=== PATIENT | female | born 1950 | race Caucasian/White ===

== ENCOUNTER → 2019-10-15 09:26 | Outpatient (CLI) | payer BC, SELFPAY | PROVIDERS: PCP Family Medicine; Visit Provider Family Medicine | DX: R07.9 Chest pain, unspecified (principal) | CPT/HCPCS: 93225; 93226 ==

== ENCOUNTER → 2019-12-13 06:53 | Outpatient (CLI) | payer BC, SELFPAY ==
[2019-11-21 10:14] VITALS: BMI 27.5
--- NOTE | 2019-12-13 06:57 | ECHOD_ITS ---
Reason For Study: CHEST PAIN Procedure This was a 2D Doppler, Color Flow transthoracic echocardiogram. Exam performed in department. Left Ventricle Normal LV size. The estimated ejection fraction is 30-35 %. Stage 1 diastolic dysfunction. There is severe global hypokinesis of the left ventricle. Right Ventricle Normal RV size. Normal systolic function. Atria Normal left atrium. Normal right atrium. No doppler evidence for ASD. Mitral Valve There is no mitral valve stenosis. Trivial mitral valve insufficiency. Tricuspid Valve There is no tricuspid stenosis. No tricuspid valve insufficiency. Unable to estimate RV systolic pressure due to insufficient tricuspid regurgitant envelope. Aortic Valve Trisinus/trileaflet aortic valve. There is no aortic stenosis. Trivial aortic valve insufficiency. Pulmonic Valve There is no pulmonic valvular stenosis. No pulmonic valve insufficiency. Great Vessels Normal aortic root. Pericardium/Pleural No pericardial effusion. MMode/2D Measurements & Calculations LVIDd: 5.6 cm IVSd: 1.0 cm Ao root diam: 2.9 cm LVIDs: 4.7 cm LVPWd: 1.0 cm RVDd: 3.8 cm FS: 16.5 % LAV(MOD-bp): 43.4 ml LA A4 area: 12.6 cm2 LA dimension(2D): 3.1 cm LAV(MOD-bp) Indexed: 24.5 ml/m2 LAV(MOD-sp2): 52.1 ml LAV(MOD-sp4): 30.3 ml RA A4 area: 11.8 cm2 Doppler Measurements & Calculations MV E max conor: 63.1 cm/sec Lat Peak E' Conor: 2.7 cm/sec Med Peak E' Conor: 2.2 cm/sec MV A max conor: 113.5 cm/sec E/E' lat: 23.3 E/E' med: 28.8 MV E/A: 0.56 Ao V2 max: 127.9 cm/sec LV V1 max: 94.8 cm/sec PA V2 max: 92.8 cm/sec Ao max P.5 mmHg LV V1 max P.6 mmHg TR max conor: 240.2 cm/sec TR max P.1 mmHg Interpretation Summary The estimated ejection fraction is 30-35 %. Stage 1 diastolic dysfunction. There is severe global hypokinesis of the left ventricle. Trivial mitral valve insufficiency. Trivial aortic valve insufficiency. Ordering Physician: Rasheeda Zabala Referring Physician: Александр Brito Performed By: Tiffanie Nicolas, RANJITH, RVT
--- NOTE | 2019-12-13 11:25 | STRESSREP_ITS ---
Stress Test Report Date: 12/13/2019 Procedure: Pharmacologic stress nuclear imaging study Indications: Chest pain Consent: Per the patient Procedure: The patient underwent pharmacologic (Regadenoson) evaluation with a peak heart rate of 98 beats per minute (65 %predicted maximal heart rate) and a peak blood pressure of 132/80 mmHg. The baseline ECG demonstrated normal sinus rhythm, left bundle branch block. EKG during lexiscan infusion revealed no significant change from baseline. EKG post infusion revealed no significant change from baseline [There were no cardiac dysrhythmias pretest, during pharmacologic infusion, or recovery]. [There was no complaint of chest discomfort during pharmacologic infusion or recovery]. The examination was discontinued secondary to completion of protocol. Impression: 1. Lexiscan stress test test is negative for Lexiscan infusion induced EKG changes of ischemia. 2. Lexiscan stress test test negative for Lexiscan infusion induced chest pain. 3. Results of the nuclear portion of the test is as below Myocardial perfusion imaging study: Technique: The patient was injected with 11.3 millicuries of technetium 99m Cardiolite and subsequently rest SPECT Cardiolite nuclear imaging was obtained in the horizontal long, vertical long, and short axis views. The patient underwent pharmacologic (Regadenoson) evaluation. Please see above for details. The patient was injected with 34.1 millicuries of technetium 99m Cardiolite and subsequently stress SPECT Cardiolite nuclear imaging was obtained in the horizontal long, vertical long, and short axis views. A gated Cardiolite study at peak stress was obtained. Interpretation: Rest and stress SPECT Cardiolite nuclear imaging status post realignment, normalization, and attenuation correction demonstrate moderately decreased radioisotope uptake in the anterior wall on the rest images that is further decreased on the stress images suggestive of prior anterior RI with moderate berhane-infarct ischemia. Gated images reveal global hypokinesis that is more severe in the anterior wall. The reported LVEF is 35 %. Impression: 1. 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 2. Estimated ejection fraction is 35%. This note was generated with [employer] software. It may contain incorrect words, spelling, and punctuation that were not noted in checking the note before signing.
== END ==
PROVIDERS: PCP Family Medicine; Referring Provider Specialist; Visit Provider Specialist
DX: R07.9 Chest pain, unspecified (principal); I49.3 Ventricular premature depolarization; I45.4 Nonspecific intraventricular block
CPT/HCPCS: 78452; 93017; 93306; A9500; A4216; J2785

== ENCOUNTER 2019-12-20 08:55 | Day surgery (SDC) | payer MEDICARE, SELFPAY ==
[2019-12-18 14:53] VITALS: BMI 27.1
--- NOTE | 2019-12-18 15:52 | RAD_ITS ---
HISTORY: Chest pain for several months. ADDITIONAL HISTORY: None provided. COMPARISON: None EXAMINATION/TECHNIQUE: XR Chest 2 Views Number of images including paperwork: 2 FINDINGS: LUNGS AND PLEURA: No consolidation, mass or pleural effusion. CARDIAC SILHOUETTE: Mildly enlarged. MEDIASTINUM AND ALEX: Aortic tortuosity. UPPER ABDOMEN: Unremarkable. SKELETON AND SOFT TISSUES: No acute findings. Degenerative changes. OTHER DEVICES AND HARDWARE: Cervical spine and lumbar hardware partially visible.. RAD/Chest PA and Lateral IMPRESSION: No acute cardiopulmonary abnormality. at 0618 Reported and signed by: Ellie Montes De Oca MD Electronically Signed: Ellie Montes De Oca MD at 6:18 EDT Tel , Service support ,
[2019-12-18 17:14] LABS: Absolute Lymphocyte Count 1.81 X10^3/uL (0.83-4.51); Absolute Neutrophil Count 3.8 X10^3/uL (2.0-7.7); Basophil# 0.04 X10^3/uL; Basophil% 0.6 % (0-1); Eosinophil# 0.16 X10^3/uL; Eosinophils% 2.5 % (0-5); Hematocrit 42.4 % (37-47); Hemoglobin 13.7 g/dL (12.0-15.0); Lymphocyte # 1.81 X10^3/ul (4.0); Lymphocyte % 28.7 % (19-41); Mean Corp Hgb Conc 32.3 g/dL (32-36); Mean Corpuscular Hgb 29.7 pg (27.0-32.0); Mean Corpuscular Volume 91.8 fL (81-99); Mean Platelet Vol. 11.9 fl (6.2-12.0); Monocyte# 0.53 X10^3/uL; Monocyte% 8.4 % (0-10); NRBC Flagged by Analyzer 0 % (0-5); Neutrophil # 3.75 X10^3/uL (2.7-7.7); Neutrophil % 59.5 % (47-70); Platelet Count 253 K/mm3 (150-450); RBC Distribution Width CV 12.6 % (11.6-14.6); RBC Distribution Width SD 42.4 fl (35.1-43.9); Red Blood Count 4.62 M/mm3 (4.2-5.4); White Blood Count 6.3 K/mm3 (4.4-11.0)
[2019-12-18 17:24] LABS: Prothrombin Time (Protime)PT. 12.2 SECONDS (11.7-14.9)
[2019-12-18 17:25] LABS: Partial Thromboplast Time 29.1 Seconds (24.1-36.2)
[2019-12-18 18:00] LABS: Anion Gap 2 (5-15); BUN 15 mg/dL (7-18); BUN/Creat Ratio 14.3 RATIO (10-20); Calcium,Total 9.1 mg/dL (8.5-10.1); Chloride 107 mmol/L (98-107); Creatinine, Serum 1.05 mg/dL (0.55-1.02); EST Glomerular Filtration Rate 55 mL/min (>60); Est Glom Filt Rate - Afr Amer 67 mL/min (>60); Glucose 91 mg/dL (74-106); Potassium 4.1 mmol/L (3.5-5.1); Sodium Level 140 mmol/L (136-145)
[2019-12-19 08:29] VITALS: BMI 27.1
[2019-12-20] VITALS (15 sets, daily range): BP systolic 114–142; BP diastolic 58–75; PULSE 52–72; RESP 12–18; TEMP 36.6–36.8; O2SAT 93–100
--- NOTE | 2019-12-20 12:00 | EKG12_ITS ---
Test Reason : DYSRHYTHMIA Blood Pressure : / mmHG Vent. Rate : 054 BPM Atrial Rate : 054 BPM P-R Int : 146 ms QRS Dur : 146 ms QT Int : 476 ms P-R-T Axes : 045 045 086 degrees QTc Int : 451 ms Sinus bradycardia Left bundle branch block Abnormal ECG Confirmed by HELENE HINES, RICHARD ([id number]), electronic news gathering editor YAQUELIN POPE ([id number]) on 01/01/2020 8:40:00 AM Referred By: Rasheeda Zabala Confirmed By:RICHARD NARAYAN MD
--- NOTE | 2019-12-20 12:46 | CL.I_ITS ---
Patient Name: EVANS BARR Study Date: 12/20/2019 Performing: Silvia Zabala MD Ht: 63 inches 161 cm : 1950 Wt: 156.7 lbs 71 kg Age: 69 Gender: female BSA: 1.75 PROCEDURE(S) PERFORMED [id number] W OR WO PTCA, SINGLE CORONARY ARTERY CLINICAL PROFILE AND CO-MORBIDITIES Indications: Worsening Angina Heart Failure: None Stress/Imaging Stress Test w/SPECT MPI: Yes Result: Positive High Risk Stress Test with SPECT MPI : Positive High Risk CAD Presentations: Unstable angina. CONCLUSIONS Single vessel CAD as described. Successful PCI of pLAD with POOL RECOMMENDATIONS DESCRIPTION OF PROCEDURE The patient arrived to the procedure lab. The risks and benefits of the procedure as well as a full d escription of our services here and lack of surgical backup were fully explained to the patient and/o r their significant other prior to the catheterization. The Timeout was completed, verifying the ovidio ect patient and procedure. The patient's procedural site was prepped and draped in the usual fashion. Local anesthetic was given subcutaneously to right radial region with Lidocaine 2%. Using a modified Seldinger technique, arterial access was obtained via the right radial artery, a 6Fr sheath was inse rted.. Left Coronary Artery selective angiography was performed in multiple views using a 5 Fr. FL3. 5 catheter. Right Coronary Artery selective angiography was then performed in multiple views using a 5 Fr. FR 4 catheterThe images were reviewed and options discussed. A decision was then made to procee d with an Intervention, IVUS or other adjunct procedure. XB 3.0 Guide catheter was inserted and engaged into the LCA. BMW Guide wire was advanced to the L AD. 3.0 x 8 Emerge Balloon catheter was advanced across lesion in the LAD, proximal. PTCA balloon inf lated at 14 atms for 25 secs. 4.0 x 16 Synergy Drug Eluting stent was advanced across the lesion in t he LAD, proximal. Angiogram performed post stent deployment. The arterial sheath was pulled and a T R Band was applied for hemostasis 12cc air inserted CORONARY ANGIOGRAPHY DOMINANCE: Right Dominant LEFT HEART ASSESSMENT Left Ventricular Ejection Fraction: by Echo 30-35 % LEFT MAIN: Mild luminal irregularities LEFT ANTERIOR DESCENDING ARTERY: PROX LAD: 95 % Stenosis MID LAD: 20 % Stenosis CIRCUMFLEX ARTERY: Mild luminal irregularities RIGHT CORONARY ARTERY: Mild luminal irregularities INTERVENTION INFORMATION LESION SITE: LAD (Proximal) Lesion Complexity: Non-High/Non-C, chronic total occlusion: No, lesion at bifurcation: No, thrombus p resent: No, lesion length: 15 mm, culprit lesion: Yes, Previously treated lesion: No Pre Stenosis: 95 % Pre intervention MARITO flow: 3 PROCEDURE: Drug Eluting Stent with pre dilatation. Post Stenosis: 0 % Post intervention MARITO flow: 3 Lesion Devices: Cardinal 6 Fr XB3.0 100cm Guide Catheter Mcmillan .014 BMW [place] Straight 190cm Dany Sci EMERGE MR 3.00x08 BALLOON Dany Sci Synergy MR POOL 4.00x16 COMPLICATIONS No Complications PROCEDURE MEDICATIONS Versed 1 mg IV Oxygen: 2 L/min via nasal cannula Brilinta 180 mg PO @ 12/20/2019 11:21:46 Heparin given IA 12/20/2019 10:58:10 Heparin 2000 unit(s) IV 12/20/2019 11:09:37 Verapamil 2.5mg, Ntg 100mcgs, 3000 units of Heparin given IA 12/20/2019 10:58:10 SUMMARY OF HEMODYNAMIC DATA Time AIR REST ECG 09:18:38 AO 110/51 (72) SA 11:00:07 AO 135/54 (81) 11:10:51 Signed By Silvia Zabala MD On 12/20/2019 12:45:23 PM Silvia Zabala MD
--- NOTE | 2019-12-20 13:52 | CRPHASE1_ITS ---
Patient Communication Former Patient:: Phase I PHII Cardiac Rehab Discussed with Patient:: Yes Guide to Cardiac Rehab Given to Patient:: Yes Cardiac Rehab Facility Choice List Given to Patient:: Yes Choice Program [facility] PHII:: Communication Given to CR Director Of Security:: Rasheeda Zabala Refer Phase II Cardiac Rehab:: Yes Risk Factors/Lifestyle Smoking Status: Never smoker Second-Hand Smoke:: No Hx Hypertension: Yes Hx Diabetes Mellitus Type 1: No Hx Diabetes Mellitus Type 2: No Hx Metabolic Disorders: No Hx Dyslipidemia: No Hx Obesity: No Post-Menopausal: Yes ETOH: No Caffeine: No Substance Abuse: No Risk Factor for Sedentary Lifestyle: Lowest Risk Family History: Family History (Last Reviewed 12/18/19 @ 15:[address] Rasheeda Zabala MD) Father Hypertension Sister Breast cancer Cancer Hypertension Brother Hypertension Phase I Education Given On:: [place], Nutrition, Antiplatelet medication Issues Affecting Care:: None Knowledge of Condition:: Yes Learning Preferences: Verbal, Written Cardiac Rehabilitation Info Cardiac Rehabilitation Program Information: Cardiac Rehabilitation is important for patients like you who are recovering from a heart problem. Cardiac rehabilitation programs are recognized as integral to the continued care of the patient with coronary heart disease. The cardiac rehabilitation program is designed to optimize a patient's physical, psychological, and social functioning. Health doggy daycare activities director work in cardiac rehabilitation programs and assist you with getting the treatments you need to get stronger and healthier - like exercise, healthy eating habits, and medications. Cardiac rehabilitation has been show to help people with heart problems live longer and have better life enjoyment than people who do not go to cardiac rehabilitation. Please contact the Cardiac Rehabilitation Program at [facility] at in two weeks if you have not heard from them.
--- NOTE | 2019-12-20 13:54 | CRPH1.INSTRU ---
General Education CAD and cardiac anatomy and function:: Patient communicates acknowledgment, Family communicates acknowledgment Explanation of diagnoses and procedures:: Patient communicates acknowledgment, Family communicates acknowledgment Sign/Symptoms of [place]:: Patient communicates acknowledgment, Family communicates acknowledgment Antiplatelet therapy: Patient communicates acknowledgment, Family communicates acknowledgment Proper use of NTG-SL: Patient communicates acknowledgment, Family communicates acknowledgment Emergency procedures and activation of EMS: Patient communicates acknowledgment, Family communicates acknowledgment Compliance of all prescribed medications: Patient communicates acknowledgment, Family communicates acknowledgment Hypertension Recommendations Include:: Maintain BP <130/85, DASH dietary guidelines, Decrease/maintain normal body weight, Moderation of ETOH Hypertension:: Patient communicates acknowledgment, Family communicates acknowledgment Heart Disease Recommendations Include:: Educated family members of their risk, Educated family members of importance of prevention of heart disease Heart Disease Response Code:: Patient communicates acknowledgment, Family communicates acknowledgment
--- NOTE | 2019-12-20 18:03 | NURSING ---
1750 This RN taking over care of pt at this time. Report received from Giancarlo ALBA.
[2019-12-20] MEDS: Famotidine 20 MG Tablet 40 MG PO (21:13)
[2019-12-20] MEDS: Atorvastatin Calcium 40 MG Tablet PO (21:14)
[2019-12-20] MEDS: TICAGRELOR 90 MG TABLET PO (21:14)
[2019-12-21] VITALS: BP 136/59; PULSE 54; RESP 16; TEMP 36.9; O2SAT 98
[2019-12-21 02:59] VITALS: PULSE 47
[2019-12-21 04:00] VITALS: BP 126/63; PULSE 54; RESP 16; TEMP 36.6; O2SAT 97
[2019-12-21 06:22] LABS: Hematocrit 40.7 % (37-47); Hemoglobin 13.2 g/dL (12.0-15.0); Mean Corp Hgb Conc 32.4 g/dL (32-36); Mean Corpuscular Hgb 29.3 pg (27.0-32.0); Mean Corpuscular Volume 90.4 fL (81-99); Mean Platelet Vol. 11.4 fl (6.2-12.0); Platelet Count 221 K/mm3 (150-450); RBC Distribution Width CV 12.6 % (11.6-14.6); RBC Distribution Width SD 41.8 fl (35.1-43.9); White Blood Count 7.4 K/mm3 (4.4-11.0)
[2019-12-21 06:41] LABS: ALB/GLOB Ratio 1.1 RATIO (0.9-2.4); AST(SGOT) 17 U/L (15-37); Alanine Aminotransfer ALT/SGPT 22 U/L (13-56); Albumin, Serum 3.4 g/dL (3.2-5.0); Alkaline Phosphatase 50 U/L (45-117); Anion Gap 4 (5-15); BUN 16 mg/dL (7-18); Calcium,Total 8.8 mg/dL (8.5-10.1); Chloride 109 mmol/L (98-107); Creatinine, Serum 0.89 mg/dL (0.55-1.02); EST Glomerular Filtration Rate 67 mL/min (>60); Est Glom Filt Rate - Afr Amer 81 mL/min (>60); Estimated Creatinine Clearance 48.65 ml/min; Globulin 3.1 g/dL (2.2-4.2); Glucose 84 mg/dL (74-106); Potassium 3.8 mmol/L (3.5-5.1); Protein, Total 6.5 g/dL (6.4-8.2); Sodium Level 142 mmol/L (136-145)
[2019-12-21 06:45] VITALS: O2SAT 97
[2019-12-21 07:28] VITALS: PULSE 62
[2019-12-21 10:00] VITALS: BP 132/51; PULSE 54; RESP 16; TEMP 36.9; O2SAT 97
[2019-12-21] MEDS: TICAGRELOR 90 MG TABLET PO (10:06)
[2019-12-21] MEDS: Lisinopril 2.5 MG Tablet PO (10:06)
[2019-12-21] MEDS: Pantoprazole Sodium 40 MG Tablet PO (10:06)
[2019-12-21] MEDS: Multivitamins,Ther W-Minerals Tablet 1 TABLET PO (10:06)
[2019-12-21] MEDS: Aspirin E.C. 81 MG Tablet PO (10:06)
--- NOTE | 2019-12-21 10:49 | PCM.DC.CCA ---
Discharge Diet: Low fat/ Low Cholesterol Discharge Activity: Return to Normal Activity May shower in (days): 1 Lifting Restrictions: 10 pounds and also avoid any pushing or pulling for 3 days after your proce Call your doctor if your incision/area has: Continuous Slow Oozing, Sudden Increased Bleeding, Increased Pain/ Swelling, Increased Redness, Swelling at the incision site Call your doctor if you observe: Fever of 101 or Higher, Shortness of breath, Chest pain Remove Dressing in (days):: 1 Additional Instructions: You are started on Brilinta, this is an Antiplatelet inhibitor. This will help keep your stents open. You need to stay on this medication for at least 1 year prior to it being interrupted. You are also started on a cholesterol-lowering medication. You should have your lipids checked after your next office visit. You were referred to cardiac rehab. We can further discuss this at your next office visit. If you have any concerns on the site that was used for your heart catheterization please give our office a call at [phone]. Allergies/Adverse Reactions: Allergies Opioids - Morphine Analogues Allergy (Intermediate, Verified 12/18/19 14:57) Unknown Medications to take at Discharge cholecalciferol (vitamin D3) 25 mcg (1,000 unit) tablet 25 mcg PO DAILY 11/06/19 wklhfuti-jmy-ouivm acid 0.4 mg-lycopene 300 mcg-lutein 250 mcg tablet 1 tab PO DAILY 11/06/19 pantoprazole 40 mg tablet,delayed release 40 mg PO DAILY 11/06/19 aspirin 81 mg tablet,delayed release 81 mg PO DAILY 12/18/19 cimetidine 800 mg tablet 800 mg PO QHS tab 12/18/19 lisinopril 2.5 mg tablet 2.5 mg PO DAILY #30 tab 12/18/19 metoprolol succinate 100 mg tablet,extended release 24 hr 100 mg PO DAILY #30 tab 12/18/19 Atorvastatin Calcium [Lipitor] 40 mg PO QHS #30 tab 12/21/19 Ticagrelor [Brilinta] 90 mg PO BID #60 tab 12/21/19 The following prescriptions were given: Ticagrelor [Brilinta] 90 mg PO BID #60 tab Transmission Status: Pending to [facility]/pharmacy #[id number] Atorvastatin Calcium [Lipitor] 40 mg PO QHS #30 tab Transmission Status: Pending to [facility]/pharmacy #[id number] Orders to be completed after discharge: Phase II, Outpatient Cardiac Rehab Location: None Selected Primary Care Physician: Александр Brito MD [Primary Care Provider] - Test Results: Test results from this visit will be discussed in further detail at your follow-up appointment, if applicable. Please Follow Up With: Rasheeda Zabala MD When: as scheduled 01/22/2020 Cardiac Rehabilitation Info Cardiac Rehabilitation Program Information: Cardiac Rehabilitation is important for patients like you who are recovering from a heart problem. Cardiac rehabilitation programs are recognized as integral to the continued care of the patient with coronary heart disease. The cardiac rehabilitation program is designed to optimize a patient's physical, psychological, and social functioning. Health laboratory animal caretaker work in cardiac rehabilitation programs and assist you with getting the treatments you need to get stronger and healthier - like exercise, healthy eating habits, and medications. Cardiac rehabilitation has been show to help people with heart problems live longer and have better life enjoyment than people who do not go to cardiac rehabilitation. Please contact the Cardiac Rehabilitation Program at [facility] at in two weeks if you have not heard from them.
--- NOTE | 2019-12-21 11:28 | CASEMGMT ---
PARTH CABA NOTE: Pt will be discharged home on Brilinta. PARTH CABA to room at this time to talk w/pt and @ bedside. Pt confirms [facility] in [place] is her preferred pharmacy. Discussed Brilinta savings card and instructions given on use. Pt/ made aware that if cost of refills is not affordable to let manager of internal audit know so other options can be discussed. They voice understanding. Pt/ made aware of importance of taking medication as prescribed. Pt's next scheduled appt @ [facility] is Jan 21. Call placed to [facility] and spoke to Sameera. She was made aware pt will need refill on Brilinta prior to appt. She states she will have script sent to [facility] for refill. Pt made aware. Pt denies having any discharge needs/concerns at this time. Informed her and to ask for PARTH CABA if anything arises. Jhoana FRIED RN, CM
--- NOTE | 2019-12-21 12:00 | EKG12_ITS ---
Test Reason : POST CATH Blood Pressure : / mmHG Vent. Rate : 050 BPM Atrial Rate : 050 BPM P-R Int : 148 ms QRS Dur : 138 ms QT Int : 438 ms P-R-T Axes : 057 074 257 degrees QTc Int : 399 ms Sinus bradycardia Left bundle branch block Abnormal ECG No previous ECGs available Confirmed by AGUSTÍN GUPTA ([id number]), television news video editor MARIE LEGGETT ([id number]) on 12/24/2019 12:47:36 PM Referred By: Rasheeda Zabala Confirmed By:AGUSTÍN GUPTA
--- NOTE | 2019-12-21 12:35 | PCM.PN.CARD ---
Subjectve: Patient is doing well. Patient is doing well. She denies any anginal symptoms. She does have some shortness of breath which could be related to Brilinta. Explained this to the patient. Explained to her that usually this gets better but if it is significantly bothersome for her then we could switch to Plavix. Objective: Vital Signs Temp Pulse Resp BP Pulse Ox 98.4 F 54 L 16 132/51 H 97 12/21/19 10:00 12/21/19 10:00 12/21/19 10:00 12/21/19 10:00 12/21/19 10:00 Oxygen Flow Rate (L/min) 2 Oxygen Delivery Method Room Air Weight: 156 lb Body Mass Index (BMI) 27.1 General: Awake, Alert, Oriented x 3 HEENT: Atraumatic Oral: Moist Mucosa Neck: Supple Cardiovascular: Regular Rhythm Skin: No Rashes Psych/Mental Status: Appropriate 12/21/19 06:03: WBC 7.4, RBC 4.50, Hgb 13.2, Hct 40.7, MCV 90.4, MCH 29.3, MCHC 32.4, Plt Count 221, MPV 11.4 12/21/19 06:03: Sodium 142, Potassium 3.8, Chloride 109 H, Carbon Dioxide 29.0, Anion Gap 4 L, BUN 16, Creatinine 0.89, Est GFR (MDRD) Af Amer 81, Est GFR (MDRD) Non-Af 67, BUN/Creatinine Ratio 18.0, Glucose 84, Calcium 8.8, Total Bilirubin 0.60 Rhythm: EKG: ECHO: Stress Test: Cardiac Cath: PCI: CT Surgery: Holter monitor: EPS: PPM: CXR: Chest CT Scan: Medical Necessity - Tobacco Use Smoking Status: Never smoker Assessment/Plan 1. Coronary artery disease: Patient was admitted yesterday (12/20/2019) after elective coronary angiography as she ended up requiring drug-eluting stent to the LAD. She is doing well at this time. She will be discharged home. She will follow-up with me as an outpatient. Date of discharge is 12/21/2019.
== END 2019-12-21 12:38 | disposition home or self-care (01) ==
LOC: CLSP 08:56 → PCU 12-21 09:35
PROVIDERS: PCP Family Medicine; Referring Provider Specialist; Visit Provider Specialist
DX: I25.110 Atherosclerotic heart disease of native coronary artery with unstable angina pectoris (principal); I49.3 Ventricular premature depolarization; I47.1 Supraventricular tachycardia; I25.2 Old myocardial infarction; R94.39 Abnormal result of other cardiovascular function study; Z95.5 Presence of coronary angioplasty implant and graft; Z79.899 Other long term (current) drug therapy
CPT/HCPCS: 36415; 71046; 80048; 80053; 85025; 85027; 85610; 85730; 92928; 93005; 93454; 99152; 99153; J7040; Q9967; C1725; C1769; C1874; C1887; C1894; C9600; J1327

== ENCOUNTER 2019-12-29 01:18 | Observation (INO) | payer MEDICARE, SELFPAY ==
[2019-12-19 08:29] VITALS: BMI 27.1
[2019-12-29] VITALS (10 sets, daily range): BP systolic 136–163; BP diastolic 58–82; PULSE 51–56; RESP 16–18; TEMP 36.5–36.7; O2SAT 98–100; BMI 28.8; BMI 26.4
--- NOTE | 2019-12-29 01:50 | ED.DCSUM_ITS ---
History of Present Illness Chief Complaint: Chest Other Narrative: Presents with pain between the shoulder blades radiating to her right shoulder. She had coronary stent placed a week ago after she had an abnormal stress echocardiogram. She is denying chest pain she has no pleuritic component she has no fever chills cough or congestion she denies any dyspnea. Past Medical History - Allergies and Home Meds Allergies/Adverse Reactions: Allergies Opioids - Morphine Analogues Allergy (Intermediate, Verified 12/29/19 01:28) Unknown Primary Care Physician: Александр Brito MD [Primary Care Provider] - Past Medical History: - - Hypertension, hypercholesterolemia, heart disease Smoking Status: Never smoker Review of Systems All systems negative except as indicated General: Denies: Fever Eyes: Denies: Visual changes - bilaterally Cardiovascular: Denies: Chest pain Respiratory: Denies: Dyspnea, Cough Gastrointestinal: Denies: Abdominal pain, Nausea, Vomiting Genitourinary: Denies: Dysuria Musculoskeletal: Reports: - - Pain between the the shoulder blades radiating to the right shoulder Skin: Denies: Rash Neurological: Denies: Headache, Weakness Endocrine: Denies: Polyuria Hematologic: Denies: Easy bruising, Easy bleeding Allergy: Denies: Uticaria Physical Exam Vital Signs/Narrative: Vital Signs Temp Pulse Resp BP Pulse Ox 12/29/19 01:21 97.9 F 53 L 16 163/82 H 99 General: Well nourished, Well developed Eyes: Negative for: Pale conjunctiva ENT: Moist mucous membranes Neck: Supple Cardiovascular: Regular rate, Regular rhythm, No murmurs Respiratory: No distress, CTA bilaterally, Chest nontender Abdomen: Soft, Nontender Back: - - I cannot reproduce the pain in the thoracic region or the shoulder region Extremities: No edema Skin: Normal color Neurological: Normal Strength, Normal Sensation Psychological: Normal affect Diagnostic/Tx/Re-eval - Rhythm Strip Rhythm Strip: Sinus Rhythm Rate: 54 Ectopy: None - EKG Initial EKG Interpretation: - - Sinus rhythm. Left bundle branch block without change from December 21, 2019. Interpreted by emergency doctor. - Medical Decision Making Patient has an unremarkable emergency department work-up however because of her high cardiac risk factors I will admit her for observation cardiology will get involved in the morning at this time she has an unchanged EKG and a negative first troponin I do not believe I need to call cardiology at 3 AM. I talked to the hospitalist who will admit. She is now asymptomatic. ED Disposition - Plan for ED Patient: Disposition: Acute Care Hospital [facility] Diagnosis: Thoracic back pain Referrals: Александр Brito MD [Primary Care Provider] -
--- NOTE | 2019-12-29 02:12 | RAD_ITS ---
STUDY: X-RAY CHEST REASON FOR EXAM: Female, 69 years old. pain in between shoulder blades and into right shoulder 12-19. has been having pain since. -- had heart stent placed on 12/19 TECHNIQUE: Single frontal view of the chest. COMPARISON: 12/18/2019. FINDINGS: No pneumothorax or pleural effusion. Basilar atelectasis. No focal consolidation. Normal size heart. Aortic calcifications. There are diffuse degenerative changes of the visualized thoracic spine. Scoliotic curvature to the spine. Visualization cervical spine hardware. EKG leads artifacts. There is no demonstrated abnormality of the visualized soft tissue structures of the upper abdomen. RAD/Chest 1 View (Portable) IMPRESSION: No focal consolidation identified. Electronically Signed: Antelmo Duran, at 2:51 EDT Tel , Service support ,
[2019-12-29 02:15] LABS: Absolute Lymphocyte Count 2.74 X10^3/uL (0.83-4.51); Absolute Neutrophil Count 3.8 X10^3/uL (2.0-7.7); Basophil# 0.07 X10^3/uL; Basophil% 0.9 % (0-1); Eosinophil# 0.25 X10^3/uL; Eosinophils% 3.4 % (0-5); Hematocrit 38.9 % (37-47); Hemoglobin 12.8 g/dL (12.0-15.0); Lymphocyte # 2.74 X10^3/ul (4.0); Lymphocyte % 36.9 % (19-41); Mean Corp Hgb Conc 32.9 g/dL (32-36); Mean Corpuscular Hgb 29.9 pg (27.0-32.0); Mean Corpuscular Volume 90.9 fL (81-99); Mean Platelet Vol. 12.4 fl (6.2-12.0); Monocyte# 0.57 X10^3/uL; Monocyte% 7.7 % (0-10); NRBC Flagged by Analyzer 0 % (0-5); Neutrophil # 3.76 X10^3/uL (2.7-7.7); Neutrophil % 50.6 % (47-70); Platelet Count 236 K/mm3 (150-450); RBC Distribution Width CV 12.6 % (11.6-14.6); RBC Distribution Width SD 41.2 fl (35.1-43.9); Red Blood Count 4.28 M/mm3 (4.2-5.4); White Blood Count 7.4 K/mm3 (4.4-11.0)
[2019-12-29] MEDS: Aspirin 81 MG TAB.CHEW 324 MG PO (02:18)
[2019-12-29 02:36] LABS: Anion Gap 2 (5-15); BUN 15 mg/dL (7-18); BUN/Creat Ratio 17.6 RATIO (10-20); Chloride 110 mmol/L (98-107); Creatinine, Serum 0.85 mg/dL (0.55-1.02); EST Glomerular Filtration Rate 70 mL/min (>60); Est Glom Filt Rate - Afr Amer 85 mL/min (>60); Estimated Creatinine Clearance 53.18 ml/min; Glucose 90 mg/dL (74-106); Potassium 4.2 mmol/L (3.5-5.1); Sodium Level 141 mmol/L (136-145)
--- NOTE | 2019-12-29 03:17 | HP.PCM_ITS ---
History of Present Illness Date of Admission: 12/29/19 Chief Complaint: chest pain The patient is a 69 year old F with a past medical history of CAD status post stents on 12/20/2019. She was admitted through the ED on 12/29/2019 with a complaint of chest pain which radiated to her back into her right shoulder. Pain was rated about 5/10, had no aggravating or relieving factors. She denied any assisted lightheadedness, dizziness, palpitations, nausea vomiting. Review of symptoms otherwise negative. She states pain has been going on since 5 days prior to admission but had gradually worsened and was persistent so she decided to come into the ED. She was seen in the hospital 1 week ago for chest pain and had an abnormal stress test and so had stents put in the LAD. She has been compliant with her aspirin and her Brilinta was switched to Plavix. The ED, vitals showed temperature of 98.1 Fahrenheit with blood pressure of 136/60, pulse rate of 56 and respiratory rate of 18. She was saturating at 98% on room air. Chemistry essentially unremarkable and CBC was also unremarkable. Initial troponin was less than 0.015. Chest x-ray showed no acute cardiopulmonary process. She has been admitted to be managed for chest pain rule out ACS. [] Past Medical History Medical History: Medical History (Last Updated 12/20/19 @ 13:06 by Michelle Cameron) Atherosclerosis of coronary artery of [place] heart without angina pectoris (Acute) I25.10 BBB (bundle branch block) (Acute) I45.4 PVC's (premature ventricular contractions) (Acute) I49.3 Chest pain (Acute) R07.9 Chronic neck pain with history of cervical spinal surgery M54.2, G89.28, Z98.890 History of chronic back pain Z87.39 Osteopenia M85.80 Allergies Opioids - Morphine Analogues Allergy (Intermediate, Verified 12/29/19 01:28) Unknown Home Medications: Ambulatory Orders Medication Instructions Recorded cholecalciferol (vitamin D3) 25 25 mcg PO DAILY 11/06/19 mcg (1,000 unit) tablet lkjlbwyj-pco-ssiqt acid 0.4 1 tab PO DAILY 11/06/19 mg-lycopene 300 mcg-lutein 250 mcg tablet pantoprazole 40 mg tablet,delayed 40 mg PO DAILY 11/06/19 release aspirin 81 mg tablet,delayed 81 mg PO DAILY 12/18/19 release lisinopril 2.5 mg tablet 2.5 mg PO DAILY #30 tab 12/18/19 metoprolol succinate 100 mg 100 mg PO DAILY #30 tab 12/18/19 tablet,extended release 24 hr Atorvastatin Calcium [Lipitor] 40 mg PO QHS #30 tab 12/21/19 clopidogrel 75 mg tablet 75 mg PO DAILY #30 tab 12/26/19 Surgical History: Surgical History (Last Updated 12/20/19 @ 13:04 by Michelle Cameron) History of coronary artery stent placement (Acute) Z95.5 4.00 x 16 mm Synergy MR POOL to pLAD 12/20/19 History of ankle surgery Z98.890 right History of fusion of cervical spine Z98.1 History of hip surgery Z98.890 Bursa removed from left hip History of lumbar fusion Z98.1 History of microdiscectomy Z98.890 L3-4 Psychiatric History: No pertinent psych hx Lives: Spouse/ Significant Other Smoking Status: Never smoker Alcohol: Occasional Drugs: None - *Family History Maternal Family History: Family History (Last Reviewed 12/18/19 @ 15:[address] Rasheeda Zabala MD) Father Hypertension Sister Breast cancer Cancer Hypertension Brother Hypertension Review of Systems Constitutional: Denies: Chills, Fever, Malaise, Weakness, Weight Change Eyes: Denies: Blurred vision HEENT: Denies: Head Aches, Sinus Congestion, Sinus Drainage Cardiovascular: Reports: Chest Pain. Denies: Chest Pressure, Chest Tightness, Edema, Heaviness, Light Headedness, Orthopnea, Palpitations, Paroxysmal Noc. Dyspnea, Syncope Respiratory: Denies: Cough, Shortness of Breath, Shortness of breath at rest, Sputum production Gastrointestinal: Denies: Abdominal Pain, Nausea, Vomiting Genitourinary: Denies: Dysuria Musculoskeletal: Reports: Back Pain - radiating to right shoulder. Denies: Joint Pain, Joint Tenderness Skin: Denies: Rash, Wounds Neurological: Denies: Numbness, Tingling, Focal weakness Psychiatric: Denies: Anxiety, Depression, Homicidal Ideations, Suicidal Ideations Hematologic/ Lymphatic: Denies: Easy Bruising, Easy Bleeding VTE Information - Inpt Only VTE Present on Admission: No VTE Pharm Prophylaxis ordered?: Yes Patient Problems: Active and Suspected Problems (Last Updated 12/20/19 @ 13:06 by Michelle Cameron) Thoracic back pain (Acute) - Physical Exam Vitals/I&O's: Vital Signs Temp Pulse Resp BP Pulse Ox 97.9 F 51 L 16 138/76 H 98 12/29/19 01:21 12/29/19 02:18 12/29/19 02:18 12/29/19 02:18 12/29/19 02:18 Oxygen Delivery Method Room Air Weight: 167 lb 8.821 oz Body Mass Index (BMI) 28.8 General: Alert, Oriented x3, Cooperative, No apparent distress HEENT: Atraumatic, PERRLA, EOMI, Normocephalic Oral: Moist Mucosa Neck: Supple, No JVD, Negative Carotid Bruits Lungs: Clear to auscultation, Normal air movement, No rhonchi, No wheeze, No rales Cardiovascular: Normal S1, Normal S2, No murmurs, Bradycardic Abdomen: Bowel Sounds Present, Soft, Non Tender, Non-Distended, No Hepato- splenomegaly Extremities: No edema, Capillary Refill Less than 3 Seconds Skin: No rashes, No breakdown Musculoskeletal: No Tenderness to Palpation of Joints or Extremities Lymphatic: No Cervical, Supraclavicular, or Inguinal Adenopathy Neurological: Cranial nerves II-XII grossly intact, Neuro grossly intact, Motor Exam 5/5 strength throughout Psych/Mental Status: Normal Affect, Appropriate, Alert and oriented to time, place, person, mood and affect Laboratory Results 12/29/19 01:30: WBC 7.4, RBC 4.28, Hgb 12.8, Hct 38.9, MCV 90.9, MCH 29.9, MCHC 32.9, RDW Std Deviation 41.2, RDW Coeff of Ten 12.6, Plt Count 236, MPV 12.4 H, Immature Gran % (Auto) 0.500, Neut % (Auto) 50.6, Lymph % (Auto) 36.9, [place] % (Auto) 7.7, Eos % (Auto) 3.4, Baso % (Auto) 0.9, Absolute Neuts (auto) 3.8, Absolute Lymphs (auto) 2.74, Nucleated RBC % 0 12/29/19 01:30: Sodium 141, Potassium 4.2, Chloride 110 H, Carbon Dioxide 29.0, Anion Gap 2 L, BUN 15, Creatinine 0.85, Estim Creat Clear Calc 53.18, Est GFR (MDRD) Af Amer 85, Est GFR (MDRD) Non-Af 70, BUN/Creatinine Ratio 17.6, Glucose 90, Calcium 9.0, Troponin I < 0.015 Diagnostic Data Chest X-Ray 12/29/19 02:12 IMPRESSION: No focal consolidation identified. Electronically Signed: Antelmo Duran, at 2:51 EDT Tel , Service support , Assessment/Plan All Active Problems (Last Updated 12/20/19 @ 13:06 by Michelle Cameron) Thoracic back pain (Acute) Atherosclerosis of coronary artery of [place] heart without angina pectoris (Acute) History of coronary artery stent placement (Acute) LV dysfunction (Acute) Abnormal stress test (Acute) Atrial tachycardia (Acute) BBB (bundle branch block) (Acute) PVC's (premature ventricular contractions) (Acute) Chest pain (Acute) 69-year-old female admitted with a complaint of chest pain. 1. Chest pain * Admit to PCU with telemetry * Initial troponin was negative. EKG showed mild sinus bradycardia. * She status post stent placement in the LAD on 12/20/2019. * Will cycle troponins. Continue p.o. aspirin and Plavix as well as statin. Hold metoprolol on account of patient having bradycardia with heart rate went down to the mid 40s during review. * Consult cardiology in light of patient having recently had stent placed about a week ago and now presenting with chest pain. * 2. Sinus bradycardia: * Heart rate went down to the mid 40s during review though EKG showed heart rate of 56. * Will hold metoprolol for now. * Check TSH. * 3. CAD status post stent * Had abnormal stress test and subsequent cath resulted in stent placement in the LAD. * On aspirin, Plavix and statin as well as low-dose lisinopril. Metoprolol held on account of bradycardia on admission. * DVT prophylaxis: Lovenox CODE STATUS: Full code * Patient counseled extensively about different types of CODE STATUS including full code, DNR CCA and DNR CCA. Patient elects to be full code. * Total swnj-id-mpoa time 16 minutes. OBSV E&M: 72875 Initial observation care L2 Procedures: 37561 Advncd Care Plan 30 Min
--- NOTE | 2019-12-29 03:51 | EKG12_ITS ---
Test Reason : NEW ADMISSION Blood Pressure : / mmHG Vent. Rate : 049 BPM Atrial Rate : 049 BPM P-R Int : 148 ms QRS Dur : 146 ms QT Int : 478 ms P-R-T Axes : 049 039 086 degrees QTc Int : 431 ms Sinus bradycardia Left bundle branch block Abnormal ECG When compared with ECG of 21-DEC-2019 06:31, T wave inversion no longer evident in Inferior leads Confirmed by HELENE HINES, RICHARD ([id number]), newspaper editor managing MARIE LEGGETT ([id number]) on 01/03/2020 4:00:13 PM Referred By: JONEL Confirmed By:RICHARD NARAYAN MD
[2019-12-29 04:18] LABS: Thyroid Stim Hormone (TSH) 3.56 uIU/mL (0.358-3.74)
[2019-12-29] MEDS: Acetaminophen 325 MG Tablet 650 MG PO (05:06)
[2019-12-29 05:26] LABS: Absolute Lymphocyte Count 1.98 X10^3/uL (0.83-4.51); Absolute Neutrophil Count 3.1 X10^3/uL (2.0-7.7); Basophil# 0.05 X10^3/uL; Basophil% 0.9 % (0-1); Eosinophil# 0.22 X10^3/uL; Eosinophils% 3.8 % (0-5); Hematocrit 39.1 % (37-47); Hemoglobin 12.7 g/dL (12.0-15.0); Lymphocyte # 1.98 X10^3/ul (4.0); Lymphocyte % 34.1 % (19-41); Mean Corp Hgb Conc 32.5 g/dL (32-36); Mean Corpuscular Hgb 29.5 pg (27.0-32.0); Mean Corpuscular Volume 90.7 fL (81-99); Mean Platelet Vol. 11.7 fl (6.2-12.0); Monocyte# 0.45 X10^3/uL; Monocyte% 7.8 % (0-10); NRBC Flagged by Analyzer 0 % (0-5); Neutrophil # 3.09 X10^3/uL (2.7-7.7); Neutrophil % 53.2 % (47-70); Platelet Count 219 K/mm3 (150-450); RBC Distribution Width CV 12.3 % (11.6-14.6); RBC Distribution Width SD 40.7 fl (35.1-43.9); Red Blood Count 4.31 M/mm3 (4.2-5.4); White Blood Count 5.8 K/mm3 (4.4-11.0)
[2019-12-29 05:42] LABS: Anion Gap 2 (5-15); BUN 15 mg/dL (7-18); BUN/Creat Ratio 19.1 RATIO (10-20); Calcium,Total 8.6 mg/dL (8.5-10.1); Chloride 111 mmol/L (98-107); Creatinine, Serum 0.79 mg/dL (0.55-1.02); EST Glomerular Filtration Rate 77 mL/min (>60); Est Glom Filt Rate - Afr Amer 93 mL/min (>60); Glucose 85 mg/dL (74-106); Sodium Level 141 mmol/L (136-145)
[2019-12-29] MEDS: Pantoprazole Sodium 40 MG Tablet PO (10:26)
[2019-12-29] MEDS: Lisinopril 2.5 MG Tablet PO (10:26)
[2019-12-29] MEDS: Clopidogrel Bisulfate 75 MG Tablet PO (10:26)
[2019-12-29] MEDS: Multivitamins,Ther W-Minerals Tablet 1 TABLET PO (10:26)
[2019-12-29] MEDS: Aspirin E.C. 81 MG Tablet PO (10:26)
[2019-12-29] MEDS: HYDROcodone Bitartrate/Apap 5/325 Tablet PO (10:29)
--- NOTE | 2019-12-29 10:42 | CT_ITS ---
STUDY: CT THORACIC SPINE WITHOUT CONTRAST REASON FOR EXAM: Female, 69 years old. MID BACK PAIN FOLLOWING CARDIAC STENT PLACEMENT 12/20/19 RADIATION DOSAGE (If Supplied By Facility): CTDIvol = ( 18.50 ) mGy, DLP = ( 648.24 ) mGycm TECHNIQUE: The patient was scanned in a multi detector CT scanner. High resolution imaging was performed. Images were obtained from C7 to L1. Sagittal and coronal images were reconstructed. Individualized dose optimization techniques were used for this CT. COMPARISON: None. FINDINGS: Postoperative changes of the cervical spine. Normal kyphosis of the thoracic spine. There is no substantial scoliosis. There is no demonstrated fracture or compression deformity of the thoracic vertebrae. There is multilevel degenerative disc disease with loss of the disc space heights. There is small hiatal hernia. There are artery stents. CT/Spine Thoracic without Contras IMPRESSION: Thoracic spondylosis. No acute fracture. Electronically Signed: Gautam Dowell MD at 14:16 EDT , Service support ,
--- NOTE | 2019-12-29 15:22 | DCINST_ITS ---
- Discharge Diagnoses Current Active Problems: Current Active and Chronic Problems (Last Updated 12/20/19 @ 13:06 by Michelle Cameron) Thoracic back pain (Acute) You will use the following diet at home:: No restrictions Your food should be the consistency of: Regular Your liquids should be the consistency of: Regular/Thin Discharge Activity: Return to Normal Activity Weight Bearing Status: Full weight bearing Additional Instructions: You may also use over the counter Lidoderm patches for pain. Don't take Ibuprofen or Alleve for pain Allergies/Adverse Reactions: Allergies fentanyl Allergy (Severe, Verified 12/29/19 09:48) heart stopped Medications to take at Discharge cholecalciferol (vitamin D3) 25 mcg (1,000 unit) tablet 25 mcg PO DAILY 11/06/19 syiuoiyn-gjp-apmuo acid 0.4 mg-lycopene 300 mcg-lutein 250 mcg tablet 1 tab PO DAILY 11/06/19 pantoprazole 40 mg tablet,delayed release 40 mg PO DAILY 11/06/19 aspirin 81 mg tablet,delayed release 81 mg PO DAILY 12/18/19 lisinopril 2.5 mg tablet 2.5 mg PO DAILY #30 tab 12/18/19 metoprolol succinate 100 mg tablet,extended release 24 hr 100 mg PO DAILY #30 tab 12/18/19 Atorvastatin Calcium [Lipitor] 40 mg PO QHS #30 tab 12/21/19 clopidogrel 75 mg tablet 75 mg PO DAILY #30 tab 12/26/19 Hydrocodone Bitart/Apap 5-325 [[place] 5/325] 1 tablet PO Q6H PRN PRN 7 Days #28 tablet 12/29/19 The following prescriptions were given: Hydrocodone Bitart/Apap 5-325 [[place] 5/325] 1 tablet PO Q6H PRN PRN 7 Days #28 tablet PRN Reason: Pain Score 1-/10 Transmission Status: Received by [facility]/pharmacy #[id number] Primary Care Physician: Александр Brito MD [Primary Care Provider] - Please follow up with your Primary Care Physician in: next week Test Results: Test results from this visit will be discussed in further detail at your follow- up appointment, if applicable.
--- NOTE | 2019-12-29 15:58 | PCM.CONS.C ---
Reason for Consult Date of Consultation: 12/29/19 History of Present Illness: The patient is a 69 year old F [with history of CAD status post PCI to the LAD last week, LV dysfunction coming to [facility] because of inter-scapular pain radiating to her right arm. She denies any chest pain similar to what she was having prior to the PCI. Patient was admitted to the PCU and MS was ruled out. Patient does not have this pain constantly. She has it more when she lies down. She had a CT of her thoracic spine which reveals degenerative disc disease in multiple levels. Review of systems: All systems reviewed. All else is negative except that in HPI Past Medical History Allergies/Adverse Reactions: Allergies fentanyl Allergy (Severe, Verified 12/29/19 09:48) heart stopped Home Medications: Ambulatory Orders Medication Instructions Recorded cholecalciferol (vitamin D3) 25 25 mcg PO DAILY 11/06/19 mcg (1,000 unit) tablet vlhvnphr-oxe-gyxbj acid 0.4 1 tab PO DAILY 11/06/19 mg-lycopene 300 mcg-lutein 250 mcg tablet pantoprazole 40 mg tablet,delayed 40 mg PO DAILY 11/06/19 release aspirin 81 mg tablet,delayed 81 mg PO DAILY 12/18/19 release lisinopril 2.5 mg tablet 2.5 mg PO DAILY #30 tab 12/18/19 metoprolol succinate 100 mg 100 mg PO DAILY #30 tab 12/18/19 tablet,extended release 24 hr Atorvastatin Calcium [Lipitor] 40 mg PO QHS #30 tab 12/21/19 clopidogrel 75 mg tablet 75 mg PO DAILY #30 tab 12/26/19 Hydrocodone Bitart/Apap 5-325 1 tab PO Q6H PRN PRN 7 Days #28 tab 12/29/19 [[place] 5/325] Psychiatric History: No pertinent psych hx - *Family History Maternal Family History: Family History (Last Reviewed 12/18/19 @ 15:[address] Rasheeda Zabala MD) Father Hypertension Sister Breast cancer Cancer Hypertension Brother Hypertension Lives: Spouse/ Significant Other Smoking Status: Never smoker Tobacco Use: Non-smoker Alcohol: Occasional Drugs: None Objective: Vital Signs Temp Pulse Resp BP Pulse Ox 97.8 F 54 L 16 144/58 H 100 12/29/19 15:42 12/29/19 15:42 12/29/19 15:42 12/29/19 15:42 12/29/19 15:42 Oxygen Delivery Method Room Air Weight: 153 lb 14.122 oz Body Mass Index (BMI) 26.4 Intake and Output for Last 24 Hours 12/27/19 12/28/19 12/29/19 23:59 23:59 23:59 Intake Total 400 / 400 Balance 400 / 400 General: Awake, Alert, Oriented x 3 HEENT: Atraumatic Oral: Moist Mucosa Neck: Supple Extremities: No edema Skin: No Rashes Psych/Mental Status: Appropriate 12/29/19 01:30: WBC 7.4, RBC 4.28, Hgb 12.8, Hct 38.9, MCV 90.9, MCH 29.9, MCHC 32.9, Plt Count 236, MPV 12.4 H, Immature Gran % (Auto) 0.500, Neut % (Auto) 50.6, Lymph % (Auto) 36.9, [place] % (Auto) 7.7, Eos % (Auto) 3.4, Baso % (Auto) 0.9, Absolute Neuts (auto) 3.8, Nucleated RBC % 0 12/29/19 01:30: Sodium 141, Potassium 4.2, Chloride 110 H, Carbon Dioxide 29.0, Anion Gap 2 L, BUN 15, Creatinine 0.85, Est GFR (MDRD) Af Amer 85, Est GFR (MDRD) Non-Af 70, BUN/Creatinine Ratio 17.6, Glucose 90, Calcium 9.0, Troponin I < 0.015 12/29/19 05:12: WBC 5.8, RBC 4.31, Hgb 12.7, Hct 39.1, MCV 90.7, MCH 29.5, MCHC 32.5, Plt Count 219, MPV 11.7, Immature Gran % (Auto) 0.200, Neut % (Auto) 53.2, Lymph % (Auto) 34.1, [place] % (Auto) 7.8, Eos % (Auto) 3.8, Baso % (Auto) 0.9, Absolute Neuts (auto) 3.1, Nucleated RBC % 0 12/29/19 05:12: Sodium 141, Potassium 4.0, Chloride 111 H, Carbon Dioxide 28.0, Anion Gap 2 L, BUN 15, Creatinine 0.79, Est GFR (MDRD) Af Amer 93, Est GFR (MDRD) Non-Af 77, BUN/Creatinine Ratio 19.1, Glucose 85, Calcium 8.6 12/29/19 05:12: Troponin I < 0.015 12/29/19 08:00: Troponin I < 0.015 Rhythm: EKG: ECHO: Stress Test: Cardiac Cath: PCI: CT Surgery: Holter monitor: EPS: PPM: CXR: Chest CT Scan: Assessment/Plan 1. Back pain: Does not appear to be cardiac at this time. 2. Coronary artery disease: Stable continue present management. 3. LV dysfunction: Patient is compensated from a cardiac standpoint. Continue current medications at this time. Okay to discharge patient home from a cardiac standpoint.
--- NOTE | 2019-12-29 16:28 | PCM.DC.SUM ---
Discharge Date and Diagnosis Date of Admission: 12/29/19 Date of Discharge: 12/29/19 - Primary Discharge Diagnosis Acute Problems: #1 acute back pain secondary to degenerative disc disease of the thoracic spine #2 coronary artery disease #3 right arm pain-etiology unknown #4 osteoarthritis Hospital Course and Treatment Imaging Results: 12/29/19 10:42 Spine Thoracic without Contras [CT] Stat Operations: None Procedures: None Summary of Care Provided: The patient is a 69 year old F seen in the emergency room at [facility] with chief complaint of upper back pain between her shoulder blades radiating into her right shoulder and arm. Patient had a coronary artery stent placed approximately week before. Patient denied any chest pain. Work-up in the emergency room included an EKG which showed a normal sinus rhythm with a left bundle branch block-no change from December 21, 2019, chest x-ray showed no focal abnormality, and labs were unremarkable. Patient's cardiac enzymes were unremarkable. Patient was placed in observation status on PCU, cardiac enzymes were cycled and these remain normal, she underwent a CT scan of her thoracic spine which showed degenerative disc disease and spondylosis. Patient was seen in consultation by cardiology who felt that her pain was not related to cardiac etiology. On 12/29/2019, patient was seen and examined: On examination she appeared in good health and spirits, she does not appear to be in any distress. Vital signs as documented. Skin warm and dry and without overt rashes. Neck without JVD, thyroid appears normal, trachea is midline, neck is supple. Lungs clear, normal air movement was noted. Heart exam notable for regular rhythm, normal sounds and absence of murmurs, rubs or gallops. Abdomen unremarkable and without evidence of organomegaly, masses, or abdominal aortic enlargement, bowel sounds are present in all 4 quadrants, no abdominal tenderness was noted. Extremities nonedematous, no cyanosis was noted, no clubbing was noted. Neuro: Cranial nerves II through XII are grossly intact, no focal motor deficits were noted, sensation to light touch and pinprick is intact, motor exam 5/5 throughout. Psych: Patient is alert and oriented x3, she does not appear anxious or depressed, she does not appear agitated. Patient appeared to be stable for discharge on 12/29/2019, I gave the patient a prescription for [place] for her back discomfort and urged her to follow-up with her PCP regarding other treatments. - Physical Exam Vitals/I&O's: Vital Signs Temp Pulse Resp BP Pulse Ox 97.8 F 54 L 16 144/58 H 100 12/29/19 15:42 12/29/19 15:42 12/29/19 15:42 12/29/19 15:42 12/29/19 15:42 Oxygen Delivery Method Room Air Weight: 69.8 kg Body Mass Index (BMI) 26.4 Intake and Output for Last 24 Hours 12/27/19 12/28/19 12/29/19 23:59 23:59 23:59 Intake Total 400 / 400 Balance 400 / 400 Laboratory Results 12/29/19 01:30: WBC 7.4, RBC 4.28, Hgb 12.8, Hct 38.9, MCV 90.9, MCH 29.9, MCHC 32.9, RDW Std Deviation 41.2, RDW Coeff of Ten 12.6, Plt Count 236, MPV 12.4 H, Immature Gran % (Auto) 0.500, Neut % (Auto) 50.6, Lymph % (Auto) 36.9, [place] % (Auto) 7.7, Eos % (Auto) 3.4, Baso % (Auto) 0.9, Absolute Neuts (auto) 3.8, Absolute Lymphs (auto) 2.74, Nucleated RBC % 0 12/29/19 01:30: Sodium 141, Potassium 4.2, Chloride 110 H, Carbon Dioxide 29.0, Anion Gap 2 L, BUN 15, Creatinine 0.85, Estim Creat Clear Calc 53.18, Est GFR (MDRD) Af Amer 85, Est GFR (MDRD) Non-Af 70, BUN/Creatinine Ratio 17.6, Glucose 90, Calcium 9.0, Troponin I < 0.015 12/29/19 01:30: TSH 3.56 12/29/19 05:12: WBC 5.8, RBC 4.31, Hgb 12.7, Hct 39.1, MCV 90.7, MCH 29.5, MCHC 32.5, RDW Std Deviation 40.7, RDW Coeff of Ten 12.3, Plt Count 219, MPV 11.7, Immature Gran % (Auto) 0.200, Neut % (Auto) 53.2, Lymph % (Auto) 34.1, [place] % (Auto) 7.8, Eos % (Auto) 3.8, Baso % (Auto) 0.9, Absolute Neuts (auto) 3.1, Absolute Lymphs (auto) 1.98, Nucleated RBC % 0 12/29/19 05:12: Sodium 141, Potassium 4.0, Chloride 111 H, Carbon Dioxide 28.0, Anion Gap 2 L, BUN 15, Creatinine 0.79, Estim Creat Clear Calc 45.20, Est GFR (MDRD) Af Amer 93, Est GFR (MDRD) Non-Af 77, BUN/Creatinine Ratio 19.1, Glucose 85, Calcium 8.6 12/29/19 05:12: Troponin I < 0.015 12/29/19 08:00: Troponin I < 0.015 Discharge Activity: Return to Normal Activity Weight Bearing Status: Full weight bearing Home Medications: Medications to take at Discharge cholecalciferol (vitamin D3) 25 mcg (1,000 unit) tablet 25 mcg PO DAILY 11/06/19 gmqwpgml-zdi-plvma acid 0.4 mg-lycopene 300 mcg-lutein 250 mcg tablet 1 tab PO DAILY 11/06/19 pantoprazole 40 mg tablet,delayed release 40 mg PO DAILY 11/06/19 aspirin 81 mg tablet,delayed release 81 mg PO DAILY 12/18/19 lisinopril 2.5 mg tablet 2.5 mg PO DAILY #30 tab 12/18/19 metoprolol succinate 100 mg tablet,extended release 24 hr 100 mg PO DAILY #30 tab 12/18/19 Atorvastatin Calcium [Lipitor] 40 mg PO QHS #30 tab 12/21/19 clopidogrel 75 mg tablet 75 mg PO DAILY #30 tab 12/26/19 Hydrocodone Bitart/Apap 5-325 [[place] 5/325] 1 tab PO Q6H PRN PRN 7 Days #28 tab 12/29/19 Following Prescriptions Were Given to Patient: Hydrocodone Bitart/Apap 5-325 [[place] 5/325] 1 tab PO Q6H PRN PRN 7 Days #28 tab PRN Reason: Pain Score 1-10/10 Transmission Status: Received by [facility]pharmacy #[id number] Primary Care Physician: Александр Brito MD [Primary Care Provider] - Please follow up with your Primary Care Physician in: next week Disposition: Home Minutes spent on discharge:: 30 Patient Condition:: Stable Medical Necessity - Tobacco Use Smoking Status: Never smoker Tobacco Use: Non-smoker Meaningful Use Info Meaningful Use Diagnoses (Choose all that apply): None applicable OBSV E&M: 37957 Observ/hosp same date L3
== END 2019-12-29 15:26 | disposition home or self-care (01) ==
LOC: ED 03:19 → PCU 03:30
PROVIDERS: Admitting Provider Student in an Organized Health Care Education/Training Program; Emergency Provider Emergency Medicine; PCP Family Medicine; Visit Provider Internal Medicine
DX: M51.34 Other intervertebral disc degeneration, thoracic region (principal); M25.511 Pain in right shoulder; I25.10 Atherosclerotic heart disease of native coronary artery without angina pectoris; M19.90 Unspecified osteoarthritis, unspecified site; R94.39 Abnormal result of other cardiovascular function study; I10 Essential (primary) hypertension; E78.00 Pure hypercholesterolemia, unspecified; I44.7 Left bundle-branch block, unspecified; R00.1 Bradycardia, unspecified; Z79.82 Long term (current) use of aspirin; Z79.02 Long term (current) use of antithrombotics/antiplatelets; Z79.899 Other long term (current) drug therapy; Z95.5 Presence of coronary angioplasty implant and graft
CPT/HCPCS: 36415; 71045; 72128; 80048; 84443; 84484; 85025; 93005; 99218; 99285; G0378

== ENCOUNTER → 2020-03-05 10:23 | Outpatient (CLI) | payer MEDICARE, SELFPAY ==
[2020-03-05 09:41] VITALS: BMI 26.4
[2020-03-05 12:27] LABS: Cholesterol 125 mg/dL (200); High Density Lipoprotein 66 mg/dL; Triglycerides 91 mg/dL; Very Low Density Lipoprotein 18 mg/dL (5-40)
== END ==
PROVIDERS: PCP Internal Medicine; Referring Provider Internal Medicine; Visit Provider Internal Medicine
DX: I25.10 Atherosclerotic heart disease of native coronary artery without angina pectoris (principal)
CPT/HCPCS: 36415; 80061

== ENCOUNTER → 2020-03-07 11:48 | Outpatient (CLI) | payer MEDICARE, SELFPAY ==
[2020-03-05 09:41] VITALS: BMI 26.4
--- NOTE | 2020-03-07 11:49 | BI_ITS ---
MAMMOGRAPHY - BILATERAL SCREENING REASON FOR EXAM: Female, 69 years old. Routine annual screening examination. PERTINENT HISTORY: FM HX SISTER 69 COMPS FROM [facility] 2019,2018 X 2 TECHNIQUE: Digital bilateral breast dereje (3D mammographic acquisition) in the CC and MLO projections. 2-D mediolateral oblique (MLO) and craniocaudad (CC) views of both breasts were obtained. CAD: Full Field Digital Mammography with Computer Added Detection was performed. COMPARISON: None. FINDINGS: Breast Composition: The breasts are heterogeneously dense, which may obscure small masses. There are no dominant masses or suspicious calcifications. No other significant abnormalities are identified. BI/SCREEN MAMM (CAD) W/DEREJE BILAT IMPRESSION: Stable bilateral screening mammogram. Yearly follow-up mammogram recommended. (A) ASSESSMENT CATEGORY: BIRADS Category 2: Benign. A letter regarding these results will be sent to the patient by the facility within 30 days. Approximately 10% of breast cancers are not detected by mammography. A normal mammogram should not delay biopsy of a clinically suspicious abnormality. [id number] Electronically Signed: Ricardo Hayes, at 13:56 EDT Tel , Service support ,
== END ==
PROVIDERS: PCP Internal Medicine; Referring Provider Internal Medicine; Visit Provider Internal Medicine
DX: Z12.31 Encounter for screening mammogram for malignant neoplasm of breast (principal)
CPT/HCPCS: 77063; 77067

== ENCOUNTER → 2020-04-03 06:43 | Outpatient (CLI) | payer MEDICARE, SELFPAY ==
[2020-03-05 09:41] VITALS: BMI 26.4
--- NOTE | 2020-04-03 15:05 | STRESSREP ---
Stress Test Report Date: 04/03/2020 Procedure: Pharmacologic stress nuclear imaging study Indications: Chest pain Consent: Per the patient Procedure: The patient underwent pharmacologic (Regadenoson) evaluation with a peak heart rate of 99 beats per minute (66%predicted maximal heart rate) and a peak blood pressure of 142/78 mmHg. The baseline ECG demonstrated normal sinus rhythm, left bundle branch block. EKG during lexiscan infusion revealed no significant ischemic changes. EKG post infusion revealed no significant ischemic changes [There were no cardiac dysrhythmias pretest, during pharmacologic infusion, or recovery]. [There was no complaint of chest discomfort during pharmacologic infusion or recovery]. The examination was discontinued secondary to completion of protocol. Impression: 1. Lexiscan stress test test is negative for Lexiscan infusion induced EKG changes of ischemia. 2. Lexiscan stress test test is negative for Lexiscan infusion induced chest pain. 3. Results of the nuclear portion of the test is as below Myocardial perfusion imaging study: Technique: The patient was injected with 11.5 millicuries of technetium 99m Cardiolite and subsequently rest SPECT Cardiolite nuclear imaging was obtained in the horizontal long, vertical long, and short axis views. The patient underwent pharmacologic (Regadenoson) evaluation. Please see above for details. The patient was injected with 32.4 millicuries of technetium 99m Cardiolite and subsequently stress SPECT Cardiolite nuclear imaging was obtained in the horizontal long, vertical long, and short axis views. A gated Cardiolite study at peak stress was obtained. Interpretation: Rest and stress SPECT Cardiolite nuclear imaging status post realignment, normalization, and attenuation correction demonstrate normal myocardial radioisotope uptake. Gated images reveal no significant regional wall motion abnormalities. The reported LVEF is 56%. Impression: 1. There is no evidence of significant ischemia or infarction. 2. Estimated ejection fraction is 56%. This note was generated with Collarityation software. It may contain incorrect words, spelling, and punctuation that were not noted in checking the note before signing.
== END ==
PROVIDERS: PCP Internal Medicine; Referring Provider Specialist; Visit Provider Specialist
DX: I25.10 Atherosclerotic heart disease of native coronary artery without angina pectoris (principal)
CPT/HCPCS: 78452; 93017; A9500; A4216; J2785

== ENCOUNTER → 2020-04-28 09:46 | Outpatient (CLI) | payer MEDICARE, SELFPAY ==
[2020-03-05 09:41] VITALS: BMI 26.4
--- NOTE | 2020-04-28 09:51 | ECHOD_ITS ---
Reason For Study: LV Dysfunction Procedure This was a 2D Doppler, Color Flow transthoracic echocardiogram. Exam performed in department. Left Ventricle Normal LV size. The estimated ejection fraction is 50-55 %. Diastolic function is indeterminate. No regional wall motion abnormalities noted. Right Ventricle Normal RV size. Normal systolic function. Atria Normal left atrium. Normal right atrium. No doppler evidence for ASD. Mitral Valve There is no mitral valve stenosis. No mitral valve insufficiency. Tricuspid Valve There is no tricuspid stenosis. Trivial tricuspid valve insufficiency. Pulmonary artery systolic pressure is 35 mmHg. Aortic Valve Trisinus/trileaflet aortic valve. There is no aortic stenosis. Trivial aortic valve insufficiency. Pulmonic Valve There is no pulmonic valvular stenosis. Trivial pulmonic valve insufficiency. Great Vessels Normal aortic root. Pericardium/Pleural No pericardial effusion. MMode/2D Measurements & Calculations LVIDd: 4.5 cm IVSd: 1.1 cm Ao root diam: 2.8 cm LVIDs: 3.1 cm LVPWd: 0.88 cm RVDd: 3.4 cm FS: 32.1 % LAV(MOD-bp): 34.4 ml LVAd ap4: 28.7 cm2 SV(MOD-sp4): 35.8 ml LAV(MOD-bp) Indexed: 20.1 ml/m2 EDV(MOD-sp4): 84.2 ml LAV(MOD-sp2): 37.1 ml EDV(sp4-el): 88.1 ml LAV(MOD-sp4): 32.1 ml LVAs ap4: 19.9 cm2 ESV(MOD-sp4): 48.4 ml ESV(sp4-el): 46.4 ml EF(MOD-sp4): 42.6 % EF(sp4-el): 47.3 % SV(sp4-el): 41.7 ml LA A4 area: 13.7 cm2 LA dimension(2D): 2.8 cm RA A4 area: 11.6 cm2 Doppler Measurements & Calculations MV E max conor: 68.0 cm/sec Lat Peak E' Conor: 4.9 cm/sec Med Peak E' Conor: 3.9 cm/sec MV A max conor: 108.5 cm/sec E/E' lat: 13.8 E/E' med: 17.3 MV E/A: 0.63 Ao V2 max: 161.4 cm/sec AI max conor: 404.8 cm/sec LV V1 max: 127.7 cm/sec Ao max P.4 mmHg AI max P.5 mmHg LV V1 max P.5 mmHg AI dec slope: 184.9 cm/sec2 AI P1/2t: 641.0 msec PA V2 max: 108.6 cm/sec TR max conor: 242.3 cm/sec TR max P.8 mmHg Interpretation Summary The estimated ejection fraction is 50-55 %. Diastolic function is indeterminate. Trivial aortic valve insufficiency. Ordering Physician: Rasheeda Zabala Referring Physician: Mando Wang Performed By: Roma Trimble RDCS
== END ==
PROVIDERS: PCP Internal Medicine; Referring Provider Specialist; Visit Provider Specialist
DX: I51.9 Heart disease, unspecified (principal); I25.10 Atherosclerotic heart disease of native coronary artery without angina pectoris; Z95.5 Presence of coronary angioplasty implant and graft; I45.4 Nonspecific intraventricular block; I47.1 Supraventricular tachycardia; I49.3 Ventricular premature depolarization
CPT/HCPCS: 93306

== ENCOUNTER → 2020-05-13 12:31 | Outpatient (CLI) | payer MEDICARE, SELFPAY ==
[2020-05-13 11:41] VITALS: BMI 25.4
[2020-05-13 13:30] LABS: Absolute Lymphocyte Count 1.86 X10^3/uL (0.83-4.51); Absolute Neutrophil Count 4.3 X10^3/uL (2.0-7.7); Basophil# 0.06 X10^3/uL; Basophil% 0.9 % (0-1); Eosinophils% 2.8 % (0-5); Hematocrit 42.4 % (37-47); Hemoglobin 13.4 g/dL (12.0-15.0); Lymphocyte # 1.86 X10^3/ul (4.0); Lymphocyte % 26.4 % (19-41); Mean Corp Hgb Conc 31.6 g/dL (32-36); Mean Corpuscular Hgb 28.9 pg (27.0-32.0); Mean Corpuscular Volume 91.6 fL (81-99); Mean Platelet Vol. 11.5 fl (6.2-12.0); Monocyte# 0.61 X10^3/uL; Monocyte% 8.7 % (0-10); NRBC Flagged by Analyzer 0 % (0-5); Neutrophil % 61.1 % (47-70); Platelet Count 230 K/mm3 (150-450); RBC Distribution Width CV 12.1 % (11.6-14.6); RBC Distribution Width SD 40.9 fl (35.1-43.9); Red Blood Count 4.63 M/mm3 (4.2-5.4)
[2020-05-13 13:43] LABS: Partial Thromboplast Time 30.5 Seconds (24.1-36.2); Prothrombin Time (Protime)PT. 12.5 SECONDS (11.7-14.9)
[2020-05-13 14:02] LABS: Anion Gap 4 (5-15); BUN 17 mg/dL (7-18); BUN/Creat Ratio 21.7 RATIO (10-20); Calcium,Total 9.3 mg/dL (8.5-10.1); Chloride 106 mmol/L (98-107); Creatinine, Serum 0.78 mg/dL (0.55-1.02); EST Glomerular Filtration Rate 77 mL/min (>60); Est Glom Filt Rate - Afr Amer 94 mL/min (>60); Glucose 83 mg/dL (74-106); Potassium 4.1 mmol/L (3.5-5.1); Sodium Level 140 mmol/L (136-145)
== END ==
PROVIDERS: PCP Internal Medicine; Referring Provider Specialist; Visit Provider Specialist
DX: R07.9 Chest pain, unspecified (principal); Z95.5 Presence of coronary angioplasty implant and graft
CPT/HCPCS: 36415; 80048; 85025; 85610; 85730

== ENCOUNTER 2020-05-16 09:56 | Day surgery (SDC) | payer MEDICARE, SELFPAY ==
[2020-05-13 11:41] VITALS: BMI 25.4
[2020-05-15 09:11] VITALS: BMI 25.4
--- NOTE | 2020-05-16 06:00 | HP_ITS ---
HPI HPI History of Present Illness Details: 11/21/2019: 69-year-old female referred to us because of chest pain. The chest pain starts in the retrosternal region sometimes in the upper part of the retrosternal area and then goes to the back and both arms. Sometimes it radiates to the neck. Most often happens at night when she is lying down. She has it with exertion also. She exercises a fair amount. She swims about a mile at a time and gets the discomfort early in her swimming and it resolves as she continues to swim. She also walks about 2-1/2 miles a day and at times she gets the discomfort early when she is walking but it resolves as she continues to walk. She denies any palpitations. She did have a Holter which revealed PACs and a 9 beat run of atrial tachycardia. 12/18/2019: Patient continues to have chest pain that is early on with exertion and resolves with further exertion. She had a stress test that was positive for moderate berhane-infarct ischemia in the anterior wall along with prior anterior myocardial infarction. Echocardiogram revealed an EF of 30 to 35%. 01/22/2020: Since last visit patient underwent coronary angiography which revealed significant stenosis in the LAD that was treated with PCI. After that she was in the hospital interscapular pain. Prior to the PCI she is to have exertional chest heaviness. She does not have that at this time. Interscapular discomfort has also improved and is continuing to improve. She has noticed fatigue after starting the beta-vipul. 05/13/2020: Patient continues to have interscapular discomfort. She gets this on exertion and sometimes at rest. She feels that this is similar to the pain she was having prior to the stent placement. She states that the discomfort went away after the stent placement and now has returned. 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 [employer] Required: No Accompanied by: None Is patient in pain?: No Allergies fentanyl Allergy (Severe, Verified 05/13/20 11:44) heart stopped Medications cholecalciferol (vitamin D3) 25 mcg (1,000 unit) tablet 25 mcg PO DAILY 11/06/19 [History Confirmed 05/13/20] aspirin 81 mg tablet,delayed release 81 mg PO DAILY 12/18/19 [History Confirmed 05/13/20] lisinopril 2.5 mg tablet 2.5 mg PO DAILY #30 tab 12/18/19 [Rx Confirmed 05/13/20] Atorvastatin Calcium [Lipitor] 40 mg PO QHS #30 tab 12/21/19 [Rx Confirmed 05/13/20] clopidogrel 75 mg tablet 75 mg PO DAILY #30 tab 12/26/19 [Rx Confirmed 05/13/20] carvedilol 6.25 mg tablet 6.25 mg PO BID #60 tab 01/22/20 [Rx Confirmed 05/13/20] acetaminophen 650 mg tablet,extended release 650 mg PO Q12H 03/05/20 [History Confirmed 05/13/20] Ejection fraction %: 50 to 54 PFSH Medical History Thoracic back pain (Chronic) Atherosclerosis of coronary artery of [place] heart without angina pectoris (Chronic) LV dysfunction (Chronic) Abnormal stress test (Chronic) Atrial tachycardia (Chronic) BBB (bundle branch block) (Chronic) PVC's (premature ventricular contractions) (Chronic) Arthritis (Chronic) Chronic neck pain with history of cervical spinal surgery (Chronic) GERD (gastroesophageal reflux disease) (Chronic) GI problem (Chronic) Hiatal hernia (Chronic) History of chronic back pain (Chronic) Osteoarthritis (Chronic) Osteopenia (Chronic) Chest pain (Resolved) History of skin cancer (Resolved) Surgical History History of coronary artery stent placement (Chronic 12/20/19) HISTORY OF MICRO DECROMPRESSION (Resolved) History of ankle surgery (Resolved) History of fusion of cervical spine (Resolved) History of hip surgery (Resolved) History of lumbar fusion (Resolved) History of microdiscectomy (Resolved) Family History Father Hypertension Sister Breast cancer Cancer skin Hypertension Brother Hypertension Social History (Updated 05/13/20 @ 15:[address] Rasheeda Zabala MD) Smoking Status: Never smoker alcohol intake: current Alcohol type: wine substance use type: does not use what type of physical activity do you participate in: walking, swimming frequency: daily ROS Const Const: Positive for fatigue; negative for weakness, headache(s), frequent falls, difficulty sleeping or excessive sweating Eyes Eyes: Negative for loss of peripheral vision, transient loss of vision, blurry vision, double vision or tunnel vision ENT ENT: Negative for headache(s), dizziness, Nosebleed/epistaxis or balance problems Cardio Chest Pain: Yes Frequency: more than once a day Character: other (burning between shoulder blades, occasionally into most often right arm) Onset: exercise Location: other (Between shoulder blades, occasionally into right arm) Duration: brief Palpitations: No Edema: None Muscle aches with walking: None Resp Respiratory: Positive for SOB with activity (Occasionally with stairs); negative for SOB at rest, SOB orthopnea\SOB lying down, Cough or paroxysmal nocturnal dyspnea GI GI: Negative nausea, vomiting, heartburn or black,tarry stools : Negative for hematuria Musc Musc: Positive for joint pain; negative for muscle aches/ myalgia, muscle weakness or balance problems Skin Skin: Negative non-healing lesions, rash or unusual bruising Neuro Neuro: Negative for dizziness, lightheadedness, near syncope, syncope, frequent falls, headache(s), weakness, blurry vision, double vision or lack of coordination Zach Hematologic/Lymphatic: Negative for easy bleeding or easy bruising Endo Endo: Positive for fatigue; negative for excessive sweating or increased thirst/drinking Psych Psych: Negative for anxiety or depression Allergy Allergy/Immunology: Negative for hives, Negative for rash Cardiology Exam Const Appearance: cooperative; negative acute distress Nutritional Appearance: well nourished Head Head: normocephalic and atraumatic Ears: hearing grossly normal bilaterally Nose: external nose normal Face and Sinus: face symmetric Mouth: moist mucous membranes Teeth and gingiva: fair dentition Eyes General: appearance normal, both eyes and all related structures Eyelids: eyelids normal Conjunctivae: conjunctivae normal Neck Neck: trachea midline and no JVD Chest Chest inspection: symmetric chest movement; negative pursed lip breathing Auscultation: Bilateral: Clear to Auscultation Cardio Rate: regular rate Rhythm: regular rhythm Heart sounds: S1 normal and S2 normal No Murmurs GI GI: normal to inspection Neuro General: alert, awake and oriented x3 Gait: Negative ataxic Skin Skin: no rashes or lesions noted; negative atrophy or jaundice Extremities Pulses: Normal: Right Posterior Tibial Pulse, Left Posterior Tibial Pulse Lower Extremity Edema: None: Bilateral Musculoskel Musculoskeletal: No joint tenderness Psych Psychological: normal affect Assessment & Plan 1. Midline thoracic back pain, unspecified chronicity M54.6 Plan Patient feels that this is similar to what she was getting prior to the stent and that it at resolved after stent placement and now has returned. Her stress test is negative for ischemia. However patient is very concerned about this discomfort and feels that it is not from her cervical spine or thoracic spine as she has had symptoms from that for 20 years and this feels different. Risks and benefits discussed with the patient in detail. We will proceed with coronary angiography. 2. History of coronary artery stent placement Z95.5 4.00 x 16 mm Synergy MR POOL to pLAD 12/20/19 Plan Continue dual antiplatelet therapy. Orders Orders: 12 Lead EKG performed by BMS Today Left Heart Cath/COR/LV Percut Today Partial Thromboplast Time Today Prothrombin Time w/INR Today CBC W/Diff, Automated Today 3. LV dysfunction I51.9 Plan Repeat echo reveals EF of 50 to 55%.EF by stress test was 56%. Plan Detail Other Orders Orders: 12 Lead EKG performed by BMS Today I25.10, R06.02, R07.9 Left Heart Cath/COR/LV Percut Today I20.0 Basic Metabolic Profile (BMP) Today R07.9 Coding Level of Care Code Off vis,est,level 4 Diagnoses Midline thoracic back pain, unspecified chronicity M54.6 ??Chronicity: unspecified ??Back pain laterality: midline History of coronary artery stent placement Z95.5 LV dysfunction I51.9 Coding Level of Care Code Off vis,est,level 4 Diagnoses Midline thoracic back pain, unspecified chronicity M54.6 ??Chronicity: unspecified ??Back pain laterality: midline History of coronary artery stent placement Z95.5 LV dysfunction I51.9 Supplemental Info Supplemental Information Labs LDL Cholesterol 41 mg/dL (0-130) 03/05/20 HDL Cholesterol 66 mg/dL (40-) 03/05/20 Triglycerides 91 mg/dL (-199) 03/05/20 VLDL Cholesterol 18 mg/dL (5-40) 03/05/20 Diagnostics Electrocardiogram 05/13/20 Echocardiogram 04/28/20 Stress Test Nuclear Medicine 04/03/20 Stress Test 04/03/20 Chest X-Ray 12/29/19
--- NOTE | 2020-05-16 16:36 | CL.D_ITS ---
Patient Name: EVANS BARR Study Date: 05/16/2020 Performing: Silvia Zabala MD Ht: 64 inches 163 cm : 1950 Wt: 147.9 lbs 67 kg Age: 69 Gender: female BSA: 1.72 PROCEDURE(S) PERFORMED ZH12-YLJ/COR/LV CLINICAL PROFILE AND INDICATIONS Indications: Worsening Angina Heart Failure: None Stress/Imaging Stress/Image Study Performed: No CAD Presentations: Unstable angina. CONCLUSIONS No significant stenoses. Patent stent in pLAD. Preserved EF. No significant or MR RECOMMENDATIONS DESCRIPTION OF PROCEDURE The patient arrived to the procedure lab. The risks and benefits of the procedure as well as a full d escription of our services here and current unavailability of surgical backup were fully explained to the patient and/or their significant other prior to the catheterization. The Timeout was completed, verifying the correct patient and procedure. The patient's procedural site was prepped and draped in the usual fashion. Local anesthetic was given subcutaneously to right radial region with Lidocaine 2% . Using a modified Seldinger technique, arterial access was obtained via the right radial artery, a 6 Fr sheath was inserted. Left Coronary Artery selective angiography was performed in multiple views u sing a 5 Fr. JL3.5 catheter. Left Ventriculography was performed in MORAN projection using a 5 Fr. JR 4 catheter. LV to AO pullback pressures were then recorded. Right Coronary Artery selective angiograph y was then performed in multiple views using a 5 Fr. JR 4 catheter.The arterial sheath was pulled and a TR Band was applied for hemostasis. 14cc of air CORONARY ANGIOGRAPHY DOMINANCE: Right Dominant LEFT HEART ASSESSMENT Left Ventricular Ejection Fraction: by LV Gram 55 % Normal LV wall motion LEFT MAIN: No significant disease noted LEFT ANTERIOR DESCENDING ARTERY: No significant disease noted, Previously placed stent is patent CIRCUMFLEX ARTERY: No significant disease noted RIGHT CORONARY ARTERY: Mild luminal irregularities VALVE FINDINGS: No Aortic Valve Stenosis No Mitral Insufficency COMPLICATIONS No Complications PROCEDURE MEDICATIONS Versed 1 mg IV Oxygen: 2 L/min via nasal cannula Heparin given IA 05/16/2020 10:49:47 Verapamil 2.5mg, Ntg 100mcgs, 3000 units of Heparin given IA 05/16/2020 10:49:47 SUMMARY OF HEMODYNAMIC DATA Time AIR REST ECG 10:14:26 AO 110/55 (77) SA 10:51:10 LV 138/0, 5 10:56:23 LV 141/-2, 7 10:56:30 LV 139/-1, 11 10:57:29 LVp 144/2, 14 10:57:45 AOp 147/66 (97) 10:57:50 Signed By Silvia Zabala MD On 05/16/2020 16:36:02 Silvia Zabala MD
== END 2020-05-16 14:05 | disposition home or self-care (01) ==
LOC: CLSP 09:56
PROVIDERS: PCP Internal Medicine; Referring Provider Specialist; Visit Provider Specialist
DX: M54.6 Pain in thoracic spine (principal); I25.10 Atherosclerotic heart disease of native coronary artery without angina pectoris; I49.3 Ventricular premature depolarization; K21.9 Gastro-esophageal reflux disease without esophagitis; M19.90 Unspecified osteoarthritis, unspecified site; M85.80 Other specified disorders of bone density and structure, unspecified site; Z85.828 Personal history of other malignant neoplasm of skin; Z95.5 Presence of coronary angioplasty implant and graft; Z79.82 Long term (current) use of aspirin; Z79.02 Long term (current) use of antithrombotics/antiplatelets; Z79.899 Other long term (current) drug therapy
CPT/HCPCS: 93458; 99152; 99153; J7040; Q9967; C1769; C1894

== ENCOUNTER → 2020-06-09 | Outpatient (CLI) | payer MEDICARE, SELFPAY ==
[2020-06-09 15:57] LABS: Bacteria 0 SEEN /hpf (None Seen); Mucous, Urine 0 SEEN /hpf (<or=2+); Squamous Epithelial Cells - UA 0 SEEN /hpf (5-10)
[2020-06-09 16:35] LABS: Color, Urine Yellow (Yellow); Glucose, Dipstick Normal (Normal); Ketone-Dipstick Negative (Negative); Leukocyte Esterase-Dipstick 500 /ul (Negative); Nitrite-Dipstick Negative (Negative); Occult Blood-Urine 250 /ul (Negative); Protein-Dipstick 30 mg/dl (Negative); Urine Bilirubin Dipstick Negative (Negative); Urine Clarity Cloudy (Clear); Urine Urobilinogen Normal (Normal)
[2020-06-09 16:41] LABS: Red Blood Cells-Urine 50-100 SEEN /hpf (0-5); White Blood Cells >100 SEEN /hpf (0-5)
== END | disposition home or self-care (01) ==
LOC: LABSPEC 15:48
PROVIDERS: PCP Internal Medicine; Referring Provider Internal Medicine; Visit Provider Internal Medicine
DX: R35.0 Frequency of micturition (principal)
CPT/HCPCS: 81001; 87086; 87088

== ENCOUNTER → 2020-06-10 13:35 | Outpatient (CLI) | payer MEDICARE, SELFPAY ==
--- NOTE | 2020-06-10 13:36 | RAD_ITS ---
STUDY: X-RAY - THORACIC SPINE REASON FOR EXAM: Female, 69 years old. pain in thoracic spine TECHNIQUE: 3 view(s) of the thoracic spine were obtained. COMPARISON: CT 12/29/2019 FINDINGS: Normal kyphosis of the thoracic spine. Mild dextroscoliosis of the mid thoracic spine. There is multilevel endplate spondylosis of the thoracic vertebrae. There is multilevel disc space narrowing of the thoracic spine. The soft tissue structures are unremarkable. RAD/Thoracic Spine 3 Views IMPRESSION: Mild dextroscoliosis with moderate degenerative disc disease. Electronically Signed: Chidi Angulo MD at 8:01 EST Tel , Service support ,
== END ==
PROVIDERS: PCP Internal Medicine; Referring Provider Internal Medicine; Visit Provider Internal Medicine
DX: M54.6 Pain in thoracic spine (principal)
CPT/HCPCS: 72072

== ENCOUNTER → 2020-06-13 07:55 | Outpatient (CLI) | payer MEDICARE, SELFPAY ==
--- NOTE | 2020-06-13 07:58 | CT_ITS ---
STUDY: CT ABDOMEN AND PELVIS WITH AND WITHOUT CONTRAST REASON FOR EXAM: Female, 69 years old. HEMATURIA, SUPRAPUBIC PAIN, BURNING AND FREQUENCY X 4 DAYS RADIATION DOSAGE (If Supplied By Facility): CTDIvol = ( 11.75 ) mGy, DLP = ( 1217.69 ) mGycm TECHNIQUE: Transaxial images were obtained from the dome of the diaphragm to the symphysis pubis without oral contrast. [id number] 100ML was administered. Sagittal and coronal images were reconstructed. Individualized dose optimization techniques were used for this CT. COMPARISON: None. FINDINGS: The visualized lung bases are unremarkable. The visualized portions of the heart are within normal limits. Normal liver. Normal gallbladder and extrahepatic biliary system. Normal spleen. Normal pancreas. Normal bilateral adrenal glands. Punctate calcification in the upper pole calyx of the right kidney. Normal left kidney. Normal visualized stomach. Normal small intestine. Moderate amount of fecal material is seen in the colon. The appendix is visualized and appears normal. Normal abdominal aorta. Normal inferior vena cava. Normal retroperitoneum. The bladder is not adequately distended. There is a left-sided inguinal hernia containing adipose tissue. The patient is status post laminectomy and interpedicular screw fixation at the L3-L4 and L4-L5 levels. Multilevel disc space narrowing and disc degeneration. CT/CT Abd/Pelvis W/WO Contrast IMPRESSION: Punctate calculus in upper pole calyx of the right kidney. No evidence of ureteral obstruction. Moderate amount of fecal material is seen in the colon. Electronically Signed: Evgeny Royal, at 10:32 EST , Service support ,
== END ==
PROVIDERS: PCP Internal Medicine; Referring Provider Internal Medicine; Visit Provider Internal Medicine
DX: R10.2 Pelvic and perineal pain (principal); R35.0 Frequency of micturition; R31.9 Hematuria, unspecified
CPT/HCPCS: 74178; Q9967

== ENCOUNTER → 2021-03-16 14:34 | Outpatient (CLI) | payer MEDICARE, SELFPAY ==
--- NOTE | 2021-03-16 14:55 | RAD_ITS ---
HISTORY: Left hip pain. TECHNIQUE: XR Hip Unilateral with Pelvis when performed; 2-3 Views. # of images incl. paperwork: 3. COMPARISON: CT 06/13/2020. FINDINGS: OSSEOUS STRUCTURES: No acute displaced fracture identified. Note that overlapping bowel shadows may obscure detail. Mineralization unremarkable. Lumbar spinal fusion and decompressive laminectomy again noted. ALIGNMENT/JOINTS: No dislocation. Mild degenerative changes of the hips. RAD/HIP, UNI W/ Pelvis 2-3 Views IMPRESSION: No acute fracture or dislocation identified in the left hip. at 1215 Reported and signed by: Beatris Bloom MD Electronically Signed: Beatris Bloom MD at 12:14 EDT Tel , Service support ,
--- NOTE | 2021-03-16 14:55 | RAD_ITS ---
STUDY: X-RAY - RIGHT SHOULDER REASON FOR EXAM: Female, 70 years old. Right Shoulder Pain TECHNIQUE: 4 view(s) of the shoulder. COMPARISON: None. FINDINGS: Normal glenohumeral articulation. Normal acromioclavicular joint. Normal acromion. Normal humeral head and visualized proximal humerus. The soft tissue structures are unremarkable. There is no demonstrated fracture. Normal visualized pulmonary apex. RAD/Shoulder min 2 Views IMPRESSION: Normal x-ray examination of the shoulder. Electronically Signed: Jamari Karimi MD at 20:06 EDT , Service support ,
[2021-03-16 16:41] LABS: Absolute Lymphocyte Count 1.74 X10^3/uL (0.83-4.51); Absolute Neutrophil Count 3.9 X10^3/uL (2.0-7.7); Basophil# 0.05 X10^3/uL; Basophil% 0.8 % (0-1); Eosinophil# 0.28 X10^3/uL; Eosinophils% 4.4 % (0-5); Hematocrit 38.7 % (37-47); Hemoglobin 12.5 g/dL (12.0-15.0); Lymphocyte # 1.74 X10^3/ul (0.83-4.51); Lymphocyte % 27.1 % (19-41); Mean Corp Hgb Conc 32.3 g/dL (32-36); Mean Corpuscular Volume 92.8 fL (81-99); Mean Platelet Vol. 11.6 fl (6.2-12.0); Monocyte# 0.45 X10^3/uL; NRBC Flagged by Analyzer 0 % (0-5); Neutrophil # 3.87 X10^3/uL (2.7-7.7); Neutrophil % 60.4 % (47-70); Platelet Count 206 K/mm3 (150-450); RBC Distribution Width CV 12.7 % (11.6-14.6); RBC Distribution Width SD 43.4 fl (35.1-43.9); Red Blood Count 4.17 M/mm3 (4.2-5.4); White Blood Count 6.4 K/mm3 (4.4-11.0)
[2021-03-16 16:54] LABS: AST(SGOT) 22 U/L (15-37); Alanine Aminotransfer ALT/SGPT 28 U/L (13-56); Albumin, Serum 3.4 g/dL (3.2-5.0); Alkaline Phosphatase 54 U/L (45-117); Anion Gap 6 (5-15); BUN 12 mg/dL (7-18); BUN/Creat Ratio 12.4 RATIO (10-20); Calcium,Total 9.2 mg/dL (8.5-10.1); Chloride 103 mmol/L (98-107); Cholesterol 123 mg/dL (200); Creatinine, Serum 0.97 mg/dL (0.55-1.02); EST Glomerular Filtration Rate 60 mL/min (>60); Est Glom Filt Rate - Afr Amer 73 mL/min (>60); Globulin 3.5 g/dL (2.2-4.2); Glucose 109 mg/dL (74-106); High Density Lipoprotein 59 mg/dL; Protein, Total 6.9 g/dL (6.4-8.2); Sodium Level 140 mmol/L (136-145); Triglycerides 139 mg/dL; Very Low Density Lipoprotein 28 mg/dL (5-40)
== END ==
PROVIDERS: PCP Internal Medicine; Referring Provider Internal Medicine; Visit Provider Internal Medicine
DX: M25.511 Pain in right shoulder (principal); I10 Essential (primary) hypertension; M25.552 Pain in left hip
CPT/HCPCS: 36415; 73030; 73502; 80053; 80061; 85025

== ENCOUNTER → 2021-04-30 | Outpatient (CLI) | payer MEDICARE, SELFPAY ==
--- NOTE | 2021-04-30 08:43 | BI_ITS ---
MAMMOGRAPHY - BILATERAL SCREENING REASON FOR EXAM: Female, 70 years old. Routine annual screening examination. PERTINENT HISTORY: Sister with breast cancer. TECHNIQUE: Digital bilateral breast dereje (3D mammographic acquisition) in the CC and MLO projections. 2-D mediolateral oblique (MLO) and craniocaudad (CC) views of both breasts were obtained. CAD: Full Field Digital Mammography with Computer Added Detection was performed. COMPARISON: Comparison is made with prior study dated 03/07/2020. FINDINGS: Breast Composition: The breasts are heterogeneously dense, which may obscure small masses. There are no dominant masses or suspicious calcifications. No other significant abnormalities are identified. There has been no significant change since the prior study. BI/SCRN MAMM (CAD)W/DEREJE BILAT IMPRESSION: Stable bilateral screening mammogram. Yearly follow-up mammogram recommended. (A) ASSESSMENT CATEGORY: BIRADS Category 1: Negative. A letter regarding these results will be sent to the patient by the facility within 30 days. Approximately 10% of breast cancers are not detected by mammography. A normal mammogram should not delay biopsy of a clinically suspicious abnormality. [id number] Electronically Signed: Evgeny Royal MD at 9:24 EST , Service support ,
== END | disposition short-term general hospital (02) ==
LOC: OPBD 08:42
PROVIDERS: PCP Internal Medicine; Referring Provider Internal Medicine; Visit Provider Internal Medicine
DX: Z12.31 Encounter for screening mammogram for malignant neoplasm of breast (principal)
CPT/HCPCS: 77063; 77067

== ENCOUNTER → 2021-05-21 10:54 | Outpatient (CLI) | payer MEDICARE, SELFPAY ==
--- NOTE | 2021-05-21 10:57 | BD_ITS ---
STUDY: DUAL ENERGY X-RAY ABSORPTIOMETRY / DXA REASON FOR EXAM: Female, 70 years old. Z780. The patient is postmenopausal. TECHNIQUE: Bone Mineral Density (BMD) measurements of lumbar spine and bilateral hips were obtained. COMPARISON: None. FINDINGS: Lumbar Spine (L1-L4): g/cm2 (0.942) / T-score (-0.3) / Z-score (1.7) Findings are suggestive of normal bone density with a low fracture risk. Left Femur Total: g/cm2 (0.766) / T-score (-1.4) / Z-score (0.1) Left Femoral Neck: g/cm2 (0.67) / T-score (-2.0) / Z-score (-0.1) Right Femur Total: g/cm2 (0.741) / T-score (-1.6) / Z-score (-0.1) Right Femoral Neck: g/cm2 (0.666) / T-score (-1.7) / Z-score (0.2) BD/Dexa Bone Density Study IMPRESSION: The patient is considered osteopenic as outlined below according to World Thadde[employer] Organization (WHO) criteria with a moderate fracture risk. Reference Information: The T-score is the number of standard deviations above or below the standard which is normal for young adults at their peak bone mineral density. The World Health Organization (WHO) interprets the T-scores as follows: Above -1 Normal bone density Between -1 and -2.5 Osteopenia Equal to / or below -2.5 Osteoporosis As a practical clinical guideline, osteopenia may be graded as follows: Mild -1 through -1.5 Moderate -1.6 through -2.0 Severe -2.1 through -2.4 The Z-score is the number of standard deviations above or below age-matched controls. A Z-score of less than -1.5 would be considered abnormal. References: 1. NIH Osteoporosis and Related Bone Diseases www osteo.org 2. International Society for Clinical Densitometry www iscd.org 3. National Osteoporosis Foundation www nof.org Electronically Signed: Evgeny Royal MD at 13:00 EST , Service support ,
== END ==
PROVIDERS: PCP Internal Medicine; Referring Provider Internal Medicine; Visit Provider Internal Medicine
DX: Z78.0 Asymptomatic menopausal state (principal)
CPT/HCPCS: 77080

== ENCOUNTER → 2022-03-08 | Outpatient (CLI) | payer MEDICARE, SELFPAY ==
[2022-03-08 12:12] LABS: Absolute Lymphocyte Count 1.54 X10^3/uL (0.83-4.51); Absolute Neutrophil Count 2.6 X10^3/uL (2.0-7.7); Basophil# 0.04 X10^3/uL; Basophil% 0.8 % (0-1); Eosinophil# 0.14 X10^3/uL; Eosinophils% 2.9 % (0-5); Hematocrit 38.8 % (37-47); Hemoglobin 12.4 g/dL (12.0-15.0); Lymphocyte # 1.54 X10^3/ul (0.83-4.51); Lymphocyte % 32.2 % (19-41); Mean Corpuscular Hgb 30.1 pg (27.0-32.0); Mean Corpuscular Volume 94.2 fL (81-99); Mean Platelet Vol. 11.5 fl (6.2-12.0); Monocyte# 0.43 X10^3/uL; NRBC Flagged by Analyzer 0 % (0-5); Neutrophil # 2.63 X10^3/uL (2.7-7.7); Neutrophil % 54.9 % (47-70); Platelet Count 215 K/mm3 (150-450); RBC Distribution Width CV 12.7 % (11.6-14.6); RBC Distribution Width SD 43.8 fl (35.1-43.9); Red Blood Count 4.12 M/mm3 (4.2-5.4); White Blood Count 4.8 K/mm3 (4.4-11.0)
[2022-03-08 12:42] LABS: AST(SGOT) 21 U/L (15-37); Alanine Aminotransfer ALT/SGPT 26 U/L (13-56); Albumin, Serum 3.4 g/dL (3.2-5.0); Alkaline Phosphatase 53 U/L (45-117); Anion Gap 5 (5-15); BUN 14 mg/dL (7-18); BUN/Creat Ratio 19.8 RATIO (10-20); Chloride 105 mmol/L (98-107); Cholesterol 121 mg/dL (200); Creatinine, Serum 0.71 mg/dL (0.55-1.02); EST Glomerular Filtration Rate 86 mL/min (>60); Est Glom Filt Rate - Afr Amer 104 mL/min (>60); Globulin 3.4 g/dL (2.2-4.2); Glucose 90 mg/dL (74-106); High Density Lipoprotein 56 mg/dL; Potassium 4.2 mmol/L (3.5-5.1); Protein, Total 6.8 g/dL (6.4-8.2); Sodium Level 141 mmol/L (136-145); Triglycerides 87 mg/dL; Troponin-I HS 9 pg/mL (3.0-54.0); Very Low Density Lipoprotein 17 mg/dL (5-40)
== END | disposition home or self-care (01) ==
LOC: BIMLAB 09:47
PROVIDERS: PCP Internal Medicine; Referring Provider Internal Medicine; Visit Provider Internal Medicine
DX: I25.10 Atherosclerotic heart disease of native coronary artery without angina pectoris (principal); I10 Essential (primary) hypertension; E78.00 Pure hypercholesterolemia, unspecified; R07.89 Other chest pain
CPT/HCPCS: 80053; 80061; 82248; 84484; 85025

== ENCOUNTER → 2022-04-02 | Outpatient (CLI) | payer MEDICARE, SELFPAY ==
--- NOTE | 2022-04-02 09:15 | EKG12_ITS ---
Test Reason : ROUTINE Blood Pressure : / mmHG Vent. Rate : 061 BPM Atrial Rate : 061 BPM P-R Int : 148 ms QRS Dur : 140 ms QT Int : 432 ms P-R-T Axes : 053 051 148 degrees QTc Int : 434 ms Normal sinus rhythm Left bundle branch block Abnormal ECG Confirmed by HELENE HINES, RICHARD ([id number]), online editor YAQUELIN POPE ([id number]) on 04/05/2022 1:23:09 PM Referred By: Mando Wang Confirmed By:RICHARD NARAYAN MD
== END | disposition home or self-care (01) ==
PROVIDERS: PCP Internal Medicine; Referring Provider Internal Medicine; Visit Provider Internal Medicine
DX: I10 Essential (primary) hypertension (principal); I25.10 Atherosclerotic heart disease of native coronary artery without angina pectoris
CPT/HCPCS: 93005

== ENCOUNTER → 2022-04-07 | Outpatient (CLI) | payer MEDICARE, SELFPAY ==
--- NOTE | 2022-04-07 13:30 | ST.MBS ---
Modified Barium Swallow - Patient Information Study Date: 04/07/22 Study Time: 12:55 Direct Billable Minutes: 80 Total Minutes procedure & reportin Diagnosis: Dysphagia (R13.10) Referring Physician: Mando Wang Reason for Referral: Objectively assess swallow function, risk for aspiration, and determine recommendations for least restrictive diet textures and compensatory strategies to improve safety of swallow. Medical History: The patient is a 71-year old female with PMH including GERD (not currently managed by medication), cervical fusion (~2009), and increased difficulty swallowing for the past couple of years. She reports having sensation of food caught in her throat or at chest level daily. It happens more often with foods, such as sandwiches. Upper and lower GI endoscopy completed ~2 years ago with no significant findings per patient report. She was referred by PCP to assess concerns for difficulty swallowing. Current Diet Ordered: Regular textures / Thin liquids Dentition: WNL Mental Status: WNL Respiratory Status: Oxygenating on Room Air - Penetration-Aspiration Scale Penetration-Aspiration Scale: OBJECTIVE ASSESSMENT OF SWALLOW FUNCTION (QUANTITATIVE ? PER TRIAL): PENETRATION / ASPIRATION SCALE (MADRIGAL): 1 = does not enter airway 2 = enters airway/above vocal folds/ejected 3 = enters airway/above vocal folds/not ejected 4 = enters airway/contacts vocal folds/ejected 5 = enters airway/contacts vocal folds/not ejected 6 = enters airway/below vocal folds/ejected 7 = enters airway/below vocal folds/not ejected despite effort 8 = enters airway/below vocal folds/no effort VIDEOFLOROSCOPIC SCALE SCORE (MADRIGAL): Grade I = aspiration of material that has penetrated into the laryngeal vestibule, intact cough reflex Grade II = aspiration < 10 % of the bolus, intact cough reflex Grade III = aspiration of < 10 % of the bolus, reduced cough reflex or aspiration of > 10 % of the bolus, intact cough reflex Grade IV = aspiration of > 10 % of the bolus, reduced cough reflex - Penetration-Aspiration Scale Score Thin Liquid Result: 1= does not enter airway Thin Liquid via teaspoon Trial 2 Result: 2= enter airway/above vocal folds/ejected Thin Liquid via small single sip from cup Result: 1= does not enter airway Thin Liquid via sequential sips from cup Result: 1= does not enter airway [place] Thick Liquid via small single sip from cup Result: 2= enter airway/above vocal folds/ejected Honey Thick Liquid via small single sip from cup Result: 1= does not enter airway Pudding via teaspoon Result: 1= does not enter airway 1/2 Cookie Result: 1= does not enter airway Thin Liquid via single sip from straw Result: 1= does not enter airway - Oral Phase Labial Seal: No Labial Escape Tongue Control During Bolus Hold: Posterior escape of less than half of bolus Bolus Preparation/Mastication: Timely and efficient chewing and mashing Bolus Transport/Lingual Motion: Delayed initiation of tongue motion Oral Residue: Complete oral clearance - Pharyngeal Phase Initiation of Pharyngeal Swallow: Bolus head at posterior laryngeal surgace of epiglottis Soft Palate Elevation: No bolus between soft palate and pharyngeal wall Laryngeal Elevation: Partial superior movement thyroid cart/partial apprx aryt-epig petiole Anterior Hyoid Excursion: Complete anterior movement Epiglottic Movement: Complete inversion Laryngeal Vestibule Closure at Height of Swallow: Incomplete; narrow column of air/contrast in laryngeal vestibule - trace laryngeal penetration with full ejection Pharyngeal Stripping Wave: Present - complete Pharyngoesophageal Segment Opening: Complete distension and complete duration; no obstruction of flow Tongue Base Retraction: Narrow column of contrast between tongue base & post. pharyngeal wall Pharyngeal Residue: Trace residue within or on pharyngeal structures - Esophageal Phase Esophageal Clearance: Complete clearance - Diagnosis/Impression Diagnosis: Oropharyngeal swallow function grossly WNL Impression: Overall, the patient presents with oropharyngeal swallow function WNL. She did present with mild posterior loss of thin liquids during the swallow and mild delay initiating the swallow with thin liquids; however, the patient maintained good airway closure during the study - trace laryngeal penetration with full ejection of thin by cup & straw, and nectar thick by cup. No aspiration observed during the study. Trace oral and pharyngeal residues after the swallow. Small CP bar present at the level of C-4/C-5, but it did not appear to obstruct bolus clearance through the upper esophageal sphincter. - Recommendations Diet: Regular Textures, Thin Liquids Compensatory Strategies: Small Bites, Small Sips, Slow Rate, Alternate bites/solids and sips/liquids, Sitting upright, Remain sitting upright for 30 minutes after PO intake Recommend Repeat Modified Barium Swallow: No Need for Skilled Speech Therapy Services: No Education Completed: 1. Described result of evaluation. - Status Active ST Patient: Active - Contact Information [facility] Speech Therapy:: Cassie Hassan M.A. [facility]ATOR Speech-Language Pathologist [address] [address] [email or web address] [phone] 04/07/22 16:35
== END | disposition home or self-care (01) ==
LOC: RAD 12:47
PROVIDERS: PCP Internal Medicine; Referring Provider Internal Medicine; Visit Provider Internal Medicine
DX: R13.10 Dysphagia, unspecified (principal)
CPT/HCPCS: 74230; 92611

== ENCOUNTER 2022-05-03 08:14 | Outpatient (CLI) | payer MEDICARE, SELFPAY ==
--- NOTE | 2022-05-03 08:15 | BI_ITS ---
MAMMOGRAPHY - BILATERAL SCREENING REASON FOR EXAM: Female, 71 years old. Routine annual screening examination. PERTINENT HISTORY: Sister with breast cancer. TECHNIQUE: Digital bilateral breast dereje (3D mammographic acquisition) in the CC and MLO projections. 2-D mediolateral oblique (MLO) and craniocaudad (CC) views of both breasts were obtained. CAD: Full Field Digital Mammography with Computer Added Detection was performed. COMPARISON: Comparison is made with prior study dated 04/30/2021 and 03/07/2020. FINDINGS: Breast Composition: The breasts are heterogeneously dense, which may obscure small masses. There are no dominant masses or suspicious calcifications. Stable small benign-appearing bilateral axillary lymph nodes. No other significant abnormalities are identified. There has been no significant change since the prior study. BI/SCRN MAMM (CAD)W/DEREJE BILAT IMPRESSION: Stable bilateral screening mammogram. Yearly follow-up mammogram recommended. (A) ASSESSMENT CATEGORY: BIRADS Category 2: Benign. A letter regarding these results will be sent to the patient by the facility within 30 days. Approximately 10% of breast cancers are not detected by mammography. A normal mammogram should not delay biopsy of a clinically suspicious abnormality. [id number] Electronically Signed: Evgeny Royal MD at 9:30 EST ,
== END 2022-05-03 23:59 | disposition home or self-care (01) ==
LOC: OPBI 08:14
PROVIDERS: PCP Internal Medicine; Visit Provider Internal Medicine
DX: Z12.31 Encounter for screening mammogram for malignant neoplasm of breast (principal); Z80.3 Family history of malignant neoplasm of breast
CPT/HCPCS: 77063; 77067

== ENCOUNTER → 2022-07-26 | Outpatient (CLI) | payer MEDICARE, SELFPAY ==
--- NOTE | 2022-07-26 16:57 | STRESSREP ---
Stress Test Report Pharmacologic myocardial perfusion stress test. 71-year-old lady with a history of coronary artery disease status post previous stenting Resting EKG demonstrates normal sinus rhythm with a left bundle branch block with a rate of 62 bpm. Resting blood pressure is 122/74 mmHg. 0.4 mg of regadenoson was infused per usual protocol followed by rapid intravenous saline flush injection. Continuous EKG monitoring was performed. The maximum heart rate was 91 bpm which was 61% of max impacted heart rate the maximum workload was 1 metabolic equivalent. At rest there were no ST or T wave changes noted to suggest ischemia and at peak infusion nonspecific ST changes were noted which did not meet the criteria for ischemia. No clinical angina is noted. The final blood pressure was 122/62 mmHg. Myocardial perfusion protocol. 10.5 mCi of technetium 99m sestamibi was injected at rest. 0.4 mg of regadenoson was infused per usual protocol. At peak infusion 33 mCi of technetium 99m sestamibi was injected stress images were obtained stress and rest images were reconstructed and compared in the short axis vertical long and horizontal long axis. Gated images were also obtained. Perfusion SPECT analysis: Review of the stress images demonstrate normal uptake of tracer noted in all areas of the myocardium. The resting images similar demonstrated normal uptake of tracer noted in all areas of the myocardium. No areas of reversibility are noted to suggest ischemia and no previous infarct is noted. Gated SPECT analysis: The gated ejection fraction is 61%. Conclusion: Normal pharmacologic myocardial perfusion stress test. Preserved ejection fraction.
== END | disposition home or self-care (01) ==
PROVIDERS: PCP Internal Medicine; Referring Provider Nurse Practitioner Family; Visit Provider Nurse Practitioner Family
DX: Z95.5 Presence of coronary angioplasty implant and graft (principal); I44.7 Left bundle-branch block, unspecified; I10 Essential (primary) hypertension
CPT/HCPCS: 78452; 93017; A9500; A4216; J2785

== ENCOUNTER → 2022-08-02 | Outpatient (CLI) | payer MEDICARE, SELFPAY ==
[2022-08-02 15:15] LABS: Bacteria 0 SEEN /hpf (None Seen); Mucous, Urine 0 SEEN /hpf (<or=2+); Squamous Epithelial Cells - UA 0 SEEN /hpf (5-10)
[2022-08-02 15:28] LABS: Color, Urine Yellow (Yellow); Glucose, Dipstick Normal (Normal); Ketone-Dipstick Negative (Negative); Leukocyte Esterase-Dipstick 25 /ul (Negative); Nitrite-Dipstick Negative (Negative); Occult Blood-Urine 10 /ul (Negative); Protein-Dipstick Negative (Negative); Urine Bilirubin Dipstick Negative (Negative); Urine Clarity Sl. Cloudy (Clear); Urine Urobilinogen Normal (Normal)
[2022-08-02 15:34] LABS: Red Blood Cells-Urine 0-5 SEEN /hpf (0-5); White Blood Cells 0-5 SEEN /hpf (0-5)
== END | disposition home or self-care (01) ==
LOC: LABSPEC 14:58
PROVIDERS: PCP Internal Medicine; Visit Provider Physician Assistant
DX: R30.0 Dysuria (principal)
CPT/HCPCS: 81001; 87077; 87086; 87088; 87186

== ENCOUNTER → 2023-02-02 | Outpatient (CLI) | payer MEDICARE, SELFPAY ==
[2023-02-02 16:30] LABS: Anion Gap 3 (5-15); BUN 17 mg/dL (7-18); Calcium,Total 9.4 mg/dL (8.5-10.1); Chloride 105 mmol/L (98-107); EST Glomerular Filtration Rate 58 mL/min (>60); Est Glom Filt Rate - Afr Amer 70 mL/min (>60); Glucose 93 mg/dL (74-106); Potassium 4.2 mmol/L (3.5-5.1); Sodium Level 139 mmol/L (136-145); T4 Free Direct 0.92 ng/dL (0.76-1.46); Thyroid Stim Hormone (TSH) 1.03 uIU/mL (0.358-3.74)
== END | disposition home or self-care (01) ==
LOC: BIMLAB 13:26
PROVIDERS: PCP Internal Medicine; Visit Provider Internal Medicine
DX: R25.1 Tremor, unspecified (principal); I10 Essential (primary) hypertension
CPT/HCPCS: 36415; 80048; 84439; 84443

== ENCOUNTER → 2023-02-04 | Outpatient (CLI) | payer MEDICARE, SELFPAY ==
--- NOTE | 2023-02-04 13:38 | RAD_ITS ---
EXAM: XR LEFT HIP WITH PELVIS WHEN PERFORMED, 2 OR 3 VIEWS CLINICAL INDICATION: Left Hip Pain TECHNIQUE: Two or three views of the left hip with pelvis when performed. COMPARISON: 03/16/2021 FINDINGS: BONES/JOINTS: Postoperative changes in the lumbar spine with posterior instrumentation and multilevel laminectomy partially visualized. Bilateral symmetric SI joint arthrosis. Bilateral acetabular hypertrophy and mild superior weightbearing compartment joint space narrowing at the hips. No displaced fracture. No destructive or sclerotic lesions. Note that overlapping bowel shadows may however obscure fine detail. No widening of the pubic symphysis. SOFT TISSUES: No significant abnormality. No soft tissue swelling or gas. RAD/HIP, UNI W/ Pelvis 2-3 Views IMPRESSION: 1. Postoperative changes in the lumbar spine with posterior instrumentation and multilevel laminectomy partially visualized. 2. Mild bilateral hip joint arthrosis. Electronically Signed: Taye Muñoz DO at 20:46 EDT ,
== END | disposition home or self-care (01) ==
LOC: MTRAD 13:38
PROVIDERS: PCP Internal Medicine; Referring Provider Internal Medicine; Visit Provider Internal Medicine
DX: M25.552 Pain in left hip (principal)
CPT/HCPCS: 73502

== ENCOUNTER → 2023-02-09 | Outpatient (CLI) | payer MEDICARE, SELFPAY ==
--- NOTE | 2023-02-09 12:21 | US_ITS ---
STUDY: THYROID ULTRASOUND REASON FOR EXAM: Female, 72 years old. Anterior Neck Swelling TECHNIQUE: Ultrasound evaluation of the thyroid was performed with real-time and static fall-scale imaging. COMPARISON: None. FINDINGS: RIGHT LOBE: The right lobe of the thyroid gland measures 5.3 x 2.2 x 1.3 cm. There is a homogeneous echotexture. There are 3 separate hypoechoic well-defined solid nodules. Largest measures 1.5 x 1.2 x 0.7 cm. This nodule is solid or almost completely solid, hypoechoic, [id number], smoothly marginated and contains no echogenic foci. This nodule is moderately suspicious. Recommend follow-up thyroid ultrasounds at 1, 2, 3 and 5 years. LEFT LOBE: The left lobe of the thyroid gland measures 5.1 x 2.1 x 1.1 cm. There is a homogeneous echotexture. 2 separate solid well-defined hypoechoic nodules both measuring approximately 5 mm in size, there is a simple 4 mm cyst. This nodule is solid or almost completely solid, hypoechoic, [id number], smoothly marginated and contains no echogenic foci. This nodule is moderately suspicious but no FNA or follow-up is necessary given the small size of this nodule. ISTHMUS: The isthmus measures 2.5 mm. The regional lymph nodes are normal. US/Thyroid IMPRESSION: Enlarged homogeneous thyroid gland with bilateral solid nodules. Follow-up as listed above. Electronically Signed: Dex James MD at 13:40 EDT ,
== END | disposition home or self-care (01) ==
LOC: US 12:14
PROVIDERS: PCP Internal Medicine; Referring Provider Internal Medicine; Visit Provider Internal Medicine
DX: R22.1 Localized swelling, mass and lump, neck (principal); R13.10 Dysphagia, unspecified
CPT/HCPCS: 76536

== ENCOUNTER → 2023-03-01 | Outpatient (CLI) | payer MEDICARE, SELFPAY ==
--- NOTE | 2023-02-28 | FLU_PTH ---
PATIENT: EVANS BARR LOC: [facility] U#:[id number] AGE/SX: 72/F ROOM: RE03/01/[address]: Dr. Johnny March MD : 1950 BED: DIS: 03/01/2023 SPEC #: [id number] RECD: 03/01/23 13:06 STATUS: NÉSTOR MAGDALENA #: [id number] CAMILA: 02/28/23 00:[address]: Johnny March DEPT: CYTOLOGY RECD BY: Malcom Burt ENTERED: 03/01/23 13:07 SP TYPE: Fluid OTHR DR: Dr. Mando Wang MD Tissues: A - Thyroid gland, NOS B - Thyroid gland, NOS Procedures: Special Stain Group II Surgery Specimen Level IV Cytospin Fluid HEADER OPERATION: Fine needle aspiration of right thyroid nodule PRE-OP DIAGNOSIS: Right thyroid nodule TISSUE SUBMITTED: A - FNA right thyroid nodule fluid, B - FNA right thyroid nodule x4 slides DIAGNOSIS CYTOLOGY A. Fine needle aspiration, right thyroid nodule (cytospin and cell block): Benign, consistent with benign follicular/colloid nodule (Bowie Category II). See comment. B. Fine needle aspiration, right thyroid nodule (smears): Benign, consistent with benign follicular/colloid nodule (Bowie Category II). See comment. AM:brandie 03/02/2023 COMMENT A & B. The Bowie System for thyroid diagnostic categorization was used in the evaluation of this case. The specimen is adequate for evaluation. CYTOLOGY STUDY Slides are reviewed. CYTOLOGY GROSS A - Received is 35 ml of red cloudy fluid labeled with the patient's name and and designated per the requisition as right thyroid nodule. Submitted for cytology preparation including cell block. B - Received are four smears labeled with the patient's name and designated per the requisition as right thyroid nodule. Submitted for staining. / brandie 03/01/2023 TC:5 CPT: 54669 x2, 39527
== END | disposition home or self-care (01) ==
LOC: LABSPEC 12:09
PROVIDERS: PCP Internal Medicine; Referring Provider Surgery; Visit Provider Surgery
DX: E04.2 Nontoxic multinodular goiter (principal)
CPT/HCPCS: 88108; 88305; 88313

== ENCOUNTER → 2023-05-06 | Outpatient (CLI) | payer MEDICARE, SELFPAY ==
[2023-05-06 12:43] LABS: Absolute Lymphocyte Count 1.57 X10^3/uL (0.83-4.51); Absolute Neutrophil Count 5.2 X10^3/uL (2.0-7.7); Basophil# 0.07 X10^3/uL; Basophil% 0.9 % (0-1); Eosinophil# 0.17 X10^3/uL; Eosinophils% 2.2 % (0-5); Hemoglobin 12.7 g/dL (12.0-15.0); Lymphocyte # 1.57 X10^3/ul (0.83-4.51); Lymphocyte % 20.6 % (19-41); Mean Corp Hgb Conc 31.8 g/dL (32-36); Mean Corpuscular Volume 94.6 fL (81-99); Mean Platelet Vol. 11.2 fl (6.2-12.0); Monocyte# 0.59 X10^3/uL; Monocyte% 7.8 % (0-10); NRBC Flagged by Analyzer 0 % (0-5); Neutrophil # 5.18 X10^3/uL (2.7-7.7); Neutrophil % 68.1 % (47-70); Platelet Count 221 K/mm3 (150-450); RBC Distribution Width CV 13.1 % (11.6-14.6); RBC Distribution Width SD 45.2 fl (35.1-43.9); Red Blood Count 4.23 M/mm3 (4.2-5.4); White Blood Count 7.6 K/mm3 (4.4-11.0)
[2023-05-06 13:42] LABS: AST(SGOT) 24 U/L (15-37); Alanine Aminotransfer ALT/SGPT 26 U/L (13-56); Albumin, Serum 3.5 g/dL (3.2-5.0); Alkaline Phosphatase 47 U/L (45-117); Anion Gap 5 (5-15); BUN 16 mg/dL (7-18); BUN/Creat Ratio 21.5 RATIO (10-20); Calcium,Total 8.8 mg/dL (8.5-10.1); Chloride 107 mmol/L (98-107); Cholesterol 120 mg/dL (200); Creatinine, Serum 0.74 mg/dL (0.55-1.02); EST Glomerular Filtration Rate 81 mL/min (>60); Est Glom Filt Rate - Afr Amer 98 mL/min (>60); Globulin 3.5 g/dL (2.2-4.2); Glucose 85 mg/dL (74-106); High Density Lipoprotein 64 mg/dL; Potassium 3.9 mmol/L (3.5-5.1); Sodium Level 141 mmol/L (136-145); Triglycerides 72 mg/dL; Very Low Density Lipoprotein 14 mg/dL (5-40)
== END | disposition home or self-care (01) ==
LOC: BIMLAB 09:22
PROVIDERS: PCP Internal Medicine; Referring Provider Internal Medicine; Visit Provider Internal Medicine
DX: I10 Essential (primary) hypertension (principal)
CPT/HCPCS: 36415; 80053; 80061; 85025

== ENCOUNTER → 2023-06-21 | Outpatient (CLI) | payer MEDICARE, SELFPAY ==
--- NOTE | 2023-06-21 12:15 | BI_ITS ---
MAMMOGRAPHY - BILATERAL SCREENING REASON FOR EXAM: Female, 72 years old. Routine annual screening examination. PERTINENT HISTORY: Sister with breast cancer. TECHNIQUE: Digital bilateral breast dereje (3D mammographic acquisition) in the CC and MLO projections. 2-D mediolateral oblique (MLO) and craniocaudad (CC) views of both breasts were obtained. CAD: Full Field Digital Mammography with Computer Added Detection was performed. COMPARISON: Comparison is made with prior study dated February 01, 2022 and April 30, 2021. FINDINGS: Breast Composition: The breasts are heterogeneously dense, which may obscure small masses. There are no dominant masses or suspicious calcifications. Stable small benign-appearing bilateral axillary lymph nodes. No other significant abnormalities are identified. There has been no significant change since the prior study. BI/SCRN MAMM (CAD)W/DEREJE BILAT IMPRESSION: Stable bilateral screening mammogram. Yearly follow-up mammogram recommended. (A) ASSESSMENT CATEGORY: BIRADS Category 2: Benign. A letter regarding these results will be sent to the patient by the facility within 30 days. Approximately 10% of breast cancers are not detected by mammography. A normal mammogram should not delay biopsy of a clinically suspicious abnormality. [id number] Electronically Signed: Evgeny Royal MD at 12:47 EST ,
--- NOTE | 2023-06-21 12:18 | BD_ITS ---
STUDY: DUAL ENERGY X-RAY ABSORPTIOMETRY / DXA REASON FOR EXAM: Female, 72 years old. Post Menopausal TECHNIQUE: Bone Mineral Density (BMD) measurements of lumbar spine and bilateral hips were obtained. COMPARISON: Comparison is made with prior study dated May 21, 2021. FINDINGS: Lumbar Spine (L1-L4): g/cm2 (0.957) / T-score (-0.2) / Z-score (2.0) Findings are suggestive of normal bone density with a low fracture risk. Left Femur Total: g/cm2 (0.749) / T-score (-1.6) / Z-score (0.1) Left Femoral Neck: g/cm2 (0.650) / T-score (-1.8) / Z-score (0.2) Right Femur Total: g/cm2 (0.733) / T-score (-1.7) / Z-score (0.0) Right Femoral Neck: g/cm2 (0.636) / T-score (-1.9) / Z-score (0.1) The T-Scores on the most recent prior examination were: Lumbar Spine (L1-L4): There has been improvement of bone density since the previous examination. Left Femur Total: which represents a worsening of 2.3%. Right Femur Total: which represents a worsening of 1.1%. BD/Dexa Bone Density Study IMPRESSION: The patient is considered osteopenic as outlined below according to World Thadde[employer] Organization (WHO) criteria with a moderate fracture risk. There has been worsening of bone density since the previous examination. Reference Information: The T-score is the number of standard deviations above or below the standard which is normal for young adults at their peak bone mineral density. The World Health Organization (WHO) interprets the T-scores as follows: Above -1 Normal bone density Between -1 and -2.5 Osteopenia Equal to / or below -2.5 Osteoporosis As a practical clinical guideline, osteopenia may be graded as follows: Mild -1 through -1.5 Moderate -1.6 through -2.0 Severe -2.1 through -2.4 The Z-score is the number of standard deviations above or below age-matched controls. A Z-score of less than -1.5 would be considered abnormal. References: 1. NIH Osteoporosis and Related Bone Diseases www osteo.org 2. International Society for Clinical Densitometry www iscd.org 3. National Osteoporosis Foundation www nof.org Electronically Signed: Evgeny Royal MD at 16:15 EST ,
--- OUTSIDE RECORDS SUMMARY | 2023-06-21 12:35 | XMS RPT_ITS | CCD ---
Author Name Unknown Address [address] [place] [address] Organization [facility] Care Team Providers Care Conveyor Operator Name Role Phone KARLAKEKE Attending Unavailable KARLA, KEKE Lam Primary Care Unavailable KARLAKEKE Admitting Unavailable KARLAKEKE Attending Unavailable KARLA, KEKE Lam Primary Care Unavailable KARLA, KEKE Lam Admitting Unavailable Mando Wang MD Primary Care Provider [phone] ELHAM MUÑOZ DO Primary Care Physician Mando Wang MD Primary Care Provider [phone] Mando Wang MD Primary Care Provider [phone] Mando Wang MD Primary Care Provider [phone] MANDO WANG Primary Care Unavailable Allergies Allergy Classification Reported Allergen(s) Allergy Type Date of Onset Reaction(s) Facility (16 sources) fentaNYL; Translations: [fentanyl] Drug Allergy 0 Other: See Comments [place] Work Phone: (15 sources) Morphinan opioid; Translations: [OPIOIDS - MORPHINE ANALOGUES] Drug Intolerance 8 Other: See Comments [place] Work Phone: (1 source) Adhesive Tape Drug allergy rash [facility] Medications Current Medications Medication Drug Class(es) Dates Sig (Normalized) Sig (Original) alendronic acid 35 mg oral tablet (1 source) Bisphosphonate Start: 01-19-2010 take 1 dose by mouth every week Fosamax Dose = 35 mg, PO, qWeek, 0 Refill(s), current med (Hx) Start Date: 01/19/10 Status: Ordered Calcium (1 source) Phosphate Binder, Calcium Start: 01-19-2010 take 1 tablet by mouth twice daily Calcium 600+D Dose = 1 tab(s), PO, BID, 0 Refill(s), current med (Hx) Start Date: 01/19/10 Status: Ordered dicyclomine hydrochloride 10 mg oral capsule (1 source) Anticholinergic Start: 08-10-2013 Bentyl 10 mg oral capsule Dose : 10 mg = 1 cap(s), Oral, QID, PRN Diarrhea, # 15 cap(s), 0 Refill(s) Start Date: 08/10/13 Status: Ordered Multivitamin preparation (1 source) Start: 01-19-2010 take 1 tablet by mouth once daily Multivitamin Dose = 1 tab(s), PO, Daily, 0 Refill(s), current med (Hx) Start Date: 01/19/10 Status: Ordered ondansetron 4 mg oral tablet (1 source) Serotonin-3 Receptor Antagonist Start: 08-10-2013 Zofran 4 mg oral tablet Dose : 4 mg = 1 tab(s), Oral, q6h, # 5 tab(s), 0 Refill(s) Start Date: 08/10/13 Status: Ordered Vitamin D3 (1 source) Start: 01-19-2010 take 1 dose by mouth once daily Vitamin D3 Dose = 1,000 Units, PO, Daily, 0 Refill(s), current med (Hx) Start Date: 01/19/10 Status: Ordered Completed/Discontinued Medications Medication Drug Class(es) Dates Sig (Normalized) Sig (Original) 8 hr acetaminophen 650 mg extended release oral tablet (14 sources) take 1 tablet by mouth every eight hours as needed acetaminophen (TYLENOL 8 HOUR) 650 mg CR tablet Take 650 mg by mouth every 8 hours as needed. 0 Active Problems Active Problems Problem Classification Problem Date Documented Date Episodic/Chronic Cardiac dysrhythmias (20 sources) Atrial tachycardia; Translations: [Supraventricular tachycardia] Onset: 01-18-2020 01-18-2020 Chronic Conduction disorders (14 sources) Bundle branch block; Translations: [Nonspecific intraventricular block] Onset: 01-18-2020 01-18-2020 Chronic Coronary atherosclerosis and other heart disease (14 sources) Coronary atherosclerosis; Translations: [Atherosclerotic heart disease of mohegan coronary artery without angina pectoris] Onset: 01-18-2020 01-18-2020 Chronic Disorders of lipid metabolism (14 sources) Mixed hyperlipidemia; Translations: [Mixed hyperlipidemia] Onset: 01-18-2020 01-18-2020 Chronic Esophageal disorders (14 sources) Gastroesophageal reflux disease; Translations: [Gastro-esophageal reflux disease without esophagitis] Onset: 01-18-2020 01-18-2020 Chronic Essential hypertension (14 sources) Benign essential hypertension; Translations: [Essential (primary) hypertension] Onset: 01-18-2020 01-18-2020 Chronic Other and ill-defined heart disease (14 sources) Left ventricular cardiac dysfunction; Translations: [Heart disease, unspecified] Onset: 01-18-2020 01-18-2020 Chronic Other inflammatory condition of skin (14 sources) Rosacea; Translations: [Rosacea, unspecified] Onset: 07-06-2006 07-06-2006 Chronic Superficial injury; contusion (2 sources) Contusion of knee; Translations: [Contusion of unspecified knee, initial encounter] Onset: 11-25-2021 Episodic Unclassified (1 source) Fusion 08-10-2013 Past or Other Problems Problem Classification Problem Date Documented Da te Episodic/Chronic Other bone disease and musculoskeletal deformities (14 sources) Osteopenia; Translations: [Other specified disorders of bone density and structure, unspecified site] Onset: 01-18-2020 01-18-2020 Episodic Other connective tissue disease (14 sources) Synovial cyst; Translations: [Other bursal cyst, unspecified site] Onset: 02-15-2008 02-15-2008 Episodic Other connective tissue disease (14 sources) History of lumbar fusion; Translations: [Arthrodesis status] Onset: 01-18-2020 01-18-2020 Episodic Other connective tissue disease (14 sources) History of cervical spine fusion; Translations: [Arthrodesis status] Onset: 01-18-2020 01-18-2020 Episodic Other non-epithelial cancer of skin (14 sources) Malignant neoplasm of skin; Translations: [Unspecified malignant neoplasm of skin, unspecified] Onset: 01-18-2020 01-18-2020 Episodic Results Test Name Value Interpretation Reference Range Facil ity Vital Signs Date Time Vital Sign Value Performing Clinician Bethanie montez 01-20-2022 11:16-0400 Body height 162.6 cm Neur 1 [place] 01-20-2022 11:16-0400 Body weight 71.67 kg Neur 1 [place] 01-20-2022 11:16-0400 Diastolic blood pressure 65 mm[Hg] Neur 1 [place] 01-20-2022 11:16-0400 Heart rate 60 /min Neur 1 [place] 01-20-2022 11:16-0400 Respiratory rate 18 /min Neur 1 [facility] 01-20-2022 11:16-0400 SaO2% (BldA) [Mass fraction] 97 % Neur 1 [place] 01-20-2022 11:16-0400 Systolic blood pressure 161 mm[Hg] Neur 1 [place] 11-25-2021 21:07-0400 Diastolic blood pressure 66 mm[Hg] ANA LUCAS MD [facility] 11-25-2021 21:07-0400 Heart rate 63 /min ANA LUCAS MD [facility] 11-25-2021 21:07-0400 Reason For Taking VItal Signs ANA LUCAS MD [facility] 11-25-2021 21:07-0400 Respiratory rate 16 /min ANA LUCAS MD [facility] 11-25-2021 21:07-0400 Systolic blood pressure 159 mm[Hg] ANA LUCAS MD [facility] 11-25-2021 19:19-0400 Body temperature 97.7 [degF] ANA LUCAS MD [facility] 11-25-2021 19:19-0400 Diastolic blood pressure 81 mm[Hg] ANA LUCAS MD [facility] 11-25-2021 19:19-0400 Heart rate 75 /min ANA LUCAS MD [facility] 11-25-2021 19:19-0400 Respiratory rate 16 /min ANA LUCAS MD [facility] 11-25-2021 19:19-0400 Systolic blood pressure 164 mm[Hg] ANA LUCAS MD [facility] Encounters Encounter Date Encounter Type Care Provider Facility Start: 01-21-2023 Chart abstracting Famsteve Fitch jaskaran Research Coordinator Work Phone: Neurology Procedures Date Procedure Procedure Detail Performing Clinician Start: 06-09-2021 Mammography Letty lassiter Research Coordinator Start: 03-28-2019 Mammography Nia kathleen Research Coordinator Start: 02-28-2019 Adult depression screening assessment Nia Lemus Research Coordinator Plan of Treatment Date Care Activity Detail Author Start: 02-28-2023 LIPID SCREEN LIPID SCREEN [place] Start: 01-28-2023 Influenza vaccination INFLUENZA (#1) [place] Start: 06-24-2022 COVID-19 VACCINE (6 - Pfizer series) COVID-19 VACCINE (6 - Pfizer series) [place] Start: 06-09-2022 Mammography MAMMOGRAM [place] Start: 05-30-2022 ADVANCE DIRECTIVE DISCUSSION ADVANCE DIRECTIVE DISCUSSION [place] Start: 05-30-2022 DEPRESSION ASSESSMENT DEPRESSION ASS ESSMENT [place] Start: 01-28-2022 Influenza vaccination [facility] Start: 11-27-2021 COVID-19 VACCINE (5 - Booster for Pfizer series) COVID-19 VACCINE (5 - Booster for Pfizer series) [place] Start: 11-27-2021 COVID-19 VACCINE (5 - Pfizer series) COVID-19 VACCINE (5 - Pfizer series) [place] Start: 05-30-2021 ADVANCE DIRECTIVE DISCUSSION ADVANCE DIRECTIVE DISCUSSION [place] Start: 05-30-2021 DEPRESSION ASSESSMENT DEPRESSION ASS ESSMENT [place] Start: 02-28-2021 DIABETES SCREEN DIABETES SCREEN [facility] Start: 01-28-2021 Influenza vaccination INFLUENZA (#1) [place] Start: 03-28-2020 Mammography MAMMOGRAM [place] Start: 03-05-2020 COLORECTAL CANCER SCREENING COLORECTAL CANCER SCREENING [place] Start: 03-05-2020 FECAL OCCULT BLOOD FECAL OCCULT BLOO D [facility] Start: 02-29-2020 Adult depression scr eening assessment DEPRESSION SCREENING [place] Start: 02-29-2020 ANNUAL PCP TEAM MAGAZINE KEEPER HOMER DISEASE VISIT ANNUAL PCP TEAM CHRONIC DISEASE VISIT [place] Start: 02-29-2020 PNEUMOCOCCAL: 65+ (2 - PPSV23 if available, else PCV20) PNEUMOCOCCAL: 65+ (2 - PPSV23 if available, else PCV20) [place] Start: 02-29-2020 PNEUMOCOCCAL: 65+ (2 - PPSV23 or PCV20) PNEUMOCOCCAL: 65+ (2 - PPSV23 or PCV20) [place] Start: 02-28-2019 Hepatitis B surface antibody level LDL CHOLESTEROL [facility] Start: 2014 PNEUMOVAX AGE 65 AND OVER WITH 5YR LOOKBACK (#1) PNEUMOVAX AGE 65 AND OVER WITH 5YR LOOKBACK (#1) [place] Start: 12-27-2012 SHINGRIX VACCINE (2 of 3) SHINGRIX V ACCINE (2 of 3) [place] Start: 1994 COLOGUARD (FIT-DNA) COLOGUARD (FIT-D NA) [place] Start: 1994 Colonoscopy COLONOSCOPY [facility] Start: [address] COLONOGRAPHY [facility] Start: 1994 SIGMOIDOSCOPY SIGMOIDOSCOPY [facility] Start: 1968 Urine microalbumin profile DTAP,TDAP ,TD (1 - Tdap) [place] Start: 11-10-1967 BP CONTROLLED (<130/80) BP CONTROLLE D (<130/80) [place] Start: 1954 COVID-19 VACCINE (1) COVID-19 VACCIN E (1) [place] Start: 05-11-1950 COVID-19 VACCINE (#1) COVID-19 VACCI NE (#1) [facility] Immunizations Immunization Date Immunization Notes Care Provider Fa cility 02-28-2019 influenza, high dose seasonal, preservative-free Nia Lemus Research Coordinator [place] 02-28-2019 pneumococcal conjuga te vaccine, 13 valent Nia Lemus Research Coordinator [place] 02-27-2018 influenza, high dose seasonal, preservative-free Nia Lemus Research Coordinator [place] 03-14-2017 influenza virus vaccine, unspecified formulation Nia Holpit Research Coordinator [place] 03-07-2017 influenza, high dose seasonal, preservative-free Nia Holpit Research Coordinator [place] 03-26-2016 influenza, high dose seasonal, preservative-free Nia Holpit Research Coordinator [place] 03-31-2015 influenza, high dose seasonal, preservative-free Nia Holpit Research Coordinator [place] 11-01-2012 zoster vaccine, live Nia Ho lpit Research Coordinator [place] 06-11-2009 novel [id number], preservative-free, injectable Nia Holpit Research Coordinator [place] 04-05-2008 influenza virus vaccine, whole virus Nia Holpit Research Coordinator [place] Payers Date Payer Category Payer Unknown [facility] [employer]TH MED[employer] O [id number] 2018-Present [phone] [address] [place] [address] [facility] [id number] 2015 Unknown [id number] 1950 Unknown [id number] 1950 Unknown [id number] Medicare [id number] Social History Date Type Detail Facility Start: 02-27-2018 End: 11-25-2021 Tobacco smoking status NHIS Never smoked tobacco [place] Start: 01-21-2020 Alcohol intake Current drinke r of alcohol (finding) [place] Start: 02-27-2018 History SDOH Alcohol Comment Occasional wine [place] Start: 1950 Sex Assigned At Not on file [facility] Sex Assigned At Sex [facility] Start: 02-27-2018 Tobacco use and exposure Smoke less tobacco non-user [place] Start: 01-10-2022 End: 01-20-2022 Exposure to SARS-CoV-2 (event) Not sure [facility] Start: 01-21-2020 End: 01-21-2023 Gender identity Not on file [facility] Start: 01-21-2020 End: 01-21-2023 History of Social function [facility] Adult Depression Screening Assessment 0 [facility] Functional Status Date Assessment Result Facility 11-25-2021 Functional Status Standard Safet y ID band on, Call device within reach, Bed in low position, Wheels locked, Upper/Half-Length side-rails up, Bedside Cart Locked, Visitor at bedside, Safety level maintained [facility] 11-25-2021 Functional Status [facility] Mental Status Date Assessment Result Facility 11-25-2021 Mental Status Oriented x 4 [facility] 11-25-2021 Mental Status [facility] Clinical Notes 02-15-2008 to 01-21-2023 Letitia Edwards PA-C - 01/21/2023 10:30 AM Fam Moss, Research Coordinator - 01/21/2023 9:45 AM EDTTelephone Encounter - Hannah Cruz - 01/11/2023 1:58 PM EDT Note Date & Type Note Facility 01-21-2023 Note HNO ID: [id number] Author: Letitia Edwards PA-C Service: ? Author Type: Physician Tripe Finisher Type: Progress Notes Filed: 01/21/2023 12:54 PM Note Text: Vital Signs: BP: 152/86 BP Site: BP left arm BP Position: Sitting Cuff size: regular Pulse: 54 Resp: 18 SPO2: 96 Weight: 158.9 lbs. Height: 5'3 Updates from 2021 visit: Medical Hx: Ocular rosacea Family Hx: Parkinson's - Brother Recreational drug use on previous exam should be no Result of Physical Exam Body System Eyes: Normal Ears, Nose, Mouth and Throat: Normal Cardiovascular: Normal Respiratory: Normal Gastrointestinal: Normal Genitourinary: Normal Musculoskeletal: Normal Integumentary: Normal Psychiatric: Not examined Handedness: Right hand Results of Mental Status Assessment Mental Assessments Attention: Abnormality Present: No Memory Working Memory: Abnormality Present: No Recent (Episodic) Memory: Abnormality Present: No Remote (Semantic) Memory: Abnormality Present: No Language Spontaneous Speech: Abnormality Present: No Comprehension: Abnormality Present: No Naming: Abnormality Present: No Repetition: Abnormality Present: No Reading: Abnormality Present: No Affect: Abnormality Present: No Craninal Nerve Assessment Visual Kyle: Normal EOM: Normal Nystagmus: Physiologic Pupils: Equal and reactive Ptosis: Absent Trigeminal: Normal CN VII: Normal CN VIII: Normal CN IX: Normal CN X: Normal CN XI: Normal CN XII: Normal Assessment of Motor and Bulk and Tones Motor Assessments Muscle bulk-global: Normal Muscle tone-global: Normal Motor Strength Assessment Shoulder flexion: Right 5 Left 5 Shoulder external rotation: Right 5 Left 5 Shoulder abduction: Right 5 Left 5 Elbow flexion: Right 5 Left 5 Elbow extension: Right 5 Left 5 Wrist flexion: Right 5 Left 5 Wrist extension: Right 5 Left 5 Finger flexion/copy chief: Right 5 Left 5 Flexor pollicis longus: Right 5 Left 5 Abductor pollicis brevis: Right 5 Left 5 Hip flexion: Right 5 Left 5 Hip extension: Right 5 Left 5 Hip abduction: Right 5 Left 5 Hip adduction: Right 5 Left 5 Knee flexion: Right 5 Left 5 Knee extension: Right 5 Left 5 Ankle eversion: Right 5 Left 5 Ankle inversion: Right 5 Left 5 Ankle plantar flexion: Right 5 Left 5 Ankle dorsiflexion: Right 5 Left 5 Extensor halluces longus: Right 5 Left 5 Flexor digitorum longus: Right 5 Left 5 Reflexes - MRC Grading Method Biceps: Right 2+ Left 2+ Triceps: Right 2+ Left 2+ Brachioradialis: Right 2+ Left 2+ Patellar: Right 2+ Left 2+ Achilles: Right 2+ Left 2+ Plantar: Right Downgoing Left Downgoing Weakness?: NO Tremor?: Yes Type of Tremor: Intention Cerebellar/Coordination Assessment [id number]: Abnormality present: No, Kjbp-ad-[id number]: Abnormality present: No, Finger Tapping - Abnormality present: No Fist Open/Close - Abnormality present: No Pronation/Supination of the Hand - Abnormality present: No Toe Tapping - Abnormality present: No Heel Tapping - Abnormality present: No Gait Gait-global assessment: Normal Sensory/Sensation Sensory System-globlal assessment: Normal Bilateral intention tremor. Absent posturally and with rest. Participant has noticed it at times over the past several years. No GI/ disturbance, gait disturbance, loss of smell, acting out dreams. Brother with hx of Parkinson's. Bradykinesia iPad 2 DATE:January 21, 2023 PT. NAME: Radha Barr [facility]#: [id number] IRB #: [id number] A. PROTOCOL: [place] [facility] Study Alignment Technician: Mar Chavez MD, , Alberto Ralph MD, [facility] pets and pet supplies salesperson for study related questions: Letty Garcia Subject continues to give consent for participation and for procedures related to study YES. Were there changes made to the informed consent since the last visit? NO. If yes, were changes reviewed and explained to subject? N/A Was a new copy of the informed consent signed, placed in the chart, placed in the study file and was a copy given to the patient? N/A Patient Identification was verified by asking the patients Name and Date Of : YES Time: 11:47am EKG/ECG was performed on patient. Patient tolerated procedure well. Letitia Edwards PA-C [facility] 01-21-2023 Note HNO ID: [id number] Author: Fam Crowell, Research Coordinator Service: ? Author Type: Research Type: Progress Notes Filed: 01/21/2023 9:46 AM Note Text: DATE:January 21, 2023 PT. NAME: Radha Barr [facility]#: [id number] IRB #: [id number] A. PROTOCOL: [place] Brain Study Alignment Technician: Mar Chavez MD, , Alberto Ralph MD, [facility] pets and pet supplies salesperson for study related questions: Letty Garcia Subject continues to give consent for participation and for procedures related to study YES. Were there changes made to the informed consent since the last visit? NO. If yes, were changes reviewed and explained to subject? N/A Was a new copy of the informed consent signed, placed in the chart, placed in the study file and was a copy given to the patient? N/A Patient Identification was verified by asking the patients Name and Date Of : YES Time: 9:35 Blood drawn with vacutainer and labs drawn per protocol. Butterfly removed after blood draw and secured with sterile gauze. Patient tolerated procedure well. Fam Crowell, Research Coordinator [facility] 01-21-2023 History of Presen t illness Narrative Vital Signs: BP: 152/86 BP Site: BP left arm BP Position: Sitting Cuff size: regular Pulse: 54 Resp: 18 SPO2: 96 Weight: 158.9 lbs. Height: 5'3 Updates from 2021 visit: Medical Hx: Ocular rosacea Family Hx: Parkinson's - Brother Recreational drug use on previous exam should be no Result of Physical Exam Body System Eyes: Normal Ears, Nose, Mouth and Throat: Normal Cardiovascular: Normal Respiratory: Normal Gastrointestinal: Normal Genitourinary: Normal Musculoskeletal: Normal Integumentary: Normal Psychiatric: Not examined Handedness: Right hand Results of Mental Status Assessment Mental Assessments Attention: Abnormality Present: No Memory Working Memory: Abnormality Present: No Recent (Episodic) Memory: Abnormality Present: No Remote (Semantic) Memory: Abnormality Present: No Language Spontaneous Speech: Abnormality Present: No Comprehension: Abnormality Present: No Naming: Abnormality Present: No Repetition: Abnormality Present: No Reading: Abnormality Present: No Affect: Abnormality Present: No Craninal Nerve Assessment Visual Kyle: Normal EOM: Normal Nystagmus: Physiologic Pupils: Equal and reactive Ptosis: Absent Trigeminal: Normal CN VII: Normal CN VIII: Normal CN IX: Normal CN X: Normal CN XI: Normal CN XII: Normal Assessment of Motor and Bulk and Tones Motor Assessments Muscle bulk-global: Normal Muscle tone-global: Normal Motor Strength Assessment Shoulder flexion: Right 5 Left 5 Shoulder external rotation: Right 5 Left 5 Shoulder abduction: Right 5 Left 5 Elbow flexion: Right 5 Left 5 Elbow extension: Right 5 Left 5 Wrist flexion: Right 5 Left 5 Wrist extension: Right 5 Left 5 Finger flexion/copy chief: Right 5 Left 5 Flexor pollicis longus: Right 5 Left 5 Abductor pollicis brevis: Right 5 Left 5 Hip flexion: Right 5 Left 5 Hip extension: Right 5 Left 5 Hip abduction: Right 5 Left 5 Hip adduction: Right 5 Left 5 Knee flexion: Right 5 Left 5 Knee extension: Right 5 Left 5 Ankle eversion: Right 5 Left 5 Ankle inversion: Right 5 Left 5 Ankle plantar flexion: Right 5 Left 5 Ankle dorsiflexion: Right 5 Left 5 Extensor halluces longus: Right 5 Left 5 Flexor digitorum longus: Right 5 Left 5 Reflexes - MRC Grading Method Biceps: Right 2+ Left 2+ Triceps: Right 2+ Left 2+ Brachioradialis: Right 2+ Left 2+ Patellar: Right 2+ Left 2+ Achilles: Right 2+ Left 2+ Plantar: Right Downgoing Left Downgoing Weakness?: NO Tremor?: Yes Type of Tremor: Intention Cerebellar/Coordination Assessment Vileoq-zp-Yjjn: Abnormality present: No, Vmao-oy-Ygcc: Abnormality present: No, Finger Tapping - Abnormality present: No Fist Open/Close - Abnormality present: No Pronation/Supination of the Hand - Abnormality present: No Toe Tapping - Abnormality present: No Heel Tapping - Abnormality present: No Gait Gait-global assessment: Normal Sensory/Sensation Sensory System-globlal assessment: Normal Bilateral intention tremor. Absent posturally and with rest. Participant has noticed it at times over the past several years. No GI/ disturbance, gait disturbance, loss of smell, acting out dreams. Brother with hx of Parkinson's. Bradykinesia iPad 2 DATE:January 21, 2023 PT. NAME: Radha Barr [facility]#: [id number] IRB #: [id number]. PROTOCOL: [place] Brain Study Alignment Technician: Mar Chavez MD, , Alberto Ralph MD, [facility] pets and pet supplies salesperson for study related questions: Letty Garcia Subject continues to give consent for participation and for procedures related to study YES. Were there changes made to the informed consent since the last visit? NO. If yes, were changes reviewed and explained to subject? N/A Was a new copy of the informed consent signed, placed in the chart, placed in the study file and was a copy given to the patient? N/A Patient Identification was verified by asking the patients Name and Date Of : YES Time: 11:47am EKG/ECG was performed on patient. Patient tolerated procedure well. Letitia Edwards PA-C documented in this encounter [place] 01-21-2023 History of Presen t illness Narrative DATE:January 21, 2023 PT. NAME: Radha Barr CC#: [id number] IRB #: [id number]. PROTOCOL: [place] Brain Study Alignment Technician: Mar Chavez MD, , Alberto Ralph MD, [facility] pets and pet supplies salesperson for study related questions: Letty Garcia Subject continues to give consent for participation and for procedures related to study YES. Were there changes made to the informed consent since the last visit? NO. If yes, were changes reviewed and explained to subject? N/A Was a new copy of the informed consent signed, placed in the chart, placed in the study file and was a copy given to the patient? N/A Patient Identification was verified by asking the patients Name and Date Of : YES Time: 9:35 Blood drawn with vacutainer and labs drawn per protocol. Butterfly removed after blood draw and secured with sterile gauze. Patient tolerated procedure well. Fam Crowell, Research Coordinator documented in this encounter [place] 01-11-2023 Miscellaneous Notes IRB [id number]. [place] [facility] Study ([facility]) Alignment Technician: Mar Chavez MD, , Alberto Ralph MD, Business Risk Consultant: Letty Garcia and Email:[email or web address] Research Coordinator called and contacted Radha Barr on January 11, 2023 to reminded patient of appointment with the [place] Brain Study, Hannah Cruz also let pt. Know about the option to DocuSign the constant form or Sign in person. Research Coordinator gave patient Contact information for if the patient had any questions about the study and or their appointment. documented in this encounter [place] 12-14-2022 Miscellaneous Notes IRB [id number]. [place] Brain Study (BS) Alignment Technician: Mar Chavez MD, , Alec Jeronimo, PhD, , Alberto Ralph MD, Business Risk Consultant: Letty Garcia and Email:[email or web address] Spoke with Radha Barr to follow up about continued interest and participation in the [place] [facility] ([facility]): Biomarkers and Predictors of Neurological Disorders IRB [id number]. Hannah Cruz scheduled Radha Barr for study visit on 01/21/23 at 1030am. Hannah Cruz documented in this encounter [place] 04-12-2022 Note HNO ID: [id number] Author: Nia Lemus, Research Coordinator Service: ? Author Type: Research Type: Progress Notes Filed: 04/12/2022 9:36 AM Note Text: DATE:April 12, 2022 PT. NAME: Radha Barr [facility]#: [id number] IRB #: [id number]. PROTOCOL: [place] [facility] Alignment Technician: Mar Chavez MD, , Alec Jeronimo, PhD, , Alberto Ralph MD, [facility] [employer] salesperson for study related questions: Yamilet Steele Subject continues to give consent for participation and for procedures related to study YES. Were there changes made to the informed consent since the last visit? NO. If yes, were changes reviewed and explained to subject? N/A Was a new copy of the informed consent signed, placed in the chart, placed in the study file and was a copy given to the patient? N/A MRI Questionnaire was completed by patient via [employer] on 04/10/2022 at 5:43 PM PST. Nia Lemus, Research Coordinator [facility] 04-12-2022 History of Presen t illness Narrative DATE:April 12, 2022 PT. NAME: Radha Barr [facility]#: [id number] IRB #: [id number]. PROTOCOL: [place] [facility] Alignment Technician: Mar Chavez MD, , Alec Jeronimo, PhD, , Alberto Ralph MD, [facility] [employer] salesperson for study related questions: Yamilet Steele Subject continues to give consent for participation and for procedures related to study YES. Were there changes made to the informed consent since the last visit? NO. If yes, were changes reviewed and explained to subject? N/A Was a new copy of the informed consent signed, placed in the chart, placed in the study file and was a copy given to the patient? N/A MRI Questionnaire was completed by patient via [employer] on 04/10/2022 at 5:43 PM PST. Nia Lemus Research Coordinator documented in this encounter [place] 04-05-2022 Miscellaneous Notes IRB [id number]. [place] [facility] ([facility]) Alignment Technician: Mar Chavez MD, , Alec Jeronimo, PhD, , Alberto Ralph MD, Business Risk Consultant: Yamilet Steele and Email:[email or web address] Research Coordinator called and contacted Radha Barr on April 05, 2022 to reminded patient of appointment with the [place] [facility], Nia Lemus Research Coordinator also let pt. Know about the option to DocuSign the constant form or Sign in person. Research Coordinator gave patient Contact information for if the patient had any questions about the study and or their appointment. documented in this encounter [place] 03-23-2022 Miscellaneous Notes IRB [id number]. [place] [facility] (BS) Alignment Technician: Mar Chavez MD, , Alec Jeronimo, PhD, , Alberto Ralph MD, Business Risk Consultant: Yamilet Steele and Email:[email or web address] Spoke with Radha Barr to follow up about the [place] [facility] (BS): Biomarkers and Predictors of Neurological Disorders IRB [id number]. Letty Walker, Research Coordinator scheduled Radha Barr for make-up MRI on 04/18/22 at 330pm. Letty Walker, Research Coordinator documented in this encounter [place] 01-20-2022 History of Presen t illness Narrative DATE:January 20, 2022 PT. NAME: Radha Barr [facility]#: [id number] IRB #: [id number]. PROTOCOL: [place] [facility] Alignment Technician: Mar Chavez MD, , Alec Jeronimo, PhD, , Alberto Ralph MD, [facility] [employer] salesperson for study related questions: Letty Garcia Subject continues to give consent for participation and for procedures related to study YES. Were there changes made to the informed consent since the last visit? NO. If yes, were changes reviewed and explained to subject? N/A Was a new copy of the informed consent signed, placed in the chart, placed in the study file and was a copy given to the patient? N/A Patient Identification was verified by asking the patients Name and Date Of : YES Time: 9:15AM Blood drawn with vacutainer and labs drawn per protocol. Butterfly removed after blood draw and secured with sterile gauze. Patient tolerated procedure well. Fma Crowell Research Coordinator DATE:January 20, 2022 PT. NAME: Radha Barr [facility]#: [id number] IRB #: [id number]. PROTOCOL: [place] [facility] Alignment Technician: Mar Chavez MD, , Alec Jeroinmo, PhD, , Alberto Ralph MD, [facility] [employer] salesperson for study related questions: Yamilet Cedric Subject continues to give consent for participation and for procedures related to study YES. Were there changes made to the informed consent since the last visit? NO. If yes, were changes reviewed and explained to subject? N/A Was a new copy of the informed consent signed, placed in the chart, placed in the study file and was a copy given to the patient? N/A Patient Identification was verified by asking the patients Name and Date Of : YES Time: 9:30AM EKG/ECG was performed on patient. Patient tolerated procedure well. Fam Crowell, Research Coordinator documented in this encounter [place] 01-20-2022 History of Presen t illness Narrative Result of Physical Exam Body System Eyes: Normal ,wears corrective lenses Ears, Nose, Mouth and Throat: Normal Cardiovascular: Normal Respiratory: Normal Gastrointestinal: Normal Genitourinary: Normal Musculoskeletal: Normal Integumentary: Normal Psychiatric: Not examined Handedness: Right hand Results of Mental Status Assessment Mental Assessments Attention: Abnormality Present: No Memory Working Memory: Abnormality Present: No Recent (Episodic) Memory: Abnormality Present: No Remote (Semantic) Memory: Abnormality Present: No Language Spontaneous Speech: Abnormality Present: No Comprehension: Abnormality Present: No Naming: Abnormality Present: No Repetition: Abnormality Present: No Reading: Abnormality Present: No Affect: Abnormality Present: No Craninal Nerve Assessment Visual Kyle: Normal EOM: Normal Nystagmus: Physiologic Pupils: Equal and reactive Ptosis: Absent Trigeminal: Normal CN VII: Normal CN VIII: Normal CN IX: Normal CN X: Normal CN XI: Normal CN XII: Normal Snellen Chart: Left Eye: N/A Right Eye: N/A Both Eyes: N/A Additional Comments: not part of the assessment Assessment of Motor and Bulk and Tones Motor Assessments Muscle bulk-global: Normal Muscle tone-global: Normal Motor Strength Assessment Shoulder flexion: Right 5 Left 5 Shoulder external rotation: Right 5 Left 5 Shoulder abduction: Right 5 Left 5 Elbow flexion: Right 5 Left 5 Elbow extension: Right 5 Left 5 Wrist flexion: Right 5 Left 5 Wrist extension: Right 5 Left 5 Finger flexion/copy chief: Right 5 Left 5 Flexor pollicis longus: Right 5 Left 5 Abductor pollicis brevis: Right 5 Left 5 Hip flexion: Right 5 Left 5 Hip extension: Right 5 Left 5 Hip abduction: Right 5 Left 5 Hip adduction: Right 5 Left 5 Knee flexion: Right 5 Left 5 Knee extension: Right 5 Left 5 Ankle eversion: Right 5 Left 5 Ankle inversion: Right 5 Left 5 Ankle plantar flexion: Right 5 Left 5 Ankle dorsiflexion: Right 5 Left 5 Extensor halluces longus: Right 5 Left 5 Flexor digitorum longus: Right 5 Left 5 Reflexes - MRC Grading Method Biceps: Right 2+ Left 2+ Triceps: Right 2+ Left 2+ Brachioradialis: Right 2+ Left 2+ Patellar: Right 2+ Left 2+ Achilles: Right 2+ Left 2+ Plantar: Right Downgoing Left Downgoing Weakness?: NO Tremor?: No Cerebellar/Coordination Assessment [id number]: Abnormality present: No, Rapid Alternating Movements: Abnormality present: No, Ucuw-ra-Jpuc: Abnormality present: No, Gait Gait-global assessment: Normal Sensory/Sensation Sensory System-globlal assessment: Abnormal Symmetry of Abnormality: Symmetric Patient description of abnormal symptoms: Vibration: No vibration felt until slightly superior to knee - bilaterally; Temperature: bilateral toes and feet: cold instrument felt warm. Feet and legs felt cold to touch. Legs were mottled. Sensory modalities affected (select all that apply): Vibration and Pain and temperature Jessica Stearns APRN.CONFIGURATION MANAGEMENT SPECIALIST documented in this encounter [place] 01-11-2022 Miscellaneous Notes IRB [id number]. [place] [facility] ([facility]) Alignment Technician: Mar Chavez MD, , Alec Jeronimo, PhD, , Alberto Ralph MD, Business Risk Consultant: Yamilet Steele and Email:[email or web address] Research Coordinator called and contacted Radha Barr on January 11, 2022 to reminded patient of appointment with the [place] [facility], Letty Walker, Research Coordinator also let pt. Know about the option to DocuSign the constant form or Sign in person. Research Coordinator gave patient Contact information for if the patient had any questions about the study and or their appointment. documented in this encounter [place] 11-25-2021 Hospital Discharg e instructions Patient Education 11/25/2021 20:51:53 Head Injury (Adult) Head Injury (Adult) You have a head injury. It does not appear serious at this time. But symptoms of a more serious problem, such as a mild brain injury (concussion) or bruising or bleeding in the brain, may appear later. For this reason, you or someone caring for you will need to watch for the symptoms listed below. Once you re home, also be sure to follow any care instructions you re given. Home care Watch for the following symptoms Seek emergency medical care if you have any of these symptoms over the next hours to days: Headache Nausea or vomiting Dizziness Sensitivity to light or noise Unusual sleepiness or grogginess Trouble falling asleep Personality changes Vision changes Memory loss Confusion Trouble walking or clumsiness Loss of consciousness (even for a short time) Inability to be awakened Stiff neck Weakness or numbness in any part of the body Seizures General care If you were prescribed medicines for pain, use them as directed. Note: Don t take other medicines for pain without talking to your provider first. To help reduce swelling and pain, apply a cold source to the injured area for up to 20 minutes at a time. Do this as often as directed. Use a cold pack or bag of ice wrapped in a thin towel. Never apply a cold source directly to the skin. If you have cuts or scrapes as a result of your head injury, care for them as directed. For the next 24 hours (or longer, if instructed): oDon t drink alcohol or use sedatives or other medicines that make you sleepy. oDon t drive or operate machinery. oDon t do anything strenuous, such as heavy lifting or straining. oLimit tasks that require concentration. This includes reading, using a smartphone or computer, watching TV, and playing video games. oDon t return to sports or other activities that could result in another head injury. Follow-up care Follow up with your healthcare provider, or as directed. If imaging tests were done, they will be reviewed by a doctor. You will be told the results and any new findings that may affect your care. When to seek medical advice Call your healthcare provider right away if any of these occur: Pain doesn t get better or worsens New or increased swelling or bruising Fever of 100.4 F (38 C) or higher, or as directed by your provider Increased redness, warmth, drainage, or bleeding from the injured area Fluid drainage or bleeding from the nose or ears Any depression or bony abnormality in the injured area Persistent confusion or lethargy Bruising behind the ears or bruising around the eyes [id number] [employer]. [address] [place], [place] [id number]. All rights reserved. This information is not intended as a substitute for professional medical care. Always follow your healthcare professional's instructions. 11/25/2021 20:51:41 Laceration, Face: Skin Glue Face Laceration: Skin Glue A laceration is a cut through the skin. A laceration on your face has been closed with skin glue. This is used on cuts that have smooth edges, and are not infected. Skin glue is best used on clean, straight cuts on face in areas that don't get a lot of tension. In some cases, a lower layer of skin may be sutured before skin glue is put on. The skin glue closes the cut within a few minutes. It also provides a water-resistant cover. No bandage is needed. Skin glue peels off on its own within 5 to 10 days. Home care Your healthcare provider may prescribe an antibiotic. This is to help prevent infection. Follow all instructions for taking this medicine. Take the medicine every day until it is gone or you are told to stop. You should not have any left over. The healthcare provider may prescribe medicines for pain. Follow instructions for taking them. Follow the healthcare provider s instructions on how to care for the cut. Keep the wound clean and dry. You may shower or bathe as usual, but do not use soaps, lotions, or ointments on the wound area, as these may dissolve the glue. Don't scrub the wound. After bathing, pat the wound dry with a soft towel. Don't soak the cut in water. Don't scratch, rub, or pick at the film. Don't place tape directly over the film. Don't apply liquids such as peroxide, ointments, or creams to the wound while the film is in place. Most facial skin wounds heal without problems. But an infection sometimes occurs despite proper treatment. Watch for the signs of infection listed below. Keep the wound out of prolonged direct sunlight, especially in the summer months. Sunburn or sun exposure can increase scarring. Follow-up care Follow up with your healthcare provider, or as advised. If skin glue was used, the film will fall off by itself in 5 to10 days. When to seek medical advice Call your healthcare provider right away if any of these occur: Wound bleeds more than a small amount or bleeding doesn't stop Decreased movement around the injured area Signs of infection: oIncreasing pain in the wound oIncreasing wound redness or swelling oPus or bad odor coming from the wound oFever of 100.4 F (38. C) or as directed by your healthcare provider Wound edges reopen [phone] [employer]. [address] [place] [address], [place] [address]. All rights reserved. This information is not intended as a substitute for professional medical care. Always follow your healthcare professional's instructions. 11/25/2021 20:51:26 Lower Extremity Contusion Lower Extremity Contusion You have a contusion (bruise) of a lower extremity (leg, knee, ankle, foot, or toe). Symptoms include pain, swelling, and skin discoloration. No bones are broken. This injury may take from a few days to a few weeks to heal. During that time, the bruise may change from reddish in color, to purple-blue, to green-yellow, to yellow-brown. Home care Unless another medicine was prescribed, you can take acetaminophen, ibuprofen, or naproxen to control pain. (If you have chronic liver or kidney disease or ever had a stomach ulcer or gastrointestinal bleeding, talk with your doctor before using these medicines.) Elevate the injured area to reduce pain and swelling. As much as possible, sit or lie down with the injured area raised about the level of your heart. This is especially important during the first 48 hours. Ice the injured area to help reduce pain and swelling. Wrap a cold source (ice pack or ice cubes in a plastic bag) in a thin towel. Apply to the bruised area for 20 minutes every 1 to 2 hours the first day. Continue this 3 to 4 times a day until the pain and swelling goes away. If crutches have been advised, do not bear full weight on the injured leg until you can do so without pain. You may return to sports when you are able to put full weight and impact on the injured leg without pain. Follow up Follow up with your healthcare provider or our staff as advised. Call if you are not improving within the next 1 to 2 weeks. When to seek medical advice Call your healthcare provider right away if any of these occur: Increased pain or swelling Foot or toes become cold, blue, numb or tingly Signs of infection: Warmth, drainage, or increased redness or pain around the injury Inability to move the injured area , or any joints below the injured area. Frequent bruising for unknown reasons [id number] [employer]. [address] [place] [address]. All rights reserved. This information is not intended as a substitute for professional medical care. Always follow your healthcare professional's instructions. Follow Up Care 11/25/2021 19:17:50 With:ELHAM MUÑOZ DO Address: [facility] [address] [place] [phone] When:3-5 days [facility] 11-25-2021 Emergency department Discharge summary Discharge Instructions Thank you for allowing [facility] to assist you with your healthcare needs. The following is important discharge information regarding your hospital visit. Diagnosis from Today's Visit Contusion, knee mechanical Fall-left rib pain What to Do Next Instructions from Your Care Team No qualifying data available. Post Acute Orders No qualifying data available. You Need to Schedule the Following Appointments Follow Up with ELHAM MUÑOZ DO When Within 3-5 days Where: [facility] [address] [place] [phone] Allergies fentanyl (CHEST PAIN, COLD CLAMMY) Tape (rash) Medications Please ask your primary doctor or pharmacist before taking any other medication not listed, including over the counter drugs, herbal medications, vitamins and or supplements as they may interact with your home medications. What How Much When Why Instructions Last Dose New acetaminophen-hydrocodone ([place] 325- 5 mg oral tablet) 1 tab(s) by mouth Every 6 hours as needed for as needed for pain Contusion, knee Duration: 3 Days Printed Prescription Unchanged alendronate (Fosamax) 35 Milligram by mouth Every week Unchanged calcium-vitamin D (Calcium 600+D) 1 tab(s) by mouth Two (2) times a day Unchanged cholecalciferol (Vitamin D3) 1,000 Units by mouth Every day Unchanged dicyclomine (Bentyl 10 mg oral capsule) 1 cap by mouth Four (4) times a day as needed for Diarrhea Unchanged multivitamin (Multivitamin) 1 tab(s) by mouth Every day Unchanged ondansetron (Zofran 4 mg oral tablet) 1 tab(s) by mouth Every 6 hours Please take this list to your next doctor s visit. Bring all medications you take, including over the counter medications, herbals and other supplements with you to your doctor s visit. Patients and families are reminded to discard old lists and to update any records with all medication providers or retail pharmacies. Education Materials Head Injury (Adult) You have a head injury. It does not appear serious at this time. But symptoms of a more serious problem, such as a mild brain injury (concussion) or bruising or bleeding in the brain, may appear later. For this reason, you or someone caring for you will need to watch for the symptoms listed below. Once you re home, also be sure to follow any care instructions you re given. Home care Watch for the following symptoms Seek emergency medical care if you have any of these symptoms over the next hours to days: Headache Nausea or vomiting Dizziness Sensitivity to light or noise Unusual sleepiness or grogginess Trouble falling asleep Personality changes Vision changes Memory loss Confusion Trouble walking or clumsiness Loss of consciousness (even for a short time) Inability to be awakened Stiff neck Weakness or numbness in any part of the body Seizures General care If you were prescribed medicines for pain, use them as directed. Note: Don t take other medicines for pain without talking to your provider first. To help reduce swelling and pain, apply a cold source to the injured area for up to 20 minutes at a time. Do this as often as directed. Use a cold pack or bag of ice wrapped in a thin towel. Never apply a cold source directly to the skin. If you have cuts or scrapes as a result of your head injury, care for them as directed. For the next 24 hours (or longer, if instructed): oDon t drink alcohol or use sedatives or other medicines that make you sleepy. oDon t drive or operate machinery. oDon t do anything strenuous, such as heavy lifting or straining. oLimit tasks that require concentration. This includes reading, using a smartphone or computer, watching TV, and playing video games. oDon t return to sports or other activities that could result in another head injury. Follow-up care Follow up with your healthcare provider, or as directed. If imaging tests were done, they will be reviewed by a doctor. You will be told the results and any new findings that may affect your care. When to seek medical advice Call your healthcare provider right away if any of these occur: Pain doesn t get better or worsens New or increased swelling or bruising Fever of 100.4 F (38 C) or higher, or as directed by your provider Increased redness, warmth, drainage, or bleeding from the injured area Fluid drainage or bleeding from the nose or ears Any depression or bony abnormality in the injured area Persistent confusion or lethargy Bruising behind the ears or bruising around the eyes [phone] [employer]. [address] [place] [address]. All rights reserved. This information is not intended as a substitute for professional medical care. Always follow your healthcare professional's instructions. Face Laceration: Skin Glue A laceration is a cut through the skin. A laceration on your face has been closed with skin glue. This is used on cuts that have smooth edges, and are not infected. Skin glue is best used on clean, straight cuts on face in areas that don't get a lot of tension. In some cases, a lower layer of skin may be sutured before skin glue is put on. The skin glue closes the cut within a few minutes. It also provides a water-resistant cover. No bandage is needed. Skin glue peels off on its own within 5 to 10 days. Home care Your healthcare provider may prescribe an antibiotic. This is to help prevent infection. Follow all instructions for taking this medicine. Take the medicine every day until it is gone or you are told to stop. You should not have any left over. The healthcare provider may prescribe medicines for pain. Follow instructions for taking them. Follow the healthcare provider s instructions on how to care for the cut. Keep the wound clean and dry. You may shower or bathe as usual, but do not use soaps, lotions, or ointments on the wound area, as these may dissolve the glue. Don't scrub the wound. After bathing, pat the wound dry with a soft towel. Don't soak the cut in water. Don't scratch, rub, or pick at the film. Don't place tape directly over the film. Don't apply liquids such as peroxide, ointments, or creams to the wound while the film is in place. Most facial skin wounds heal without problems. But an infection sometimes occurs despite proper treatment. Watch for the signs of infection listed below. Keep the wound out of prolonged direct sunlight, especially in the summer months. Sunburn or sun exposure can increase scarring. Follow-up care Follow up with your healthcare provider, or as advised. If skin glue was used, the film will fall off by itself in 5 to10 days. When to seek medical advice Call your healthcare provider right away if any of these occur: Wound bleeds more than a small amount or bleeding doesn't stop Decreased movement around the injured area Signs of infection: oIncreasing pain in the wound oIncreasing wound redness or swelling oPus or bad odor coming from the wound oFever of 100.4 F (38. C) or as directed by your healthcare provider Wound edges reopen [phone] [employer]. [address] [place] [address]. All rights reserved. This information is not intended as a substitute for professional medical care. Always follow your healthcare professional's instructions. Lower Extremity Contusion You have a contusion (bruise) of a lower extremity (leg, knee, ankle, foot, or toe). Symptoms include pain, swelling, and skin discoloration. No bones are broken. This injury may take from a few days to a few weeks to heal. During that time, the bruise may change from reddish in color, to purple-blue, to green-yellow, to yellow-brown. Home care Unless another medicine was prescribed, you can take acetaminophen, ibuprofen, or naproxen to control pain. (If you have chronic liver or kidney disease or ever had a stomach ulcer or gastrointestinal bleeding, talk with your doctor before using these medicines.) Elevate the injured area to reduce pain and swelling. As much as possible, sit or lie down with the injured area raised about the level of your heart. This is especially important during the first 48 hours. Ice the injured area to help reduce pain and swelling. Wrap a cold source (ice pack or ice cubes in a plastic bag) in a thin towel. Apply to the bruised area for 20 minutes every 1 to 2 hours the first day. Continue this 3 to 4 times a day until the pain and swelling goes away. If crutches have been advised, do not bear full weight on the injured leg until you can do so without pain. You may return to sports when you are able to put full weight and impact on the injured leg without pain. Follow up Follow up with your healthcare provider or our staff as advised. Call if you are not improving within the next 1 to 2 weeks. When to seek medical advice Call your healthcare provider right away if any of these occur: Increased pain or swelling Foot or toes become cold, blue, numb or tingly Signs of infection: Warmth, drainage, or increased redness or pain around the injury Inability to move the injured area , or any joints below the injured area. Frequent bruising for unknown reasons [id number] The [employer]. [address] [place] [address]. All rights reserved. This information is not intended as a substitute for professional medical care. Always follow your healthcare professional's instructions. Additional Information VACCINATE! IT SAVES LIVES! Members of the community who have not yet received the COVID-19 vaccine and would like to receive it can visit one of [facility] vaccine clinics. There are many vaccine clinic locations within the [facility]. For locations and available times, please visit [email or web address]. It is important to note that some COVID mobile vaccine clinics are held outdoors and may be canceled in rainy or stormy conditions. To learn more about pediatric vaccinations (ages 5-11), we invite you to visit the [facility] webpage. [email or web address] To learn more about the COVID-19 vaccine, we invite you to visit the [employer] website for a list of frequently asked questions. [email or web address] [employer] Patient Portal Access Instructions: Stay connected with your healthcare team and access your personal medical information anytime with the [employer] Patient Portal. If you would like a full copy of your medical records please contact the [facility] Medical Records Department Tuesday through Tuesday between 8a.m. and 4:30p.m. Please follow the directions below to access the portal: 1.Access the email account you provided upon registration to the hospital.2.Look for an invitation email from [facility].3.Open the email and access the invitation link: Accept Invitation to [facility]4.Fill in the required kyle to create your account. Sign into [email or web address] with your username and password that you created in the above steps to stay up to date. You can then view a summary of results, a summary of your visits, and the ability to download your summaries to your computer or send the information securely to a physician. Remember that your healthcare information is confidential, so carefully consider who you will allow to register on the [employer] Patient Portal for access to your information. You can also access the [facility] Patient Portal on the [employer] f[employer]. Simply click on Health Records under Health Data and then click on the [employer] logo. HOW TO SAFELY DISPOSE OF PRESCRIPTION MEDICATIONS Please use one of the following methods to safely dispose of your unused medications. 1.Use a drug disposal kit: the drug disposal pouch allows you to safely discard your old and unused drugs. Ask your nurse to give you one when you are discharged.2.Visit a local take-back location: Many local pharmacies and police departments have programs that collect old and unwanted prescription drugs. Call your local pharmacy or go to http://[employer]/8E4By5k to find one close to you.3.Make use of household items: Use cat litter or old coffee grounds to dispose medications if other options are not available. Mix your drugs with these household products, seal them in an airtight container and throw it into the garbage. Call [facility]: [phone] to be sure your drugs can be disposed of in this way. Some medicines may require a different approach.4.Never flush your medications down the toilet. IF YOU HAVE BEEN PRESCRIBED AN OPIOIDS FOR PAIN If you have been prescribed an opioid (such as hydrocodone, oxycodone or morphine), it is critical to understand the possible side effects and risks of opioid pain medications. Even when taken as directed, opioids can have several side effects including: Tolerance, meaning you might need to take more of a medication for the same pain relief. Nausea, vomiting and/or constipation. Sleepiness, dizziness, dry mouth, confusion, depression or itching. Physical dependence, meaning you have withdrawal symptoms when a medication is stopped ? this can develop within a few days. KNOW YOUR RESPONSIBILITIES It is important to know exactly how much and how often to take the opioid pain medications you are prescribed. Never take opioids in higher amounts or more often than prescribed. Do not combine opioids with alcohol or other drugs that cause drowsiness, such as benzodiazepines, also known as benzos, including diazepam and alprazolam, muscle relaxants or sleep aids. Never sell or share prescription opioids. This is illegal. Store opioids in a secure place and out of reach of others (including children, family, friends and visitors). The last page(s) of this document has been signed and retained as a CHART COPY Signatures Patient Education Materials Head Injury (Adult) Laceration, Face: Skin Glue Lower Extremity Contusion Medication Leaflets My discharge plan and instructions have been reviewed and explained to me and I,RADHA BARR M understand my current condition and have read and understand these discharge instructions. I have received a written copy of the plan/instructions. If I have questions, I am aware that I should contact my doctor. Patient/[employer] Captain Signature: Date/Time: Relationship to Patient: Witness Name/Signature: Date/Time: [facility] 11-25-2021 Note ORIGINAL EXAMINATION: 2 XRAY VIEWS OF THE LEFT RIB11/25/2021 8:20 pm COMPARISON: None HISTORY: ORDERING SYSTEM PROVIDED HISTORY: Reason for Exam: Tripped, pain. FINDINGS: There are hardware in the cervical and lumbar spine regions. There is no evidence of any acute fracture or dislocation. No visible pneumothorax. Grossly clear lungs, with the exception of minimal left basilar atelectasis. There are probable calcified pleural plaques. Bowel gas pattern is nonobstructive. IMPRESSION: No acute osseous injury identified. I have personally reviewed the images of this examination and agree with the resident's findings and interpretation. Interpreted by: Eric Knapp MD Preliminary Report By: Sergio Gay Electronically signed By Eric Knapp MD Dictated Date: 11/25/2021 8:38:45 PM Prelim Date: 11/25/2021 8:43:11 PM Sign Date: 11/25/2021 8:46:22 PM Ordering Provider: [facility] 11-25-2021 Note ORIGINAL EXAMINATION: THREE XRAY VIEWS OF THE RIGHT KNEE11/25/2021 8:19 pm COMPARISON: None HISTORY: ORDERING SYSTEM PROVIDED HISTORY: Reason for Exam: Pain FINDINGS: There is prepatellar soft tissue swelling. There are [id number] degenerative changes. Chondrocalcinosis is seen of the lateral meniscus. No acute osseous abnormality identified. No unexpected radiopaque foreign body. IMPRESSION: Prepatellar soft tissue swelling. No acute osseous injury. Chondrocalcinosis of the lateral meniscus can be seen in the setting of CPPD. I have personally reviewed the images of this examination and agree with the resident's findings and interpretation. Interpreted by: Eric Knapp MD Preliminary Report By: Sergio Gay Electronically signed By Eric Knapp MD Dictated Date: 11/25/2021 8:26:53 PM Prelim Date: 11/25/2021 8:29:54 PM Sign Date: 11/25/2021 8:38:07 PM Ordering Provider: [facility] 11-25-2021 Note ORIGINAL EXAMINATION: CT OF THE HEAD WITHOUT CONTRAST 11/25/2021 8:18 pm TECHNIQUE: CT of the head was performed without the administration of intravenous contrast. Automated exposure control, iterative reconstruction, and/or weight based adjustment of the mA/kV was utilized to reduce the radiation dose to as low as reasonably achievable. COMPARISON: 12/31/2009. HISTORY: ORDERING SYSTEM PROVIDED HISTORY: Reason for Exam: INJURY FINDINGS: There is no acute intracranial hemorrhage, mass effect, or abnormal extra-axial fluid collection. There is no CT evidence of acute infarct. The density in the larger dural venous sinuses is grossly normal. The ventricles are normal. No acute bony findings. Grossly clear paranasal sinuses and mastoid air cells. IMPRESSION: No acute intracranial abnormality identified. I have personally reviewed the images of this examination and agree with the resident's findings and interpretation. Interpreted by: Eric Knapp MD Preliminary Report By: Sergio Gay Electronically signed By Eric Knapp MD Dictated Date: 11/25/2021 8:23:41 PM Prelim Date: 11/25/2021 8:26:43 PM Sign Date: 11/25/2021 8:36:21 PM Ordering Provider: [facility] 11-25-2021 Note ORIGINAL EXAMINATION: 2 XRAY VIEWS OF THE LEFT RIB11/25/2021 8:20 pm COMPARISON: None HISTORY: ORDERING SYSTEM PROVIDED HISTORY: Reason for Exam: Tripped, pain. FINDINGS: There are hardware in the cervical and lumbar spine regions. There is no evidence of any acute fracture or dislocation. No visible pneumothorax. Grossly clear lungs, with the exception of minimal left basilar atelectasis. There are probable calcified pleural plaques. Bowel gas pattern is nonobstructive. IMPRESSION: No acute osseous injury identified. I have personally reviewed the images of this examination and agree with the resident's findings and interpretation. Interpreted by: Eric Knapp MD Preliminary Report By: Sergio Gay Electronically signed By Eric Knapp MD Dictated Date: 11/25/2021 8:38:45 PM Prelim Date: 11/25/2021 8:43:11 PM Sign Date: 11/25/2021 8:46:22 PM Ordering Provider: [facility] 11-25-2021 Note ORIGINAL EXAMINATION: THREE XRAY VIEWS OF THE RIGHT KNEE11/25/2021 8:19 pm COMPARISON: None HISTORY: ORDERING SYSTEM PROVIDED HISTORY: Reason for Exam: Pain FINDINGS: There is prepatellar soft tissue swelling. There are ccyl-ml-pacagokk degenerative changes. Chondrocalcinosis is seen of the lateral meniscus. No acute osseous abnormality identified. No unexpected radiopaque foreign body. IMPRESSION: Prepatellar soft tissue swelling. No acute osseous injury. Chondrocalcinosis of the lateral meniscus can be seen in the setting of CPPD. I have personally reviewed the images of this examination and agree with the resident's findings and interpretation. Interpreted by: Eric Knapp MD Preliminary Report By: Sergio Gay Electronically signed By Eric Knapp MD Dictated Date: 11/25/2021 8:26:53 PM Prelim Date: 11/25/2021 8:29:54 PM Sign Date: 11/25/2021 8:38:07 PM Ordering Provider: [facility] 11-25-2021 Note ORIGINAL EXAMINATION: CT OF THE HEAD WITHOUT CONTRAST 11/25/2021 8:18 pm TECHNIQUE: CT of the head was performed without the administration of intravenous contrast. Automated exposure control, iterative reconstruction, and/or weight based adjustment of the mA/kV was utilized to reduce the radiation dose to as low as reasonably achievable. COMPARISON: 12/31/2009. HISTORY: ORDERING SYSTEM PROVIDED HISTORY: Reason for Exam: INJURY FINDINGS: There is no acute intracranial hemorrhage, mass effect, or abnormal extra-axial fluid collection. There is no CT evidence of acute infarct. The density in the larger dural venous sinuses is grossly normal. The ventricles are normal. No acute bony findings. Grossly clear paranasal sinuses and mastoid air cells. IMPRESSION: No acute intracranial abnormality identified. I have personally reviewed the images of this examination and agree with the resident's findings and interpretation. Interpreted by: Eric Knapp MD Preliminary Report By: Sergio Gay Electronically signed By Eric Knapp MD Dictated Date: 11/25/2021 8:23:41 PM Prelim Date: 11/25/2021 8:26:43 PM Sign Date: 11/25/2021 8:36:21 PM Ordering Provider: [facility] 09-01-2021 Miscellaneous Notes IRB [id number]. [place] [facility] (CCBS) Alignment Technician: Mar Chavez MD, , Alec Jeronimo, PhD, , Alberto Ralph MD, Business Risk Consultant: Darron Zavala and Email:[email or web address] Spoke with Radha Barr to follow up about the [place] [facility] (CCBS): Biomarkers and Predictors of Neurological Disorders IRB [id number]. Nia Lemus Research Coordinator scheduled Radha Barr for study on 01/19/2022 at 4:30 pm. Nia Lemus Research Coordinator documented in this encounter [place] 08-31-2021 Miscellaneous Notes IRB [id number]. [place] [facility] ([facility]BS) Alignment Technician: Mar Chavez MD, , Alec Jeronimo, PhD, , Alberto Ralph MD, Business Risk Consultant: Darron Zavala and Email:[email or web address] Left voicemail message to introduce the [place] [facility] (CCBS). Provided phone number, , for Radha Barr to contact Nia Lemus Research Coordinator, to further discuss the study. Nia Lemus Research Coordinator documented in this encounter [place] 08-24-2021 Miscellaneous Notes IRB [id number]. [place] [facility] ([facility]BS) Alignment Technician: Mar Chavez MD, , Alec Jeronimo, PhD, , Alberto Ralph MD, Business Risk Consultant: Darron Zavala and Email: Left voicemail message to introduce the [place] [facility] (CCBS). Provided phone number, , for Radha Barr to contact Nia Lemus Research Coordinator, to further discuss the study. Nia Lemus Research Coordinator documented in this encounter [place] documented as of this encounter (statuses as of 08/24/2021) [place]09-18-2008 History of Past illness Narrative* Problem Noted Date Resolved Date Viral warts, unspecified 02/15/2008 018 Inflamed seborrheic keratosis 02/15/2008 NEVUS BACK///BENIGN CRUZ SKIN TRUNK 02/15/2008 02/27/2018 DTSTR/LYSIS///DISEASES OF NAIL NEC 02/15/2008 02/27/2018 Dyshidrosis 07/06/2006 02/27/2018 Contact dermatitis and other eczema, due to unspecified cause 07/06/2006 02/27/2018 Other chronic dermatitis due to solar radiation 07/06/2006 02/27/2018 Scar condition and fibrosis of skin 07/06/2006 02/27/2018 Personal history of other malignant neoplasm of skin 07/06/2006 02/27/2018 SOLAR LENGINES///DYSCHROMIA OTHER 07/06/2006 02/27/2018 Other seborrheic keratosis 07/06/200602/27 documented as of this encounter (statuses as of 08/31/2021) [place]09-18-2008 History of Past illness Narrative* Problem Noted Date Resolved Date Viral warts, unspecified 02/15/2008 018 Inflamed seborrheic keratosis 02/15/2008 NEVUS BACK///BENIGN CRUZ SKIN TRUNK 02/15/2008 02/27/2018 DTSTR/LYSIS///DISEASES OF NAIL NEC 02/15/2008 02/27/2018 Dyshidrosis 07/06/2006 02/27/2018 Contact dermatitis and other eczema, due to unspecified cause 07/06/2006 02/27/2018 Other chronic dermatitis due to solar radiation 07/06/2006 02/27/2018 Scar condition and fibrosis of skin 07/06/2006 02/27/2018 Personal history of other malignant neoplasm of skin 07/06/2006 02/27/2018 SOLAR LENGINES///DYSCHROMIA OTHER 07/06/2006 02/27/2018 Other seborrheic keratosis 07/06/200602/27 documented as of this encounter (statuses as of 09/01/2021) [place]-2008 History of Past illness Narrative* Problem Noted Date Resolved Date Viral warts, unspecified 02/15/2008 018 Inflamed seborrheic keratosis 02/15/2008 NEVUS BACK///BENIGN CRUZ SKIN TRUNK 02/15/2008 02/27/2018 DTSTR/LYSIS///DISEASES OF NAIL NEC 02/15/2008 02/27/2018 Dyshidrosis 07/06/2006 02/27/2018 Contact dermatitis and other eczema, due to unspecified cause 07/06/2006 02/27/2018 Other chronic dermatitis due to solar radiation 07/06/2006 02/27/2018 Scar condition and fibrosis of skin 07/06/2006 02/27/2018 Personal history of other malignant neoplasm of skin 07/06/2006 02/27/2018 SOLAR LENGINES///DYSCHROMIA OTHER 07/06/2006 02/27/2018 Other seborrheic keratosis 07/06/200602/27 documented as of this encounter (statuses as of 01/11/2022) [place]-2008 History of Past illness Narrative* Problem Noted Date Resolved Date Viral warts, unspecified 02/15/2008 018 Inflamed seborrheic keratosis 02/15/2008 NEVUS BACK///BENIGN CRUZ SKIN TRUNK 02/15/2008 02/27/2018 DTSTR/LYSIS///DISEASES OF NAIL NEC 02/15/2008 02/27/2018 Dyshidrosis 07/06/2006 02/27/2018 Contact dermatitis and other eczema, due to unspecified cause 07/06/2006 02/27/2018 Other chronic dermatitis due to solar radiation 07/06/2006 02/27/2018 Scar condition and fibrosis of skin 07/06/2006 02/27/2018 Personal history of other malignant neoplasm of skin 07/06/2006 02/27/2018 SOLAR LENGINES///DYSCHROMIA OTHER 07/06/2006 02/27/2018 Other seborrheic keratosis 07/06/200602/27 documented as of this encounter (statuses as of 01/20/2022) [place]-2008 History of Past illness Narrative* Problem Noted Date Resolved Date Viral warts, unspecified 02/15/2008 018 Inflamed seborrheic keratosis 02/15/2008 NEVUS BACK///BENIGN CRUZ SKIN TRUNK 02/15/2008 02/27/2018 DTSTR/LYSIS///DISEASES OF NAIL NEC 02/15/2008 02/27/2018 Dyshidrosis 07/06/2006 02/27/2018 Contact dermatitis and other eczema, due to unspecified cause 07/06/2006 02/27/2018 Other chronic dermatitis due to solar radiation 07/06/2006 02/27/2018 Scar condition and fibrosis of skin 07/06/2006 02/27/2018 Personal history of other malignant neoplasm of skin 07/06/2006 02/27/2018 SOLAR LENGINES///DYSCHROMIA OTHER 07/06/2006 02/27/2018 Other seborrheic keratosis 07/06/200602/27 documented as of this encounter (statuses as of 01/20/2022) [place]09-18-2008 History of Past illness Narrative* Problem Noted Date Resolved Date Viral warts, unspecified 02/15/2008 018 Inflamed seborrheic keratosis 02/15/2008 NEVUS BACK///BENIGN CRUZ SKIN TRUNK 02/15/2008 02/27/2018 DTSTR/LYSIS///DISEASES OF NAIL NEC 02/15/2008 02/27/2018 Dyshidrosis 07/06/2006 02/27/2018 Contact dermatitis and other eczema, due to unspecified cause 07/06/2006 02/27/2018 Other chronic dermatitis due to solar radiation 07/06/2006 02/27/2018 Scar condition and fibrosis of skin 07/06/2006 02/27/2018 Personal history of other malignant neoplasm of skin 07/06/2006 02/27/2018 SOLAR LENGINES///DYSCHROMIA OTHER 07/06/2006 02/27/2018 Other seborrheic keratosis 07/06/200602/27 documented as of this encounter (statuses as of 03/23/2022) [place]09-18-2008 History of Past illness Narrative* Problem Noted Date Resolved Date Viral warts, unspecified 02/15/2008 018 Inflamed seborrheic keratosis 02/15/2008 NEVUS BACK///BENIGN CRUZ SKIN TRUNK 02/15/2008 02/27/2018 DTSTR/LYSIS///DISEASES OF NAIL NEC 02/15/2008 02/27/2018 Dyshidrosis 07/06/2006 02/27/2018 Contact dermatitis and other eczema, due to unspecified cause 07/06/2006 02/27/2018 Other chronic dermatitis due to solar radiation 07/06/2006 02/27/2018 Scar condition and fibrosis of skin 07/06/2006 02/27/2018 Personal history of other malignant neoplasm of skin 07/06/2006 02/27/2018 SOLAR LENGINES///DYSCHROMIA OTHER 07/06/2006 02/27/2018 Other seborrheic keratosis 07/06/200602/27 documented as of this encounter (statuses as of 04/05/2022) [place]09-18-2008 History of Past illness Narrative* Problem Noted Date Resolved Date Viral warts, unspecified 02/15/2008 018 Inflamed seborrheic keratosis 02/15/2008 NEVUS BACK///BENIGN CRUZ SKIN TRUNK 02/15/2008 02/27/2018 DTSTR/LYSIS///DISEASES OF NAIL NEC 02/15/2008 02/27/2018 Dyshidrosis 07/06/2006 02/27/2018 Contact dermatitis and other eczema, due to unspecified cause 07/06/2006 02/27/2018 Other chronic dermatitis due to solar radiation 07/06/2006 02/27/2018 Scar condition and fibrosis of skin 07/06/2006 02/27/2018 Personal history of other malignant neoplasm of skin 07/06/2006 02/27/2018 SOLAR LENGINES///DYSCHROMIA OTHER 07/06/2006 02/27/2018 Other seborrheic keratosis 07/06/200602/27 documented as of this encounter (statuses as of 04/12/2022) [place]09-18-2008 History of Past illness Narrative* Problem Noted Date Diagnosed Date Resolved Date Viral warts, unspecified 02/15/200805/2017 Inflamed seborrheic keratosis 02/15/2008 02/27/2018 NEVUS BACK///BENIGN CRUZ SKIN TRUNK 02/15/2008 02/27/2018 DTSTR/LYSIS///DISEASES OF NAIL NEC 02/15/2008 02/27/2018 Dyshidrosis 07/06/2006 02/27/2018 Contact dermatitis and other eczema, due to unspecified cause 07/06/2006 02/27/2018 Other chronic dermatitis due to solar radiation 07/06/2006 02/27/2018 Scar condition and fibrosis of skin 07/06/2006 02/27/2018 Personal history of other ma lignant neoplasm of skin 07/06/2006 02/27/2018 SOLAR LENGINES///DYSCHROMIA OTHER 07/06/2006 02/27/2018 Other seborrheic keratosis 07/06/2006 1 documented as of this encounter (statuses as of 12/14/2022) [place]09-18-2008 History of Past illness Narrative* Problem Noted Date Diagnosed Date Resolved Date Viral warts, unspecified 02/15/200805/2017 Inflamed seborrheic keratosis 02/15/2008 02/27/2018 NEVUS BACK///BENIGN CRUZ SKIN TRUNK 02/15/2008 02/27/2018 DTSTR/LYSIS///DISEASES OF NAIL NEC 02/15/2008 02/27/2018 Dyshidrosis 07/06/2006 02/27/2018 Contact dermatitis and other eczema, due to unspecified cause 07/06/2006 02/27/2018 Other chronic dermatitis due to solar radiation 07/06/2006 02/27/2018 Scar condition and fibrosis of skin 07/06/2006 02/27/2018 Personal history of other ma lignant neoplasm of skin 07/06/2006 02/27/2018 SOLAR LENGINES///DYSCHROMIA OTHER 07/06/2006 02/27/2018 Other seborrheic keratosis 07/06/2006 1 documented as of this encounter (statuses as of 01/12/2023) [place]09-18-2008 History of Past illness Narrative* Problem Noted Date Diagnosed Date Resolved Date Viral warts, unspecified 02/15/200805/2017 Inflamed seborrheic keratosis 02/15/2008 02/27/2018 NEVUS BACK///BENIGN CRUZ SKIN TRUNK 02/15/2008 02/27/2018 DTSTR/LYSIS///DISEASES OF NAIL NEC 02/15/2008 02/27/2018 Dyshidrosis 07/06/2006 02/27/2018 Contact dermatitis and other eczema, due to unspecified cause 07/06/2006 02/27/2018 Other chronic dermatitis due to solar radiation 07/06/2006 02/27/2018 Scar condition and fibrosis of skin 07/06/2006 02/27/2018 Personal history of other ma lignant neoplasm of skin 07/06/2006 02/27/2018 SOLAR LENGINES///DYSCHROMIA OTHER 07/06/2006 02/27/2018 Other seborrheic keratosis 07/06/2006 1 documented as of this encounter (statuses as of 01/21/2023) [place]09-18-2008 History of Past illness Narrative* Problem Noted Date Diagnosed Date Resolved Date Viral warts, unspecified 02/15/200805/2017 Inflamed seborrheic keratosis 02/15/2008 02/27/2018 NEVUS BACK///BENIGN CRUZ SKIN TRUNK 02/15/2008 02/27/2018 DTSTR/LYSIS///DISEASES OF NAIL NEC 02/15/2008 02/27/2018 Dyshidrosis 07/06/2006 02/27/2018 Contact dermatitis and other eczema, due to unspecified cause 07/06/2006 02/27/2018 Other chronic dermatitis due to solar radiation 07/06/2006 02/27/2018 Scar condition and fibrosis of skin 07/06/2006 02/27/2018 Personal history of other ma lignant neoplasm of skin 07/06/2006 02/27/2018 SOLAR LENGINES///DYSCHROMIA OTHER 07/06/2006 02/27/2018 Other seborrheic keratosis 07/06/2006 1 documented as of this encounter (statuses as of 01/21/2023) [place] No data available for this section [facility] Evaluation note* Diagnosis Examination of participant in clinical trial- Primary documented in this encounter [facility] [place] [facility]* Diagnosis Examination of participant in clinical trial- Primary documented in this encounter [place] Summary Purpose Family History No Family History Records FoundNo Family History Records FoundNo Family History Records FoundNo Family History Records Found Advance Directives No Advanced Directives Records FoundDocuments on File Type Date Recorded Patient Well Logging Mud Analysis Captain Expl anation Advance Directive(s) 01/21/2020 7:24 AM Additional Source Comments INFORMATION SOURCE (unrecogn ized section and content) DATE CREATED AUTHOR AUTHOR'S ORGANIZ ATION 08/25/2020 [facility] DATE CREATED AUTHOR AUTHOR'S ORGANIZ ATION 12/17/2021 [facility] ([place]) DATE CREATED AUTHOR AUTHOR'S ORGANIZ ATION 01/22/2023 [facility] Source Comments (unrecognize d section and content) In the event this informatio n is protected by the Federal Confidentiality of Alcohol and Drug Abuse Patient Records regulations: The Federal rules restrict any use of the information to criminally investigate or prosecute any alcohol or drug abuse patient.[place] the event this information is protected by the Federal Confidentiality of Alcohol and Drug Abuse Patient Records regulations: The Federal rules restrict any use of the information to criminally investigate or prosecute any alcohol or drug abuse patient.[place]In the event this information is protected by the Federal Confidentiality of Alcohol and Drug Abuse Patient Records regulations: The Federal rules restrict any use of the information to criminally investigate or prosecute any alcohol or drug abuse patient.[place]In the event this information is protected by the Federal Confidentiality of Alcohol and Drug Abuse Patient Records regulations: The Federal rules restrict any use of the information to criminally investigate or prosecute any alcohol or drug abuse patient.[place]In the event this information is protected by the Federal Confidentiality of Alcohol and Drug Abuse Patient Records regulations: The Federal rules restrict any use of the information to criminally investigate or prosecute any alcohol or drug abuse patient.[place]In the event this information is protected by the Federal Confidentiality of Alcohol and Drug Abuse Patient Records regulations: The Federal rules restrict any use of the information to criminally investigate or prosecute any alcohol or drug abuse patient.[place]In the event this information is protected by the Federal Confidentiality of Alcohol and Drug Abuse Patient Records regulations: The Federal rules restrict any use of the information to criminally investigate or prosecute any alcohol or drug abuse patient.[place]In the event this information is protected by the Federal Confidentiality of Alcohol and Drug Abuse Patient Records regulations: The Federal rules restrict any use of the information to criminally investigate or prosecute any alcohol or drug abuse patient.[place]In the event this information is protected by the Federal Confidentiality of Alcohol and Drug Abuse Patient Records regulations: The Federal rules restrict any use of the information to criminally investigate or prosecute any alcohol or drug abuse patient.[place]In the event this information is protected by the Federal Confidentiality of Alcohol and Drug Abuse Patient Records regulations: The Federal rules restrict any use of the information to criminally investigate or prosecute any alcohol or drug abuse patient.[place]In the event this information is protected by the Federal Confidentiality of Alcohol and Drug Abuse Patient Records regulations: The Federal rules restrict any use of the information to criminally investigate or prosecute any alcohol or drug abuse patient.[place]In the event this information is protected by the Federal Confidentiality of Alcohol and Drug Abuse Patient Records regulations: The Federal rules restrict any use of the information to criminally investigate or prosecute any alcohol or drug abuse patient.[place]In the event this information is protected by the Federal Confidentiality of Alcohol and Drug Abuse Patient Records regulations: The Federal rules restrict any use of the information to criminally investigate or prosecute any alcohol or drug abuse patient.[place]In the event this information is protected by the Federal Confidentiality of Alcohol and Drug Abuse Patient Records regulations: The Federal rules restrict any use of the information to criminally investigate or prosecute any alcohol or drug abuse patient.[place] Reason for Visit (unrecogniz ed section and content) Reason Comments Appointment IRB Reason Comments Informed Consent Reason Comments Informed Consent IRB Care Teams (unrecognized sec tion and content) Conveyor Operator Relationship Specialty Start Date End Date Mando Wang MD [address] [place] [address] PCP - General Internal Medicine 04/13/21 Conveyor Operator Relationship Specialty Start Date End Date Mando Wang MD [address] [facility] [address] [place] [address] PCP - General Internal Medicine 04/13/21 Conveyor Operator Relationship Specialty Start Date End Date [facility] [address] [facility] [address] [place] [address] PCP - General Internal Medicine 04/13/21 Conveyor Operator Relationship Specialty Start Date End Date Mando Wang MD [address] [facility] [address] [place] [address] PCP - General Internal Medicine 04/13/21 Conveyor Operator Relationship Specialty Start Date End Date Mando Wang MD [address] [facility] [address] [place] [address] PCP - General Internal Medicine 04/13/21 Care Team (unrecognized sect ion and content) Care Team Personnel Name: ELHAM MUÑOZ DO Member Role: Primary Care Physician Address: Address: [facility] [address] [address] [place] Care Team Related Persons Name: PHOEBE BARR Address: Home [address] FOR RECORDS PERTAINING TO PATIENTS WHO ARE OR HAVE BEEN ENROLLED IN A CHEMICAL DEPENDENCY/SUBSTANCEABUSE PROGRAM, SOME INFORMATION MAY BE OMITTED. This clinical summary was aggregated from multiple sources. Caution should be exercised in using it in the provision of clinical care. This summary normalizes information from multiple sources, and as a consequence, information in this document may materially change the coding, format and clinical context of patient data. In addition, data may be omitted in some cases. CLINICAL DECISIONS SHOULD BE BASED ON THE PRIMARY CLINICAL RECORDS. [facility]. provides no warranty or guarantee of the accuracy or completeness of information in this document.
== END | disposition home or self-care (01) ==
LOC: OPBD 12:10
PROVIDERS: PCP Internal Medicine; Referring Provider Internal Medicine; Visit Provider Internal Medicine
DX: Z12.31 Encounter for screening mammogram for malignant neoplasm of breast (principal); Z78.0 Asymptomatic menopausal state; Z80.3 Family history of malignant neoplasm of breast
CPT/HCPCS: 77063; 77067; 77080

== ENCOUNTER → 2023-11-07 | Outpatient (CLI) | payer MEDICARE, SELFPAY ==
[2023-11-07 13:31] LABS: Anion Gap 3 (5-15); BUN 14 mg/dL (7-18); Calcium,Total 9.4 mg/dL (8.5-10.1); Chloride 106 mmol/L (98-107); Creatinine, Serum 0.82 mg/dL (0.55-1.02); EST Glomerular Filtration Rate 72 mL/min (>60); Est Glom Filt Rate - Afr Amer 87 mL/min (>60); Glucose 97 mg/dL (74-106); Potassium 3.9 mmol/L (3.5-5.1); Sodium Level 139 mmol/L (136-145)
== END | disposition home or self-care (01) ==
PROVIDERS: PCP Internal Medicine; Referring Provider Internal Medicine; Visit Provider Internal Medicine
DX: I10 Essential (primary) hypertension (principal)
CPT/HCPCS: 36415; 80048

== ENCOUNTER → 2024-01-31 | Outpatient (CLI) | payer MEDICARE, SELFPAY ==
--- NOTE | 2024-01-31 11:53 | US_ITS ---
STUDY: THYROID ULTRASOUND REASON FOR EXAM: Female, 73 years old. Annual follow-up thyroid nodules. TECHNIQUE: Ultrasound evaluation of the thyroid was performed with real-time and static fall-scale imaging. COMPARISON: Thyroid ultrasound 02/09/2023. FINDINGS: RIGHT LOBE: The right lobe of the thyroid gland measures 5.3 x 1.9 x 1.9 cm. There is a heterogeneous echotexture. There are 4 visualized thyroid nodules in the right thyroid lobe, previously 3. Nodule 1 in the upper pole is complex and heterogeneous in echogenicity. This measures 0.89 x 0.4 x 0.70 cm. Nodule 2 in the medial aspect of the right upper thyroid lobe is also heterogeneous in echogenicity. This measures 0.48 x 0.29 x 0.53 cm. Nodule 3 in the anterior aspect of the right mid thyroid lobe is also heterogeneous in echogenicity. This measures 1.25 x 0.90 x 1.21 cm. Nodule 4 in the central aspect of the right lower thyroid lobe is heterogeneous but more hypoechoic. This measures 0.79 x 0.48 x 0.6 cm. LEFT LOBE: The left lobe of the thyroid gland measures 4.7 x 1.6 x 1.6 cm. There is a hypervascular echotexture, previously homogeneous. Markedly hypoechoic nodule in the anterior aspect of the left mid thyroid lobe measures 0.44 x 0.29 x 0.56 cm. ISTHMUS: The isthmus measures 0.08 cm. . US/Thyroid IMPRESSION: 1. 4 thyroid nodules in the right thyroid lobe, previously 3. 2. 1 thyroid nodule in the left thyroid lobe, previously 3. 3. The dominant nodule 3 in the anterior aspect of the right mid thyroid lobe measures 1.25 x 0.90 x 1.21 cm, previously 1.5 x 1.2 x 0.7 cm. TI-RADS points: 2. TI-RADS category: TR2. This nodule is not suspicious and no FNA or follow-up is necessary. 4. Nodule 1 in the right upper thyroid lobe measures 0.89 x 0.4 x 0.70 cm, previously 0.84 x 0.36 x 0.63 cm. TI-RADS points: 2. TI-RADS category: TR2. This nodule is not suspicious and no FNA or follow-up is necessary. 5. Nodule 2 in the medial aspect of the right upper thyroid lobe is heterogeneous in echogenicity. This measures 0.48 x 0.29 x 0.53 cm, previously 0.7 x 0.5 x 0.5 cm. TI-RADS points: 3. TI-RADS category: TR3. This nodule is mildly suspicious but no FNA or follow-up is necessary given the small size of this nodule. 6. Nodule 4 in the central aspect of the right lower thyroid lobe is heterogeneous but more hypoechoic. This measures 0.79 x 0.48 x 0.6 cm. This was not visualized previously. TI-RADS points: 4. TI-RADS category: TR4. This nodule is moderately suspicious but no FNA or follow-up is necessary given the small size of this nodule. 7. Markedly hypoechoic solid nodule in the anterior aspect of the left mid thyroid lobe measures 0.44 x 0.29 x 0.56 cm, previously 0.33 x 0.51 x 0.23 cm. TI-RADS points: 5. TI-RADS category: TR4. This nodule is moderately suspicious but no FNA or follow-up is necessary given the small size of this nodule.. Electronically Signed: Ron Brito MD at 14:54 EDT ,
== END | disposition home or self-care (01) ==
PROVIDERS: PCP Internal Medicine; Referring Provider Surgery; Visit Provider Surgery
DX: E04.1 Nontoxic single thyroid nodule (principal)
CPT/HCPCS: 76536

== ENCOUNTER → 2024-02-02 | Outpatient (CLI) | payer MEDICARE, SELFPAY ==
[2024-02-02 10:58] LABS: Free T3 2.5 pg/mL (2.18-3.98); T4 Total, Thyroxin 7.2 ug/dL (4.8-13.9)
[2024-02-02 17:55] LABS: Xtra Tube EP Lab EXTRA TUBE
== END | disposition home or self-care (01) ==
LOC: PAVLAB 09:41
PROVIDERS: PCP Internal Medicine; Referring Provider Surgery; Visit Provider Surgery
DX: E04.1 Nontoxic single thyroid nodule (principal); E04.2 Nontoxic multinodular goiter
CPT/HCPCS: 36415; 84436; 84443; 84481

== ENCOUNTER → 2024-05-11 | Outpatient (CLI) | payer SELFPAY ==
[2024-05-11 14:21] LABS: SERUM TEARS COLLECTION SPECIMEN PROCESSED
== END | disposition home or self-care (01) ==
PROVIDERS: PCP Internal Medicine; Referring Provider Ophthalmology; Visit Provider Ophthalmology
DX: H04.123 Dry eye syndrome of bilateral lacrimal glands (principal)

== ENCOUNTER → 2024-06-22 | Outpatient (CLI) | payer MEDICARE, SELFPAY ==
[2024-06-22 12:05] LABS: Absolute Lymphocyte Count 1.34 X10^3/uL (0.83-4.51); Absolute Neutrophil Count 4.5 X10^3/uL (2.0-7.7); Basophil# 0.06 X10^3/uL; Basophil% 0.9 % (0-1); Eosinophil# 0.24 X10^3/uL; Eosinophils% 3.6 % (0-5); Hematocrit 38.5 % (37-47); Hemoglobin 12.1 g/dL (12.0-15.0); Lymphocyte # 1.34 X10^3/ul (0.83-4.51); Lymphocyte % 19.9 % (19-41); Mean Corp Hgb Conc 31.4 g/dL (32-36); Mean Corpuscular Hgb 28.6 pg (27.0-32.0); Mean Platelet Vol. 12.1 fl (6.2-12.0); Monocyte# 0.54 X10^3/uL; NRBC Flagged by Analyzer 0 % (0-5); Neutrophil # 4.54 X10^3/uL (2.7-7.7); Neutrophil % 67.3 % (47-70); Platelet Count 205 K/mm3 (150-450); RBC Distribution Width CV 13.2 % (11.6-14.6); RBC Distribution Width SD 43.5 fl (35.1-43.9); Red Blood Count 4.23 M/mm3 (4.2-5.4); White Blood Count 6.7 K/mm3 (4.4-11.0)
[2024-06-22 12:12] LABS: ALB/GLOB Ratio 0.9 RATIO (0.9-2.4); AST(SGOT) 20 U/L (15-37); Alanine Aminotransfer ALT/SGPT 26 U/L (13-56); Albumin, Serum 3.3 g/dL (3.2-5.0); Alkaline Phosphatase 57 U/L (45-117); Anion Gap 4 (5-15); BUN 13 mg/dL (7-18); BUN/Creat Ratio 15.7 RATIO (10-20); Calcium,Total 9.3 mg/dL (8.5-10.1); Chloride 108 mmol/L (98-107); Cholesterol 114 mg/dL (200); Creatinine, Serum 0.83 mg/dL (0.55-1.02); EST Glomerular Filtration Rate 72 mL/min (>60); Est Glom Filt Rate - Afr Amer 87 mL/min (>60); Globulin 3.8 g/dL (2.2-4.2); Glucose 89 mg/dL (74-106); High Density Lipoprotein 62 mg/dL; Potassium 4.3 mmol/L (3.5-5.1); Protein, Total 7.1 g/dL (6.4-8.2); Sodium Level 141 mmol/L (136-145); Triglycerides 55 mg/dL; Very Low Density Lipoprotein 11 mg/dL (5-40)
[2024-06-22 12:27] LABS: Vitamin D,25 Hydroxy 61.7 ng/mL
== END | disposition home or self-care (01) ==
LOC: BIMLAB 09:34
PROVIDERS: PCP Internal Medicine; Visit Provider Internal Medicine
DX: I10 Essential (primary) hypertension (principal); M85.80 Other specified disorders of bone density and structure, unspecified site
CPT/HCPCS: 36415; 80053; 80061; 82306; 83735; 85025

== ENCOUNTER → 2024-06-29 | Outpatient (CLI) | payer MEDICARE, SELFPAY ==
--- NOTE | 2024-06-29 08:08 | BI_ITS ---
PROCEDURE: SCRN MAMM (CAD)W/DEREJE BILAT REASON FOR EXAM: F, Age 73 y/o, sister with breast cancer. Routine annual mammogram. TECHNIQUE: Bilateral screening digital breast tomosynthesis with 2D and 3D images. Computer aided detection. COMPARISON: Prior exam(s) dating back to June 21, 2023.. FINDINGS: The breasts are heterogeneously dense which may obscure small masses. Stable examination. No suspicious masses, areas of developing architectural distortion, or suspicious calcifications. BI/SCRN MAMM (CAD)W/DEREJE BILAT IMPRESSION: BI-RADS 2: BENIGN. RECOMMEND ANNUAL MAMMOGRAPHIC SCREENING. Follow-up code: Routine Follow-up The patient will be notified of the results by letter. Reading Location: [place] [id number]
== END | disposition home or self-care (01) ==
LOC: OPBI 08:08
PROVIDERS: PCP Internal Medicine; Referring Provider Internal Medicine; Visit Provider Internal Medicine
DX: Z12.31 Encounter for screening mammogram for malignant neoplasm of breast (principal)
CPT/HCPCS: 77063; 77067

== ENCOUNTER → 2024-08-17 | Outpatient (CLI) | payer MEDICARE, SELFPAY ==
--- NOTE | 2024-08-17 17:03 | STRESSREP ---
Stress Test Report Pharmacologic myocardial perfusion stress test. 73-year-old lady with a history of chest pain Resting EKG demonstrates sinus rhythm with a left bundle branch block with a rate of 55 bpm. Resting blood pressure is 152/80 mmHg. 0.4 mg of regadenoson was infused per usual protocol followed by rapid intravenous saline flush injection. Continuous EKG monitoring was performed. The maximum heart rate was 87 bpm which was 59% of max impacted heart rate the maximum workload was 1 metabolic equivalent. At rest there were no ST or T wave changes noted to suggest ischemia and at peak infusion nonspecific ST changes were noted which did not meet the criteria for ischemia. No clinical angina is noted. The final blood pressure was 130/78 mmHg. Myocardial perfusion protocol. 11.6 mCi of technetium 99m sestamibi was injected at rest. 0.4 mg of regadenoson was infused per usual protocol. At peak infusion 33.5 mCi of technetium 99m sestamibi was injected stress images were obtained stress and rest images were reconstructed and compared in the short axis vertical long and horizontal long axis. Gated images were also obtained. Perfusion SPECT analysis: Review of the stress images demonstrate normal uptake of tracer noted in all areas of the myocardium. The resting images similar demonstrated normal uptake of tracer noted in all areas of the myocardium. No areas of reversibility are noted to suggest ischemia and no previous infarct is noted. Gated SPECT analysis: The gated ejection fraction is 64%. Conclusion: Normal pharmacologic myocardial perfusion stress test. Preserved ejection fraction.
== END | disposition home or self-care (01) ==
PROVIDERS: PCP Internal Medicine; Referring Provider Student in an Organized Health Care Education/Training Program; Visit Provider Student in an Organized Health Care Education/Training Program
DX: I20.89 Other forms of angina pectoris (principal); M79.602 Pain in left arm; R53.83 Other fatigue
CPT/HCPCS: 78452; 93017; A9500; A4216; J2785

== ENCOUNTER 2024-10-15 09:59 | Outpatient (CLI) | payer MEDICARE, SELFPAY ==
--- NOTE | 2024-10-15 10:06 | RAD_ITS ---
PROCEDURE: KNEE 4 OR MORE VIEWS 10/15/2024 REASON FOR EXAM: RIGHT KNEE PAIN TECHNIQUE: 4 view(s) of the right knee COMPARISON: None FINDINGS: No fracture or traumatic malalignment. There is xzxy-ie-txrmvawm tricompartmental joint space narrowing and osteophyte formation. Subtle chondrocalcinosis in the lateral compartment. No joint effusion. Soft tissues are unremarkable. RAD/Knee 4 or More Views IMPRESSION: Rmfj-vf-[id number] osteoarthritis of the right knee. There is subtle chondrocalc inosis in the lateral compartment, as may be seen with calcium pyrophosphate deposition disease. Reading Location: [id number]
--- NOTE | 2024-10-15 10:06 | RAD_ITS ---
PROCEDURE: KNEE 4 OR MORE VIEWS 10/15/2024 REASON FOR EXAM: RIGHT KNEE PAIN TECHNIQUE: 4 view(s) of the right knee COMPARISON: None FINDINGS: No fracture or traumatic malalignment. There is fczo-qx-dbveybaf tricompartmental joint space narrowing and osteophyte formation. Subtle chondrocalcinosis in the lateral compartment. No joint effusion. Soft tissues are unremarkable. RAD/Knee 4 or More Views IMPRESSION: Fqgd-iq-jlevmmkv osteoarthritis of the right knee. There is subtle chondrocalc inosis in the lateral compartment, as may be seen with calcium pyrophosphate deposition disease. Reading Location: [id number]
[2024-10-15 12:20] LABS: SERUM TEARS COLLECTION SPECIMEN PROCESSED
== END 2024-10-15 23:59 | disposition home or self-care (01) ==
PROVIDERS: PCP Internal Medicine; Referring Provider Internal Medicine; Visit Provider Ophthalmology
DX: H04.123 Dry eye syndrome of bilateral lacrimal glands (principal); M25.562 Pain in left knee
CPT/HCPCS: 73564

== ENCOUNTER → 2024-12-05 | Outpatient (CLI) | payer MEDICARE, SELFPAY ==
--- NOTE | 2024-12-05 11:47 | US_ITS ---
EXAM: US Soft Tissues Head and Neck, Thyroid CLINICAL INDICATION: FU THYROID NODULE TECHNIQUE: Real-time ultrasound scan of the thyroid gland and soft tissues of the neck with image documentation. COMPARISON: US Thyroid dated 02/09/2023 FINDINGS: LEFT THYROID LOBE: Left thyroid lobe measures 4.8 x 1.8 x 1.3 cm. Mid left thyroid nodule measures 0.4 x 0.3 x 0.2 cm, which is mixed cystic and solid and isoechoic, TR 2. RIGHT THYROID LOBE: Right thyroid lobe measures 5.5 x 1.8 x 1.4 cm. Superior right thyroid nodule measures 0.8 x 0.6 x 0.5 cm. Superior right thyroid nodule measures 0.650.4 x 0.4 cm. Mid right thyroid nodule measures 1.3 x 1.1 x 0.9 cm. Inferior right thyroid measures 0.8 x 0.7 x 0.5 cm. These right thyroid nodules have missed this lytic and solid component and hypoechoic echogenicity, TR 3. ISTHMUS: Isthmus measures 1 mm thick. No enlarged or calcified nodules. LYMPH NODES: Unremarkable. No lymphadenopathy. US/Thyroid IMPRESSION: 1. Thyroid nodules as above. 2. TR 1: Benign, no FNA; TR 2: No suspicious, no FNA; TR 3: Mildly suspiciou s, FNA if >/= 2.5 cm or Follow if >/= 1.5 cm; TR 4: Moderately suspicious, FNA if >/= 1.5 cm or Follow if >/= 1 cm; TR 5 Highly suspicious, FNA if >/= 1 cm or Follow if >/= 0.5 cm. Reading Location: [facility]
== END | disposition home or self-care (01) ==
LOC: US 11:44
PROVIDERS: PCP Internal Medicine; Referring Provider Internal Medicine; Visit Provider Internal Medicine
DX: E04.1 Nontoxic single thyroid nodule (principal)
CPT/HCPCS: 76536

== ENCOUNTER → 2025-01-14 | Outpatient (CLI) | payer MEDICARE, SELFPAY ==
[2025-01-14 13:08] LABS: Anion Gap 10 (5-15); BUN 14 mg/dL (4-19); BUN/Creat Ratio 17.0 RATIO (10-20); Calcium,Total 9.5 mg/dL (7.6-11.0); Carbon Dioxide 26.1 mmol/L (21.0-32.0); Chloride 105 mmol/L (98-108); Glucose 78 mg/dL (70-99); Potassium 4.2 mmol/L (3.3-5.1)
--- OUTSIDE RECORDS SUMMARY | 2025-01-14 21:50 | XMS RPT_ITS | CCD ---
Author Organization [facility] Care Team Providers Care Furniture Fabricator Name Role Phone KARLAKEKE Attending Unavailable KARLA, KEKE Lam Primary Care Unavailable KARLAKEKE SCHWARZ Admitting Unavailable KARLAKEKE Attending Unavailable KARLA, KEKE Lam Primary Care Unavailable KARLA, KEKE Lam Admitting Unavailable Pedro Wang MD Primary Care Provider [phone] ELHAM MUÑOZ DO Primary Care Physician Pedro Wang MD Primary Care Provider 1(3 [phone]) Dr. Pedro Wang Primary Care Provider 1(33 0) Dr. Pedro Wang Attending Provider [phone] Dr. Pedor Wang Referring Provider [phone])2 Dr. Jean-Paul Delgado Attending Provider [phone] Pedro Wang MD Primary Care Provider 1(3 30) Dr. Pedro Wang Primary Care Provider 1(33 0) Dr. Pedro Wang Referring Provider [phone])2 Dr. Jean-Paul Delgado Attending Provider [phone])- Dr. Pedro Wang Attending Provider [phone])2 Dr. Pedro Wang Primary Care Provider 1(33 0) Dr. Pedro Wang Referring Provider [phone])2 Dr. Pedro Wang Primary Care Provider 1(33 0) Dr. Pedro Wang Referring Provider [phone] Dr. Jean-Paul Delgado Attending Provider Roof SURG NURSE, SURG NURSE-C Andrew H Attending Provider Roof SURG NURSE, SURG NURSE-C Andrew H Referring Provider Roof SURG NURSE, SURG NURSE-C Andrew H Other Provider Dr. Pedro Wang Primary Care Provider [phone] Dr. Pedro Wang Referring Provider Roof SURG NURSE, SURG NURSE-C Andrew H Attending Provider Roof SURG NURSE, SURG NURSE-C Andrew H Referring Provider Roof SURG NURSE, SURG NURSE-C Andrew H Other Provider Dr. Jean-Paul Delgado Attending Provider KIMBERLY Chavarria Attending Provider Pedro Wang MD Primary Care Provider 1(3 [phone]) Dr. Pedro Wang Primary Care Provider [phone] Dr. Pedro Wang Referring Provider [phone] Roof SURG NURSE, SURG NURSE-C Andrew Lewis Attending Provider Dr. Pedro Wang Attending Provider [phone])2 Dr. Pedro Wang Primary Care Provider 1(33 0) Dr. Pedro Wang Attending Provider [phone])2 Dr. Pedro Wang Referring Provider [phone])2 Dr. Johnny March Attending Provider Dr. Pedro Wang Primary Care Provider 1(33 0) Dr. Pedro Wang Referring Provider [phone])2 Dr. Pedro Wang Attending Provider [phone])2 BROOKLYNN HINES, XAVIER Perry Attending Unavailable ELHAM MUÑOZ DO Primary Care [facility] Pedro Wang MD Primary Care Provider [phone] Kathleen HINES, Dr. Gilmore Primary Care Provider Ghassan HINES, Dr. Simon Attending Provider Ghassan HNIES, Dr. Simon Referring Provider Kathleen HINES, Dr. Gilmore Attending Provider 1(33 0) Kathleen HINES, Dr. Gilmore Referring Provider [phone] Demiter PA, Pepe Attending Provider [phone] Demiter PA, Pepe Referring Provider [phone] Demiter PA, Pepe Other Provider [phone] Danny HINES, Dr. Jeong Attending Provider [phone] Kathleen HINES, Dr. Gilmore Primary Care Provider Jung Chavarria Attending Provider Diogo Santiago Attending Provider PEDRO WANG MD Primary Care [phone] PEDRO WANG MD Attending Unavailab PEDRO Gar MD Primary Care Unavailab Shonna HINES, Dr. Gilmore Primary Care Provider Dominick HARRIS Pepe Attending Provider [phone] Kathleen HINES, Dr. Gilmore Referring Provider 1(33 0) Dr. Pedro Wang MD Attending Provider 1(33 0) Ghassan HINES, Dr. Simon Attending Provider Linda Morales MA Attending Provider Unavailable SUHAS STEARNS Attending Unavailable OLEGHE, EFEWONGBE B Primary Care Unavailable OLEGHE, EFEWONGBE B Primary Care Unavailable OLEGHE, EFEWONGBE B Primary Care Unavailable OLEGHE, EFEWONGBE B Primary Care Unavailable YANDEL GARCIA Attending Unavailable SUHAS STEARNS Referring Unavailable OLEGHE, EFEWONGBE B Primary Care Unavailable Kathleen HINES, Dr. Gilmore Primary Care Provider Kathleen HINES, Dr. Gilmore Referring Provider [phone] Oleghe, Efewongbe Attending Unavailable Oleghe, Efewongbe Primary Care Unavailable Oleghe, Efewongbe Referring Unavailable Oleghe, Efewongbe Attending Unavailable Oleghe, Efewongbe Referring Unavailable Oleghe, Efewongbe Primary Care Unavailable Oleghe, Efewongbe Primary Care Unavailable Oleghe, Efewongbe Referring Unavailable Alfred Ferrell Attending Unavailable Andrew Srinivasan Attending Unavailable Oleghe, Efewongbe Referring Unavailable Oleghe, Efewongbe Primary Care Unavailable Linda Morales Attending Unava ilable Oleghe, Efewongbe Primary Care Unavailable Demiter, Pepe Consulting Unavailable Oleghe, Efewongbe Primary Care Unavailable Jean-Paul Delgado Attending Unavailable Demiter, Pepe Referring Unavailable Oleghe, Efewongbe Attending Unavailable Oleghe, Efewongbe Referring Unavailable Oleghe, Efewongbe Primary Care Unavailable Johnny March Referring Unavailable Johnny March Attending Unavailable Oleghe, Efewongbe Primary Care Unavailable Oleghe, Efewongbe Referring Unavailable Oleghe, Efewongbe Attending Unavailable Oleghe, Efewongbe Primary Care Unavailable Johnny March Referring Unavailable Johnny March Attending Unavailable Oleghe, Efewongbe Primary Care Unavailable Oleghe, Efewongbe Primary Care Unavailable Alfred Ferrell Referring Unavailable Alfred Ferrell Attending Unavailable Oleghe, Efewongbe Attending Unavailable Oleghe, Efewongbe Primary Care Unavailable Oleghe, Efewongbe Attending Unavailable Oleghe, Efewongbe Referring Unavailable Oleghe, Efewongbe Primary Care Unavailable Oleghe, Efewongbe Attending Unavailable Oleghe, Efewongbe Primary Care Unavailable Oleghe, Efewongbe Referring Unavailable Demiter, Pepe Attending Unavailable Oleghe, Efewongbe Primary Care Unavailable Demiter, Pepe Referring Unavailable Oleghe, Efewongbe Primary Care Unavailable Oleghe, Efewongbe Referring Unavailable Oleghe, Efewongbe Attending Unavailable Johnny March Attending Unavailable Oleghe, Efewongbe Referring Unavailable Oleghe, Efewongbe Primary Care Unavailable Oleghe, Efewongbe Referring Unavailable Oleghe, Efewongbe Primary Care Unavailable Pepe Tan Attending Unavailable Oleghe, Efewongbe Primary Care Unavailable Oleghe, Efewongbe Referring Unavailable Jung Chavarria Attending Unavailable Oleghe, Efewongbe Primary Care Unavailable Oleghe, Efewongbe Referring Unavailable Diogo Santiago Attending Unavailable Allergies Allergy Classification Reported Allergen(s) Allergy Type Date of Onset Reaction(s) Facility (20 sources) fentaNYL; Translations: [fentanyl] Drug Allergy 0 Other: See Comments [facility] Work Phone: (20 sources) Morphinan opioid; Translations: [OPIOIDS - MORPHINE ANALOGUES] Drug Intolerance 8 Other: See Comments [facility] Work Phone: (3 sources) Adhesive Tape Drug allergy [facility] (15 sources) Lisinopril Drug Allergy 2 cough [facility] (1 source) fentaNYL Drug Allergy 5 [facility] (1 source) Lisinopril Drug Allergy 5 [facility] Medications Current Medications Medication Drug Class(es) Dates Sig (Normalized) Sig (Original) 8 hr acetaminophen 650 mg extended release oral tablet (20 sources) Start: 03-05-2020 take 1 tablet by mouth every twelve hours Acetaminophen (Tylenol Arthritis Pain) 650 mg tablet extended release Active 650 mg PO Q12H March 05, 2020 12:00am take 1 tablet by nena th every eight hours as needed acetaminophen (TYLENOL 8 HOUR) 650 mg CR tablet Take 650 mg by mouth every 8 hours as needed. Active Comment on above: Take 650 mg by mouth every 8 hours as needed. alendronic acid 35 mg oral tablet (3 sources) Bisphosphonate Start: 01-19-2010 take 1 dose by mouth every week Fosamax Dose : 35 mg =, PO, qWeek, 0 Refill(s), current med (Hx) Start Date: 01/19/10 Status: Ordered Repeat number: 1 aspirin 81 mg delayed release oral tablet (20 sources) Platelet Aggregation Inhibitor, Nonsteroidal Anti-inflammatory Drug Start: 12-18-2019 Aspirin (Adult Low Dose Aspirin) 81 mg tablet,delayed release (DR/EC) Active 81 mg PO DAILY December 18, 2019 12:00am take 1 tablet by mouth once liz y aspirin 81 mg chewable tablet Take 81 mg by mouth once daily. Active Comment on above: Take 81 mg by mouth once daily. Calcium (3 sources) Phosphate Binder, Calcium Start: 01-19-2010 take 1 tablet by mouth twice daily Calcium 600+D Dose = 1 tab(s), PO, BID, 0 Refill(s), current med (Hx) Start Date: 01/19/10 Status: Ordered Repeat number: 1 Start: 01-19-2010 take 1 tablet by [facility] twice daily Calcium 600+D Dose = 1 tab(s), PO, BID, 0 Refill(s), current med (Hx) Start Date: 01/19/10 Status: Ordered cholecalciferol 0.025 mg oral tablet (20 sources) Vitamin D Start: 11-06-2019 take 1 tablet by mouth once daily Cholecalciferol (Vitamin D3) 25 mcg (1,000 unit) tablet Active 25 ug PO DAILY November 06, 2019 12:00am Start: 02-27-2018 take 1 capsule by [facility] once daily Cholecalciferol, Vitamin D3, 1,000 unit cap Take 1 capsule by mouth once daily. 02/27/2018 Active Comment on above: Take 1 capsule by [facility] once daily. dicyclomine hydrochloride 10 mg oral capsule (3 sources) Anticholinergic Start: 08-10-2013 Bentyl 10 mg oral capsule Dose : 10 mg = 1 cap(s), Oral, QID, PRN Diarrhea, # 15 cap(s), 0 Refill(s) Start Date: 08/10/13 Status: Ordered Quantity: 15.0 Unit: cap(s) Repeat number: 1 docusate sodium 50 mg / sennosides, shelter 8.6 mg oral tablet (15 sources) Start: 10-16-2024 End: 01-11-2025 Sennosides-Docusate Sodium (Senexon-S) 8.6-50 mg tablet Active 4 NMA PO daily as needed for constipation 120 90 3 January 11, 2025 9:44am Start: 03-16-2024 End: 10-16-2024 Sennosides-Docusate Sodium ( Senexon-S) 8.6-50 mg tablet Discontinued PO March 16, 2024 12:00am October 16, 2024 2:00pm take 1 capsule by [facility] once daily sennosides-docusate sodium (SENNA PLUS) 8.6-50 mg capsule Take 1 capsule by mouth once daily. Active doxycycline hyclate 50 mg oral capsule (20 sources) Tetracycline-class Drug Start: 08-30-2024 take 1 capsule by mouth once daily doxycycline (VIBRAMYCIN) 50 mg capsule Take 1 capsule by mouth once daily. 08/30/2024 Active Start: 03-16-2024 take 1 tablet by nena once daily Doxycycline Hyclate 50 mg tablet,delayed release (DR/EC) Active 50 mg PO daily March 16, 2024 12:00am Start: 02-08-2024 End: 03-16-2024 take 1 capsule by mouth once daily Doxycycline Hyclate 50 mg capsule Discontinued 50 mg PO daily February 08, 2024 12:00am March 16, 2024 8:51am Start: 07-16-2022 End: 08-05-2023 take 1 capsule by mouth once daily Doxycycline Hyclate 50 mg capsule Discontinued 50 mg PO DAILY July 16, 2022 1:00am August 05, 2023 9:43am losartan potassium 100 mg oral tablet (20 sources) Angiotensin 2 Receptor Manuela Start: 10-15-2024 take 1 tablet by mouth once daily Losartan 100 mg tablet Active 100 mg PO daily 90 October 15, 2024 9:52am Start: 08-30-2024 [facility] los[facility] (COZAAR) 100 mg tablet Take 1 tablet by mouth every 12 hours. 08/30/2024 Active Start: 08-03-2024 End: 10-15-2024 take 1 tablet by mouth twice daily Losartan 100 mg tablet Discontinued 100 mg PO TWICE A DAY 180 August 03, 2024 11:15am October 15, 2024 9:52am Start: 07-16-2022 End: 08-03-2024 take 1 tablet by mouth twice daily Losartan 50 mg tablet Discontinued 50 mg PO TWICE A DAY 180 July 21, 2023 11:45am August 03, 2024 11:18am Start: 05-08-2021 End: 07-16-2022 take 1 tablet by mouth twice daily Losartan 25 mg tablet Discontinued 25 mg PO TWICE A DAY 180 3 March 15, 2022 9:02am July 16, 2022 2:35pm Start: 12-30-2020 End: 05-08-2021 take 1 tablet by mouth once daily Losartan 25 mg tablet Discontinued 25 mg PO DAILY 90 3 December 30, 2020 1:10pm May 08, 2021 12:58pm meloxicam 7.5 mg oral tablet (2 sources) Nonsteroidal Anti-inflammatory Drug Start: 10-16-2024 Meloxicam 7.5 mg tablet Active 7.5 mg PO daily as needed for pain 30 0 October 16, 2024 12:00am Take daily for 5 to 7 days then just as needed. Multivitamin preparation (3 sources) Start: 01-19-2010 take 1 tablet by mouth once daily Multivitamin Dose = 1 tab(s), PO, Daily, 0 Refill(s), current med (Hx) Start Date: 01/19/10 Status: Ordered Repeat number: 1 Start: 01-19-2010 take 1 tablet by nena th once daily Multivitamin Dose = 1 tab(s), PO, Daily, 0 Refill(s), current med (Hx) Start Date: 01/19/10 Status: Ordered ondansetron 4 mg oral tablet (3 sources) Serotonin-3 Receptor Antagonist Start: 08-10-2013 Zofran 4 mg oral tablet Dose : 4 mg = 1 tab(s), Oral, q6h, # 5 tab(s), 0 Refill(s) Start Date: 08/10/13 Status: Ordered Quantity: 5.0 Unit: tab(s) Repeat number: 1 pantoprazole 40 mg delayed release oral tablet (20 sources) Proton Pump Inhibitor Start: 03-16-2024 take 1 tablet by mouth once daily Pantoprazole 40 mg tablet,delayed release (DR/EC) Active 40 mg PO daily March 16, 2024 12:00am Start: 11-06-2019 End: 03-19-2020 take 1 tablet by mouth once daily Pantoprazole 40 mg tablet,delayed release (DR/EC) Discontinued 40 mg PO DAILY November 06, 2019 12:00am March 19, 2020 1:09pm Start: 10-31-2019 take 1 tablet by nena th twice daily before mealtime pantoprazole DR (PROTONIX) 40 mg tablet Indications: Non-cardiac chest pain Take 1 tablet by mouth twice daily before meals. Take on empty stomach, 1/2 hr before meal. 60 tablet 5 10/31/2019 Active Comment on above: Take 1 tablet by nena th twice daily before meals. Take on empty stomach, 1/2 hr before meal. Vitamin D3 (3 sources) Start: 01-19-2010 take 1 dose by mouth once daily Vitamin D3 Dose : 1,000 Units =, PO, Daily, 0 Refill(s), current med (Hx) Start Date: 01/19/10 Status: Ordered Repeat number: 1 Start: 01-19-2010 take 1 dose by mouth once liz y Vitamin D3 Dose : 1,000 Units =, PO, Daily, 0 Refill(s), current med (Hx) Start Date: 01/19/10 Status: Ordered Start: 01-19-2010 take 1 dose by mouth once liz y Vitamin D3 Dose = 1,000 Units, PO, Daily, 0 Refill(s), current med (Hx) Start Date: 01/19/10 Status: Ordered Completed/Discontinued Medications Medication Drug Class(es) Dates Sig (Normalized) Sig (Original) acetaminophen 325 mg / HYDROcodone bitartrate 5 mg oral tablet (20 sources) Opioid Agonist Start: 01-22-2020 End: 03-05-2020 Hydrocodone-Acetami nophen 5-325 mg tablet Discontinued NMA PO 0 January 22, 2020 12:00am March 05, 2020 9:39am Start: 01-22-2020 End: 03-05-2020 Hydrocodone-Acetaminophen Di scontinued EACH PO January 21, 2020 11:00pm March 05, 2020 8:39am Start: 12-29-2019 End: 09-06-2024 Hydrocodone-Acetaminophen 1 TABLET tablet Discontinued 1 {tbl} PO EVERY 6 HOURS NEEDED as needed for Pain Score 1-03/08 28 7 0 December 29, 2019 January 04, 2020 12:00am January 05, 2020 12:02am Thoracic back pain Degeneration of intervertebral disc of thoracic region Pain in thoracic spine Other intervertebral disc degeneration, thoracic region Start: 12-29-2019 End: 01-05-2020 take 1 tablet by mouth every six hours as needed Hydrocodone-Acetaminophen Discontinued 1 TABLET PO EVERY 6 HOURS NEEDED 28 7 December 28, 2020 [employer] 7th, 2020 11:02pm Comment on above: TAKE 1 TABLET BY NENA EVERY 6 HOURS NEEDED FOR 7 DAYS amoxicillin 500 mg oral tablet (4 sources) Penicillin-class Antibacterial Start: 11-01-19 End: 02-02-20 take 1 tablet by mouth three times daily Amoxicillin 500 mg tablet Discontinued 500 mg PO THREE TIMES A DAY 30 0 November 01, 2023 12:00am February 02, 2024 9:22am atorvastatin 40 mg oral tablet (20 sources) HMG-CoA Reductase Inhibitor Start: 12-21-19 End: 08-04-19 take 1 tablet by mouth at bedtime Atorvastatin 40 mg tablet Discontinued 40 mg PO AT BEDTIME 90 July 21, 2023 11:45am August 03, 2024 11:18am Comment on above: Take by mouth once d aily. calcium ascorbate 500 mg oral tablet (20 sources) Start: 03-08-20 End: 07-16-19 take 1 tablet by mouth once daily Ascorbate Calcium (Vitamin C) 500 mg tablet Discontinued 500 mg PO DAILY March 08, 2022 9:10am July 16, 2022 2:08pm carvedilol 6.25 mg oral tablet (20 sources) alpha-Adrenergic Manuela, beta-Adrenergic Manuela Start: 01-22-20 End: 08-04-19 take 1 tablet by mouth twice daily at mealtime Carvedilol 6.25 mg tablet Discontinued 6.25 mg PO TWICE A DAY 180 July 21, 2023 11:46am August 03, 2024 11:18am must administer with a meal/food cephalexin 500 mg oral capsule (20 sources) Cephalosporin Antibacterial Start: 08-03-19 End: 12-22-19 take 1 capsule by mouth three times daily Cephalexin 500 mg capsule Discontinued 500 mg PO THREE TIMES A DAY August 02, 2022 1:00am December 21, 2022 9:27am Start: 06-09-2020 End: 06-10-2020 take 1 capsule by mouth three times daily Cephalexin (Keflex) 500 mg capsule Discontinued 500 mg PO THREE TIMES A DAY 15 June 09, 2020 1:00am June 10, 2020 12:29pm cimetidine 800 mg oral tablet (15 sources) Histamine-2 Receptor Antagonist Start: 12-18-2019 End: 12-26-2019 take 1 tablet by mouth at bedtime Cimetidine 800 mg tablet Discontinued 800 mg PO AT BEDTIME December 18, 2019 12:00am December 26, 2019 11:19am ciprofloxacin 500 mg oral tablet (10 sources) Quinolone Antimicrobial Start: 08-04-2022 End: 12-21-2022 take 1 tablet by mouth twice daily Ciprofloxacin Hcl 500 mg tablet Discontinued 500 mg PO TWICE A DAY 10 August 04, 2022 1:00am December 21, 2022 9:27am may discontinue cephalexin upon initiating cipro as prescribed today clopidogrel 75 mg oral tablet (20 sources) [id number] Platelet Inhibitor Start: 12-26-2019 End: 09-06-2024 take 1 tablet by mouth once daily Clopidogrel 75 mg tablet Discontinued 0 .ROUTE .COMPLEX 90 December 03, 2020 8:22am December 22, 2021 10:43am On Hold: Hematoma in knee TAKE 1 TABLET BY MOUTH EVERY DAY Comment on above: Take 75 mg by mouth once daily. docusate sodium 100 mg oral capsule (15 sources) Start: 12-02-2021 End: 03-16-2024 take 1 capsule by mouth once daily Docusate Sodium 100 mg capsule Discontinued 100 mg PO DAILY December 02, 2021 12:00am March 16, 2024 8:53am famotidine 40 mg oral tablet (4 sources) Histamine-2 Receptor Antagonist Start: 03-16-2024 End: 10-15-2024 take 1 tablet by mouth once daily Famotidine 40 mg tablet Discontinued 40 mg PO daily March 16, 2024 12:00am October 15, 2024 9:27am fexofenadine hydrochloride 180 mg oral tablet (3 sources) Histamine-1 Receptor Antagonist Start: 09-04-2024 End: 10-15-2024 take 1 tablet by mouth every twenty-four hours Fexofenadine 180 mg tablet Discontinued 180 mg PO Q24H 30 September 04, 2024 12:00am October 15, 2024 9:27am lisinopril 2.5 mg oral tablet (20 sources) Angiotensin Converting Enzyme Inhibitor Start: 12-18-2019 End: 09-06-2024 take 1 tablet by mouth once daily Lisinopril 2.5 mg tablet Discontinued 2.5 mg PO DAILY 30 December 02, 2020 4:52pm December 30, 2020 1:04pm On Hold: non-productive cough 12/19/2020 Comment on above: Take 2.5 mg by mouth once daily. 24 hr metoprolol succinate 100 mg extended release oral tablet (20 sources) beta-Adrenergic Manuela Start: 12-18-2019 End: 09-06-2024 take 1 tablet by mouth once daily Metoprolol Succinate 100 mg tablet extended release 24 hr Discontinued 100 mg PO DAILY 30 December 18, 2019 12:00am January 22, 2020 11:04am Comment on above: Take 100 mg by mouth once daily. Icoiugfk-Cvq-Kg-Lyc open-Lutein (Centrum Silver) 0.4-300-250 mg-mcg-mcg tablet (15 sources) Start: 11-06-2019 End: 03-05-2020 Vjhutzcx-Jln-Qa-Ly copen-Lutein (Centrum Silver) 0.4-300-250 mg-mcg-mcg tablet Discontinued 1 {tbl} PO DAILY November 06, 2019 12:00am March 05, 2020 9:39am Start: 11-06-2019 End: 03-05-2020 take 1 tablet by mouth once daily Adovqcjr-Kgm-Us-Lycopen-Lutein (Centrum Silver) 0.4-300-250 mg-mcg-mcg tablet Discontinued 1 TABLET PO DAILY November 05, 2019 11:00pm March 05, 2020 8:39am Start: 11-06-2019 End: 03-05-2020 take 1 tablet by mouth once daily Ndxrufgr-Rim-Kg-Lycopen-Lutein (Centrum Silver) 0.4-300-250 mg-mcg-mcg tablet Discontinued 1 TABLET PO DAILY November 06, 2019 12:00am March 05, 2020 9:39am ticagrelor 90 mg oral tablet (20 sources) Start: 12-21-2019 End: 12-26-2019 take 1 tablet by mouth twice daily Ticagrelor 90 mg tablet Discontinued 90 mg PO TWICE A DAY 60 December 21, 2019 11:45am December 26, 2019 11:18am Problems Active Problems Problem Classification Problem Date Documented Da te Episodic/Chronic Cardiac dysrhythmias (20 sources) Atrial tachycardia; Translations: [Supraventricular tachycardia] Onset: 0 01-18-2020 Chronic Conduction disorders (20 sources) Bundle branch block; Translations: [Nonspecific intraventricular block] Onset: 0 01-18-2020 Chronic Coronary atherosclerosis and other heart disease (20 sources) Coronary atherosclerosis; Translations: [Atherosclerotic heart disease of [place] coronary artery without angina pectoris] Onset: 0 01-18-2020 Chronic Comment on above: History of stent burning b/t shoulder blades Disorders of lipid metabolism (20 sources) Mixed hyperlipidemia; Translations: [Mixed hyperlipidemia] Onset: 0 01-18-2020 Chronic Esophageal disorders (20 sources) Gastroesophageal reflux disease; Translations: [Gastro-esophageal reflux disease without esophagitis] Onset: 0 01-18-2020 Chronic Essential hypertension (20 sources) Benign essential hypertension; Translations: [Essential (primary) hypertension] Onset: 0 01-18-2020 Chronic Other and ill-defined heart disease (20 sources) Left ventricular cardiac dysfunction; Translations: [Heart disease, unspecified] Onset: 0 01-18-2020 Chronic Other bone disease and musculoskeletal deformities (20 sources) Osteopenia; Translations: [Other specified disorders of bone density and structure, unspecified site] Onset: 0 01-18-2020 Episodic Other connective tissue disease (15 sources) Iliotibial band friction syndrome; Translations: [Iliotibial band syndrome, left leg] 03-16-2021 Episodic Other connective tissue disease (4 sources) Female pelvic floor dysfunction; Translations: [Other specified disorders of muscle] 08-05-2023 Episodic Other connective tissue disease (6 sources) Pain in left arm; Translations: [Pain in left arm] 08-03-2024 Episodic Comment on above: Mid upper arm radiat ing down to pinky and ring finger, sometimes tingling. Patient with history of cervical spine surgery. Other ear and sense organ disorders (5 sources) Tinnitus; Translations: [Tinnitus, left ear] 10-15-2024 Episodic Other eye disorders (1 source) Dry eye syndrome of bilateral lacrimal glands; Translations: [Dry eye syndrome of bilateral lacrimal glands] Onset: 5 Episodic Other gastrointestinal disorders (15 sources) Dysphagia; Translations: [Dysphagia, unspecified] 03-16-2021 Episodic Other gastrointestinal disorders (15 sources) Difficulty swallowing solids; Translations: [Dysphagia, unspecified] 03-08-2022 Episodic Other gastrointestinal disorders (8 sources) Dysphagia, unspecified; Translations: [Dysphagia, unspecified] Episodic Other gastrointestinal disorders (6 sources) Incontinence of feces; Translations: [Full incontinence of feces] 05-06-2023 Episodic Other gastrointestinal disorders (2 sources) Full incontinence of feces; Translations: [Full incontinence of feces] 05-06-2023 Episodic Other gastrointestinal disorders (4 sources) Chronic constipation; Translations: [Other constipation] 03-16-2024 Episodic Other hereditary and degenerative nervous system conditions (3 sources) Dyskinesia; Translations: [Dystonia, unspecified] 06-13-2024 Chronic Other hereditary and degenerative nervous system conditions (1 source) Dystonia, unspecified; Translations: [Dyskinesia] Onset: Chronic Other inflammatory condition of skin (20 sources) Rosacea; Translations: [Rosacea, unspecified] Onset: 07-06-2006 Chronic Other injuries and conditions due to external causes (15 sources) History of fall; Translations: [History of falling] 12-02-2021 Episodic Other injuries and conditions due to external causes (15 sources) History of open head injury; Translations: [Personal history of other (healed) physical injury and trauma] 12-02-2021 Episodic Other injuries and conditions due to external causes (1 source) History of falling; Translations: [History of fall] Episodic Other nervous system disorders (16 sources) Tremor; Translations: [Tremor, unspecified] 02-02-2023 Episodic Other nervous system disorders (3 sources) Abnormal gait; Translations: [Unspecified abnormalities of gait and mobility] 06-13-2024 Episodic Other non-traumatic joint disorders (6 sources) Shoulder pain; Translations: [Pain in right shoulder] 03-16-2021 Episodic Other non-traumatic joint disorders (15 sources) Hip pain; Translations: [Pain in left hip] 03-16-2021 Episodic Other non-traumatic joint disorders (9 sources) Pain in right shoulder; Translations: [Right shoulder pain] 03-16-2021 Episodic Other non-traumatic joint disorders (4 sources) Pain in left hip; Translations: [Pain in joint, pelvic region and thigh] 02-02-2023 Episodic Other skin disorders (9 sources) Neck swelling; Translations: [Localized swelling, mass and lump, neck] 02-02-2023 Episodic Spondylosis; intervertebral disc disorders; other back problems (15 sources) Thoracic back pain; Translations: [Pain in thoracic spine] 05-13-2020 Episodic Superficial injury; contusion (5 sources) Contusion of knee; Translations: [Contusion of unspecified knee, initial encounter] Onset: 2 Episodic Thyroid disorders (13 sources) Thyroid nodule; Translations: [Nontoxic single thyroid nodule] Onset: 5 02-09-2023 Chronic Comment on above: Patient is a 73-year -old female with history of bilateral thyroid nodularity status post fine-needle aspiration of a moderately suspicious thyroid nodule of the right thyroid lobe that measured 1.5 cm in greatest dimension. She is previously confirmed to be euthyroid but has not had thyroid function testing in the last year. She describes overall stable symptoms. Interval thyroid ultrasound shows evidence of a number of subcentimeter thyroid nodules as well as the nodules sampled last year. This year study shows slight regression in the size of this nodule (1.5 to 1.3 cm greatest dimension) and the echotexture is more consistent with a spongiform appearance. Radiology has given this a TI-RADS rating of 2 not suspicious. While they do give several other nodules higher TI-RADS ratings all of these nodules are, again, subcentimeter in size and do not meet threshold for ongoing surveillance. Therefore it is my recommendation to discontinue ultrasound surveillance of this issue, but I have urged patient to obtain thyroid function testing this year and consider yearly testing thereafter. Mrs. Barr expresses agreement with this recommendation. Unclassified (3 sources) Fusion 08-10-2013 Unclassified (8 sources) Tinnitus of left ear; Translations: [H93.12 - Tinnitus, left ear] Urinary tract infections (11 sources) Urinary tract infectious disease; Translations: [Urinary tract infection, site not specified] 08-02-2022 Episodic Past or Other Problems Problem Classification Problem Date Documented Da te Episodic/Chronic Allergic reactions (20 sources) Contact dermatitis; Translations: [Unspecified contact dermatitis, unspecified cause] Onset: 07-06-2006 Resolved: 02-27-2018 02-27-2018 Episodic Coronary atherosclerosis and other heart disease (8 sources) Presence of coronary angioplasty implant and graft; Translations: [Percutaneous transluminal coronary angioplasty status] Onset: 12-20-2019 Episodic Malaise and fatigue (8 sources) Fatigue; Translations: [Other fatigue] Onset: 08-03-2024 08-03-2024 Episodic Comment on above: New symptom noticed over the last couple weeks. Fatigue with activity. Most recent TSH and Hgb WNL 06/18/2024. Patient with history of CAD/PCI Nonspecific chest pain (20 sources) Atypical chest pain; Translations: [Other chest pain] Onset: 08-03-2024 Episodic Other and unspecified benign neoplasm (12 sources) Benign neoplasm of skin of trunk; Translations: [Other benign neoplasm of skin of trunk] Onset: 02-15-2008 Resolved: 02-27-2018 02-27-2018 Episodic Other bone disease and musculoskeletal deformities (1 source) Other specified disorders of bone density and structure, unspecified site; Translations: [Other specified disorders of bone density and structure, unspecified site] Onset: 03-16-2024 Episodic Other connective tissue disease (20 sources) Synovial cyst; Translations: [Other bursal cyst, unspecified site] Onset: 02-15-2008 02-15-2008 Episodic Other connective tissue disease (20 sources) History of lumbar fusion; Translations: [Arthrodesis status] Onset: 01-18-2020 01-18-2020 Episodic Other connective tissue disease (20 sources) History of cervical spine fusion; Translations: [Arthrodesis status] Onset: 01-18-2020 01-18-2020 Episodic Other connective tissue disease (1 source) Pain in left arm; Translations: [Pain in left arm] Onset: 08-24-2024 Episodic Other ear and sense organ disorders (1 source) Tinnitus, left ear; Translations: [Tinnitus, left ear] Onset: 10-15-2024 Episodic Other nervous system disorders (5 sources) Tremor, unspecified; Translations: [Abnormal involuntary movements] Onset: 09-06-2024 02-02-2023 Episodic Other nervous system disorders (1 source) Unspecified abnormalities of gait and mobility; Translations: [Gait abnormality] Onset: 09-06-2024 Episodic Other non-epithelial cancer of skin (20 sources) Malignant neoplasm of skin; Translations: [Unspecified malignant neoplasm of skin, unspecified] Onset: 07-06-2006 Resolved: 02-27-2018 01-18-2020 Episodic Other non-traumatic joint disorders (20 sources) Pain in right knee; Translations: [Pain and swelling of right knee] Onset: 10-15-2024 Episodic Other screening for suspected conditions (not mental disorders or infectious disease) (16 sources) Cardiovascular stress test abnormal; Translations: [Abnormal result of other cardiovascular function study] Onset: 07-13-2024 12-21-2021 Episodic Other skin disorders (12 sources) Vesicular eczema; Translations: [Dyshidrosis [pompholyx]] Onset: 07-06-2006 Resolved: 02-27-2018 02-27-2018 Episodic Other skin disorders (12 sources) Scar conditions and fibrosis of skin; Translations: [Scar conditions and fibrosis of skin] Onset: 07-06-2006 Resolved: 02-27-2018 02-27-2018 Episodic Other skin disorders (12 sources) Disorder of skin pigmentation; Translations: [Disorder of pigmentation, unspecified] Onset: 07-06-2006 Resolved: 02-27-2018 02-27-2018 Episodic Other skin disorders (12 sources) Seborrheic keratosis; Translations: [Other seborrheic keratosis] Onset: 07-06-2006 Resolved: 02-27-2018 02-27-2018 Episodic Other skin disorders (12 sources) Inflamed seborrheic keratosis; Translations: [Inflamed seborrheic keratosis] Onset: 02-15-2008 Resolved: 02-27-2018 02-27-2018 Episodic Other skin disorders (12 sources) Disorder of nail; Translations: [Other nail disorders] Onset: 02-15-2008 Resolved: 02-27-2018 02-27-2018 Episodic Otitis media and related conditions (6 sources) Dysfunction of eustachian tube; Translations: [Unspecified Eustachian tube disorder, unspecified ear] Onset: 09-07-2024 09-07-2024 Episodic Viral infection (12 sources) Verruca vulgaris; Translations: [Viral wart, unspecified] Onset: 02-15-2008 Resolved: 02-27-2018 02-27-2018 Episodic Results Test Name Value Interpretation Reference Range Facility Basic Metabolic Profile (BMP )on 01-14-2025 BUN/CRE 17.0 RATIO Normal 03-18 [facility] Comment on above: Performed By: #### L 500.2500 ####[facility] [address] [place], [address] Calcium [Mass/Vol] 9.5 mg/dL Normal 7.6-11.0 [facility] Comment on above: Performed By: #### L 500.2500 ####[facility] [address] [place], [address] Chloride [Moles/Vol] 105 mmol/L Normal 98-108 [facility] Comment on above: Performed By: #### L 500.2500 ####[facility] [address] [place], [address] CO2 [Moles/Vol] 26.1 mmol/L Normal 21.0-32.0 [facility] Comment on above: Performed By: #### L 500.2500 ####[facility] [address] [place], [address] Creatinine [Mass/Vol] 0.80 mg/dL Normal 0.70-1.20 [facility] Comment on above: Performed By: #### L 500.2500 ####[facility] [address] [place], [address] GAP 10 Normal 5-15 [facility] Comment on above: Performed By: #### L 500.2500 ####[facility] [address] [place], [address] GFR/1.73 sq M.predicted among non-blacks MDRD (S/P/Bld) [Vol rate/Area] 77 mL/min/{1.73_m2} Normal >60 [facility] Comment on above: Result Comment: mL/m in/1.73m2 CKD-EPI Creatinine Equation (2020) Performed By: #### L 500.2500 ####[facility] [address] [place], [address] Glucose [Mass/Vol] 78 mg/dL Normal 70-99 [facility] Comment on above: Performed By: #### L 500.2500 ####[facility] [address] [place], [place], [address] Potassium [Moles/Vol] 4.2 mmol/L Normal 3.3-5.1 [facility] Comment on above: Performed By: #### L 500.2500 ####[facility] [address] [place], [place], [address] Sodium [Moles/Vol] 141 mmol/L Normal 133-145 [facility] Comment on above: Performed By: #### L 500.2500 ####[facility] [address] [place], [place], [address] Urea nitrogen [Mass/Vol] 14 mg/dL Normal 4-19 [facility] Comment on above: Performed By: #### L 500.2500 ####[facility] [address] [place], [place], [address] Internal Medicine Office Vis bre 01-14-2025 Internal Medicine Office Visit [facility] [address] [place], [place] [address] OFFICE VISIT Date of Service: 01/14/25 MR#: [id number] Acct: [id number] Name: RADHA BARR Rep #: [id number] : 1950 Provider: Dr. 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: No Accompanied by: Self Is patient in pain?: No Allergies fentanyl Allergy (Severe, Verified 01/14/25 09:06) heart stopped lisinopril Adverse Reaction (Intermediate, Verified 01/14/25 09:06) cough Medications ???Medication ???Instructions ???Recorded ???Confirmed ???Type cholecalciferol (vitamin D3) 25 25 mcg PO DAILY 11/06/19 01/14/25 History mcg (1,000 unit) tablet aspirin 81 mg tablet,delayed 81 mg PO DAILY 12/18/19 01/14/25 H istory release (Adult Low Dose Aspirin) acetaminophen 650 mg 650 mg PO Q12H 03/05/20 01/14/25 H istory tablet,extended release (Tylenol Arthritis Pain) doxycycline hyclate 50 mg 50 mg PO QDAY 03/16/24 01/14/25 Hi story tablet,delayed release pantoprazole 40 mg tablet,delayed 40 mg PO QDAY 03/16/24 01/14/25 H istory release atorvastatin 40 mg tablet 40 mg PO QHS #90 tabs 08/03/24 Rx carvedilol 6.25 mg tablet 6.25 mg PO BID #180 tabs 08/03/24 01/14/25 Rx losartan 100 mg tablet 100 mg PO QDAY #90 tabs 10/15/24 0 01/14/25 Rx meloxicam 7.5 mg tablet 7.5 mg PO QDAY PRN pain #30 tabs 0 10/16/24 01/14/25 Rx sennosides 8.6 mg-docusate sodium 4 tab-cap (4 x 8.6-50 mg) PO QDAY 01/11/25 01/14/25 Rx 50 mg tablet (Senexon-S) PRN constipation 3 months #120 tab s Have you fallen in the past year?: No Nurse's Note: things are going well [facility] Medical History (Updated 01/14/25 @ 12:[address] Pedro Wang MD) Phantosmia Right knee pain Tinnitus, left ear Chronic constipation Perkins esophagus Normal colonoscopy Pelvic floor dysfunction in female Fecal incontinence Thyroid nodule Neck swelling Tremor UTI (urinary tract infection) Health care maintenance Difficulty swallowing solids Atypical chest pain Left bundle branch block (LBBB) Essential hypertension History of open head injury History of recent fall Pain and swelling of right knee Difficulty swallowing Iliotibial band syndrome affecting left lower leg Right shoulder pain Left hip pain GERD (gastroesophageal reflux disease) Osteoarthritis GI problem History of skin cancer Arthritis Hiatal hernia Thoracic back pain Atherosclerosis of coronary artery of [place] heart without angina pectoris Atrial tachycardia Osteopenia Chronic neck pain with history of cervical spinal surgery History of chronic back pain Surgical History History of left heart catheterization (LHC) (05/16/20) HISTORY OF MICRO DECROMPRESSION History of coronary artery stent placement (12/20/19) History of microdiscectomy History of ankle surgery History of hip surgery History of lumbar fusion History of fusion of cervical spine Family History Father Hypertension Sister Breast cancer Cancer skin Hypertension Brother Hypertension Social History Smoking Status: Never smoker alcohol intake: current Alcohol type: wine substance use type: does not use what type of physical activity do you participate in: walking and swimming frequency: daily HPI HPI Chief Complaint: 4 M FU Details: RADHA BARR, is a 74-year-old female presenting for follow-up of her chronic conditions. She reports occasional regurgitation. The regurgitation is described as not severe but noticeable enough to wake the patient occasionally. Chronic history of reflux/Perkins's currently on Protonix which she reports compliance with. No dark or bloody stool or unintentional weight changes. The patient also reports new episodes of smelling burning toast, usually occurring at night upon waking to use the bathroom. These episodes are not constant and occur intermittently. The patient has a history suggestive of altered sense perception. The patient has an existing diagnosis of a thyroid nodule. She monitors this condition with periodic ultrasounds. Recent comparisons between two ultrasound reports indicate stable nodule sizes The patient manages her blood pressure with Losartan and Car (more content not included)... Normal [facility] CNOVon 12-11-2024 CNOV Office Visit (NEUBSM ) RADHA BARR ([id number]) 1950 F Date Time Provider Department 12/11/24 4:00 PM CCBS COORDINATOR 2 ([facility])ZACK During your visit today, we recorded the following information about you: Spike Dee, Research Coordinator 12/11/2024 3:35 PM Signed DATE:December 11, 2024 PT. NAME: Radha Barr F#: [id number] IRB #: [id number] A. PROTOCOL: [facility] Brain Study Child Support Investigator: Mar Chavez MD, , Alberto Ralph MD, [facility] labor relations or personnel negotiator for study related questions: Letty Garcia Subject continues to give consent for participation and for procedures related to study YES. Were there changes made to the informed consent since the last visit? No. If yes, were changes reviewed and explained to subject? N/A Was a new copy of the informed consent signed, placed in the chart, placed in the study file and was a copy given to the patient? N/A Patient Identification was verified by asking the patient's Name and Date Of : YES Time: 15:20 Blood drawn with vacutainer and labs drawn per protocol. Butterfly removed after blood draw and secured with sterile gauze. Patient tolerated procedure well. Spike Dee, Research Coordinator Allergies As of Date: 12/11/2024 Noted Allergy Reaction FENTANYL 11/28/2019 14 - Other: See Comments Comments: Cardiac arrest NARCOTICS (OPIOIDS - MORPHINE PATRICE*02/27/2018 14 - Other: See Comments Comments: Very sensitive to narcotics. Date Reviewed: 09/06/2024 Reviewed by: Jessica Holman MA - Fully Assessed Primary Visit Diagnosis:Research exam [Z00.6] Prescriptions as of 12/11/2024 - doxycycline (VIBRAMYCIN) 50 mg capsule Take 1 capsule by mouth once daily. - losartan (COZAAR) 100 mg tablet Take 1 tablet by mouth every 12 hours. - sennosides-docusate sodium (SENNA PLUS) 8.6-50 mg capsule Take 1 capsule by mouth once daily. - aspirin 81 mg chewable tablet Take 81 mg by mouth once daily. - atorvastatin (LIPITOR) 40 mg tablet Take by mouth once daily. - pantoprazole DR (PROTONIX) 40 mg tablet Take 1 tablet by mouth twice daily before meals. Take on empty stomach, 1/2 hr before meal. - acetaminophen (TYLENOL 8 HOUR) 650 mg CR tablet Take 650 mg by mouth every 8 hours as needed. - Cholecalciferol, Vitamin D3, 1,000 unit cap Take 1 capsule by mouth once daily. 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] 07/06/2006 Dyshidrosis [L30.1] 07/06/2006 02/27/2018 Contact dermatitis and other eczema, due to uns*07/06/2006 02/27/2018 Other chronic dermatitis due to solar radiation*07/06/2006 02/27/2018 Scar condition and fibrosis of skin [L90.5] 07/06/2006 02/27/2018 Personal history of other malignant neoplasm of*07/06/2006 02/27/2018 SOLAR LENGINES///DYSCHROMIA OTHER [L81.9] 07/06/2006 02/27/2018 Other seborrheic keratosis [L82.1] 07/06/2006 02/27/2018 Viral warts, unspecified [B07.9] 02/15/2008 02/27/2018 Inflamed seborrheic keratosis [L82.0] 02/15/2008 02/27/2018 NEVUS BACK///BENIGN CRUZ SKIN TRUNK [D23.5] 02/15/2008 02/27/2018 SYNOVIAL CYST NOS [M71.30] 02/15/2008 DTSTR/LYSIS///DISEASE S OF NAIL NEC [L60.8] 02/15/2008 02/27/2018 Atherosclerosis of coronary artery of [place] he*01/18/2020 Atrial tachycardia (HCC) [I47.19] 01/18/2020 Bundle branch block [I45.4] 01/18/2020 Left ventricular dysfunction [I51.9] 01/18/2020 Ventricular premature beats [I49.3] 01/18/2020 Essential hypertension, benign [I10] 01/18/2020 Mixed hyperlipidemia [E78.2] 01/18/2020 GERD (gastroesophageal reflux disease) [K21.9] 01/18/2020 Skin cancer [C44.90] 01/18/2020 S/P lumbar fusion [Z98.1] 01/18/2020 S/P cervical spinal fusion [Z98.1] 01/18/2020 Osteopenia [M85.80] 01/18/2020 Encounter Status:Closed by SPIKE DEE on 12/11/24 Normal [facility] CNOV Office Visit (NEUBSM ) RADHA BARR ([id number]) 1950 F Date Time Provider Department 12/11/24 2:45 PM CCBS NELLIE 2 ([facility]) NEUBSM During your visit today, we recorded the following information about you: Letitia Aguillon PA-C 12/11/2024 3:25 PM Signed DATE: December 11, 2024 PT. NAME: Radha Barr [facility]#: [id number] IRB [id number]. [facility] Brain Study (BS) Child Support Investigator: Mar Chavez MD, , Alberto Ralph MD, Maintenance Advisor: Letty Garcia and Email:[email or web address] Time: 14:50:56 EKG/ECG was performed on patient. Patient tolerated procedure well. Vital Signs: BP: 149/72 BP Site: right arm BP Position: sitting Cuff size: regular Pulse: 63 Resp: 12 SPO2: 97 Weight: 156 lbs Height: 5' 3 Have you received the Shingles Vaccine? Yes Age of first vaccination? 61 Year first vaccination was administered: 2012 Number of subsequent vaccinations: 2 Result of Physical Exam Body System Eyes: Normal Ears, Nose, Mouth and Throat: Normal Cardiovascular: Abnormal ,LBBB, previously diagnosed Respiratory: Normal Musculoskeletal: Normal Integumentary: Normal Handedness: Right hand Results of Mental Status [...] 5 Shoulder abduction: Right 5 Left 5 Shoulder adduction: Right 5 Left 5 Elbow flexion: Right 5 Left 5 Elbow extension: Right 5 Left 5 Wrist flexion: Right 5 Left 5 Wrist extension: Right 5 Left 5 Finger flexion/tobacco blender: Right 5 Left 5 Flexor pollicis longus: [...] Left 5 Reflexes - MRC Grading Method Triceps: Right 2+ Left 2+ Biceps: Right 2+ Left 2+ Brachioradialis: Right 2+ Left 2+ Patellar: Right 2+ Left 2+ Achilles: Right 2+ Left 2+ Plantar: Right Downgoing Left Downgoing Weakness?: No Tremor: No Cerebellar/Coordinati on Assessment [id number]-[id number]-[id number]: Abnormality present: No, Yxst-er-Tfhw: Abnormality present: No, Finger Tapping - Abnormality present: No Fist Open/Close - Abnormality present: No Pronation/Supination of the Hand - Abnormality present: No Toe Tapping - Abnormality present: No Heel Tapping - Abnormality present: No Gait Gait-global assessment: Normal Toe Walk: Normal Heel Walk: Normal Tandem Walk: Normal Romberg: Negative (pass) Sensory/Sensation Sensory System-globlal assessment: Normal Letitia Aguillon PA-C Allergies As of Date: 12/11/2024 Noted Allergy Reaction FENTANYL 11/28/2019 14 - Other: See Comments Comments: Cardiac arrest NARCOTICS (OPIOIDS - MORPHINE PATRICE*02/27/2018 14 - Other: See Comments Comments: Very sensitive to narcotics. Date Reviewed: 09/06/2024 Reviewed by: Jessica Holman MA - Fully Assessed Primary Visit Diagnosis:Examination of participant in clinical trial [Z00.6] Prescriptions as of 12/11/2024 - doxycycline (VIBRAMYCIN) 50 mg capsule Take 1 capsule by mouth once daily. - losartan (COZAAR) 100 mg tablet Take 1 tablet by mouth every 12 hours. - sennosides-docusate sodium (SENNA PLUS) 8.6-50 mg capsule Take 1 capsule by mouth once daily. - aspirin 81 mg chewable tablet Take 81 mg by mouth once daily. - atorvastatin (LIPITOR) 40 mg tablet Take by mouth once daily. - pantoprazole DR (PROTONIX) 40 mg tablet Take 1 tablet by mouth twice daily before meals. Take on empty stomach, 1/2 hr before meal. - acetaminophen (TYLENOL 8 HOUR) 650 mg CR tablet Take 650 mg by mouth every 8 (more content not included)... Normal [facility] Thyroidon 12-05-2024 Thyroid [facility] Imaging Services [address] [place] [id number] Thyroid MR#: [id number] Acct: [id number] Name: RADHA BARR Rep #: [id number] : 1950 F 74 From: Александр Garcia MD PCP: Dr. Pedro Wang MD Status: [facility] Study: Thyroid Date of Exam: 12/05/24 Exam# [id number] Ordering Dr: Pedro Wang MD EXAM: US Soft Tissues Head and Neck, Thyroid CLINICAL INDICATION: FU THYROID NODULE TECHNIQUE: Real-time ultrasound scan of the thyroid gland and soft tissues of the neck with image documentation. COMPARISON: US Thyroid dated 02/09/2023 FINDINGS: LEFT THYROID LOBE: Left thyroid lobe measures 4.8 x 1.8 x 1.3 cm. Mid left thyroid nodule measures 0.4 x 0.3 x 0.2 cm, which is mixed cystic and solid and isoechoic, TR 2. RIGHT THYROID LOBE: Right thyroid lobe measures 5.5 x 1.8 x 1.4 cm. Superior right thyroid nodule measures 0.8 x 0.6 x 0.5 cm. Superior right thyroid nodule measures 0.650.4 x 0.4 cm. Mid right thyroid nodule measures 1.3 x 1.1 x 0.9 cm. Inferior right thyroid measures 0.8 x 0.7 x 0.5 cm. These right thyroid nodules have missed this lytic and solid component and hypoechoic echogenicity, TR 3. ISTHMUS: Isthmus measures 1 mm thick. No enlarged or calcified nodules. LYMPH NODES: Unremarkable. No lymphadenopathy. US/Thyroid IMPRESSION: 1. Thyroid nodules as above. 2. TR 1: Benign, no FNA; TR 2: No suspicious, no FNA; TR 3: Mildly suspicious, FNA if >/= 2.5 cm or Follow if >/= 1.5 cm; TR 4: Moderately suspicious, FNA if >/= 1.5 cm or Follow if >/= 1 cm; TR 5 Highly suspicious, FNA if >/= 1 cm or Follow if >/= 0.5 cm. Reading Location: [facility] CC: Dr. Pedro Wang MD Senior Hr Generalist: Signed Normal [facility] Internal Medicine Office Vis iton 10-15-2024 Internal Medicine Office Visit [facility] [address] [place] [address] [place] [address] OFFICE VISIT Date of Service: 10/15/24 MR#: [id number] Acct: [id number] Name: RADHA BARR Rep #: [id number] : 1950 Provider: Dr. Pedro olivares MD Age/Sex: 73/F Location: [facility] Status: Signed Intake Vital Signs 06/22/24 08:55 09/07/24 11:33 10/15/24 09:24 Height 5 ft 4 in 5 ft 4 in 5 ft 4 in Weight: 156 lb BMI 26.7 BP 144/76 H Blood Pressure Location Lt brachial Position Sitting Respiration 18 Pulse 78 Pulse Source Monitor Temp 97.6 F L Temp Source Temporal Pulse Oximetry (%) 100 Oxygen Delivery Method room air Intake Visit Reasons: 4 M FU Chief Complaint: 4 M FU Is patient in pain?: Yes (6 right knee ) Allergies fentanyl Allergy (Severe, Verified 10/15/24 09:23) heart stopped lisinopril Adverse Reaction (Intermediate, Verified 10/15/24 09:23) cough Medications ???Medication ???Instructions ???Recorded ???Confirmed ???Type cholecalciferol (vitamin D3) 25 25 mcg PO DAILY 11/06/19 10/15/24 History mcg (1,000 unit) tablet aspirin 81 mg tablet,delayed 81 mg PO DAILY 12/18/19 10/15/24 H istory release (Adult Low Dose Aspirin) acetaminophen 650 mg 650 mg PO Q12H 03/05/20 10/15/24 H istory tablet,extended release (Tylenol Arthritis Pain) doxycycline hyclate 50 mg 50 mg PO QDAY 03/16/24 10/15/24 Hi story tablet,delayed release pantoprazole 40 mg tablet,delayed 40 mg PO QDAY 03/16/24 10/15/24 H istory release sennosides 8.6 mg-docusate sodium PO 03/16/24 10/15/24 History 50 mg tablet (Senexon-S) atorvastatin 40 mg tablet 40 mg PO QHS #90 tabs 08/03/24 Rx carvedilol 6.25 mg tablet 6.25 mg PO BID #180 tabs 08/03/24 10/15/24 Rx losartan 100 mg tablet 100 mg PO QDAY #90 tabs 10/15/24 0 10/15/24 Rx Have you fallen in the past year?: No PFSH Medical History (Updated 10/15/24 @ 09:[address] Pedro Wang MD) Right knee pain Tinnitus, left ear Chronic constipation Perkins esophagus Normal colonoscopy Pelvic floor dysfunction in female Fecal incontinence Thyroid nodule Neck swelling Tremor UTI (urinary tract infection) Health care maintenance Difficulty swallowing solids Atypical chest pain Left bundle branch block (LBBB) Essential hypertension History of open head injury History of recent fall Pain and swelling of right knee Difficulty swallowing Iliotibial band syndrome affecting left lower leg Right shoulder pain Left hip pain GERD (gastroesophageal reflux disease) Osteoarthritis GI problem History of skin cancer Arthritis Hiatal hernia Thoracic back pain Atherosclerosis of coronary artery of [place] heart without angina pectoris Atrial tachycardia Osteopenia Chronic neck pain with history of cervical spinal surgery History of chronic back pain Surgical History History of left heart catheterization (LHC) (05/16/20) HISTORY OF MICRO DECROMPRESSION History of coronary artery stent placement (12/20/19) History of microdiscectomy History of ankle surgery History of hip surgery History of lumbar fusion History of fusion of cervical spine Family History Father Hypertension Sister Breast cancer Cancer skin Hypertension Brother Hypertension Social History Smoking Status: Never smoker alcohol intake: current Alcohol type: wine substance use type: does not use what type of physical activity do you participate in: walking and swimming frequency: daily HPI HPI Chief Complaint: 4 M FU Details: RADHA BARR, is a 73 F who presents to the office today for for follow-up. No acute concerns at this time. History of tremors, she was referred to a movement disorder specialist at the [facility] from the [facility] [place]. She states that she saw the movement disorder specialist and her tremors are not related to Parkinson's at this time. Recommendation was for exercise. Was seen for an acute visit due to left ear discomfort. Fullness and ringing again reported. Ringing is intermittent. Has not been seen by ENT. Also reports right knee pain. Discomfort behind her knee. Feels tight. Stretching makes it better. No recent fall. Has not had imaging. Other chronic medical conditions are stable. ROS Const Constitutional: No body ache, chills, excessive sweating, fatigue, fever(s), frequent falls, headache(s), snoring, weight change, sleep problems, abnormal sleep pattern or change in appetite Eyes Eyes: No blurry vision, change in vision, eye pain or Light sensitivity ENT ENT: No abnormal hearing, ear or mastoid pain, tinnitus, nasal congestion, heada (more content not included)... Normal [facility] Knee 4 or More Viewson 10-15 Knee 4 or More Views [facility] Imaging Services [address] [place], [place] [id number] Knee 4 or More Views MR#: [id number] Acct: [id number] Name: RADHA BARR Rep #: [id number] : 1950 F 73 From: Guille Gordon MD PCP: Dr. Pedro Wang MD Status: REG CLI Study: Knee 4 or More Views Date of Exam: 10/15/24 Exam# [id number] Ordering Dr: Pedro Wang MD PROCEDURE: KNEE 4 OR MORE VIEWS 10/15/2024 REASON FOR EXAM: RIGHT KNEE PAIN TECHNIQUE: 4 view(s) of the right knee COMPARISON: None FINDINGS: No fracture or traumatic malalignment. There is wcco-df-ileoxmdx tricompartmental joint space narrowing and osteophyte formation. Subtle chondrocalcinosis in the lateral compartment. No joint effusion. Soft tissues are unremarkable. RAD/Knee 4 or More Views IMPRESSION: Gixy-cx-palpyqlv osteoarthritis of the right knee. There is subtle chondrocalcinosis in the lateral compartment, as may be seen with calcium pyrophosphate deposition disease. Reading Location: [id number] CC: Dr. Pedro Wang MD Senior Hr Generalist: Signed Normal [facility] Internal Medicine Office Vis ito 09-07-2024 Internal Medicine Office Visit [facility] [address] [place] [address] [place] [address] OFFICE VISIT Date of Service: 09/07/24 MR#: [id number] Acct: [id number] Name: RADHA BARR Rep #: [id number] : 1950 Provider: KIMBERLY Fitzpatrick Age/Sex: 73/F Location: [facility] Status: Signed Intake Vital Signs 09/04/24 08:54 09/07/24 11:33 Height 5 ft 4 in 5 ft 4 in Weight: 158 lb BMI 27.1 BP 140/80 H 128/72 H Blood Pressure Location Lt brachial Position Sitting Sitting Respiration 16 Pulse 68 56 L Pulse Source Monitor Temp 98.0 F 97.3 F L Temp Source Oral Temporal Pulse Oximetry (%) 96 97 Oxygen Delivery Method room air room air Intake Visit Reasons: acute - fu from now clinic on lft ear Chief Complaint: fu now clinic 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: No Accompanied by: Self Is patient in pain?: No Allergies fentanyl Allergy (Severe, Verified 09/07/24 11:37) heart stopped lisinopril Adverse Reaction (Intermediate, Verified 09/07/24 11:37) cough Medications ???Medication ???Instructions ???Recorded ???Confirmed ???Type cholecalciferol (vitamin D3) 25 25 mcg PO DAILY 11/06/19 09/07/24 History mcg (1,000 unit) tablet aspirin 81 mg tablet,delayed 81 mg PO DAILY 12/18/19 09/07/24 H istory release (Adult Low Dose Aspirin) acetaminophen 650 mg 650 mg PO Q12H 03/05/20 09/07/24 H istory tablet,extended release (Tylenol Arthritis Pain) doxycycline hyclate 50 mg 50 mg PO QDAY 03/16/24 09/07/24 Hi story tablet,delayed release famotidine 40 mg tablet 40 mg PO QDAY 03/16/24 09/07/24 Hi story pantoprazole 40 mg tablet,delayed 40 mg PO QDAY 03/16/24 09/07/24 H istory release sennosides 8.6 mg-docusate sodium PO 03/16/24 09/07/24 History 50 mg tablet (Senexon-S) atorvastatin 40 mg tablet 40 mg PO QHS #90 tabs 08/03/2404/23 Rx carvedilol 6.25 mg tablet 6.25 mg PO BID #180 tabs 08/03/24 09/07/24 Rx losartan 100 mg tablet 100 mg PO BID #180 tabs 08/03/24 0 09/07/24 Rx fexofenadine 180 mg tablet 180 mg PO Q24H #30 tabs 09/04/24 0 09/07/24 Rx Have you fallen in the past year?: No PFSH Medical History Chronic constipation Perkins esophagus Normal colonoscopy Pelvic floor dysfunction in female Fecal incontinence Thyroid nodule Neck swelling Tremor UTI (urinary tract infection) Health care maintenance Difficulty swallowing solids Atypical chest pain Left bundle branch block (LBBB) Essential hypertension History of open head injury History of recent fall Pain and swelling of right knee Difficulty swallowing Iliotibial band syndrome affecting left lower leg Right shoulder pain Left hip pain GERD (gastroesophageal reflux disease) Osteoarthritis GI problem History of skin cancer Arthritis Hiatal hernia Thoracic back pain Atherosclerosis of coronary artery of [place] heart without angina pectoris Atrial tachycardia Osteopenia Chronic neck pain with history of cervical spinal surgery History of chronic back pain Surgical History History of left heart catheterization (LHC) (05/16/20) HISTORY OF MICRO DECROMPRESSION History of coronary artery stent placement (12/20/19) History of microdiscectomy History of ankle surgery History of hip surgery History of lumbar fusion History of fusion of cervical spine Family History Father Hypertension Sister Breast cancer Cancer skin Hypertension Brother Hypertension Social History Smoking Status: Never smoker alcohol intake: current Alcohol type: wine substance use type: does not use what type of physical activity do you participate in: walking and swimming frequency: daily HPI HPI Chief Complaint: fu now clinic Details: RADHA BARR, is a 73 F who presents to the office today for follow-up for some left ear symptoms. Patient states that earlier in the week she started to notice sounds were little muffled or just felt distorted. She states that it all sound like people were trying to hide or mask their voice with the voice machine. She states that sounds were often times louder echo we. She did not have any pains at the time. No recent sinus/nasal issues. No sore throats or other symptoms. No recent changes to medications or other life changes. Evaluation at the [facility] showed no acute abnormalities. Patient was given an antihistamine and told to follow-up in the office. She states that today actually the symptoms are quite a bit better than they have been all week. These do not have a percent resolved but again are definitely in a better place ROS Const Constitutional: No body ache, excessive sweating, fa (more content not included)... Normal [facility] CNOVon 09-06-2024 CNOV Office Visit (NRMDN) RADHA BARR ([id number]) 1950 F Date Time Provider Department 09/06/24 3:30 PM YANDEL GARCIA NRMDN During your visit today, we recorded the following information about you: Weight 71.2 kg Yandel Garcia MD 09/07/2024 8:08 AM Signed [facility] - NEW PATIENT EVALUATION The patient consented to the use of ambient AI software for draft documentation of the visit consistent with [facility]?s Notice of Privacy Practices. Referring Provider: Suhas Stearns [address] [facility] [address] Primary Care Provider: Pedro Wang MD [address] [facility] [id number] Dear Suhas Stearns: Thank you for referring Ms. Barr to our clinic today. As you know she is a 73 year old right-handed female who is seen in consultation for evaluation of since . She is seen alone. Subjective HISTORY OF PRESENT ILLNESS: Radha is a 73-year-old female with a family history of Parkinson's disease, presenting for evaluation of tremors and other symptoms. Radha reports a tremor in her left hand, described as a shake, which occurs primarily when holding objects, such as a piece of paper, and is exacerbated by nervousness. She can usually stop the tremor voluntarily. The tremor has been present for at least five years, predating the COVID-19 pandemic, and is not present at rest or during activities such as eating or drinking. She does not endorse tremors in her right hand, legs, voice, or head. She is right-hand dominant. She notes a decrease in tobacco blender strength and dexterity, particularly in her right hand, affecting tasks such as stuffing envelopes. She also reports difficulty bending her fingers. Her handwriting has become smaller and messier, with frequent hand cramping. Radha describes a decline in balance and a slower walking pace compared to her previous baseline. She experiences left hip pain. She has a history of multiple spine surgeries. Despite these issues, she does not report falls and manages daily activities such as eating, dressing, and showering without significant difficulty, attributing any changes to normal aging. She reports poor sleep quality, waking up in terrible pain and stiffness, feeling as if she has rigor mortis. This stiffness affects both sides of her body equally and resolves with movement. She experiences nightmares every few years, during which she screams but does not engage in physical actions like punching or kicking. Radha does not endorse changes in her voice, facial expressions, sense of smell, or memory. She does not report hallucinations, significant depression, or anxiety. She has a family history of Parkinson's disease, with her mother and one of her three brothers affected. Her brother, who also has hypertension, was diagnosed two years ago and experiences tremors. Her mother had a resting tremor, stooped posture, shuffling gait, and dementia. Movement Disorders Medications Schedule - as of the start of the visit: Medications Questionnaires In addition, the following areas that may be affected by abnormal involuntary movements were evaluated: Daily activities Difficulties with eatin (none) Difficulties in dressin (none) Difficulties with hygiene activities: 0 (none) Difficulties with handwriting: Yes (slight) Difficulties with doing hobbies and other activities: Yes (slight) Difficulties turning in bed: Yes (slight) Difficulties getting out of bed, car or chair: 0 (none) Tremors/Gait/Balance Shaking or tremors: Yes (slight) Walking and balance problems: 0 (none) slower. left hip problems Number of falls in the Last Month: 0 Gait freezin (none) Autonomic/Pain Lightheadeness on standin (none) Urinary problems: 0 (none) Constipation problems: Yes (moderate) Pain and other sensations: Yes (mild) Speech/Swallowing Speech problems: 0 (none) no change in voice or facial expression Drooling: Yes (mild) Chewing and swallowing problems: Yes (slight) Sleep/Fatigue Sleep problems: Yes (moderate) pain and stiffness Daytime sleepiness: Yes (mild) Fatigue: Yes (slight) Mood/Behavior Depression: Anxiety: Finally, the following table shows the patient's overall global physical and mental health using the PROMIS scale: PROMIS-10 Flowsheet Row Office Visit from 09/06/2024 in Neurology Global Physical Health T Score 54.1 Global Mental Health T Score 53.3 0-10 Standard Pain Scale 4 *PROMIS-10 scoring scale: mean = 50, over 50 is above average, under 50 is below average In addition, the following non-motor symptoms and palliative concerns were evaluated: Sleep/Fatigue: REM sleep behavior disorder: Yes every few years screams in a dream for several years Restless Legs Syndrome: Leg swelling: Impaired sense of smell: No Cognition: Memory and Thin (more content not included)... Normal [facility] Urgent Care Visit Reporton 0 09-04-2024 Urgent Care Visit Report [facility] [address] [place] [address] OFFICE VISIT Date of Service: 09/04/24 MR#: [id number] Acct: [id number] Name: RADHA BARR Rep #: [id number] : 1950 Provider: KIMBERLY Rosas Age/Sex: 73/F Location: [facility] Status: Signed Intake Vital Signs 08/03/24 07:40 09/04/24 08:54 Height 5 ft 4 in 5 ft 4 in BP 140/80 H Position Sitting Pulse 68 Temp 98.0 F Temp Source Oral Pulse Oximetry (%) 96 Oxygen Delivery Method room air Intake Visit Reasons: L EAR PLUGGED Accompanied by: Self Allergies fentanyl Allergy (Severe, Verified 08/03/24 09:28) heart stopped lisinopril Adverse Reaction (Intermediate, Verified 08/03/24 09:28) cough Have you fallen in the past year?: No Nurse's Note: Patient left ear is clogged. Patient states it felt like it needed to pop yesterday. Patient states noises are loud and hymns. [facility] Medical History Chronic constipation Perkins esophagus Normal colonoscopy Pelvic floor dysfunction in female Fecal incontinence Thyroid nodule Neck swelling Tremor UTI (urinary tract infection) Health care maintenance Difficulty swallowing solids Atypical chest pain Left bundle branch block (LBBB) Essential hypertension History of open head injury History of recent fall Pain and swelling of right knee Difficulty swallowing Iliotibial band syndrome affecting left lower leg Right shoulder pain Left hip pain GERD (gastroesophageal reflux disease) Osteoarthritis GI problem History of skin cancer Arthritis Hiatal hernia Thoracic back pain Atherosclerosis of coronary artery of [place] heart without angina pectoris Atrial tachycardia Osteopenia Chronic neck pain with history of cervical spinal surgery History of chronic back pain Surgical History History of left heart catheterization (LHC) (05/16/20) HISTORY OF MICRO DECROMPRESSION History of coronary artery stent placement (12/20/19) History of microdiscectomy History of ankle surgery History of hip surgery History of lumbar fusion History of fusion of cervical spine Family History Father Hypertension Sister Breast cancer Cancer skin Hypertension Brother Hypertension Social History Smoking Status: Never smoker alcohol intake: current Alcohol type: wine substance use type: does not use what type of physical activity do you participate in: walking and swimming frequency: daily HPI HPI Details: RADHA BARR, is a 73 F who presents to the office today for several day history of persistent altered hearing sensation of left ear. No complaints fever, chills, sweats, lightheadedness/dizzi ness, nausea/vomiting. No bptd-oap-pxgxsib products have been tried to persist. No other associated symptoms and no alleviating/aggravati ng factors. ROS Const Constitutional: No other (As above) Exam Const General: cooperative, healthy appearing and no acute distress Nutritional Appearance: average body habitus Orientation: alert and awake HENDC Head: normal to inspection Ears: hearing grossly normal bilaterally, external ears normal, TM's normal bilaterally and EAC's normal Nose: external nose normal, nares normal, septum normal and no nasal discharge Face and sinus: normal facial exam, sinuses nontender and face symmetric Mouth: oral mucosae normal, lip normal, tongue normal, oropharynx normal and moist mucous membranes Throat: posterior oropharynx normal, tonsils normal, uvula midline and no postnasal drainage Eyes General: appearance normal, both eyes and all related structures Neck Neck: normal visual inspection, full ROM, no lymphadenopathy, no meningeal signs Chest Chest palpation inspection: normal inspection of the chest Resp Effort Inspection: normal respiratory effort and able to speak in complete sentences Cardio Rate: regular rate Pulses: radial pulses present Skin General: no rashes or lesions noted Neuro General: patient alert, patient awake and patient oriented x3 Cognition: normal cognition Speech: speech normal Psych Appearance: grossly normal Mental Status: mental status grossly normal Mood: congruent mood Affect: normal affect Speech and Movement: speech and movement normal Attitude: cooperative Diagnoses Change in hearing H91.90 Assessment and Plan Assessment and Plan (1) Change in hearing: Status: Acute Plan: Consider cdwf-bfx-dgaunsc antihistamine use such as loratadine or cetirizine or fexofenadine; fexofenadine prescribed today. Follow-up with PCP in 5 to 7 days should symptoms not improve, sooner should (more content not included)... Normal [facility] Cardiovascular stress test r eportOrdered By: Jean-Paul Delgado on 08-17-2024 Study report [facility] Cardiovascular Services [address] [place] [address] MR#: [id number] Acct: [id number] Name: RADHA BARR Rep #: [id number] : 1950 73 From: Jean-Paul Delgado MD Primary Care: Dr. Pedro Wang MD atus: REG CLI Referring Dr: Pepe Tan Sex: F C Stress Test Report Pharmacologic myocardial perfusion stress test. 73-year-old lady with a history of chest pain Resting EKG demonstrates sinus rhythm with a left bundle branch block with a rate of 55 bpm. Resting blood pressure is 152/80 mmHg. 0.4 mg of regadenoson was infused per usual protocol followed by rapid intravenous saline flush injection. Continuous EKG monitoring was performed. The maximum heart rate was87 bpm which was 59% of max impacted heart rate the maximum workload was 1 metabolic equivalent. At rest there were no ST or T wave changes noted to suggest ischemia and at peak infusion nonspecific ST changes were noted which did not meet the criteria for ischemia. No clinical angina is noted. The final blood pressure was 130/78 mmHg. Myocardial perfusion protocol. 11.6 mCi of technetium 99m sestamibi was injected at rest. 0.4 mg of regadenoson was infused per usual protocol. At peak infusion 33.5 mCi of technetium 99m sestamibi was injected stress images were obtained stress and rest images were reconstructed and compared in the short axis vertical long and horizontal long axis. Gated images were also obtained. Perfusion SPECT analysis: Review of the stress images demonstrate normal uptake of tracer noted in all areas of the myocardium. The resting images similar demonstrated normal uptake of tracer noted in all areas of the myocardium. No areas of reversibility are noted to suggest ischemia and no previous infarct is noted. Gated SPECT analysis: The gated ejection fraction is 64%. Conclusion: Normal pharmacologic myocardial perfusion stress test. Preserved ejection fraction. 08/17/241703 Date _ Jean-Paul Delgado MD CC: Dr. Pedro Wang MD; KIMBERLY Mcclendon ~ Date Dictated: 08/17/241702 Date Transcribed: 08/17/241702 Senior Hr Generalist: CO Signed [facility] Work Phone: Stress Reporton 08-17-2024 Stress Report [facility] Services [address] [place] [address] MR#: [id number] Acct: [id number] Name: RADHA BARR Rep #: [id number] : 1950 73 From: Jean-Paul Delgado MD Primary Care: Dr. Pedro Wang MD Status: REG CLI Referring Dr: Pepe Tan Sex: F C Stress Test Report Pharmacologic myocardial perfusion stress test. 73-year-old lady with a history of chest pain Resting EKG demonstrates sinus rhythm with a left bundle branch block with a rate of 55 bpm. Resting blood pressure is 152/80 mmHg. 0.4 mg of regadenoson was infused per usual protocol followed by rapid intravenous saline flush injection. Continuous EKG monitoring was performed. The maximum heart rate was 87 bpm which was 59% of max impacted heart rate the maximum workload was 1 metabolic equivalent. At rest there were no ST or T wave changes noted to suggest ischemia and at peak infusion nonspecific ST changes were noted which did not meet the criteria for ischemia. No clinical angina is noted. The final blood pressure was 130/78 mmHg. Myocardial perfusion protocol. 11.6 mCi of technetium 99m sestamibi was injected at rest. 0.4 mg of regadenoson was infused per usual protocol. At peak infusion 33.5 mCi of technetium 99m sestamibi was injected stress images were obtained stress and rest images were reconstructed and compared in the short axis vertical long and horizontal long axis. Gated images were also obtained. Perfusion SPECT analysis: Review of the stress images demonstrate normal uptake of tracer noted in all areas of the myocardium. The resting images similar demonstrated normal uptake of tracer noted in all areas of the myocardium. No areas of reversibility are noted to suggest ischemia and no previous infarct is noted. Gated SPECT analysis: The gated ejection fraction is 64%. Conclusion: Normal pharmacologic myocardial perfusion stress test. Preserved ejection fraction. 08/17/24 170 Date Jean-Paul Delgado MD CC: Dr. Pedro Wang MD; KIMBERLY Mcclendon Date Dictated: 08/17/241702 Date Transcribed: 08/17/241702 Senior Hr Generalist: CO Signed Normal [facility] 12 Lead EKG performed by [facility] on 08-03-2024 12 Lead EKG performed by [address] [address] 12 Lead EKG performed by [facility] 08/03/24 0739 MR#: [id number] Acct: [id number] Name: RADHA BARR Rep #: [id number] : 1950 73 From: Pepe HARRIS Attending Dr: KIMBERLY Mcclendon Status: DEP B Ordering Dr: Pepe Tan Date: 08/03/24 [place] [facility] Sex: F C Admitted: [facility]/12 Lead EKG performed by [facility] ECG Report Interpretation -----Sinus Rhythm -Left bundle branch block. -Left atrial enlargement. ABNORMAL Electronically signed on 08/06/2024 at 15:30 by Jean-Paul Delgado Software Version [id number] 08/06/24 1531 Date Pepe HARRIS CC: Dr. Pedro Wang MD Date Dictated: 08/03/24 0739 Date Transcribed: 08/03/24738 Senior Hr Generalist: SAM Signed Normal [facility] Cardiology Visit Reporton Cardiology Visit Report [facility] [address] [place] [address] OFFICE VISIT Date of Service: 08/03/24 MR#: [id number] Acct: [id number] Name: RDAHA BARR Rep #: [id number] : 1950 Provider: KIMBERLY Mcclendon Age/Sex: 73/F Location: [facility] Status: Signed HPI HPI History of Present Illness Details: Radha Barr is a 73-year-old female who presents to the office today for an urgent follow-up regarding chest discomfort. Patient has a known history of coronary artery disease status post single-vessel drug-eluting stent to proximal LAD in 2019. Patient has a history of hypertension. Upon presentation to office today, patient reports : - Left arm pain described as mid upper arm down to Pinky and ring finger. [id number]. No activity that she was doing when it started, no recent injury. comes and goes. sometimes with walking, sometimes at rest. lasts about 5 minutes. several times per day. Pain is different from before. Pain is a grabbing pain. Some tingling. Patient does have Hx cervical spinal surgery at [place] >5 years ago. No recent imaging or follow-up with ortho. This pain is not associated with exertion. Patient continues to remain active with walking 2 miles per day, swimming, participating in [employer]. - Fatigue with activities that she did not have before. Has been occurring over the last couple weeks. Patient has noticed when cleaning her house, she had to stop and take a break. Fatigue recovers fast and then she can return to doing what she was doing. She sometimes experiences fatigue after walking (2 miles per day). -Patient reports shortness of breath with strenuous exertion; however, does not experience shortness of breath with her usual activity and exercise. -Overall, patient reports the symptoms are different than her prior episode in which she was experiencing ischemia that led to her stent in 2019. At that time, patient was experiencing what she believed was GERD/reflux with chest burning and 1 line of nerve pain that went down both arms. Patient does not feel that current symptoms are similar to prior. -Patient reports elevated BP readings at home 130s???150s/60s -Patient denies any recent illnesses. Further negative ROS below. 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: No Is patient in pain?: No Allergies fentanyl Allergy (Severe, Verified 08/03/24 09:28) heart stopped lisinopril Adverse Reaction (Intermediate, Verified 08/03/24 09:28) cough Medications ???Medication ???Instructions ???Recorded ???Confirmed ???Type cholecalciferol (vitamin D3) 25 25 mcg PO DAILY 11/06/19 08/03/24 History mcg (1,000 unit) tablet aspirin 81 mg tablet,delayed 81 mg PO DAILY 12/18/19 08/03/24 H istory release (Adult Low Dose Aspirin) acetaminophen 650 mg 650 mg PO Q12H 03/05/20 08/03/24 H istory tablet,extended release (Tylenol Arthritis Pain) doxycycline hyclate 50 mg 50 mg PO QDAY 03/16/24 08/03/24 Hi story tablet,delayed release famotidine 40 mg tablet 40 mg PO QDAY 03/16/24 08/03/24 Hi story pantoprazole 40 mg tablet,delayed 40 mg PO QDAY 03/16/24 08/03/24 H istory release sennosides 8.6 mg-docusate sodium PO 03/16/24 08/03/24 History 50 mg tablet (Senexon-S) atorvastatin 40 mg tablet 40 mg PO QHS #90 tabs 08/03/2412/21 Rx carvedilol 6.25 mg tablet 6.25 mg PO BID #180 tabs 08/03/24 08/03/24 Rx losartan 100 mg tablet 100 mg PO BID #180 tabs 08/03/24 0 08/03/24 Rx Ejection fraction %: 55 Have you fallen in the past year?: No PFSH Medical History Chronic constipation Perkins esophagus Normal colonoscopy Pelvic floor dysfunction in female Fecal incontinence Thyroid nodule Neck swelling Tremor UTI (urinary tract infection) Health care maintenance Difficulty swallowing solids Atypical chest pain Left bundle branch block (LBBB) Essential hypertension History of open head injury History of recent fall Pain and swelling of right knee Difficulty swallowing Iliotibial band syndrome affecting left lower leg Right shoulder pain Left hip pain GERD (gastroesophageal reflux disease) Osteoarthritis GI problem History of skin cancer Arthritis Hiatal hernia Thoracic back pain Atherosclerosis of coronary artery of [place] (more content not included)... Normal [facility] SCRN MAMM (CAD)W/DEREJE BILATo n 06-29-2024 SCRN MAMM (CAD)W/DEREJE BILAT [facility] Imaging Services [address] [place] [id number] SCRN MAMM (CAD)W/DEREJE BILAT MR#: [id number] Acct: [id number] Name: RADHA BARR Rep #: [id number] : 1950 F 73 From: Evgeny loya MD PCP: Dr. Pedro Wang MD Status: [facility] Study: SCRN MAMM (CAD)W/DEREJE BILAT Date of Exam: 06/01 06/23 Exam# [id number] Ordering Dr: Pedro Wang MD PROCEDURE: SCRN MAMM (CAD)W/DEREJE BILAT REASON FOR EXAM: F, Age 73 y/o, sister with breast cancer. Routine annual mammogram. TECHNIQUE: Bilateral screening digital breast tomosynthesis with 2D and 3D images. Computer aided detection. COMPARISON: Prior exam(s) dating back to June 21, 2023.. FINDINGS: The breasts are heterogeneously dense which may obscure small masses. Stable examination. No suspicious masses, areas of developing architectural distortion, or suspicious calcifications. BI/SCRN MAMM (CAD)W/DEREJE BILAT IMPRESSION: BI-RADS 2: BENIGN. RECOMMEND ANNUAL MAMMOGRAPHIC SCREENING. Follow-up code: Routine Follow-up The patient will be notified of the results by letter. Reading Location: [place] [address] CC: Dr. Pedro Wang MD Senior Hr Generalist: Signed Normal [facility] 63-EE-Ekcqdnu DOrdered By: Genaro Wang on 06-22-2024 Vitamin D 25-Hydroxy 61.7 ng/mL [facility] Comment on above: Vitamin D 25(OH) Sta tus Range Deficiency <20 ng/mL (50nmol/L) Insufficiency 20 - 30 ng/mL (50 - 75 nmol/L) Sufficiency 30 - 100 ng/mL (75 - 250 nmol/L) Toxicity >100 ng/mL (>250 nmol/L) Absolute lymphocyte countOrd ered By: Pedro Wang on 06-22-2024 Lymphocytes Auto (Unsp spec) [#/Vol] 1.34 10*3/uL 0.83-4.51 [facility] Absolute neutrophil countOrd ered By: Pedro Wang on 06-22-2024 Neutrophils (Bld) [#/Vol] 4.5 10*3/uL 2.0-7.7 [facility] Albumin to globulin ratioOrd ered By: Pedro Wang on 06-22-2024 Albumin/Globulin [Mass ratio] 0.9 {ratio} 0.9-2.4 [facility] Automated lymphocyte count a s percentage of total leukocytesOrdered By: Pedro Wang on 06-22-2024 Lymphocytes/100 WBC Auto (Unsp spec) 19.9 % 19-41 [facility] Basophil percentageOrdered B y: Pedro Wang on 06-22-2024 Basophils/100 WBC (Bld) 0.9 % 0-1 [facility] Bilirubin, totalOrdered By: Pedro Wang on 06-22-2024 Bilirubin [Mass/Vol] 0.30 mg/dL 0.20-1.00 [facility] Comment on above: For patients on eltr ombopag therapy, use of Dimension [place] TBIL is not recommended. Blood urea nitrogen (BUN)/cr eatinine ratioOrdered By: Pedro Wang on 06-22-2024 Urea nitrogen/Creatinine [Mass ratio] 15.7 mg/mg 10- [facility] CBC W/Diff, Automatedon 05-31 Absolute Lymph 1.34 X10 3/uL Normal 0.83-4.51 [facility] Comment on above: Performed By: #### L 506.1000, L500.4100, L500.4050, L501.5200, L100.0100 #### [facility] [address] [place], [address] Absolute Neut 4.5 X10 3/uL Normal 2.0-7.7 [facility] Comment on above: Performed By: #### L 506.1000, L500.4100, L500.4050, L501.5200, L100.0100 #### [facility] [address] [place], [address] Basophils/100 WBC (Bld) 0.9 % Normal 0-1 [facility] Comment on above: Performed By: #### L 506.1000, L500.4100, L500.4050, L501.5200, L100.0100 #### [facility] [address] [place], [address] Eosinophils/100 WBC (Bld) 3.6 % Normal 0-5 [facility] Comment on above: Performed By: #### L 506.1000, L500.4100, L500.4050, L501.5200, L100.0100 #### [facility] [address] [place], [address] Erythrocyte distribution width (RBC) [Ratio] 13.2 % Normal 11.6-14.6 [facility] Comment on above: Performed By: #### L 506.1000, L500.4100, L500.4050, L501.5200, L100.0100 #### [facility] [address] [place], [address] Hematocrit (Bld) [Volume fraction] 38.5 % Normal 37-47 [facility] Comment on above: Performed By: #### L 506.1000, L500.4100, L500.4050, L501.5200, L100.0100 #### [facility] [address] [place], [address] Hemoglobin (Bld) [Mass/Vol] 12.1 g/dL Normal 12.0-15.0 [facility] Comment on above: Performed By: #### L 506.1000, L500.4100, L500.4050, L501.5200, L100.0100 #### [facility] [address] [place], [address] IG% 0.300 Normal 0.0-0.9 [facility] Comment on above: Result Comment: IG% - Immature Granulocytes (promyelocytes, myelocytes and metamyelocytes) > 1% indicates that a LEFT SHIFT is Present. Performed By: #### L 506.1000, L500.4100, L500.4050, L501.5200, L100.0100 #### [facility] [address] [place], [address] Lymphocytes/100 WBC (Bld) 19.9 % Normal 19-41 [facility] Comment on above: Performed By: #### L 506.1000, L500.4100, L500.4050, L501.5200, L100.0100 #### [facility] [address] [place], [address] MCH (RBC) [Entitic mass] 28.6 pg Normal 27.0-32.0 [facility] Comment on above: Performed By: #### L 506.1000, L500.4100, L500.4050, L501.5200, L100.0100 #### [facility] [address] [place], [address] MCHC (RBC) [Mass/Vol] 31.4 g/dL Low 32-36 [facility] Comment on above: Performed By: #### L 506.1000, L500.4100, L500.4050, L501.5200, L100.0100 #### [facility] [address] [place], [address] MCV (RBC) [Entitic vol] 91.0 fL Normal 81-99 [facility] Comment on above: Performed By: #### L 506.1000, L500.4100, L500.4050, L501.5200, L100.0100 #### [facility] [address] [place], [address] Monocytes/100 WBC (Bld) 8.0 % Normal 0-10 [facility] Comment on above: Performed By: #### L 506.1000, L500.4100, L500.4050, L501.5200, L100.0100 #### [facility] [address] [place], [address] Neutrophils/100 WBC (Bld) 67.3 % Normal 47-70 [facility] Comment on above: Performed By: #### L 506.1000, L500.4100, L500.4050, L501.5200, L100.0100 #### [facility] [address] [place], [address] Nucleated RBC (Bld) [#/Vol] 0 10*3/uL Normal 0-5 [facility] Comment on above: Performed By: #### L 506.1000, L500.4100, L500.4050, L501.5200, L100.0100 #### [facility] [address] [place], [address] Platelet mean volume (Bld) [Entitic vol] 12.1 fL High 6.2-12.0 [facility] Comment on above: Performed By: #### L 506.1000, L500.4100, L500.4050, L501.5200, L100.0100 #### [facility] [address] [place], [address] Platelets (Bld) [#/Vol] 205 10*3/uL Normal 150-450 [facility] Comment on above: Performed By: #### L 506.1000, L500.4100, L500.4050, L501.5200, L100.0100 #### [facility] [address] [place], [address] RBC (Bld) [#/Vol] 4.23 10*6/uL Normal 4.2-5.4 [facility] Comment on above: Performed By: #### L 506.1000, L500.4100, L500.4050, L501.5200, L100.0100 #### [facility] [address] [place], [address] RDW SD 43.5 fl Normal 35.1-43.9 [facility] Comment on above: Performed By: #### L 506.1000, L500.4100, L500.4050, L501.5200, L100.0100 #### [facility] [address] [place], [address] WBC (Bld) [#/Vol] 6.7 10*3/uL Normal 4.4-11.0 [facility] Comment on above: Performed By: #### L 506.1000, L500.4100, L500.4050, L501.5200, L100.0100 #### [facility] [address] [place], [address] Carbon dioxide measurementOr dered By: Pedro Wang on 06-22-2024 CO2 [Moles/Vol] 29.0 mmol/L 21.0-32.0 [facility] Chloride measurementOrdered By: Pedro Wang on 06-22-2024 Chloride [Moles/Vol] 108 mmol/L High 98-107 [facility] Comprehensive Metabolic Prof ilon 06-22-2024 Albumin [Mass/Vol] 3.3 g/dL Normal 3.2-5.0 [facility] Comment on above: Performed By: #### L 506.1000, L500.4100, L500.4050, L501.5200, L100.0100 ####[facility] [address] [place], [address] Albumin/Globulin [Mass ratio] 0.9 {ratio} Normal 0.9-2.4 [facility] Comment on above: Performed By: #### L 506.1000, L500.4100, L500.4050, L501.5200, L100.0100 ####[facility] [address] [place], [address] ALK P 57 U/L Normal 45-117 [facility] Comment on above: Performed By: #### L 506.1000, L500.4100, L500.4050, L501.5200, L100.0100 ####[facility] [address] [place], [address] ALT [Catalytic activity/Vol] 26 U/L Normal 13-56 [facility] Comment on above: Performed By: #### L 506.1000, L500.4100, L500.4050, L501.5200, L100.0100 ####[facility] [address] [place], [address] AST [Catalytic activity/Vol] 20 U/L Normal 15-37 [facility] Comment on above: Performed By: #### L 506.1000, L500.4100, L500.4050, L501.5200, L100.0100 ####[facility] [address] [place], [address] Bilirubin [Mass/Vol] 0.30 mg/dL Normal 0.20-1.00 [facility] Comment on above: Result Comment: For patients on eltrombopag therapy, use of Dimension [place] TBIL is not recommended. Performed By: #### L 506.1000, L500.4100, L500.4050, L501.5200, L100.0100 ####[facility] [address] [place], [address] BUN/CRE 15.7 RATIO Normal 10-20 [facility] Comment on above: Performed By: #### L 506.1000, L500.4100, L500.4050, L501.5200, L100.0100 ####[facility] [address] [place], [address] CA,Total 9.3 mg/dL Normal 8.5-10.1 [facility] Comment on above: Performed By: #### L 506.1000, L500.4100, L500.4050, L501.5200, L100.0100 ####[facility] [address] [place], [address] Chloride [Moles/Vol] 108 mmol/L High 98-107 [facility] Comment on above: Performed By: #### L 506.1000, L500.4100, L500.4050, L501.5200, L100.0100 ####[facility] [address] [place], [address] CO2 [Moles/Vol] 29.0 mmol/L Normal 21.0-32.0 [facility] Comment on above: Performed By: #### L 506.1000, L500.4100, L500.4050, L501.5200, L100.0100 ####[facility] [address] [place], [address] Creatinine [Mass/Vol] 0.83 mg/dL Normal 0.55-1.02 [facility] Comment on above: Result Comment: The validity of the calculated GFR GFRAA in patients over 70 years has not been determined. Clinical correlation is essential. Performed By: #### L 506.1000, L500.4100, L500.4050, L501.5200, L100.0100 ####[facility] [address] [place], [address] EST GFR - AA 87 mL/min Normal >60 [facility] Comment on above: Result Comment: Afri can [place] GFR Calc Performed By: #### L 506.1000, L500.4100, L500.4050, L501.5200, L100.0100 ####[facility] [address] [place], [address] GAP 4 Low 5-15 [facility] Comment on above: Performed By: #### L 506.1000, L500.4100, L500.4050, L501.5200, L100.0100 ####[facility] [address] [place], [address] GFR/1.73 sq M.predicted among non-blacks MDRD (S/P/Bld) [Vol rate/Area] 72 mL/min/{1.73_m2} Normal >60 [facility] Comment on above: Result Comment: Non- GFR Calc Performed By: #### L 506.1000, L500.4100, L500.4050, L501.5200, L100.0100 ####[facility] [address] [place], [address] Globulin (S) [Mass/Vol] 3.8 g/dL Normal 2.2-4.2 [facility] Comment on above: Performed By: #### L 506.1000, L500.4100, L500.4050, L501.5200, L100.0100 ####[facility] [address] [place], [address] Glucose [Mass/Vol] 89 mg/dL Normal 74-106 [facility] Comment on above: Performed By: #### L 506.1000, L500.4100, L500.4050, L501.5200, L100.0100 ####[facility] [address] [place], [address] Potassium [Moles/Vol] 4.3 mmol/L Normal 3.5-5.1 [facility] Comment on above: Performed By: #### L 506.1000, L500.4100, L500.4050, L501.5200, L100.0100 ####[facility] [address] [place], [address] Sodium [Moles/Vol] 141 mmol/L Normal 136-145 [facility] Comment on above: Performed By: #### L 506.1000, L500.4100, L500.4050, L501.5200, L100.0100 ####[facility] [address] [place], [address] T PROT 7.1 g/dL Normal 6.4-8.2 [facility] Comment on above: Performed By: #### L 506.1000, L500.4100, L500.4050, L501.5200, L100.0100 ####[facility] [address] [place], [address] Urea nitrogen [Mass/Vol] 13 mg/dL Normal 7-18 [facility] Comment on above: Performed By: #### L 506.1000, L500.4100, L500.4050, L501.5200, L100.0100 ####[facility] [address] [place], [address] Eosinophil percentageOrdered By: Pedro Wang on 06-22-2024 Eosinophils/100 WBC (Bld) 3.6 % 0-5 [facility] Erythrocyte distribution wid th ratioOrdered By: Pedro Wang on 06-22-2024 Erythrocyte distribution width (RBC) [Ratio] 13.2 % 11.6-14.6 [facility] Erythrocyte distribution wid th standard deviationOrdered By: Pedro Wang on 06-22-2024 Erythrocyte distribution width (RBC) [Entitic vol] 43.5 fL 35.1-43.9 [facility] Erythrocyte distribution width (RBC) [Ratio] 43.5 fl 35.1-43.9 [facility] Estimated glomerular filtrat ion rate (GFR) AmericanOrdered By: Pedro Wang on 06-22-2024 Estimated GFR (MDRD) Amer 87 mL/min >60 [facility] Comment on above: GFR Calc Glomerular filtration rate ( GFR) estimationOrdered By: Pedro Wang on 06-22-2024 Estimated GFR (MDRD) Non-Af Amer 72 mL/min >60 [facility] Comment on above: Non- GFR Calc GFR/1.73 sq M.predicted among non-blacks MDRD (S/P/Bld) [Vol rate/Area] 72 mL/min/{1.73_m2} >60 [facility] Comment on above: Non- GFR Calc Glucose measurementOrdered B y: Pedro Wang on 06-22-2024 Glucose [Mass/Vol] 89 mg/dL 74-106 [facility] Hematocrit Auto (Bld) [Volum e fraction]Ordered By: Pedro Wang on 06-22-2024 Hematocrit (Bld) [Volume fraction] 38.5 % 37-47 [facility] Hemoglobin measurementOrdere d By: Pedro Wang on 06-22-2024 Hemoglobin (Bld) [Mass/Vol] 12.1 g/dL 12.0-15.0 [facility] High density lipoprotein (HD L) measurementOrdered By: Pedro Wang on 06-22-2024 Cholesterol in HDL [Mass/Vol] 62 mg/dL >40 [facility] Comment on above: The drugs N-Acetylcy steine and Metamizole may falsely depress this assay. Reference Range HDL <40 mg/dL Low HDL Cholesterol HDL >or= 60 mg/dL High HDL Cholesterol Immature granulocytes/100 WB C Auto (Bld)Ordered By: Pedro Wang on 06-22-2024 Immature granulocytes/100 WBC (Bld) 0.300 % 0.0-0.9 [facility] Comment on above: IG% - Immature Granu locytes (promyelocytes, myelocytes and metamyelocytes) > 1% indicates that a LEFT SHIFT is Present. Internal Medicine Office Vis bre 06-22-2024 Internal Medicine Office Visit [facility] [address] [place] [address] [place] [address] OFFICE VISIT Date of Service: 06/22/24 MR#: [id number] Acct: [id number] Name: RADHA BARR Rep #: [id number] : 1950 Provider: Dr. 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: No Accompanied by: Self Is patient in pain?: No Allergies fentanyl Allergy (Severe, Verified 03/16/24 08:50) heart stopped lisinopril Adverse Reaction (Intermediate, Verified 03/16/24 08:50) cough Medications ???Medication ???Instructions ???Recorded ???Confirmed ???Type cholecalciferol (vitamin D3) 25 25 mcg PO DAILY 11/06/19 06/22/24 History mcg (1,000 unit) tablet aspirin 81 mg tablet,delayed 81 mg PO DAILY 12/18/19 06/22/24 History release (Adult Low Dose Aspirin) acetaminophen 650 mg 650 mg PO Q12H 03/05/20 06/22/24 History tablet,extended release (Tylenol Arthritis Pain) atorvastatin 40 mg tablet 40 mg PO QHS #90 tabs 07/21/23 06/22/24 Rx carvedilol 6.25 mg tablet 6.25 mg PO BID #180 tabs 07/21/23 06/22/24 Rx losartan 50 mg tablet 50 mg PO BID #180 tabs 07/21/23 06/22/24 Rx doxycycline hyclate 50 mg 50 mg PO QDAY 03/16/24 06/22/24 History tablet,delayed release famotidine 40 mg tablet 40 mg PO QDAY 03/16/24 06/22/24 History pantoprazole 40 mg tablet,delayed 40 mg PO QDAY 03/16/24 06/22/24 History release sennosides 8.6 mg-docusate sodium PO 03/16/24 06/22/24 History 50 mg tablet (Senexon-S) Have you fallen in the past year?: No PFSH Medical History Chronic constipation Perkins esophagus Normal colonoscopy Pelvic floor dysfunction in female Fecal incontinence Thyroid nodule Neck swelling Tremor UTI (urinary tract infection) Health care maintenance Difficulty swallowing solids Atypical chest pain Left bundle branch block (LBBB) Essential hypertension History of open head injury History of recent fall Pain and swelling of right knee Difficulty swallowing Iliotibial band syndrome affecting left lower leg Right shoulder pain Left hip pain GERD (gastroesophageal reflux disease) Osteoarthritis GI problem History of skin cancer Arthritis Hiatal hernia Thoracic back pain Atherosclerosis of coronary artery of [place] heart without angina pectoris Atrial tachycardia Osteopenia Chronic neck pain with history of cervical spinal surgery History of chronic back pain Surgical History History of left heart catheterization (LHC) (05/16/20) HISTORY OF MICRO DECROMPRESSION History of coronary artery stent placement (12/20/19) History of microdiscectomy History of ankle surgery History of hip surgery History of lumbar fusion History of fusion of cervical spine Family History Father Hypertension Sister Breast cancer Cancer skin Hypertension Brother Hypertension Social History Smoking Status: Never smoker alcohol intake: current Alcohol type: wine substance use type: does not use what type of physical activity do you participate in: walking and swimming frequency: daily HPI HPI Chief Complaint: 3m f/u Details: RADHA BARR, is a 73 F who presents to the office today for follow-up of her chronic conditions. No acute concerns at this time. History of tremors, follows up at the [facility] and has been referred to movement disorder specialist. No significant changes. Her appointment is in August. History of hypertension, blood pressure today is at 132/80 mmHg. No chest pain, palpitation or shortness of breath. Other chronic medical conditions are stable. ROS Const Constitutional: No body ache, chills, excessive sweating, fatigue, fever(s), frequent falls, headache(s), snoring, weakness, weight change or change in appetite Eyes Eyes: No blurry vision, change in vision, floaters, visual disturbances, eye pain or Light sensitivity ENT ENT: No abnormal hearing, ear or mastoid pain, tinnitus, balance problems, nosebleed/epistaxis, nasal congestion, headache(s), neck pain or sore throat Resp Respiratory: No cough, excessive phlegm production, pain on inspiration, shortness of breath, snoring or wheezing Cardio Cardiology: No chest pain at rest, chest (more content not included)... Normal [facility] Laboratory - Chemistry and C hemistry - challengeOrdered By: Pedro Wang on 06-22-2024 AST [Catalytic activity/Vol] 20 U/L 15-37 [facility] Lipid Profileon 06-22-2024 Cholesterol [Mass/Vol] 114 mg/dL Normal 200 [facility] Comment on above: Result Comment: <200 mg/dL Desirable 200-240 mg/dL Borderline >240 mg/dL High Risk Performed By: #### L 506.1000, L500.4100, L500.4050, L501.5200, L100.0100 ####[facility] [address] [place], [address] Cholesterol in HDL [Mass/Vol] 62 mg/dL Normal [facility] Comment on above: Result Comment: The drugs N-Acetylcysteine and Metamizole may falsely depress this assay. Reference Range HDL <40 mg/dL Low HDL Cholesterol HDL >or= 60 mg/dL High HDL Cholesterol Performed By: #### L 506.1000, L500.4100, L500.4050, L501.5200, L100.0100 ####[facility] [address] [place], [address] Cholesterol in LDL [Mass/Vol] 41 mg/dL Normal 0-130 [facility] Comment on above: Performed By: #### L 506.1000, L500.4100, L500.4050, L501.5200, L100.0100 ####[facility] [address] [place], [address] Cholesterol in VLDL [Mass/Vol] 11 mg/dL Normal 5-40 [facility] Comment on above: Performed By: #### L 506.1000, L500.4100, L500.4050, L501.5200, L100.0100 ####[facility] [address] [place], [address] Triglyceride [Mass/Vol] 55 mg/dL Normal [facility] Comment on above: Result Comment: The drugs N-Acetylcysteine and Metamizole may falsely depress this assay. Serum Triglycerides Reference Interval Normal <150 mg/dL Borderline high 150 - 199 mg/dL High 200 - 499 mg/dL Very High > or = 500 mg/dL Performed By: #### L 506.1000, L500.4100, L500.4050, L501.5200, L100.0100 ####[facility] [address] [place], [address] Low density lipoprotein (LDL ) cholesterol measurementOrdered By: Pedro Wang on 06-22-2024 Cholesterol in LDL [Mass/Vol] 41 mg/dL 0-130 [facility] Lymphocytes Auto (Unsp spec) [#/Vol]Ordered By: Pedro Wang on 06-22-2024 Lymphocytes (Bld) [#/Vol] 1.34 10*3/uL 0.83-4.51 [facility] Lymphocytes/100 WBC Auto (Un sp spec)Ordered By: Pedro Wang on 06-22-2024 Lymphocytes/100 WBC (Bld) 19.9 % 19-41 [facility] MCV (mean corpuscular volume ) determinationOrdered By: Pedro Wang on 06-22-2024 MCV (RBC) [Entitic vol] 91.0 fL 81-99 [facility] Magnesiumon 06-22-2024 Magnesium [Mass/Vol] 2.0 mg/dL Normal 1.6-2.6 [facility] Comment on above: Performed By: #### L 506.1000, L500.4100, L500.4050, L501.5200, L100.0100 ####[facility] [address] [place], [address] Magnesium measurementOrdered By: Pedro Wang on 06-22-2024 Magnesium [Mass/Vol] 2.0 mg/dL 1.6-2.6 [facility] Mean corpuscular hemoglobin (MCH) determinationOrdered By: Pedro Wang on 06-22-2024 MCH (RBC) [Entitic mass] 28.6 pg 27.0-32.0 [facility] Mean corpuscular hemoglobin concentration (MCHC) determinationOrdered By: Pedro Wang on 06-22-2024 MCHC (RBC) [Mass/Vol] 31.4 g/dL Low 32-36 [facility] Mean platelet volume determi nationOrdered By: Pedro Wang on 06-22-2024 Platelet mean volume (Bld) [Entitic vol] 12.1 fL High 6.2-12.0 [facility] Monocyte percentageOrdered B y: Pedro Wang on 06-22-2024 Monocytes/100 WBC (Bld) 8.0 % 0-10 [facility] Neutrophil percentageOrdered By: Pedro Wang on 06-22-2024 Neutrophils/100 WBC (Bld) 67.3 % 47-70 [facility] Nucleated red blood cell per centageOrdered By: Pedro Wang on 06-22-2024 Nucleated RBC/100 WBC (Bld) [Ratio] 0 % 0-5 [facility] Platelet countOrdered By: Jac Wang on 06-22-2024 Platelets (Bld) [#/Vol] 205 10*3/uL 150-450 [facility] Potassium measurementOrdered By: Pedro Wang on 06-22-2024 Potassium [Moles/Vol] 4.3 mmol/L 3.5-5.1 [facility] RBC Auto (Bld) [#/Vol]Ordere d By: Pedro Wang on 06-22-2024 RBC (Bld) [#/Vol] 4.23 10*6/uL 4.2-5.4 [facility] Serum anion gap measurementO rdered By: Pedro Wang on 06-22-2024 Anion gap [Moles/Vol] 4 mmol/L Low 5-15 [facility] Serum globulin measurementOr dered By: Pedro Wang on 06-22-2024 Globulin (S) [Mass/Vol] 3.8 g/dL 2.2-4.2 [facility] Serum or plasma alanine jim otransferase (ALT) measurementOrdered By: Pedro Wang on 06-22-2024 ALT [Catalytic activity/Vol] 26 U/L 13-56 [facility] Serum or plasma albumin liam urement (mass/volume)Ordered By: Pedro Wang on 06-22-2024 Albumin [Mass/Vol] 3.3 g/dL 3.2-5.0 [facility] Serum or plasma alkaline jimmy sphatase measurementOrdered By: Pedro Wang on 06-22-2024 ALP [Catalytic activity/Vol] 57 U/L 45-117 [facility] Serum or plasma calcium liam urement (mass/volume)Ordered By: Pedro Wang on 06-22-2024 Calcium [Mass/Vol] 9.3 mg/dL 8.5-10.1 [facility] Serum or plasma cholesterol measurement (mass/volume)Ordered By: Pedro Wang on 06-22-2024 Cholesterol [Mass/Vol] 114 mg/dL <200 [facility] Comment on above: <200 mg/dL Desirable 200-240 mg/dL Borderline >240 mg/dL High Risk Serum or plasma creatinine m easurement (mass/volume)Ordered By: Pedro Wang on 06-22-2024 Creatinine [Mass/Vol] 0.83 mg/dL 0.55-1.02 [facility] Comment on above: The validity of the calculated GFR & GFRAA in patients over 70 years has not been determined. Clinical correlation is essential. Serum or plasma urea nitroge n measurement (mass/volume)Ordered By: Pedro Wang on 06-22-2024 Urea nitrogen [Mass/Vol] 13 mg/dL 7-18 [facility] Sodium levelOrdered By: Fortunato Wang on 06-22-2024 Sodium [Moles/Vol] 141 mmol/L 136-145 [facility] Total proteinOrdered By: Jon Wang on 06-22-2024 Protein [Mass/Vol] 7.1 g/dL 6.4-8.2 [facility] Triglycerides measurementOrd ered By: Pedro Wang on 06-22-2024 Triglyceride [Mass/Vol] 55 mg/dL <199 [facility] Comment on above: The drugs N-Acetylcy steine and Metamizole may falsely depress this assay.Serum Triglycerides Reference Interval Normal <150 mg/dL Borderline high 150 - 199 mg/dL High 200 - 499 mg/dL Very High > or = 500 mg/dL Very low density lipoprotein (VLDL) cholesterol measurementOrdered By: Pedro Wang on 06-22-2024 Very low density lipoprotein (VLDL) cholesterol measurement 11 mg/dL 5-40 [facility] VLDL Cholesterol 11 mg/dL 5-40 [facility] Vitamin D,25 Hydroxyon 06-22 Vitamin D 25-OH 61.7 ng/mL Normal [facility] Comment on above: Result Comment: Sondra min D 25(OH) Status Range Deficiency <20 ng/mL (50nmol/L) Insufficiency 20 - 30 ng/mL (50 - 75 nmol/L) Sufficiency 30 - 100 ng/mL (75 - 250 nmol/L) Toxicity >100 ng/mL (>250 nmol/L) Performed By: #### L 506.1000, L500.4100, L500.4050, L501.5200, L100.0100 ####[facility] [address] [place], [address] White blood cell (WBC) count Ordered By: Pedro Wang on 06-22-2024 WBC (Bld) [#/Vol] 6.7 10*3/uL 4.4-11.0 [facility] CNPNon 06-21-2024 MARCIALN Telephone (ZAKC) RADHA BARR ([id number]) 1950 F Date Time Provider Department 06/21/24 SUHAS STEARNS During your visit today, we recorded the following information about you: Suhas Stearns APRN.CNP 06/21/2024 8:57 AM Signed IRB 21-836. [facility] (BS) Child Support Investigator: Mar Chavez MD, , Alberto Ralph MD, Maintenance Advisor: Letty Garcia and Email: Contacted Radha Barr by phone on 06/21/2024 at 08:47 (returning phone call from 06/19/2024 1589 with answer to question) to discuss the [facility] ([facility]): Biomarkers and Predictors of Neurological Disorders IRB 21-830. Patient was contacted by Suhas Stearns APRN.CNP to provide the patient with answer to question. Participant was given contact information if they have any further question. Phone number [phone] option 2. Suhas Stearns APRN.CNP Allergies As of Date: 06/21/2024 Noted Allergy Reaction FENTANYL 11/28/2019 14 - Other: See Comments Comments: Cardiac arrest NARCOTICS (OPIOIDS - MORPHINE PATRICE*02/27/2018 14 - Other: See Comments Comments: Very sensitive to narcotics. Date Reviewed: 01/21/2020 Reviewed by: Nancy Bell (Rn), RN - Fully Assessed Reason for Visit: Patient Update [1234] Cmt: IRB 21-834 Patient Question [0086] [facility]: IRB 21-444 Prescriptions as of 06/21/2024 - aspirin 81 mg chewable tablet Take 81 mg by mouth once daily. - atorvastatin (LIPITOR) 40 mg tablet Take by mouth once daily. - clopidogrel (PLAVIX) 75 mg tablet Take 75 mg by mouth once daily. - HYDROcodone-acetamino phen (NORCO) 5-325 mg per tablet TAKE 1 TABLET BY MOUTH EVERY 6 HOURS NEEDED FOR 7 DAYS - lisinopril 2.5 mg tablet Take 2.5 mg by mouth once daily. - metoprolol succinate ER (TOPROL XL) 100 mg Take 100 mg by mouth once daily. - pantoprazole DR (PROTONIX) 40 mg tablet Take 1 tablet by mouth twice daily before meals. Take on empty stomach, 1/2 hr before meal. - acetaminophen (TYLENOL 8 HOUR) 650 mg CR tablet Take 650 mg by mouth every 8 hours as needed. - Cholecalciferol, Vitamin D3, 1,000 unit cap Take 1 capsule by mouth once daily. 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] 07/06/2006 Dyshidrosis [L30.1] 07/06/2006 02/27/2018 Contact dermatitis and other eczema, due to uns*07/06/2006 02/27/2018 Other chronic dermatitis due to solar radiation*07/06/2006 02/27/2018 Scar condition and fibrosis of skin [L90.5] 07/06/2006 02/27/2018 Personal history of other malignant neoplasm of*07/06/2006 02/27/2018 SOLAR LENGINES///DYSCHROMIA OTHER [L81.9] 07/06/2006 02/27/2018 Other seborrheic keratosis [L82.1] 07/06/2006 02/27/2018 Viral warts, unspecified [B07.9] 02/15/2008 02/27/2018 Inflamed seborrheic keratosis [L82.0] 02/15/2008 02/27/2018 NEVUS BACK///BENIGN CRUZ SKIN TRUNK [D23.5] 02/15/2008 02/27/2018 SYNOVIAL CYST NOS [M71.30] 02/15/2008 DTSTR/LYSIS///DISEASE S OF NAIL NEC [L60.8] 02/15/2008 02/27/2018 Atherosclerosis of coronary artery of [place] he*01/18/2020 Atrial tachycardia (HCC) [I47.19] 01/18/2020 Bundle branch block [I45.4] 01/18/2020 Left ventricular dysfunction [I51.9] 01/18/2020 Ventricular premature beats [I49.3] 01/18/2020 Essential hypertension, benign [I10] 01/18/2020 Mixed hyperlipidemia [E78.2] 01/18/2020 GERD (gastroesophageal reflux disease) [K21.9] 01/18/2020 Skin cancer [C44.90] 01/18/2020 S/P lumbar fusion [Z98.1] 01/18/2020 S/P cervical spinal fusion [Z98.1] 01/18/2020 Osteopenia [M85.80] 01/18/2020 Encounter Status:Closed by SUHAS STEARNS on 06/21/24 [facility] 06-13-2024 CNPN Telephone (GORDY) RADHA BARR ([id number]) 1950 F Date Time Provider Department 06/13/24 SUHAS STEARNSBSMary During your visit today, we recorded the following information about you: Suhas Stearns, PRICILA.SUBSTANCE ABUSE COUNSELOR 06/13/2024 9:39 AM Signed IRB 21-834. [facility] (BS) Child Support Investigator: Mar Chavez MD, , Alberto Ralph MD, Maintenance Advisor: Letty Garcia and Email: Contacted Radha Barr by phone on 06/13/2024 at 09:18 to return message and discuss the [facility] ([facility]): Biomarkers and Predictors of Neurological Disorders IRB 21-302. Patient was contacted by Suhas Stearns APRN.CNP to return phone call. Participant was given contact information if they have any further question. Phone number [phone] option 2. Suhas Stearns APRN.CNP Allergies As of Date: 06/13/2024 Noted Allergy Reaction FENTANYL 11/28/2019 14 - Other: See Comments Comments: Cardiac arrest NARCOTICS (OPIOIDS - MORPHINE PATRICE*02/27/2018 14 - Other: See Comments Comments: Very sensitive to narcotics. Date Reviewed: 01/21/2020 Reviewed by: Nancy Bell (Rn), RN - Fully Assessed Reason for Visit: Returning Patient's Call [408] Cmt: IRB 01-321 Primary Visit Diagnosis:Examination of participant in clinical trial [Z00.6] Other Visit Diagnoses:Tremor [R25.1] Comment:BUE - postural, intention, resting Dyskinesia [G24.9] Comment:Finger tapping LUE; Pronation/Supination LUE 1 pause; Heel tapping BLE dysrrhythmokinesia Gait abnormality [R26.9] Comment:Reduced BUE arm swing. Tandem walk difficulty with balance Order(s):CONSULT TO NEUROLOGY [9019] Order #: [id number]: 1 FUTURE Prescriptions as of 06/13/2024 - aspirin 81 mg chewable tablet Take 81 mg by mouth once daily. - atorvastatin (LIPITOR) 40 mg tablet Take by mouth once daily. - clopidogrel (PLAVIX) 75 mg tablet Take 75 mg by mouth once daily. - HYDROcodone-acetamino phen (NORCO) 5-325 mg per tablet TAKE 1 TABLET BY MOUTH EVERY 6 HOURS NEEDED FOR 7 DAYS - lisinopril 2.5 mg tablet Take 2.5 mg by mouth once daily. - metoprolol succinate ER (TOPROL XL) 100 mg Take 100 mg by mouth once daily. - pantoprazole DR (PROTONIX) 40 mg tablet Take 1 tablet by mouth twice daily before meals. Take on empty stomach, 1/2 hr before meal. - acetaminophen (TYLENOL 8 HOUR) 650 mg CR tablet Take 650 mg by mouth every 8 hours as needed. - Cholecalciferol, Vitamin D3, 1,000 unit cap Take 1 capsule by mouth once daily. 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] 07/06/2006 Dyshidrosis [L30.1] 07/06/2006 02/27/2018 Contact dermatitis and other eczema, due to uns*07/06/2006 02/27/2018 Other chronic dermatitis due to solar radiation*07/06/2006 02/27/2018 Scar condition and fibrosis of skin [L90.5] 07/06/2006 02/27/2018 Personal history of other malignant neoplasm of*07/06/2006 02/27/2018 SOLAR LENGINES///DYSCHROMIA OTHER [L81.9] 07/06/2006 02/27/2018 Other seborrheic keratosis [L82.1] 07/06/2006 02/27/2018 Viral warts, unspecified [B07.9] 02/15/2008 02/27/2018 Inflamed seborrheic keratosis [L82.0] 02/15/2008 02/27/2018 NEVUS BACK///BENIGN CRUZ SKIN TRUNK [D23.5] 02/15/2008 02/27/2018 SYNOVIAL CYST NOS [M71.30] 02/15/2008 DTSTR/LYSIS///DISEASE S OF NAIL NEC [L60.8] 02/15/2008 02/27/2018 Atherosclerosis of coronary artery of [place] he*01/18/2020 Atrial tachycardia (HCC) [I47.19] 01/18/2020 Bundle branch block [I45.4] 01/18/2020 Left ventricular dysfunction [I51.9] 01/18/2020 Ventricular premature beats [I49.3] 01/18/2020 Essential hypertension, benign [I10] 01/18/2020 Mixed hyperlipidemia [E78.2] 01/18/2020 GERD (gastroesophageal reflux disease) [K21.9] 01/18/2020 Skin cancer [C44.90] 01/18/2020 S/P lumbar fusion [Z98.1] 01/18/2020 S/P cervical spinal fusion [Z98.1] 01/18/2020 Osteopenia [M85.80] 01/18/2020 Encounter Status:Closed by SUHAS STEARNS on 06/13/24 Normal [facility] 06-12-2024 LEO Telephone (GORDYM) RADHA BARR ([id number]) 1950 F Date Time Provider Department 06/12/24 SUHAS STEARNS During your visit today, we recorded the following information about you: Suhas Stearns APRN.CNP 06/12/2024 2:42 PM Signed IRB 21-831. [facility] (BS) Child Support Investigator: Mar Chavez MD, , Alberto Ralph MD, Maintenance Advisor: Letty Garcia and Email:[email or web address] Contacted Radha Barr by phone on 06/12/2024 at 14:37 to discuss the [facility] ([facility]): Biomarkers and Predictors of Neurological Disorders IRB 21-843. Patient was contacted by Suhas Stearns APRN.CNP to provide the patient with test results. Participant was given contact information if they have any further question. Phone number [phone] option 2. Suhas Stearns APRN.CNP Allergies As of Date: 06/12/2024 Noted Allergy Reaction FENTANYL 11/28/2019 14 - Other: See Comments Comments: Cardiac arrest NARCOTICS (OPIOIDS - MORPHINE PATRICE*02/27/2018 14 - Other: See Comments Comments: Very sensitive to narcotics. Date Reviewed: 01/21/2020 Reviewed by: Nancy Bell (Rn), RN - Fully Assessed Reason for Visit: Patient Update [1234] Cmt: IRB 21-834 Prescriptions as of 06/12/2024 - aspirin 81 mg chewable tablet Take 81 mg by mouth once daily. - atorvastatin (LIPITOR) 40 mg tablet Take by mouth once daily. - clopidogrel (PLAVIX) 75 mg tablet Take 75 mg by mouth once daily. - HYDROcodone-acetamino phen (NORCO) 5-325 mg per tablet TAKE 1 TABLET BY MOUTH EVERY 6 HOURS NEEDED FOR 7 DAYS - lisinopril 2.5 mg tablet Take 2.5 mg by mouth once daily. - metoprolol succinate ER (TOPROL XL) 100 mg Take 100 mg by mouth once daily. - pantoprazole DR (PROTONIX) 40 mg tablet Take 1 tablet by mouth twice daily before meals. Take on empty stomach, 1/2 hr before meal. - acetaminophen (TYLENOL 8 HOUR) 650 mg CR tablet Take 650 mg by mouth every 8 hours as needed. - Cholecalciferol, Vitamin D3, 1,000 unit cap Take 1 capsule by mouth once daily. 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] 07/06/2006 Dyshidrosis [L30.1] 07/06/2006 02/27/2018 Contact dermatitis and other eczema, due to uns*07/06/2006 02/27/2018 Other chronic dermatitis due to solar radiation*07/06/2006 02/27/2018 Scar condition and fibrosis of skin [L90.5] 07/06/2006 02/27/2018 Personal history of other malignant neoplasm of*07/06/2006 02/27/2018 SOLAR LENGINES///DYSCHROMIA OTHER [L81.9] 07/06/2006 02/27/2018 Other seborrheic keratosis [L82.1] 07/06/2006 02/27/2018 Viral warts, unspecified [B07.9] 02/15/2008 02/27/2018 Inflamed seborrheic keratosis [L82.0] 02/15/2008 02/27/2018 NEVUS BACK///BENIGN CRUZ SKIN TRUNK [D23.5] 02/15/2008 02/27/2018 SYNOVIAL CYST NOS [M71.30] 02/15/2008 DTSTR/LYSIS///DISEASE S OF NAIL NEC [L60.8] 02/15/2008 02/27/2018 Atherosclerosis of coronary artery of [place] he*01/18/2020 Atrial tachycardia (HCC) [I47.19] 01/18/2020 Bundle branch block [I45.4] 01/18/2020 Left ventricular dysfunction [I51.9] 01/18/2020 Ventricular premature beats [I49.3] 01/18/2020 Essential hypertension, benign [I10] 01/18/2020 Mixed hyperlipidemia [E78.2] 01/18/2020 GERD (gastroesophageal reflux disease) [K21.9] 01/18/2020 Skin cancer [C44.90] 01/18/2020 S/P lumbar fusion [Z98.1] 01/18/2020 S/P cervical spinal fusion [Z98.1] 01/18/2020 Osteopenia [M85.80] 01/18/2020 Encounter Status:Closed by SUHAS STEARNS on 06/12/24 Normal [facility] LEO Telephone (ZACK) MOMORADHA Mary ([id number]) 1950 F Date Time Provider Department 06/12/24 SUHAS STEARNS During your visit today, we recorded the following information about you: Suhas Stearns APRN.CNP 06/12/2024 2:36 PM Signed IRB 21-202. [facility] Study (BS) Child Support Investigator: Mar Chavez MD, , Alberto Ralph MD, Maintenance Advisor: Letty Garcia and Email:[email or web address] Contacted Radha Barr by phone on 06/12/2024 at 14:32 to discuss the [facility] ([facility]): Biomarkers and Predictors of Neurological Disorders IRB 21-731. Patient was contacted by Suhas Stearns APRN.CNP to provide the patient with test results. Participant was given contact information if they have any further question. Phone number [phone] option 2. Suhas Stearns APRN.CNP Allergies As of Date: 06/12/2024 Noted Allergy Reaction FENTANYL 11/28/2019 14 - Other: See Comments Comments: Cardiac arrest NARCOTICS (OPIOIDS - MORPHINE PATRICE*02/27/2018 14 - Other: See Comments Comments: Very sensitive to narcotics. Date Reviewed: 01/21/2020 Reviewed by: Nancy Bell (Rn), RN - Fully Assessed Reason for Visit: Patient Update [1234] Cmt: IRB [id number] Prescriptions as of 06/12/2024 - aspirin 81 mg chewable tablet Take 81 mg by mouth once daily. - atorvastatin (LIPITOR) 40 mg tablet Take by mouth once daily. - clopidogrel (PLAVIX) 75 mg tablet Take 75 mg by mouth once daily. - HYDROcodone-acetamino phen (NORCO) 5-325 mg per tablet TAKE 1 TABLET BY MOUTH EVERY 6 HOURS NEEDED FOR 7 DAYS - lisinopril 2.5 mg tablet Take 2.5 mg by mouth once daily. - metoprolol succinate ER (TOPROL XL) 100 mg Take 100 mg by mouth once daily. - pantoprazole DR (PROTONIX) 40 mg tablet Take 1 tablet by mouth twice daily before meals. Take on empty stomach, 1/2 hr before meal. - acetaminophen (TYLENOL 8 HOUR) 650 mg CR tablet Take 650 mg by mouth every 8 hours as needed. - Cholecalciferol, Vitamin D3, 1,000 unit cap Take 1 capsule by mouth once daily. 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] 07/06/2006 Dyshidrosis [L30.1] 07/06/2006 02/27/2018 Contact dermatitis and other eczema, due to uns*07/06/2006 02/27/2018 Other chronic dermatitis due to solar radiation*07/06/2006 02/27/2018 Scar condition and fibrosis of skin [L90.5] 07/06/2006 02/27/2018 Personal history of other malignant neoplasm of*07/06/2006 02/27/2018 SOLAR LENGINES///DYSCHROMIA OTHER [L81.9] 07/06/2006 02/27/2018 Other seborrheic keratosis [L82.1] 07/06/2006 02/27/2018 Viral warts, unspecified [B07.9] 02/15/2008 02/27/2018 Inflamed seborrheic keratosis [L82.0] 02/15/2008 02/27/2018 NEVUS BACK///BENIGN CRUZ SKIN TRUNK [D23.5] 02/15/2008 02/27/2018 SYNOVIAL CYST NOS [M71.30] 02/15/2008 DTSTR/LYSIS///DISEASE S OF NAIL NEC [L60.8] 02/15/2008 02/27/2018 Atherosclerosis of coronary artery of [place] he*01/18/2020 Atrial tachycardia (HCC) [I47.19] 01/18/2020 Bundle branch block [I45.4] 01/18/2020 Left ventricular dysfunction [I51.9] 01/18/2020 Ventricular premature beats [I49.3] 01/18/2020 Essential hypertension, benign [I10] 01/18/2020 Mixed hyperlipidemia [E78.2] 01/18/2020 GERD (gastroesophageal reflux disease) [K21.9] 01/18/2020 Skin cancer [C44.90] 01/18/2020 S/P lumbar fusion [Z98.1] 01/18/2020 S/P cervical spinal fusion [Z98.1] 01/18/2020 Osteopenia [M85.80] 01/18/2020 Encounter Status:Closed by SUHAS STEARNS on 06/12/24 Normal [facility] Internal Medicine Office Vis bre 03-16-2024 Internal Medicine Office Visit [facility] [address] [place] [address] [place] [address] OFFICE VISIT Date of Service: 03/16/24 MR#: [id number] Acct: [id number] Name: RADHA BARR Rep #: [id number] : 1950 Provider: Dr. Pedro olivares MD Age/Sex: 73/F Location: [facility] Status: Signed Intake Vital Signs 11/07/23 09:49 02/08/24 11:34 03/16/24 08:56 Height 5 ft 4 in 5 ft 4 in 5 ft 4 in Weight: 159 lb 6 oz BMI 27.3 BP 126/80 H Blood Pressure Location Lt brachial Position Sitting Respiration 16 Pulse 72 Pulse Source Monitor Temp 97.2 F L Temp Source Temporal Pulse Oximetry (%) 99 Oxygen Delivery Method room air Intake Visit Reasons: 4 m fu Chief Complaint: 4m f/u 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: No Accompanied by: Self Is patient in pain?: No Allergies fentanyl Allergy (Severe, Verified 03/16/24 08:50) heart stopped lisinopril Adverse Reaction (Intermediate, Verified 03/16/24 08:50) cough Medications ???Medication ???Instructions ???Recorded ???Confirmed ???Type cholecalciferol (vitamin D3) 25 25 mcg PO DAILY 11/06/19 03/16/24 History mcg (1,000 unit) tablet aspirin 81 mg tablet,delayed 81 mg PO DAILY 12/18/19 03/16/24 History release (Adult Low Dose Aspirin) acetaminophen 650 mg 650 mg PO Q12H 03/05/20 03/16/24 History tablet,extended release (Tylenol Arthritis Pain) atorvastatin 40 mg tablet 40 mg PO QHS #90 tabs 07/21/23 03/16/24 Rx carvedilol 6.25 mg tablet 6.25 mg PO BID #180 tabs 07/21/23 03/16/24 Rx losartan 50 mg tablet 50 mg PO BID #180 tabs 07/21/23 03/16/24 Rx doxycycline hyclate 50 mg 50 mg PO QDAY 03/16/24 03/16/24 History tablet,delayed release famotidine 40 mg tablet 40 mg PO QDAY 03/16/24 03/16/24 History pantoprazole 40 mg tablet,delayed 40 mg PO QDAY 03/16/24 03/16/24 History release sennosides 8.6 mg-docusate sodium PO 03/16/24 03/16/24 History 50 mg tablet (Senexon-S) Have you fallen in the past year?: No [facility] Medical History (Updated 03/16/24 @ 12:[address] Pedro Wang MD) Chronic constipation Perkins esophagus Normal colonoscopy Pelvic floor dysfunction in female Fecal incontinence Thyroid nodule Neck swelling Tremor UTI (urinary tract infection) Health care maintenance Difficulty swallowing solids Atypical chest pain Left bundle branch block (LBBB) Essential hypertension History of open head injury History of recent fall Pain and swelling of right knee Difficulty swallowing Iliotibial band syndrome affecting left lower leg Right shoulder pain Left hip pain GERD (gastroesophageal reflux disease) Osteoarthritis GI problem History of skin cancer Arthritis Hiatal hernia Thoracic back pain Atherosclerosis of coronary artery of [place] heart without angina pectoris Atrial tachycardia Osteopenia Chronic neck pain with history of cervical spinal surgery History of chronic back pain Surgical History History of left heart catheterization (LHC) (05/16/20) HISTORY OF MICRO DECROMPRESSION History of coronary artery stent placement (12/20/19) History of microdiscectomy History of ankle surgery History of hip surgery History of lumbar fusion History of fusion of cervical spine Family History Father Hypertension Sister Breast cancer Cancer skin Hypertension Brother Hypertension Social History Smoking Status: Never smoker alcohol intake: current Alcohol type: wine substance use type: does not use what type of physical activity do you participate in: walking and swimming frequency: daily HPI HPI Chief Complaint: 4m f/u Details: RADHA BARR, is a 73 F who presents to the office today for follow-up. Recently had an EGD which showed esophageal ulcers and barrettes. Currently on famotidine and pantoprazole which she is taking as prescribed. No dark or bloody stool or unintentional weight changes. Chronic history of constipation. Had a colonoscopy prior to EGD with no significant concerns noted. She states that she has been taking Metamucil and other supportive measures without significant improvement. MiraLAX typically causes incontinence. History of hypertension, blood pressure today at 126/80 mmHg. No chest pain, palpitation or shortness of breath reported. Stays active. Other chronic medical conditions are stable. ROS Const Constitutional: No body ache, chills, excessive sweating, fatigue, fever(s), frequent falls, headache(s), snoring, weakness or change in appetite Eyes Eyes: No blurry vision, change in vision, bulging eyes, floaters, eye pain or Light sensitivity ENT ENT: No abnormal hearing, ear or mastoid pain, tinnitus, balance problems, n (more content not included)... Normal [facility] CNOVon 03-06-2024 CNOV Office Visit (NEUBSM ) RADHA BARR ([id number]) 1950 F Date Time Provider Department 03/06/24 11:00 AM SUHAS STEARNS During your visit today, we recorded the following information about you: Suahs Stearns, [facility] 03/06/2024 8:47 PM Addendum DATE: March 06, 2024 PT. NAME: Radha Barr [facility]#: [id number] IRB #: [id number] A. PROTOCOL: [facility] Child Support Investigator: Mar Chavez MD, , Alberto Ralph MD, [facility] labor relations or personnel negotiator for study related questions: Letty Garcia Is today the participant's first study visit? Yes Were there changes made to the informed consent since the last visit? Yes If yes, were changes reviewed and explained to subject? Yes Was a new copy of the informed consent signed, placed in the chart, placed in the study file and was a copy given to the patient? Yes Patient Identification was verified by asking the patients Name and Date Of : YES Subject continues to give consent for participation and for procedures related to study YES. Time: [id number] EKG/ECG was performed on patient. Patient tolerated procedure well. BP: 150/77 BP Site: right arm BP Position: sitting Cuff size: regular Pulse: 105 Resp: 18 SPO2: 98% Weight: 156.6 pounds Height: 5' 4 Result of Physical Exam Body System Eyes: Normal ,corrective lenses Ears, Nose, Mouth and Throat: Normal Cardiovascular: Normal ,Sinus Bradycardia, HR 55 BPM, LBBB-asyptomatic, similar to prior ECG Respiratory: Normal Musculoskeletal: Normal Integumentary: Normal ,Pinkish tape tong BUE forearms-denies pain. Negative warmth, edema. Encouraged to keep clean, apply antibiotic ointment to site. Encourage to go to ED if develop signs of infection (fever, malaise, increased redness, warmth, swelling). Handedness: Right hand Results of Mental Status [...] 5 Shoulder abduction: Right 5 Left 5 Shoulder adduction: Right 5 Left 5 Elbow flexion: Right 5 Left 5 Elbow extension: Right 5 Left 5 Wrist flexion: Right 5 Left 5 Wrist extension: Right 5 Left 5 Finger flexion/tobacco blender: Right 5 Left 5 Flexor pollicis longus: [...] Left 5 Reflexes - MRC Grading Method Triceps: Right 2+ Left 2+ Biceps: Right 2+ Left 2+ Brachioradialis: Right 2+ Left 2+ Patellar: Right 0 Left 2+ Achilles: Right 2+ Left 2+ Plantar: Right Downgoing Left Downgoing Weakness?: No Tremor: Yes Type of Tremor: Postural, Rest and Intention Tremor location: upper extremity Tremor Laterality: Both How long has the tremor been present? 1 year(s) Tremor diagnosis given? No Family history of tremor? Yes (Brother Zane benign tremor before PD diagnosis; Sister Li secondary to medications) Tremor responds to alcohol? No REM sleep behavior disorder? No Change in smell? No Constipation? Yes (Chronic constipation) Tremor Additional Details: Positive caffeinated beverage this am and handwriting changes (smaller and illegible). Negative hazardous materials exposure. Cerebellar/Coordinati on Assessment [id number]-Ekll: Abnormality present: No, Ixpg-zm-Uibc: Abnormality present: No, Finger Tapping - Abnormality present: Yes - Extremity: LUE Comments: dysrrhythmokinesia Fist Open/Close - Abnormality present: No Pronation/Supination of the Hand - Abnormality present: Yes - Extremity: LUE Comments: 1 pause Toe Tapping - Abnormality (more content not included)... Normal [facility] Cardiology Visit Reporton Cardiology Visit Report [facility] [address] [place] [address] OFFICE VISIT Date of Service: 02/08/24 MR#: [id number] Acct: [id number] Name: RADHA BARR Rep #: [id number] : 1950 Provider: CANDY umanzor Age/Sex: 73/F Location: [facility] Status: Signed HPI HPI History of Present Illness Details: This is a 73-year-old female who presents the office today for an urgent follow-up regarding chest discomfort. She was originally referred to our office on account of chest pain. She underwent heart catheterization in November 2019 that showed single-vessel coronary artery disease. She underwent drug- eluting stent to proximal LAD. She had heart catheterization on 05/16/2020 that showed patent proximal LAD stent. Her echocardiogram on 04/28/2020 showed ejection fraction 50-55% no significant valvular abnormalities with an RVSP of 35 mmHg. She denies chest, arm, jaw, or neck discomfort. She denies palpitations. She denies bilateral lower extremity edema. She denies claudication. She denies shortness of breath with activity, shortness of breath at rest, orthopnea, or PND. She denies chronic cough. She denies significant, sudden weight gain. She denies lightheadedness, dizziness, near-syncope, or syncope. She denies blood in urine, blood in stool, or epistaxis. He denies fever with chills. She denies myalgia. She denies fatigue. Her exercise level has remained stable via swimming 1 hour a day, walking 2 miles a day, and Ti chi. She states at home her blood pressure is better controlled. 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 Is patient in pain?: No Allergies fentanyl Allergy (Severe, Verified 02/08/24 11:32) heart stopped lisinopril Adverse Reaction (Intermediate, Verified 02/08/24 11:32) cough Medications ???Medication ???Instructions ???Recorded ???Confirmed ???Type cholecalciferol (vitamin D3) 25 25 mcg PO DAILY 11/06/19 02/08/24 History mcg (1,000 unit) tablet aspirin 81 mg tablet,delayed 81 mg PO DAILY 12/18/19 02/08/24 History release (Adult Low Dose Aspirin) acetaminophen 650 mg 650 mg PO Q12H 03/05/20 02/08/24 History tablet,extended release (Tylenol Arthritis Pain) docusate sodium 100 mg capsule 100 mg PO DAILY 12/02/21 02/08/24 History atorvastatin 40 mg tablet 40 mg PO QHS #90 tabs 07/21/23 02/08/24 Rx carvedilol 6.25 mg tablet 6.25 mg PO BID #180 tabs 07/21/23 02/08/24 Rx losartan 50 mg tablet 50 mg PO BID #180 tabs 07/21/23 02/08/24 Rx doxycycline hyclate 50 mg capsule 50 mg PO QDAY 02/08/24 02/08/24 History Have you fallen in the past year?: No PFSH Medical History Normal colonoscopy Pelvic floor dysfunction in female Fecal incontinence Thyroid nodule Neck swelling Tremor UTI (urinary tract infection) Health care maintenance Difficulty swallowing solids Atypical chest pain Left bundle branch block (LBBB) Essential hypertension History of open head injury History of recent fall Pain and swelling of right knee Difficulty swallowing Iliotibial band syndrome affecting left lower leg Right shoulder pain Left hip pain GERD (gastroesophageal reflux disease) Osteoarthritis GI problem History of skin cancer Arthritis Hiatal hernia Thoracic back pain Atherosclerosis of coronary artery of [place] heart without angina pectoris Atrial tachycardia Osteopenia Chronic neck pain with history of cervical spinal surgery History of chronic back pain Surgical History History of left heart catheterization (LHC) (05/16/20) HISTORY OF MICRO DECROMPRESSION History of coronary artery stent placement (12/20/19) History of microdiscectomy History of ankle surgery History of hip surgery History of lumbar fusion History of fusion of cervical spine Family History Father Hypertension Sister Breast cancer Cancer skin Hypertension Brother Hypertension Social History Smoking Status: Never smoker alcohol intake: current Alcohol type: wine substance use type: does not use what type of physical activity do you participate in: walking and swimming frequency: daily ROS Const Const: Negative for fatigue, weakness, body ache, fever(s) or chills ENT ENT: Negative for dizziness or Nosebleed/epistaxis Cardio Chest Pain: No (more content not included)... Normal [facility] Free T3on 02-02-2024 Free T3 [Mass/Vol] 2.5 pg/mL Normal 2.18-3.98 [facility] Comment on above: Performed By: #### L [id number], L501.9520, L501.9310 ####[facility] [address] [place], [place], [address] Surgery Visit Reporton 02-01 Surgery Visit Report [facility] [address] [place] [address] OFFICE VISIT Date of Service: 02/02/24 MR#: [id number] Acct: [id number] Name: RADHA BARR Rep #: [id number] : 1950 Provider: Dr. Johnny lynn MD Age/Sex: 73/F Location: [facility] Status: Signed Intake Vital Signs 11/07/23 09:49 Height 5 ft 4 in Weight: 155 lb BMI 26.6 BP 140/76 H Blood Pressure Location Lt brachial Position Sitting Respiration 17 Pulse 76 Pulse Source Monitor Temp 97.5 F L Temp Source Temporal Pulse Oximetry (%) 98 Oxygen Delivery Method room air Intake Visit Reasons: THYROID US RESULTS Chief Complaint: thyroid us results Is patient in pain?: No Allergies fentanyl Allergy (Severe, Verified 02/02/24 09:22) heart stopped lisinopril Adverse Reaction (Intermediate, Verified 02/02/24 09:22) cough Medications ???Medication ???Instructions ???Recorded ???Confirmed ???Type cholecalciferol (vitamin D3) 25 25 mcg PO DAILY 11/06/19 02/02/24 History mcg (1,000 unit) tablet aspirin 81 mg tablet,delayed 81 mg PO DAILY 12/18/19 02/02/24 History release (Adult Low Dose Aspirin) acetaminophen 650 mg 650 mg PO Q12H 03/05/20 02/02/24 History tablet,extended release (Tylenol Arthritis Pain) docusate sodium 100 mg capsule 100 mg PO DAILY 12/02/21 02/02/24 History atorvastatin 40 mg tablet 40 mg PO QHS #90 tabs 07/21/23 02/02/24 Rx carvedilol 6.25 mg tablet 6.25 mg PO BID #180 tabs 07/21/23 02/02/24 Rx losartan 50 mg tablet 50 mg PO BID #180 tabs 07/21/23 02/02/24 Rx Have you fallen in the past year?: No PFSH Medical History Normal colonoscopy Pelvic floor dysfunction in female Fecal incontinence Thyroid nodule Neck swelling Tremor UTI (urinary tract infection) Health care maintenance Difficulty swallowing solids Atypical chest pain Left bundle branch block (LBBB) Essential hypertension History of open head injury History of recent fall Pain and swelling of right knee Difficulty swallowing Iliotibial band syndrome affecting left lower leg Right shoulder pain Left hip pain GERD (gastroesophageal reflux disease) Osteoarthritis GI problem History of skin cancer Arthritis Hiatal hernia Thoracic back pain Atherosclerosis of coronary artery of [place] heart without angina pectoris Atrial tachycardia Osteopenia Chronic neck pain with history of cervical spinal surgery History of chronic back pain Surgical History History of left heart catheterization (LHC) (05/16/20) HISTORY OF MICRO DECROMPRESSION History of coronary artery stent placement (12/20/19) History of microdiscectomy History of ankle surgery History of hip surgery History of lumbar fusion History of fusion of cervical spine Family History Father Hypertension Sister Breast cancer Cancer skin Hypertension Brother Hypertension Social History Smoking Status: Never smoker alcohol intake: current Alcohol type: wine substance use type: does not use what type of physical activity do you participate in: walking and swimming frequency: daily HPI HPI HPI: Patient is a 73-year-old female who presents for follow-up visit related to diagnosis of thyroid nodules. Her last visit was 03/18/2023. She shares in the year since her last visit she has not experienced any new compressive symptoms. She maintains that she has some swallowing difficulty but this has been stable. She describes particular difficulty with dry foods but denies any choking. She also expresses presence of a dry cough but has not noticed any exacerbation of this symptom. Ultrasound was completed recently on 01/31/2024 Below is recapitulated from patient's prior visit for ease of review: Patient is a 72-year-old female who presents for evaluation of thyroid nodules. They are referred for surgical consultation from Dr. Wang. This was discovered somewhat incidentally as work-up was undertaken for patient's persisting complaints of difficulty swallowing (patient states that she had an unremarkable swallow study last year). Ms. Barr specifically reports difficulty swallowing breads and meats. They do not complain of a new cough, but do have a history of a chronic dry cough which they state is ineffective, but deny it being progressive. They do not appreciate new voice changes. They do have a history of snoring if not using a pillow that provides proper support Additionally, their weight has been stable. There is no history of recent fatigue. They do not have a history of heat or cold i (more content not included)... Normal [facility] T4 Total, Thyroxinon 024 T4 [Mass/Vol] 7.2 ug/dL Normal 4.8-13.9 [facility] Comment on above: Performed By: #### L [id number], L501.9520, L501.9310 ####[facility] [address] [place], [place], [address] Thyroid Stim Hormone (TSH)on 02-02-2024 TSH 0.950 uIU/mL Normal 0.358-3.740 [facility] Comment on above: Performed By: #### L [id number], L501.9520, L501.9310 ####[facility] [address] [place], [address] Thyroidon 01-31-2024 Thyroid [facility] Imaging Services [address] [place], [place] [id number] Thyroid MR#: [id number] Acct: [id number] Name: RADHA BARR Rep #: [id number] : 1950 F 73 From: Ron Brito MD PCP: Dr. Pedro Wang MD Status: [facility] CLI Study: Thyroid Date of Exam: 01/31/24 Exam# [id number] Ordering Dr: Johnny March MD [id number] STUDY: THYROID ULTRASOUND REASON FOR EXAM: Female, 73 years old. Annual follow-up thyroid nodules. TECHNIQUE: Ultrasound evaluation of the thyroid was performed with real-time and static fall-scale imaging. COMPARISON: Thyroid ultrasound 02/09/2023. FINDINGS: RIGHT LOBE: The right lobe of the thyroid gland measures 5.3 x 1.9 x 1.9 cm. There is a heterogeneous echotexture. There are 4 visualized thyroid nodules in the right thyroid lobe, previously 3. Nodule 1 in the upper pole is complex and heterogeneous in echogenicity. This measures 0.89 x 0.4 x 0.70 cm. Nodule 2 in the medial aspect of the right upper thyroid lobe is also heterogeneous in echogenicity. This measures 0.48 x 0.29 x 0.53 cm. Nodule 3 in the anterior aspect of the right mid thyroid lobe is also heterogeneous in echogenicity. This measures 1.25 x 0.90 x 1.21 cm. Nodule 4 in the central aspect of the right lower thyroid lobe is heterogeneous but more hypoechoic. This measures 0.79 x 0.48 x 0.6 cm. LEFT LOBE: The left lobe of the thyroid gland measures 4.7 x 1.6 x 1.6 cm. There is a hypervascular echotexture, previously homogeneous. Markedly hypoechoic nodule in the anterior aspect of the left mid thyroid lobe measures 0.44 x 0.29 x 0.56 cm. ISTHMUS: The isthmus measures 0.08 cm. . US/Thyroid IMPRESSION: 1. 4 thyroid nodules in the right thyroid lobe, previously 3. 2. 1 thyroid nodule in the left thyroid lobe, previously 3. 3. The dominant nodule 3 in the anterior aspect of the right mid thyroid lobe measures 1.25 x 0.90 x 1.21 cm, previously 1.5 x 1.2 x 0.7 cm. TI-RADS points: 2. TI-RADS category: TR2. This nodule is not suspicious and no FNA or follow-up is necessary. 4. Nodule 1 in the right upper thyroid lobe measures 0.89 x 0.4 x 0.70 cm, previously 0.84 x 0.36 x 0.63 cm. TI-RADS points: 2. TI-RADS category: TR2. This nodule is not suspicious and no FNA or follow-up is necessary. 5. Nodule 2 in the medial aspect of the right upper thyroid lobe is heterogeneous in echogenicity. This measures 0.48 x 0.29 x 0.53 cm, previously 0.7 x 0.5 x 0.5 cm. TI-RADS points: 3. TI-RADS category: TR3. This nodule is mildly suspicious but no FNA or follow-up is necessary given the small size of this nodule. 6. Nodule 4 in the central aspect of the right lower thyroid lobe is heterogeneous but more hypoechoic. This measures 0.79 x 0.48 x 0.6 cm. This was not visualized previously. TI-RADS points: 4. TI-RADS category: TR4. This nodule is moderately suspicious but no FNA or follow-up is necessary given the small size of this nodule. 7. Markedly hypoechoic solid nodule in the anterior aspect of the left mid thyroid lobe measures 0.44 x 0.29 x 0.56 cm, previously 0.33 x 0.51 x 0.23 cm. TI-RADS points: 5. TI-RADS category: TR4. This nodule is moderately suspicious but no FNA or follow-up is necessary given the small size of this nodule.. Electronically Signed: Ron Brito MD at 14:54 EDT , CC: Dr. Pedro Wang MD; Dr. Johnny March MD Senior Hr Generalist: Signed [facility] 01-26-2024 CNPN Telephone (NEUBSM) RADHA BARR ([id number]) 1950 F Date Time Provider Department 01/26/24 SEB DU During your visit today, we recorded the following information about you: Seb Du, Research Coordinator 01/26/2024 12:07 PM Signed IRB [id number]. [facility] (BS) Child Support Investigator: Mar Chavez MD, , Alberto Ralph MD, Maintenance Advisor: Letty Garcia and Email: Left voicemail message to speak with Radha Barr regarding the [facility] ([facility]). Provided phone number, , to contact us to further discuss participation in the study. Seb Du Research Coordinator Allergies As of Date: 01/26/2024 Noted Allergy Reaction FENTANYL 11/28/2019 14 - Other: See Comments Comments: Cardiac arrest NARCOTICS (OPIOIDS - MORPHINE PATRICE*02/27/2018 14 - Other: See Comments Comments: Very sensitive to narcotics. Date Reviewed: 01/21/2020 Reviewed by: Nancy Bell (Rn), RN - Fully Assessed Prescriptions as of 01/26/2024 - aspirin 81 mg chewable tablet Take 81 mg by mouth once daily. - atorvastatin (LIPITOR) 40 mg tablet Take by mouth once daily. - clopidogrel (PLAVIX) 75 mg tablet Take 75 mg by mouth once daily. - HYDROcodone-acetamino phen (NORCO) 5-325 mg per tablet TAKE 1 TABLET BY MOUTH EVERY 6 HOURS NEEDED FOR 7 DAYS - lisinopril 2.5 mg tablet Take 2.5 mg by mouth once daily. - metoprolol succinate ER (TOPROL XL) 100 mg Take 100 mg by mouth once daily. - pantoprazole DR (PROTONIX) 40 mg tablet Take 1 tablet by mouth twice daily before meals. Take on empty stomach, 1/2 hr before meal. - acetaminophen (TYLENOL 8 HOUR) 650 mg CR tablet Take 650 mg by mouth every 8 hours as needed. - Cholecalciferol, Vitamin D3, 1,000 unit cap Take 1 capsule by mouth once daily. 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] 07/06/2006 Dyshidrosis [L30.1] 07/06/2006 02/27/2018 Contact dermatitis and other eczema, due to uns*07/06/2006 02/27/2018 Other chronic dermatitis due to solar radiation*07/06/2006 02/27/2018 Scar condition and fibrosis of skin [L90.5] 07/06/2006 02/27/2018 Personal history of other malignant neoplasm of*07/06/2006 02/27/2018 SOLAR LENGINES///DYSCHROMIA OTHER [L81.9] 07/06/2006 02/27/2018 Other seborrheic keratosis [L82.1] 07/06/2006 02/27/2018 Viral warts, unspecified [B07.9] 02/15/2008 02/27/2018 Inflamed seborrheic keratosis [L82.0] 02/15/2008 02/27/2018 NEVUS BACK///BENIGN CRUZ SKIN TRUNK [D23.5] 02/15/2008 02/27/2018 SYNOVIAL CYST NOS [M71.30] 02/15/2008 DTSTR/LYSIS///DISEASE S OF NAIL NEC [L60.8] 02/15/2008 02/27/2018 Atherosclerosis of coronary artery of [place] he*01/18/2020 Atrial tachycardia (HCC) [I47.19] 01/18/2020 Bundle branch block [I45.4] 01/18/2020 Left ventricular dysfunction [I51.9] 01/18/2020 Ventricular premature beats [I49.3] 01/18/2020 Essential hypertension, benign [I10] 01/18/2020 Mixed hyperlipidemia [E78.2] 01/18/2020 GERD (gastroesophageal reflux disease) [K21.9] 01/18/2020 Skin cancer [C44.90] 01/18/2020 S/P lumbar fusion [Z98.1] 01/18/2020 S/P cervical spinal fusion [Z98.1] 01/18/2020 Osteopenia [M85.80] 01/18/2020 Encounter Status:Closed by SEB DU on 01/26/24 Normal [facility] XR FOOT MINIMUM 3 VIEWS LEFT on 11-20-2023 XR FOOT MINIMUM 3 VIEWS LEFT ORIGINAL EXAMINATION: THREE XRAY VIEWS OF THE LEFT FOOT 11/20/2023 9:34 pm COMPARISON: None. HISTORY: ORDERING SYSTEM PROVIDED HISTORY: Reason for Exam: pain TECHNIQUE: AP, lateral, and oblique views. FINDINGS: There is no gross radiopaque foreign body. Joint spaces and articular surfaces are preserved and in gross anatomic alignment. There is no acute cortical discontinuity. IMPRESSION: 1. There is no acute fracture or dislocation. Interpreted by: Wilder Tate Preliminary Report By: Wilder Tate Electronically signed By Wilder Tate Dictated Date: 11/20/2023 9:40:07 PM Prelim Date: 11/20/2023 9:45:25 PM Sign Date: 11/20/2023 9:45:25 PM Ordering Provider: XAVIER OVERTON [facility] Absolute lymphocyte countOrd ered By: Pedro Wang on 05-06-2023 Lymphocytes Auto (Unsp spec) [#/Vol] 1.57 10*3/uL 0.83-4.51 [facility] Basophil percentageOrdered B y: Pedro Wang on 05-06-2023 Basophils/100 WBC (Bld) 0.9 % 0-1 [facility] Bilirubin [Mass/Vol] 0.40 mg/dL 0.20-1.00 [facility] Comment on above: For patients on eltr ombopag therapy, use of Dimension [place] TBIL is not recommended. Chloride [Moles/Vol] 107 mmol/L 98-107 [place] [facility] Cholesterol [Mass/Vol] 120 mg/dL <200 [facility] Comment on above: <200 mg/dL Desirable 200-240 mg/dL Borderline >240 mg/dL High Risk Eosinophils/100 WBC (Bld) 2.2 % 0-5 [facility] Glucose [Mass/Vol] 85 mg/dL 74-106 [facility] Neutrophils (Bld) [#/Vol] 5.2 10*3/uL 2.0-7.7 [facility] Neutrophils/100 WBC (Bld) 68.1 % 47-70 [facility] Potassium [Moles/Vol] 3.9 mmol/L 3.5-5.1 [facility] Protein [Mass/Vol] 7.0 g/dL 6.4-8.2 [facility] Sodium [Moles/Vol] 141 mmol/L 136-145 [facility] Triglyceride [Mass/Vol] 72 mg/dL <199 [facility] Comment on above: The drugs N-Acetylcy steine and Metamizole may falsely depress this assay.Serum Triglycerides Reference Interval Normal <150 mg/dL Borderline high 150 - 199 mg/dL High 200 - 499 mg/dL Very High > or = 500 mg/dL WBC (Bld) [#/Vol] 7.6 10*3/uL 4.4-11.0 [facility] Blood erythrocytes count (nu mber/volume)Ordered By: Pedro Wang on 05-06-2023 RBC (Bld) [#/Vol] 4.23 10*6/uL 4.2-5.4 [facility] Blood hemoglobin measurement (mass/volume)Ordered By: Pedro Wang on 05-06-2023 Hemoglobin (Bld) [Mass/Vol] 12.7 g/dL 12.0-15.0 [facility] Blood lymphocytes/100 leukoc ytesOrdered By: Pedro Wang on 05-06-2023 Lymphocytes/100 WBC (Bld) 20.6 % 19-41 [facility] Blood monocytes/100 leukocyt esOrdered By: eros Wang on 05-06-2023 Monocytes/100 WBC (Bld) 7.8 % 0-10 [facility] Blood platelet mean volumeOr dered By: eros Wang on 05-06-2023 Platelet mean volume (Bld) [Entitic vol] 11.2 fL 6.2-12.0 [facility] Determination of erythrocyte mean corpuscular volume (MCV)Ordered By: Pedro Wang on 05-06-2023 MCV (RBC) [Entitic vol] 94.6 fL 81-99 [facility] Hematocrit Auto (Bld) [Volum e fraction]Ordered By: Pedro Wang on 05-06-2023 Hematocrit (Bld) [Volume fraction] 40.0 % 37-47 [facility] Laboratory - Chemistry and C hemistry - challengeOrdered By: Pedro Wang on 05-06-2023 ALP [Catalytic activity/Vol] 47 U/L 45-117 [facility] ALT [Catalytic activity/Vol] 26 U/L 13-56 [facility] CO2 [Moles/Vol] 29.0 mmol/L 21.0-32.0 [facility] Globulin (S) [Mass/Vol] 3.5 g/dL 2.2-4.2 [facility] Urea nitrogen/Creatinine [Mass ratio] 21.5 mg/mg 10-20 [facility] Laboratory - Hematology and Cell countsOrdered By: Pedro Wang on 05-06-2023 Erythrocyte distribution width (RBC) [Entitic vol] 45.2 fL 35.1-43.9 [facility] Erythrocyte distribution width (RBC) [Ratio] 13.1 % 11.6-14.6 [facility] Immature granulocytes/100 WBC (Bld) 0.400 % 0.0-0.9 [facility] Comment on above: IG% - Immature Granu locytes (promyelocytes, myelocytes and metamyelocytes) > 1% indicates that a LEFT SHIFT is Present. MCH (RBC) [Entitic mass] 30.0 pg 27.0-32.0 [facility] Nucleated RBC/100 WBC (Bld) [Ratio] 0 % 0-5 [facility] MCHC Auto (RBC) [Mass/Vol]Or dered By: Pedro Wang on 05-06-2023 MCHC (RBC) [Mass/Vol] 31.8 g/dL 32-36 [facility] No Panel InformationOrdered By: Pedro Wang on 05-06-2023 Estimated GFR (MDRD) Amer 98 mL/min >60 [facility] Comment on above: GFR Calc Estimated GFR (MDRD) Non-Af Amer 81 mL/min >60 [facility] Comment on above: Non- GFR Calc Platelets bldOrdered By: Jon Wang on 05-06-2023 Platelets (Bld) [#/Vol] 221 10*3/uL 150-450 [facility] Serum or plasma albumin liam urement (mass/volume)Ordered By: Pedro Wang on 05-06-2023 Albumin [Mass/Vol] 3.5 g/dL 3.2-5.0 [facility] Serum or plasma albumin/glob ulin mass ratioOrdered By: Pedro Wang on 05-06-2023 Albumin/Globulin [Mass ratio] 1.0 {ratio} 0.9-2.4 [facility] Serum or plasma calcium liam urement (mass/volume)Ordered By: Pedro Wang on 05-06-2023 Calcium [Mass/Vol] 8.8 mg/dL 8.5-10.1 [facility] Serum or plasma cholesterol in HDL measurement (mass/volume)Ordered By: Pedro Wang on 05-06-2023 Cholesterol in HDL [Mass/Vol] 64 mg/dL >40 [facility] Comment on above: The drugs N-Acetylcy steine and Metamizole may falsely depress this assay. Reference Range HDL <40 mg/dL Low HDL Cholesterol HDL >or= 60 mg/dL High HDL Cholesterol Serum or plasma cholesterol in VLDL measurement (mass/volume)Ordered By: Pedro Wang on 05-06-2023 Cholesterol in VLDL [Mass/Vol] 14 mg/dL 5-40 [facility] Serum or plasma creatinine m easurement (mass/volume)Ordered By: Pedro Wang on 05-06-2023 Creatinine [Mass/Vol] 0.74 mg/dL 0.55-1.02 [facility] Comment on above: The validity of the calculated GFR & GFRAA in patients over 70 years has not been determined. Clinical correlation is essential. Serum or plasma low density lipoprotein (LDL) cholesterol measurement (mass/volume)Ordered By: Pedro Wang on 05-06-2023 Cholesterol in LDL [Mass/Vol] 42 mg/dL 0-130 [facility] Serum or plasma urea nitroge n measurement (mass/volume)Ordered By: Pedro Wang on 05-06-2023 Urea nitrogen [Mass/Vol] 16 mg/dL 7-18 [facility] Thin prep Papanicolaou smear with manual screeningOrdered By: eros Wang on 05-06-2023 Thin prep Papanicolaou smear with manual screening 24 U/L 15-37 [facility] Thin prep Papanicolaou smear with manual screening 5 5-15 [facility] Basophil percentageOrdered B y: Pedro Wang on 02-02-2023 Chloride [Moles/Vol] 105 mmol/L 98-107 [facility] Glucose [Mass/Vol] 93 mg/dL 74-106 [facility] Potassium [Moles/Vol] 4.2 mmol/L 3.5-5.1 [facility] Sodium [Moles/Vol] 139 mmol/L 136-145 [facility] Laboratory - Chemistry and C hemistry - challengeOrdered By: Pedro Wang on 02-02-2023 CO2 [Moles/Vol] 31.0 mmol/L 21.0-32.0 [facility] Free T4 [Mass/Vol] 0.92 ng/dL 0.76-1.46 [facility] Urea nitrogen/Creatinine [Mass ratio] 17.0 mg/mg 10-20 [facility] No Panel InformationOrdered By: Pedro Wang on 02-02-2023 Estimated GFR (MDRD) Amer 70 mL/min >60 [facility] Comment on above: GFR Calc Estimated GFR (MDRD) Non-Af Amer 58 mL/min >60 [facility] Comment on above: Non- GFR Calc Thyroid Stimulating Hormone (TSH) 1.03 uIU/mL 0.358-3.74 [facility] Serum or plasma calcium liam urement (mass/volume)Ordered By: Pedro Wang on 02-02-2023 Calcium [Mass/Vol] 9.4 mg/dL 8.5-10.1 [facility] Serum or plasma creatinine m easurement (mass/volume)Ordered By: Pedro Wang on 02-02-2023 Creatinine [Mass/Vol] 1.00 mg/dL 0.55-1.02 [facility] Comment on above: The validity of the calculated GFR & GFRAA in patients over 70 years has not been determined. Clinical correlation is essential. Serum or plasma urea nitroge n measurement (mass/volume)Ordered By: Pedro Wang on 02-02-2023 Urea nitrogen [Mass/Vol] 17 mg/dL 7-18 [facility] Thin prep Papanicolaou smear with manual screeningOrdered By: Pedro Wang on 02-02-2023 Thin prep Papanicolaou smear with manual screening 3 5-15 [facility] Culture, urineOrdered By: St rupert Lozada on 08-04-2022 Bacteria identified Cx Nom (U) Proteus mirabilis [facility] Basophil percentageOrdered B y: Jung Lozada on 08-02-2022 Basophil percentage 0-5 SEEN /hpf 0-5 [facility] Bilirubin Test strip Ql (U)O rdered By: Jung Lozada on 08-02-2022 Bilirubin Ql (U) Negative Negative [facility] Ketones Test strip Ql (U)Ord ered By: Jung Lozada on 08-02-2022 Ketones Ql (U) Negative Negative [facility] Laboratory - Chemistry and C hemistry - challengeon 08-02-2022 Bilirubin Ql (U) Negative [facility] Glucose Ql (U) Negative [facility] Ketones Ql (U) Negative [facility] pH (U) 6.0 [pH] [facility] Specific gravity (U) [Rel density] 1.010 [facility] Urobilinogen (U) [Mass/Vol] Negative [facility] Laboratory - Hematology and Cell countson 08-02-2022 Hemoglobin Ql (U) Trace [facility] Laboratory - Specimen inform ationon 08-02-2022 Clarity (U) Turbid [facility] Color (U) YELLOW [facility] Laboratory - Urinalysison Nitrite Ql (U) Negative [facility] Protein Ql (U) Negative [facility] Mucus LM Ql (Urine sed)Order ed By: Jung Lozada on 08-02-2022 Mucus Ql (Urine sed) 0 SEEN /hpf [facility] Nitrite Test strip Ql (U)Ord ered By: Jung Lozada on 08-02-2022 Nitrite Ql (U) Negative Negative [facility] No Panel Informationon 08-02 Urine Leukocytes Positive [facility] Urine Non-Hemolyzed Blood Non-Hemolyzed [facility] Protein Test strip Ql (U)Ord ered By: Jung Lozada on 08-02-2022 Protein Ql (U) Negative Negative [facility] Squamous epithelial cells de tection in urine sediment by light microscopyOrdered By: Jung Lozada on 08-02-2022 Epithelial cells.squamous LM Ql (Urine sed) 0 SEEN /hpf 5-10 [facility] Urine blood detectionOrdered By: Jung Lozada on 08-02-2022 RBC Ql (U) 10 /ul Negative [facility] RBC Ql (U) 0-5 SEEN /hpf 0-5 [facility] Urine clarityOrdered By: Jaylan Lozada on 08-02-2022 Clarity (U) Sl. Cloudy Clear [facility] Urine color determinationOrd ered By: Jung Lozada on 08-02-2022 Color (U) Yellow Yellow [facility] Urine glucose detectionOrder ed By: Jung Lozada on 08-02-2022 Glucose Ql (U) Normal mg/dl Normal [facility] Urine leukocyte esterase det ection by dipstickOrdered By: Jung Lozada on 08-02-2022 Leukocyte esterase Test strip Ql (U) 25 /ul Negative [facility] Urine pHOrdered By: Jung bryson on 08-02-2022 pH (U) 7.0 [pH] 5.0 - 8.0 [facility] Urine sediment bacteria coun t by microscopy (number/high power field)Ordered By: Jung Lozada on 08-02-2022 Bacteria LM.HPF (Urine sed) [#/Area] 0 /[HPF] None Seen [facility] Urine specific gravity measu rementOrdered By: Jung Lozada on 08-02-2022 Specific gravity (U) [Rel density] 1.010 1.002-1.030 [facility] Urobilinogen Auto test strip Ql (U)Ordered By: Jung Lozada on 08-02-2022 Urobilinogen Ql (U) Normal mg/dl Normal [facility] Absolute lymphocyte counton 03-08-2022 Lymphocytes Auto (Unsp spec) [#/Vol] 1.54 10*3/uL 0.83-4.51 [facility] Work Phone: Basophil percentageon 2021 Basophils/100 WBC (Bld) 0.8 % 0-1 [facility] Work Phone: Bilirubin [Mass/Vol] 0.30 mg/dL 0.20-1.00 [facility] Work Phone: Comment on above: For patients on eltr ombopag therapy, use of Dimension [place] TBIL is not recommended. Chloride [Moles/Vol] 105 mmol/L 98-107 [facility] Work Phone: Cholesterol [Mass/Vol] 121 mg/dL <200 [facility] Work Phone: Comment on above: <200 mg/dL Desirable 200-240 mg/dL Borderline >240 mg/dL High Risk Eosinophils/100 WBC (Bld) 2.9 % 0-5 [facility] Work Phone: Glucose [Mass/Vol] 90 mg/dL 74-106 [facility] Work Phone: Neutrophils (Bld) [#/Vol] 2.6 10*3/uL 2.0-7.7 [facility] Work Phone: Neutrophils/100 WBC (Bld) 54.9 % 47-70 [facility] Work Phone: Potassium [Moles/Vol] 4.2 mmol/L 3.5-5.1 [facility] Work Phone: [phone] Protein [Mass/Vol] 6.8 g/dL 6.4-8.2 [facility] Work Phone: Sodium [Moles/Vol] 141 mmol/L 136-145 [facility] Work Phone: Triglyceride [Mass/Vol] 87 mg/dL <199 [facility] Work Phone: Comment on above: The drugs N-Acetylcy steine and Metamizole may falsely depress this assay.Serum Triglycerides Reference Interval Normal <150 mg/dL Borderline high 150 - 199 mg/dL High 200 - 499 mg/dL Very High > or = 500 mg/dL WBC (Bld) [#/Vol] 4.8 10*3/uL 4.4-11.0 [facility] Work Phone: Blood erythrocytes count (nu mber/volume)on 03-08-2022 RBC (Bld) [#/Vol] 4.12 10*6/uL 4.2-5.4 [facility] Work Phone: [phone] Blood hemoglobin measurement (mass/volume)on 03-08-2022 Hemoglobin (Bld) [Mass/Vol] 12.4 g/dL 12.0-15.0 [facility] Work Phone: Blood lymphocytes/100 leukoc yteson 03-08-2022 Lymphocytes/100 WBC (Bld) 32.2 % 19-41 [facility] Work Phone: Blood monocytes/100 leukocyt eson 03-08-2022 Monocytes/100 WBC (Bld) 9.0 % 0-10 [facility] Work Phone: Blood platelet mean volumeon 03-08-2022 Platelet mean volume (Bld) [Entitic vol] 11.5 fL 6.2-12.0 [facility] Work Phone: Determination of erythrocyte mean corpuscular volume (MCV)on 03-08-2022 MCV (RBC) [Entitic vol] 94.2 fL 81-99 [facility] Work Phone: Direct bilirubinon 2 Bilirubin.direct [Mass/Vol] 0.10 mg/dL 0.00-0.30 [facility] Work Phone: Hematocrit Auto (Bld) [Volum e fraction]on 03-08-2022 Hematocrit (Bld) [Volume fraction] 38.8 % 37-47 [facility] Work Phone: Laboratory - Chemistry and C hemistry - challengeon 03-08-2022 ALP [Catalytic activity/Vol] 53 U/L 45-117 [facility] Work Phone: ALT [Catalytic activity/Vol] 26 U/L 13-56 [facility] Work Phone: CO2 [Moles/Vol] 31.0 mmol/L 21.0-32.0 [facility] Work Phone: [phone] Globulin (S) [Mass/Vol] 3.4 g/dL 2.2-4.2 [facility] Work Phone: Urea nitrogen/Creatinine [Mass ratio] 19.8 mg/mg 10-20 [facility] Work Phone: Laboratory - Hematology and Cell countson 03-08-2022 Erythrocyte distribution width (RBC) [Entitic vol] 43.8 fL 35.1-43.9 [facility] Work Phone: Erythrocyte distribution width (RBC) [Ratio] 12.7 % 11.6-14.6 [facility] Work Phone: Immature granulocytes/100 WBC (Bld) 0.200 % 0.0-0.9 [facility] Work Phone: Comment on above: IG% - Immature Granu locytes (promyelocytes, myelocytes and metamyelocytes) > 1% indicates that a LEFT SHIFT is Present. MCH (RBC) [Entitic mass] 30.1 pg 27.0-32.0 [facility] Work Phone: Nucleated RBC/100 WBC (Bld) [Ratio] 0 % 0-5 [facility] Work Phone: MCHC Auto (RBC) [Mass/Vol]on 03-08-2022 MCHC (RBC) [Mass/Vol] 32.0 g/dL 32-36 [facility] Work Phone: No Panel Informationon 03-08 Estimated GFR (MDRD) Amer 104 mL/min >60 [facility] Work Phone: Comment on above: GFR Calc Estimated GFR (MDRD) Non-Af Amer 86 mL/min >60 [facility] Work Phone: Comment on above: Non- GFR Calc Troponin I High Sensitivity 9 pg/mL 3.0-54.0 [facility] Work Phone: Comment on above: Please Note: New Lizzeth t Units and Gender Specific Reference Ranges. For more information see Policy Stat Procedure [place] High Sensitivity Troponin (TNIH) and attachments. Platelets bldon 03-08-2022 Platelets (Bld) [#/Vol] 215 10*3/uL 150-450 [facility] Work Phone: Serum or plasma albumin liam urement (mass/volume)on 03-08-2022 Albumin [Mass/Vol] 3.4 g/dL 3.2-5.0 [facility] Work Phone: Serum or plasma albumin/glob ulin mass ratioon 03-08-2022 Albumin/Globulin [Mass ratio] 1.0 {ratio} 0.9-2.4 [facility] Work Phone: Serum or plasma calcium liam urement (mass/volume)on 03-08-2022 Calcium [Mass/Vol] 9.0 mg/dL 8.5-10.1 [facility] Work Phone: Serum or plasma cholesterol in HDL measurement (mass/volume)on 03-08-2022 Cholesterol in HDL [Mass/Vol] 56 mg/dL >40 [facility] Work Phone: Comment on above: The drugs N-Acetylcy steine and Metamizole may falsely depress this assay. Reference Range HDL <40 mg/dL Low HDL Cholesterol HDL >or= 60 mg/dL High HDL Cholesterol Serum or plasma cholesterol in VLDL measurement (mass/volume)on 03-08-2022 Cholesterol in VLDL [Mass/Vol] 17 mg/dL 5-40 [facility] Work Phone: Serum or plasma creatinine m easurement (mass/volume)on 03-08-2022 Creatinine [Mass/Vol] 0.71 mg/dL 0.55-1.02 [facility] Work Phone: Comment on above: The validity of the calculated GFR & GFRAA in patients over 70 years has not been determined. Clinical correlation is essential. Serum or plasma low density lipoprotein (LDL) cholesterol measurement (mass/volume)on 03-08-2022 Cholesterol in LDL [Mass/Vol] 48 mg/dL 0-130 [facility] Work Phone: Serum or plasma urea nitroge n measurement (mass/volume)on 03-08-2022 Urea nitrogen [Mass/Vol] 14 mg/dL 7-18 [facility] Work Phone: Thin prep Papanicolaou smear with manual screeningon 03-08-2022 Thin prep Papanicolaou smear with manual screening 21 U/L 15-37 [facility] Work Phone: Thin prep Papanicolaou smear with manual screening 5 5-15 [facility] Work Phone: ANES POSTPROC EVALon 01-20-2 020 ANES POSTPROC EVAL HNO ID: [id number] Author: Bennie Hughes MD Service: ? Author Type: Anesthesiologist Type: Anesthesia Postprocedure Evaluation Filed: 01/21/2020 9:37 AM Note Text: POST ANESTHESIA EVALUATION NOTE : 1950 Procedure Summary Date: 01/21/20 Room / [facility] Anesthesia Start: 846 Anesthesia Stop: 904 Procedure: EGD WITH BIOPSY (N/A ) Diagnosis: Gastroesophageal reflux disease, esophagitis presence not specified Surgeons: Chidi Cheng Responsible Provider: Bennie Hughes MD Anesthesia Type: MAC ASA Status: 3 Anesthesia Type: MAC Last vitals Vitals Value Taken Time BP 155/67 01/21/20 0931 Temp 36.5 ?C (97.7 ?F) 01/21/20 0904 Pulse 39 01/21/20 0935 Resp 18 01/21/20 0935 SpO2 100 % 01/21/20 0935 Vitals shown include unvalidated device data. Post Anesthesia Patient Status Patient Evaluation: bedside. Anticipated Disposition: phase 2 then home. Neurological Status: aware and responsive. Pulmonary Status: breathing comfortably on room air Airway Control: returned to baseline unsupported. Cardiovascular Status: stable. Pain Management: clinically adequate Postoperative Hydration: acceptable. Intraoperative Events: no significant anesthesia events Post Operative Nausea/Vomiting Status: no significant post operative nausea or vomiting Anesthetic Observations: no significant anesthetic observations Recommendation: continue current plan of care. SIGNATURE: Bennie Hughes MD PATIENT NAME: Radha Barr DATE: January 21, 2020 TIME: 9:37 AM CSN: [id number] [facility] ANES PRE-OPon 01-21-2020 ANES PRE-OP HNO ID: [id number] Author: Bennie Hughes MD Service: ? Author Type: Anesthesiologist Type: Anesthesia Preprocedure Evaluation Filed: 01/21/2020 7:37 AM Note Text: ANESTHESIOLOGY DAY OF SURGERY NOTE : 1950 Procedure(s) (LRB): EGD WITH BIOPSY (N/A) Surgeon(s): Chidi Cheng Estimated body mass index is 26.09 kg/m? as calculated from the following: Height as of this encounter: 162.6 cm (5' 4). Weight as of this encounter: 68.9 kg (152 lb). Most recent hematocrit and potassium results: Potassium 4.1 02/28/2018 Relevant Problems CARDIO (+) Atherosclerosis of coronary artery of [place] heart without angina pectoris (+) Atrial tachycardia (HCC) (+) Bundle branch block (+) Essential hypertension, benign (+) Ventricular premature beats GI (+) GERD (gastroesophageal reflux disease) I - PHYSICAL EVALUATION AIRWAY Patient intubated: No. Tracheostomy tube not present Mallampati: I. TM distance: >3 FB. Neck ROM: full ROM without neurological symptoms. Mouth opening: adequate. Short neck: no. Thick neck: no DENTAL Normal dental observations. Dental findings: teeth intact. Additional exam findings: no II - ANESTHESIA PLAN ASA Score: 3 Anesthetic Plan: MAC The patient is not a current smoker. NPO Status: adequate Monitoring plan: standard ASA. Postoperative analgesic plan: parenteral or oral opioids. Anesthetic Risks, Benefits, Alternatives, Personnel Discussed. Consent obtained from: patient. Patient / Surrogate agrees to blood products: blood products not planned DNR status not reviewed with patient and/or family prior to surgery. Significant changes in the patient condition since the History and Physical, not otherwise documented in primary service progress note: no. Potential Anesthesia issues that may suggest increased risk of complications or contraindication to planned procedure: none. Vitals Value Taken Time BP 149/65 01/21/20 0722 Pulse Resp 16 01/21/20 0722 Temp 36.8 ?C (98.2 ?F) 01/21/20 0722 SpO2 99 % 01/21/20 0722 Facility-Administered Medications as of 01/21/2020 Medication Dose Route Frequency - lidocaine 10 mg/mL (1 %) 1-2 mg injection (XYLOCAINE) 0.1-0.2 mL INTRADERMAL PRN - lactated ringers infusion 50 mL/hr INTRAVENOUS CONTINUOUS - NaCl 0.9% iv infusion 30 mL/hr INTRAVENOUS CONTINUOUS Outpatient Medications as of 01/21/2020 Medication Sig - aspirin 81 mg chewable tablet Take 81 mg by mouth once daily. - clopidogrel (PLAVIX) 75 mg tablet Take 75 mg by mouth once daily. - HYDROcodone-acetamino phen (NORCO) 5-325 mg per tablet TAKE 1 TABLET BY MOUTH EVERY 6 HOURS NEEDED FOR 7 DAYS - pantoprazole DR (PROTONIX) 40 mg tablet Take 1 tablet by mouth twice daily before meals. Take on empty stomach, 1/2 hr before meal. - acetaminophen (TYLENOL 8 HOUR) 650 mg CR tablet Take 650 mg by mouth every 8 hours as needed. - Cholecalciferol, Vitamin D3, 1,000 unit cap Take 1 capsule by mouth once daily. I have interviewed and examined the patient. I have reviewed the medical record and/or the pre-anesthesia evaluation, pertinent labs, and test results. This contains updated information obtained within 48 hours of Surgery/Procedure. SIGNATURE: Bennie Hughes MD PATIENT NAME: Radha Barr DATE: January 21, 2020 TIME: 7:36 AM CSN: [id number] [facility] NURSING PROGon 01-21-2020 NURSING PROG HNO ID: [id number] Author: Jessica CastleRn) [facility] [place] Service: Nursing Author Type: Registered Nurse Type: Nursing Progress Note Filed: 01/21/2020 9:40 AM Note Text: Nursing Progress Note Patient Name: Radha Barr Patient [facility]: [facility] pt HR 38-40 while awak, anesthesia awake and OK for pt to go to PH II, pt awake alert, denies pain or dizziness, B/P WNL This note was completed by: Jessica Woodward RN [facility] PT EDon 01-21-2020 PT ED HNO ID: [id number] Author: Nancy CastleRn) PAR[facility] Bell Service: ? Author Type: Registered Nurse Type: Patient Education Filed: 01/21/2020 10:45 AM Note Text: POST OP LEARNING RESPONSE INSTRUCTION PROVIDED TO: Patient and Family member METHOD OF INSTRUCTION: Verbal instruction PATIENT / FAMILY RESPONSE: Information received as demonstrated by interest and questions FOLLOW-UP PLAN: Patient instructed to call with any further issues SUPPLEMENTAL MATERIAL: Post sedation instructions given REFERRAL (RECOMMENDATION): None Electronically Signed By: Nancy Bell RN In Department: [facility] ENDOSCOPY [facility] PT ED HNO ID: [id number] Author: Nancy CastleRn) [facility] Service: ? Author Type: Registered Nurse Type: Patient Education Filed: 01/21/2020 7:25 AM Note Text: PRE OP LEARNING ASSESSMENT PROCEDURE/SURGERY: egd READINESS TO LEARN COGNITIVE ABILITY: Alert and oriented MOTIVATION TO LEARN: Interested FAMILY SUPPORT: High - Very involved in pt care PATIENT LEARNS BEST BY: Verbal Instruction FACTORS AFFECTING LEARNING: None PHYSICAL LIMITATIONS AFFECTING LEARNING: None Electronically Signed By: Nancy Bell RN In Department: [facility] ENDOSCOPY Normal [facility] SURGICAL PATHOLOGYon 020 SURGICAL PATHOLOGY Specimen originated from [facility] Specimen #: [id number] Submitting Physician: Chidi Cheng M.D. FINAL DIAGNOSIS 1. Esophagus, distal, biopsy (A) - Squamous esophageal mucosa and inflamed gastric cardia-type mucosa with intestinal metaplasia, reactive epithelial changes, and focal squamous overgrowth, see comment. 2. Esophagus, mid, biopsy (B) - Squamous esophageal mucosa with no significant pathologic change. 3. Stomach, antrum, biopsy (C) - Reactive gastropathy. - No intestinal metaplasia or morphologic evidence of Helicobacter pylori organisms. 4. Jejunum, biopsy (D) - Small intestinal mucosa with no significant pathologic change. [facility] 01/22/2020 COMMENT 1. The [employer] guidelines indicate that true Perkins's esophagus should be defined by both endoscopic and histologic parameters, with the current recommendations suggesting that Perkins's esophagus be restricted to those cases with salmon-colored mucosa extending = 1 cm into the tubular esophagus. While the focal intestinal metaplasia in this biopsy raises the possibility of Perkins's, endoscopic correlation is required to establish a definitive diagnosis. If there is remaining clinical uncertainty, additional biopsies may also be helpful. James NJ, Bethany GW, Royce PG, Krzysztof LB. ACG clinical guideline: diagnosis and management of Perkins's esophagus. Am J Gastroenterol. 2016;111:30-50. Светлана Mtz M.D. (Electronic Signature) ____ SPECIMEN SUBMITTED A: DISTAL ESOPHAGUS, BIOPSY B: MID ESOPHAGUS, BIOPSY C: GASTRIC ANTRAL, BIOPSY D: JEJUNUM, BIOPSY CLINICAL DATA GERD, LMP: NA GROSS DESCRIPTION A. Received in formalin is one piece of stover, soft tissue measuring 0.2 x 0.2 x 0.2 cm. Totally submitted in one cassette. B. Received in formalin is one piece of stover, soft tissue measuring 0.2 x 0.1 x 0.1 cm. Totally submitted in one cassette. C. Received in formalin is one piece of stover, soft tissue measuring 0.3 x 0.2 x 0.2 cm. Totally submitted in one cassette. D. Received in formalin is one piece of stover, soft tissue measuring 0.2 x 0.2 x 0.2 cm. Totally submitted in one cassette. Gross examination performed at [facility], [address] [place] [address] 01/21/2020 4:19:53 PM Date of Report: 01/23/2020 Date of Procedure: 01/21/2020 Date of Receipt: 01/21/2020 Submitted by: Chidi Cheng M.D. Location: [facility] Diagnostic interpretation performed at [facility], [address] [place] [address]. [place] Number: [id number] [facility] NURSING PROGon 01-18-2020 NURSING PROG HNO ID: [id number] Author: Tiesha Hernandez (Rn) PARTH Casarez Service: ? Author Type: Registered Nurse Type: Nursing Progress Note Filed: 01/18/2020 2:25 PM Note Text: PACC Nurse Progress Note History AND Physical: PACC Visit Date: 01/18/2020 Original HANDP Date: 01/18/2020 ED visit Date: N/A Outside HANDP Scanned Date: N/A Labs Within Last 6 Months: CBC: Date 12/18/2019 - WNL outside study GRF: Date 12/18/2019 - 55 outside study Covid19: Date 01/18/2020 Imaging Within Last 12 Months: Chest X-ray - 12/18/2019 - outside study See [facility] for complete list of imaging Cardiac Testing: ECHO Date: 12/13/2019 - outside study; EF 30-35% Stress Test Date: 12/13/2019 - outside study Heart Cath Date: 12/20/2019 - outside study Holter Monitor: Date 10/12/2019 - see [facility] for complete report Last Menstrual Period: LMP Date: not on record Postmenopausal >1yr: Yes S/P Hysterectomy: No BMI Percentile (PEDS): N/A Risk Assessment: Per provider: cardiac clearance letter sent to [facility], recent cardiac stent 11/2019 placed Anesthesia Review: N/A Narrative: NO need to stop Plavix per Dr. 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 Cheng's office aware, spoke with Eliseo Garcia 01/17 Tiesha Casarez RN January 18, 2020 2:25 PM [facility] HOSPon 01-09-2020 HOSP Patient:Radha Barr MRN: Height:5' 4(1.626 m) Weight:152 lb 12.8 oz (69.31 kg) Outpatient Medications as of 01/21/20: aspirin 81 mg chewable tablet atorvastatin (LIPITOR) 40 mg tablet clopidogrel (PLAVIX) 75 mg tablet HYDROcodone-acetamino phen (NORCO) 5-325 mg per tablet lisinopril 2.5 mg tablet metoprolol succinate ER (TOPROL XL) [address] (PROTONIX) 40 mg tablet acetaminophen (TYLENOL 8 HOUR) 650 mg CR tablet Cholecalciferol, Vitamin D3, 1,000 unit cap Admission/Clinic Administered Medications as of 01/21/20: lidocaine 10 mg/mL (1 %) 1-2 mg injection (XYLOCAINE) lactated ringers infusion NaCl 0.9% iv infusion Problem List: Rosacea [L71.9] Synovial cyst, unspecified [M71.30] Atherosclerosis of coronary artery of [place] heart without angina pectoris [I25.10] Atrial tachycardia (HCC) [I47.1] Bundle branch block [I45.4] Left ventricular dysfunction [I51.9] Ventricular premature beats [I49.3] Essential hypertension, benign [I10] Mixed hyperlipidemia [E78.2] GERD (gastroesophageal reflux disease) [K21.9] Skin cancer [C44.90] S/P lumbar fusion [Z98.1] S/P cervical spinal fusion [Z98.1] Osteopenia [M85.80] Allergies: Fentanyl Narcotics [Opioids - Morphine Analogues] Date Verified: 01/21/20 Lab Values No results within the last 30 days for the following basenames: K,HCT Progress Notes (NETWORK NAVIGATION): DONN Anders NAVIGATOR 01/18/2020 3:14 PM Signed POPULATION HEALTH NAVIGATION OUTREACH Action/ [place] Care Gap Outreach LMOVM Colorectal Screening Compliance - consult has been ordered, appt needed Contact made with patient? NO Pt identified by name and : NO Outreach Outcome/Action Unable to reach patient: Left message Reason for Outreach Care Gap Payer: Payor: MICHAEL Lexara / Plan: [employer] HMO / Product Type: HMO / Care Gap Addressed: Colorectal Cancer Screening Reminder: Please only focus on orders for the HEDIS items above Health Maintenance items due: BP CONTROLLED (<130/80) due on 11/10/1967 DTAP,TDAP,TD(1 - Tdap) due on 1968 SHINGRIX VACCINE(2 of 3) due on 12/27/2012 ADVANCE DIRECTIVE DISCUSSION due on 2014 PNEUMOVAX AGE 65 AND OVER WITH 5YR LOOKBACK(1) due on 2014 LDL CHOLESTEROL due on 02/28/2019 Referrals: N/A Message Sent to Practice: NO Navigation Signature: DONN Anders NAVIGATOR January 18, 2020 3:05 PM Progress Notes ([facility]): Sanjiv Florian ROWAN 01/14/2020 10:07 AM Signed Pt called noting she is on schedule for EGD on 01/20. She also states she had heart stent placed on 12/19by [facility]. Numerous meds added including plavix. Pt asking if she is to stop blood thinners before procedure. Advised for now not to stop without specific instruction. Pt was last seen remotely 10/08/19 by Charo Bowles New meds include Plavix 75 mg every day lisinipril 2.5 mg every day metoprol succ 100 mg every day lipitor 40 mg every day norco 5/325 mg -1/2 tab at night cimetidine has been D/c With cardiac changes does she need to be seen before procedure? Hold plavix or continue? Charo Bowles RN FIRE SAFETY INSPECTOR.MARCIAL 01/14/2020 10:25 AM Signed The patient should be seen since there is a change from May encounter. I have a couple open spots tomorrow for VV. Charo Bowles RN FIRE SAFETY INSPECTOR.MARCIAL Stubbs Ma 01/14/2020 11:29 AM Signed Called and left a message for patient to call the office back to make an appt. Rajni Brock 01/14/2020 1:38 PM Signed patient scheduled 01-21-2020 . Antelmo Murguia RN 01/14/2020 2:39 PM Signed Patient informed. Transferred to carbon lamp cleaner to schedule. Shital Brock 01/14/2020 2:52 PM Signed cardiac clearance has been sent Normal [facility] Vital Signs Date Time Vital Sign Value Performing Clinician Facility 01-14-2025 09:12-0400 Body height 162.[address] Pedro Wang MD Work Phone: [facility] 01-14-2025 09:12-0400 Body mass index (BMI) [Ratio] 26.9 kg/m2 Dr. Pedro Wang MD Work Phone: [facility] 01-14-2025 09:12-0400 Body temperature 97.3 [degF] Dr. Pedro Wang MD Work Phone: [facility] 01-14-2025 09:12-0400 Body weight 71.[address] Pedro Wang MD Work Phone: [facility] 01-14-2025 09:12-0400 Diastolic blood pressure 70 mm[Hg] Dr. Pedro Wang MD Work Phone: [facility] 01-14-2025 09:12-0400 Heart rate 69 /min Dr. Pedro Wang MD Work Phone: [facility] 01-14-2025 09:12-0400 Respiratory rate 16 /min Dr. Pedro Wang MD Work Phone: [facility] 01-14-2025 09:12-0400 SaO2% (BldA) [Mass fraction] 98 % Dr. Pedro Wang MD Work Phone: [facility] 01-14-2025 09:12-0400 Systolic blood pressure 122 mm[Hg] Dr. Pedro Wang MD Work Phone: [facility] 10-15-2024 09:24-0400 Body height 162.[address] Pedro Wang MD Work Phone: [facility] 10-15-2024 09:24-0400 Body mass index (BMI) [Ratio] 26.7 kg/m2 Dr. Pedro Wang MD Work Phone: [facility] 10-15-2024 09:24-0400 Body temperature 97.6 [degF] Dr. Pedro Wang MD Work Phone: [facility] 10-15-2024 09:24-0400 Body weight 70.[address] Pedro Wang MD Work Phone: [facility] 10-15-2024 09:24-0400 Diastolic blood pressure 76 mm[Hg] Dr. Pedro Wang MD Work Phone: [facility] 10-15-2024 09:24-0400 Heart rate 78 /min Dr. Pedro Wang MD Work Phone: [facility] 10-15-2024 09:24-0400 Respiratory rate 18 /min Dr. Pedro Wang MD Work Phone: [facility] 10-15-2024 09:24-0400 SaO2% (BldA) [Mass fraction] 100 % Dr. Pedro Wang MD Work Phone: [facility] 10-15-2024 09:24-0400 Systolic blood pressure 144 mm[Hg] Dr. Pedro Wang MD Work Phone: [facility] 09-07-2024 11:33-0400 Body mass index (BMI) [Ratio] 27.1 kg/m2 Dr. Pedro Wang MD Work Phone: [facility] 09-07-2024 11:33-0400 Body temperature 97.3 [degF] Dr. Pedro Wang MD Work Phone: [facility] 09-07-2024 11:33-0400 Body weight 71.[address] Pedro Wang MD Work Phone: [facility] 09-07-2024 11:33-0400 Diastolic blood pressure 72 mm[Hg] Dr. Pedro Wang MD Work Phone: [facility] 09-07-2024 11:33-0400 Heart rate 56 /min Dr. Pedro Wang MD Work Phone: [facility] 09-07-2024 11:33-0400 Respiratory rate 16 /min Dr. Pedro Wang MD Work Phone: [facility] 09-07-2024 11:33-0400 SaO2% (BldA) [Mass fraction] 97 % Dr. Pedro Wang MD Work Phone: [facility] 09-07-2024 11:33-0400 Systolic blood pressure 128 mm[Hg] Dr. Pedro Wang MD Work Phone: [facility] 09-06-2024 15:28-0400 Body mass index (BMI) [Ratio] 26.94 kg/m2 Yandel Garcia MD Work Phone: [facility] 09-06-2024 15:28-0400 Body weight 71.2 kg Yandel Garcia MD Work Phone: [facility] 09-06-2024 15:28-0400 SaO2% (BldA) [Mass fraction] 99 % Yandel Garcia MD Work Phone: [facility] 09-04-2024 08:54-0400 Body temperature 98 [degF] Dr. Pedro Wang MD Work Phone: [facility] 09-04-2024 08:54-0400 Diastolic blood pressure 80 mm[Hg] Dr. Pedro Wang MD Work Phone: [facility] 09-04-2024 08:54-0400 Heart rate 68 /min Dr. Pedro Wang MD Work Phone: [facility] 09-04-2024 08:54-0400 SaO2% (BldA) [Mass fraction] 96 % Dr. Pedro Wang MD Work Phone: [facility] 09-04-2024 08:54-0400 Systolic blood pressure 140 mm[Hg] Dr. Pedro Wang MD Work Phone: [facility] 08-03-2024 10:44-0500 Diastolic blood pressure 72 mm[Hg] Dr. Pedro Wang MD Work Phone: [facility] 08-03-2024 10:44-0500 Systolic blood pressure 138 mm[Hg] Dr. Pedro Wang MD Work Phone: [facility] 08-03-2024 07:40-0500 Body height 162.[address] Pedro Wang MD Work Phone: [facility] 08-03-2024 07:40-0500 Body mass index (BMI) [Ratio] 26.9 kg/m2 Dr. Pedro Wang MD Work Phone: [facility] 08-03-2024 07:40-0500 Body weight 71.[address] Pedro Wang MD Work Phone: [facility] 08-03-2024 07:40-0500 Heart rate 65 /min Dr. Pedro Wang MD Work Phone: [facility] 08-03-2024 07:40-0500 Respiratory rate 18 /min Dr. Pedro Wang MD Work Phone: [facility] 08-03-2024 07:40-0500 SaO2% (BldA) [Mass fraction] 100 % Dr. Pedro Wang MD Work Phone: [facility] 06-22-2024 08:55-0500 Body mass index (BMI) [Ratio] 27.1 kg/m2 Dr. Pedro Wang MD Work Phone: [facility] 06-22-2024 08:55-0500 Body temperature 97.8 [degF] Dr. Pedro Wang MD Work Phone: [facility] 06-22-2024 08:55-0500 Body weight 71.[address] Pedro Wang MD Work Phone: [facility] 06-22-2024 08:55-0500 Diastolic blood pressure 80 mm[Hg] Dr. Pedro Wang MD Work Phone: [facility] 06-22-2024 08:55-0500 Heart rate 57 /min Dr. Pedro Wang MD Work Phone: [facility] 06-22-2024 08:55-0500 Respiratory rate 16 /min Dr. Pedro Wang MD Work Phone: [facility] 06-22-2024 08:55-0500 SaO2% (BldA) [Mass fraction] 97 % Dr. Pedro Wang MD Work Phone: [facility] 06-22-2024 08:55-0500 Systolic blood pressure 132 mm[Hg] Dr. Pedro Wang MD Work Phone: [facility] 11-20-2023 20:53-0400 Body temperature 98.06 [degF] XAVIER OVERTON MD [facility] 11-20-2023 20:53-0400 Diastolic Blood Pressure Non-Invasive 75 mm[Hg] XAVIER OVERTON MD [facility] 11-20-2023 20:53-0400 Heart rate 77 /min XAVIER OVERTON MD [facility] 11-20-2023 20:53-0400 Respiratory rate 16 /min XAVIER OVERTON MD [facility] 11-20-2023 20:53-0400 Systolic Blood Pressure Non-Invasive 130 mm[Hg] XAVIER OVERTON MD [facility] 05-06-2023 08:51-0500 Body height 162.[address] Pedro Wang Work Phone: [facility] 05-06-2023 08:51-0500 Body mass index (BMI) [Ratio] 27.1 kg/m2 Dr. Pedro Wang Work Phone: [facility] 05-06-2023 08:51-0500 Body temperature 97.7 [degF] Dr. Pedro Wang Work Phone: [facility] 05-06-2023 08:51-0500 Body weight 71.[address] Pedro Wang Work Phone: [facility] 05-06-2023 08:51-0500 Diastolic blood pressure 82 mm[Hg] Dr. Pedro Wang Work Phone: [facility] 05-06-2023 08:51-0500 Heart rate 80 /min Dr. Pedro Wang Work Phone: [facility] 05-06-2023 08:51-0500 Respiratory rate 16 /min Dr. Pedro Wang Work Phone: [facility] 05-06-2023 08:51-0500 SaO2% (BldA) [Mass fraction] 92 % Dr. Pedro Wang Work Phone: [facility] 05-06-2023 08:51-0500 Systolic blood pressure 126 mm[Hg] Dr. Pedro Wang Work Phone: [facility] 02-28-2023 13:12-0400 Body mass index (BMI) [Ratio] 27.3 kg/m2 Dr. Pedro Wang Work Phone: [facility] 02-28-2023 13:12-0400 Body temperature 97.3 [degF] Dr. Pedro Wang Work Phone: [facility] 02-28-2023 13:12-0400 Body weight 72.[address] Pedro Wang Work Phone: [facility] 02-28-2023 13:12-0400 Diastolic blood pressure 80 mm[Hg] Dr. Pedro Wang Work Phone: [facility] 02-28-2023 13:12-0400 Heart rate 61 /min Dr. Pedro Wang Work Phone: [facility] 02-28-2023 13:12-0400 Respiratory rate 18 /min Dr. Pedro Wang Work Phone: [facility] 02-28-2023 13:12-0400 SaO2% (BldA) [Mass fraction] 100 % Dr. Pedro Wang Work Phone: [facility] 02-28-2023 13:12-0400 Systolic blood pressure 157 mm[Hg] Dr. Pedro Wang Work Phone: [facility] 02-02-2023 12:56-0400 Body height 162.[address] Pedro Wang Work Phone: [facility] 02-02-2023 12:56-0400 Body mass index (BMI) [Ratio] 27.1 kg/m2 Dr. Pedro Wang Work Phone: [facility] 02-02-2023 12:56-0400 Body temperature 97.1 [degF] Dr. Pedro Wang Work Phone: [facility] 02-02-2023 12:56-0400 Body weight 71.[address] Pedro Wang Work Phone: [facility] 02-02-2023 12:56-0400 Diastolic blood pressure 76 mm[Hg] Dr. Pedro Wang Work Phone: [facility] 02-02-2023 12:56-0400 Heart rate 59 /min Dr. Pedro Wang Work Phone: [facility] 02-02-2023 12:56-0400 Respiratory rate 18 /min Dr. Pedro Wang Work Phone: [facility] 02-02-2023 12:56-0400 SaO2% (BldA) [Mass fraction] 99 % Dr. Pedro Wang Work Phone: [facility] 02-02-2023 12:56-0400 Systolic blood pressure 146 mm[Hg] Dr. Pedro Wang Work Phone: [facility] 12-21-2022 09:24-0400 Body mass index (BMI) [Ratio] 27.4 kg/m2 Dr. Pedro Wang Work Phone: [facility] 12-21-2022 09:24-0400 Body weight 72.[address] Pedro Wang Work Phone: [facility] 12-21-2022 09:24-0400 Diastolic blood pressure 81 mm[Hg] Dr. Pedro Wang Work Phone: [facility] 12-21-2022 09:24-0400 Heart rate 56 /min Dr. Pedro Wang Work Phone: [facility] 12-21-2022 09:24-0400 Respiratory rate 18 /min Dr. Pedro Wang Work Phone: [facility] 12-21-2022 09:24-0400 SaO2% (BldA) [Mass fraction] 99 % Dr. Pedro Wang Work Phone: [facility] 12-21-2022 09:24-0400 Systolic blood pressure 146 mm[Hg] Dr. Pedro Wang Work Phone: [facility] 08-02-2022 13:19-0500 Body height 162.[address] Pedro Wang Work Phone: [facility] 08-02-2022 13:19-0500 Body mass index (BMI) [Ratio] 27.4 kg/m2 Dr. Pedro Wang Work Phone: [facility] 08-02-2022 13:19-0500 Body temperature 97.8 [degF] Dr. Pedro Wang Work Phone: [facility] 08-02-2022 13:19-0500 Body weight 72.[address] Pedro Wang Work Phone: [facility] 08-02-2022 13:19-0500 Diastolic blood pressure 74 mm[Hg] Dr. Pedro Wang Work Phone: [facility] 08-02-2022 13:19-0500 Heart rate 54 /min Dr. Pedro Wang Work Phone: [facility] 08-02-2022 13:19-0500 Respiratory rate 14 /min Dr. Pedro Wang Work Phone: [facility] 08-02-2022 13:19-0500 SaO2% (BldA) [Mass fraction] 98 % Dr. Pedro Wang Work Phone: [facility] 08-02-2022 13:19-0500 Systolic blood pressure 126 mm[Hg] Dr. Pedro Wang Work Phone: [facility] 07-16-2022 13:03-0500 Body height 162.[address] Pedro Wang Work Phone: [facility] 07-16-2022 13:03-0500 Body mass index (BMI) [Ratio] 28.3 kg/m2 Dr. Pedro Wang Work Phone: [facility] 07-16-2022 13:03-0500 Body weight 74.[address] Pedro Wang Work Phone: [facility] 07-16-2022 13:03-0500 Diastolic blood pressure 82 mm[Hg] Dr. Pedro Wang Work Phone: [facility] 07-16-2022 13:03-0500 Heart rate 68 /min Dr. Pedro Wang Work Phone: [facility] 07-16-2022 13:03-0500 Respiratory rate 18 /min Dr. Pedro Wang Work Phone: [facility] 07-16-2022 13:03-0500 SaO2% (BldA) [Mass fraction] 100 % Dr. Pedro Wang Work Phone: [facility] 07-16-2022 13:03-0500 Systolic blood pressure 155 mm[Hg] Dr. Pedro Wang Work Phone: [facility] 03-08-2022 09:08-0400 Body height 162.[address] Pedro aWng Work Phone: [facility] Work Phone: 03-08-2022 09:08-0400 Body mass index (BMI) [Ratio] 27.9 kg/m2 Dr. Pedro Wang Work Phone: [facility] Work Phone: 03-08-2022 09:08-0400 Body temperature 96.8 [degF] Dr. Pedro Wang Work Phone: [facility] Work Phone: 03-08-2022 09:08-0400 Body weight 73.[address] Pedro Wang Work Phone: [facility] Work Phone: 03-08-2022 09:08-0400 Diastolic blood pressure 70 mm[Hg] Dr. Pedro Wang Work Phone: [facility] Work Phone: 03-08-2022 09:08-0400 Heart rate 75 /min Dr. Pedro Wang Work Phone: [facility] Work Phone: 03-08-2022 09:08-0400 Respiratory rate 16 /min Dr. Pedro Wang Work Phone: [facility] Work Phone: 03-08-2022 09:08-0400 SaO2% (BldA) [Mass fraction] 99 % Dr. Pedro Wang Work Phone: [facility] Work Phone: 03-08-2022 09:08-0400 Systolic blood pressure 122 mm[Hg] Dr. Pedro Wang Work Phone: [facility] Work Phone: 01-20-2022 11:16-0400 Body height 162.6 cm Neur 1 [facility] 01-20-2022 11:16-0400 Body weight 71.67 kg Neur 1 [facility] 01-20-2022 11:16-0400 Diastolic blood pressure 65 mm[Hg] Neur 1 [facility] 01-20-2022 11:16-0400 Heart rate 60 /min Neur 1 [facility] 01-20-2022 11:16-0400 Respiratory rate 18 /min Neur 1 [facility] 01-20-2022 11:16-0400 SaO2% (BldA) [Mass fraction] 97 % Neur 1 [facility] 01-20-2022 11:16-0400 Systolic blood pressure 161 mm[Hg] Neur 1 [facility] 12-22-2021 10:40-0400 Body mass index (BMI) [Ratio] 26.9 kg/m2 Dr. Pedro Wang Work Phone: [facility] Work Phone: 12-22-2021 10:40-0400 Body weight 71.[address] Pedro Wang Work Phone: [facility] Work Phone: 12-22-2021 10:40-0400 Diastolic blood pressure 63 mm[Hg] Dr. Pedro Wang Work Phone: [facility] Work Phone: 12-22-2021 10:40-0400 Heart rate 60 /min Dr. Pedro Wang Work Phone: [facility] Work Phone: 12-22-2021 10:40-0400 Respiratory rate 16 /min Dr. Pedro Wang Work Phone: [facility] Work Phone: 12-22-2021 10:40-0400 SaO2% (BldA) [Mass fraction] 97 % Dr. Pedro Wang Work Phone: [facility] Work Phone: 12-22-2021 10:40-0400 Systolic blood pressure 146 mm[Hg] Dr. Pedro Wang Work Phone: [facility] Work Phone: 12-02-2021 14:24-0400 Body mass index (BMI) [Ratio] 27.3 kg/m2 Dr. Pedro Wang Work Phone: [facility] Work Phone: 12-02-2021 14:24-0400 Body temperature 97.8 [degF] Dr. Pedro Wang Work Phone: [facility] Work Phone: 12-02-2021 14:24-0400 Body weight 72.[address] Pedro Wang Work Phone: [facility] Work Phone: 12-02-2021 14:24-0400 Diastolic blood pressure 82 mm[Hg] Dr. Pedro Wang Work Phone: [facility] Work Phone: 12-02-2021 14:24-0400 Heart rate 66 /min Dr. Pedro Wang Work Phone: [facility] Work Phone: 12-02-2021 14:24-0400 Respiratory rate 18 /min Dr. Pedro Wang Work Phone: [facility] Work Phone: 12-02-2021 14:24-0400 SaO2% (BldA) [Mass fraction] 99 % Dr. Pedro Wang Work Phone: [facility] Work Phone: 12-02-2021 14:24-0400 Systolic blood pressure 124 mm[Hg] Dr. Pedro Wang Work Phone: [facility] Work Phone: 11-25-2021 21:07-0400 Diastolic blood pressure 66 mm[Hg] ANA LUCAS MD [facility] 11-25-2021 21:07-0400 Heart rate 63 /min ANA LUCAS MD [facility] 11-25-2021 21:07-0400 Reason For Taking VItal Signs ANA LUCAS MD [facility] 11-25-2021 21:07-0400 Respiratory rate 16 /min ANA LUCAS MD [facility] 11-25-2021 21:07-0400 Systolic blood pressure 159 mm[Hg] ANA LUCAS MD [facility] 11-25-2021 19:19-0400 Body temperature 97.7 [degF] ANA LUCAS MD [facility] 11-25-2021 19:19-0400 Diastolic blood pressure 81 mm[Hg] ANA LUCAS MD [facility] 11-25-2021 19:19-0400 Heart rate 75 /min ANA LUCAS MD [facility] 11-25-2021 19:19-0400 Respiratory rate 16 /min ANA LUCAS MD [facility] 11-25-2021 19:19-0400 Systolic blood pressure 164 mm[Hg] ANA LUCAS MD [facility] Encounters Encounter Date Encounter Type Care Provider Facility Start: 01-14-2025 ambulatory Pedro Metcalf ty:[facility] Start: 01-14-2025 End: 01-14-[address] Pedro Wang MD -[facility] Work Phone: Start: 01-14-2025 End: 01-14-[address] Pedro Wang MD Work Phone: -[facility] Start: 12-11-2024 End: 12-11-2024 Patient encounter status [facility]) Work Phone: [facility] Start: 12-11-2024 Encounter for examination for normal comparison and control in clinical research program SUHAS STEARNS [facility] Start: 12-11-2024 End: 12-11-2024 Patient encounter procedure Ccbs Coordinator 2 ([facility]) Work Phone: Research Comment on above: Research exam (Prima ry Dx) Examination of parti cipant in clinical trial (Primary Dx) Start: 12-11-2024 End: 12-11-2024 ambulatory Letty Echevarria Research Coordinator Research Comment on above: Informed Consent (Ir b [phone]) Start: 12-05-2024 End: 12-05-[address] Pedro Wang MD Work Phone: -Ultrasound [facility] Start: 12-05-2024 End: 12-05-[address] Pedro Wang MD -Ultrasound [facility] Work Phone: Start: 12-05-2024 End: 12-05-2024 ambulatory Pedro Wang Facility:[facility] Start: 10-25-2024 End: 12-04-2024 ambulatory PEDRO WANG MD Facility:[facility] Start: 10-25-2024 End: 12-04-2024 Physical therapy management PEDRO WANG MD [facility] Start: 10-17-2024 Non-patient / Non-visit Linda Morales MA -[facility] Work Phone: Start: 10-17-2024 ambulatory Linda Morales Facility:[facility] Start: 10-15-2024 End: 10-15-[address] Pedro Wang MD -[facility] Work Phone: Start: 10-15-2024 End: 10-15-[address] Pedro Wang MD Work Phone: [facility] Work Phone: Start: 10-15-2024 End: 10-15-2024 ambulatory Pedro Wang Facility:[facility] Start: 09-07-2024 End: 09-07-2024 Patient encounter procedure Diogo HARRIS -[facility] Work Phone: Start: 09-07-2024 End: 09-07-2024 ambulatory Pedro Wang Facility:[facility] Start: 09-06-2024 End: 09-06-2024 ambulatory YANDEL GARCIA Facility:[facility] Start: 09-06-2024 End: 09-06-2024 Office outpatient new 30 minutes Yandel Garcia MD Work Phone: Neurology Comment on above: Examination of parti cipant in clinical trial; Tremor; Dyskinesia; Gait abnormality Start: 09-06-2024 End: 09-06-2024 Patient encounter procedure Yandel Garcia MD Work Phone: [facility] Start: 09-04-2024 End: 09-04-2024 Patient encounter procedure Jung Lozada [place] [facility] Work Phone: Start: 09-04-2024 End: 09-04-2024 ambulatory Pedro Wang Facility:[facility] Start: 08-17-2024 ambulatory Pepe Tan Facility :[facility] Start: 08-17-2024 Non-patient / Non-visit Dr. Jean-Paul Delgado MD -[facility] Start: 08-17-2024 End: 08-17-[address] Pedro Wang MD Work Phone: [facility] Work Phone: Start: 08-17-2024 End: 08-17-2024 Patient encounter procedure Pepe Tan PA -Cardiovascular Services Work Phone: Start: 08-17-2024 End: 08-17-2024 ambulatory Pepe Demiter Facility:[facility] Start: 08-03-2024 End: 08-03-2024 Patient encounter procedure Pepe HARRIS -[facility] Work Phone: Start: 08-03-2024 End: 08-03-2024 ambulatory [facility] Facility:[facility] Start: 06-29-2024 End: 06-29-[address] Pedro Wang MD -Outpatient Breast Imaging Work Phone: Start: 06-29-2024 End: 06-29-2024 ambulatory [facility] Facility:[facility] Start: 06-22-2024 End: 06-22-[address] Pedro Wang MD -[facility] Work Phone: Start: 06-22-2024 End: 06-22-[address] Pedro Wang MD [facility] Start: 06-22-2024 End: 06-22-2024 ambulatory [facility] Facility:[facility] Start: 06-22-2024 End: 06-22-2024 ambulatory [facility] Facility:[facility] Start: 06-21-2024 End: 06-21-2024 Telephone encounter Suhas Stearns APRN.SUBSTANCE ABUSE COUNSELOR Work Phone: Neurology Comment on above: Patient Update (IRB [phone]); Patient Question (IRB [phone]) Start: 06-19-2024 End: 06-19-2024 Orders Only Suhas Stearns APRN.SUBSTANCE ABUSE COUNSELOR Work Phone: Neurology Comment on above: Examination of parti cipant in clinical trial (Primary Dx); Tremor; Dyskinesia; Gait abnormality Start: 06-19-2024 End: 06-19-2024 Patient encounter procedure Suhas Stearns APRN.CNP Work Phone: [facility] Work Phone: Start: 06-13-2024 End: 06-13-2024 Patient encounter procedure Suhas Stearns APRN.SUBSTANCE ABUSE COUNSELOR Work Phone: [facility] Work Phone: Start: 06-13-2024 End: 06-13-2024 Telephone encounter Suhas Stearns APRN.SUBSTANCE ABUSE COUNSELOR Work Phone: Neurology Comment on above: Returning Patient's Call (IRB [phone]) Start: 06-12-2024 End: 06-12-2024 Telephone encounter Suhas Stearns APRN.SUBSTANCE ABUSE COUNSELOR Work Phone: Neurology Comment on above: Patient Update (IRB [phone]) Patient Update (IRB [phone]) Start: 05-11-2024 End: 05-11-[address] Alfred Ferrell MD -Laboratory Work Phone: Start: 05-11-2024 End: 05-11-2024 ambulatory [facility] Facility:[facility] Start: 03-16-2024 End: 03-16-2024 ambulatory [facility] Facility:[facility] Start: 03-06-2024 End: 03-06-2024 ambulatory Soha Crowell Research Coordinator Work Phone: Neurology Comment on above: Informed Consent (IR B [phone]) Start: 03-06-2024 End: 03-06-2024 Patient encounter procedure Suhas Stearns APRN.SUBSTANCE ABUSE COUNSELOR Work Phone: Neurology Comment on above: Examination of parti cipant in clinical trial (Primary Dx) Start: 02-08-2024 End: 02-08-2024 ambulatory [facility] Facility:[facility] Start: 02-02-2024 End: 02-02-2024 ambulatory [facility] Facility:[facility] Start: 02-02-2024 End: 02-02-2024 ambulatory [facility] Facility:[facility] Start: 01-31-2024 End: 01-31-2024 ambulatory [facility] Facility:[facility] Start: 01-26-2024 End: 01-26-2024 Telephone encounter Seb Du Research Coordinator Neurology Start: 11-20-2023 End: 11-20-2023 Emergency department patient visit XAVIER OVERTON MD [facility] Start: 06-23-2023 Non-patient / Non-visit Dr. ePdro Wang Work Phone: [facility] Start: 06-21-2023 End: 06-21-[address] Pedro Wang Work Phone: [facility] Work Phone: Start: 06-21-2023 End: 06-21-[address] Pedro Wang Work Phone: [facility]-Outpatient Bone Densitometry Work Phone: Start: 05-06-2023 End: 05-06-[address] Pedro Wang Work Phone: [facility] Work Phone: Start: 05-06-2023 End: 05-06-2023 Encounter for general adult medical examination without abnormal findings Dr. Pedro Wang Work Phone: [facility] Start: 05-06-2023 End: 05-06-[address] Pedro Wang Work Phone: [facility] Internal Medicine Work Phone: Start: 03-01-2023 End: 03-01-[address] Pedro Wang Work Phone: [facility]-Laboratory, Specimen Work Phone: Start: 02-28-2023 End: 02-28-[address] Pedro Wang Work Phone: [facility] Work Phone: Start: 02-09-2023 End: 02-09-[address] Pedro Wang Work Phone: [facility] Work Phone: Start: 02-09-2023 End: 02-09-[address] Pedro Wang Work Phone: [facility] [place] Work Phone: Start: 02-04-2023 End: 02-04-[address] Pedro Wang Work Phone: [facility] Work Phone: Start: 02-04-2023 End: 02-04-[address] Pedro Wang Work Phone: [facility]-Radiology, [place] Work Phone: Start: 02-02-2023 End: 02-02-[address] Pedro Wang Work Phone: [facility] Work Phone: Start: 02-02-2023 End: 02-02-[address] Pedro Wang Work Phone: [facility] Internal Medicine Work Phone: Start: 01-21-2023 Chart abstracting Soha jessica Research Coordinator Work Phone: Neurology Comment on above: Informed Consent (IR B [phone]) Start: 01-21-2023 End: 01-21-2023 Patient encounter procedure Neur Research Brain Study Nellie 3 Neurology Comment on above: Examination of parti cipant in clinical trial (Primary Dx) Start: 01-12-2023 Chart abstracting Hannah Cruz Neur ology Comment on above: Informed Consent (IR B [phone]) Start: 01-11-2023 Telephone encounter Hannah Forte urology Comment on above: Appointment (IRB [phone]) Start: 12-21-2022 End: 12-21-[address] Pedro Wang Work Phone: [facility] Work Phone: Start: 12-14-2022 Telephone encounter Hannah Forte urology Comment on above: Appointment (IRB [phone]) Start: 08-02-2022 End: 08-02-[address] Pedro Wang Work Phone: [facility] Work Phone: Start: 08-02-2022 End: 08-02-[address] Pedro Wang Work Phone: [facility]-Laboratory, Specimen Start: 08-02-2022 End: 08-02-[address] Pedro Wang Work Phone: [facility] Start: 07-27-2022 Non-patient / Non-visit Dr. Pedro Wang Work Phone: [facility] Start: 07-26-2022 Non-patient / Non-visit Dr. Pedro Wang Work Phone: [facility] Start: 07-26-2022 End: 07-26-[address] Pedro Wang Work Phone: [facility] Work Phone: Start: 07-26-2022 End: 07-26-[address] Pedro Wang Work Phone: [facility]-Cardiovascular Services Start: 07-16-2022 End: 07-16-[address] Pedro Wang Work Phone: [facility] Start: 05-03-2022 End: 05-03-[address] Pedro Wang Work Phone: [facility] Work Phone: Start: 05-03-2022 End: 05-03-[address] Pedro Wang Work Phone: [facility]-Outpatient Breast Imaging Start: 04-12-2022 Chart abstracting Seb Du Research Coordinator Neurology Comment on above: Informed Consent (IR B [phone]) Start: 04-07-2022 End: 04-07-[address] Pedro Wang Work Phone: [facility] Work Phone: Start: 04-07-2022 End: 04-07-[address] Pedro Wang Work Phone: [facility]-Radiology, [facility] Start: 04-05-2022 Telephone encounter Seb kathleen Research Coordinator Neurology Comment on above: Returning Patient's Call (IRB [phone]) Start: 04-02-2022 End: 04-02-2022 Non-patient / Non-visit Dr. Pedro Wang Work Phone: [facility]-[place] [facility] Start: 04-02-2022 End: 04-02-[address] Pedro Wang Work Phone: [facility] Work Phone: Start: 04-02-2022 End: 04-02-[address] Pedro Wang Work Phone: [facility]-Pulmonary Services/Neurology Start: 03-23-2022 Telephone encounter Letty lassiter Research Coordinator Neurology Comment on above: Appointment (IRB [phone]) Start: 03-08-[address] Pedro Wang Work Phone: [facility] Start: 03-08-2022 End: 03-08-[address] Pedro Wang Work Phone: [facility] Work Phone: Start: 03-08-2022 End: 03-08-2022 Encounter for general adult medical examination without abnormal findings Dr. Pedro Wang Work Phone: [facility] Internal Medicine Start: 03-08-2022 End: 03-08-[address] Pedro Wang Work Phone: [facility] Internal Medicine Start: 01-20-2022 Chart abstracting Soha jessica Research Coordinator Neurology Comment on above: Informed Consent ([phone]) Start: 01-20-2022 End: 01-20-2022 Patient encounter procedure Neur Research Brain Study Nellie 1 Neurology Comment on above: Examination of parti cipant in clinical trial (Primary Dx) Start: 01-11-2022 Telephone encounter Letty lassiter Research Coordinator Neurology Comment on above: Appointment (IRB [phone]) Start: 12-22-2021 End: 12-22-[address] Pedro Wang Work Phone: [facility] Start: 12-02-2021 End: 12-02-[address] Pedro Wang Work Phone: [facility] Internal Medicine Start: 11-25-2021 End: 11-25-2021 Emergency department patient visit ANA LUCAS [facility] Start: 09-01-2021 Telephone encounter Seb kathleen Research Coordinator Neurology Comment on above: Returning Patient's Call (IRB [phone]) Start: 08-31-2021 Telephone encounter Seb kathleen Research Coordinator Neurology Comment on above: Returning Patient's Call (IRB [phone]) Start: 08-24-2021 Telephone encounter Seb kathleen Research Coordinator Neurology Comment on above: Returning Patient's Call (IRB [phone]) Start: 03-16-[address] Pedro Wang Work Phone: [facility] Start: 08-15-2020 End: 08-15-2020 Patient encounter procedure [facility] Start: 07-25-2020 End: 07-25-2020 Patient encounter procedure [facility] Procedures Date Procedure Procedure Detail Performing Clinician Start: 12-05-2024 US scan of thyroid Dr. Pedro Wang MD Work Phone: Start: 10-15-2024 X-ray of knee, four or more views Dr. Pedro Wang MD Work Phone: Start: 08-17-2024 Cardiovascular stres s test using pharmacologic stress agent Dr. Pedro Wang MD Work Phone: Start: 08-03-2024 Evaluation of diagno stic study results Dr. Pedro Wang MD Work Phone: Start: 06-29-2024 Screening mammography Katherine Wang MD Work Phone: Start: 06-22-2024 Measurement of renal function Dr. Pedro aWng MD Work Phone: Comment on above: GFR Calc Start: 06-22-2024 Vitamin D, 25-hydrox y measurement Dr. Pedro Wang MD Work Phone: Comment on above: Vitamin D 25(OH) Sta tus Range Deficiency <20 ng/mL (50nmol/L) Insufficiency 20 - 30 ng/mL (50 - 75 nmol/L) Sufficiency 30 - 100 ng/mL (75 - 250 nmol/L) Toxicity >100 ng/mL (>250 nmol/L) Start: 06-21-2023 Dual energy X-ray absorptiometry Dr. Pedro Wang Work Phone: Start: 06-21-2023 Screening mammography D betito Wang Work Phone: Start: 02-09-2023 US scan of thyroid Dr. Pedro Wang Work Phone: Start: 02-04-2023 Plain x-ray of pelvi s and lower extremity Dr. Pedro Wang Work Phone: Start: 07-26-2022 Cardiovascular stres s test using pharmacologic stress agent Dr. Pedro Wang Work Phone: Start: 05-03-2022 Screening mammography Katherine Wang Work Phone: Start: 04-07-[address] Arnold Wang Work Phone: Start: 06-09-2021 Mammography Letty lassiter Research Coordinator Start: 12-20-2019 History of placement of stent for coronary artery disease History of coronary artery stent placement Pepe HARRIS Comment on above: OCI-POOL-POOL to pLAD 4.00 x 16 mm Synergy MR 12/20/19 Start: 03-28-2019 Mammography Seb kathleen Research Coordinator Start: 02-28-2019 Adult depression screening assessment Seb Du Research Coordinator Start: 02-28-2018 Lipid 1996 panel - S jez or Plasma Seb Du Research Coordinator Stent, device (physi jacquelin object) XAVIER OVERTON MD Urine culture Dr. Pedro Wang Work Phone: Plan of Treatment Date Care Activity Detail Author Start: 01-28-2025 Influenza vaccination Influenza Vaccine (#1) [facility] Start: 12-11-2024 End: 12-11-2024 Patient encounter procedure Research Comment on above: #6 [id number] Start: 10-15-2024 Patient referral [facility] Work Phone: Start: 09-17-2024 End: 09-17-2024 Patient encounter procedure 09/17/2024 8:00 AM EDT Office Visit Neurology [address] [id number] Yandel Garcia MD [address] [id number] Examination of participant in clinical trial [Z00.6] Neurology Comment on above: Examination of participant in clinical t rial [Z00.6] Start: 08-24-2024 Covid-19 Vaccine ( season) Covid-19 Vaccine () [facility] Start: 05-30-2024 Advance Directive Discussion Advance Directive Discussion [facility] Start: 05-30-2024 Medicare Advantage Annual Wellness Visit Medicare Advantage Annual Wellness Visit [facility] Start: 01-29-2024 Influenza vaccination Influenza Vaccine (#1) [facility] Start: 06-23-2023 Patient referral [facility] Work Phone: Start: 05-30-2023 Advance Directive Discussion Advance Directive Discussion [facility] Start: 02-28-2023 Lipid panel Lipid Screening [facility] Start: 02-28-2023 LIPID SCREEN LIPID SCREEN [facility] Start: 01-28-2023 Covid-19 Vaccine () Covid-19 Vaccine () [facility] Start: 01-28-2023 Influenza vaccination INFLUENZA (#1) [facility] Start: 06-24-2022 COVID-19 VACCINE (6 - Pfizer series) COVID-19 VACCINE (6 - Pfizer series) [facility] Start: 06-09-2022 Mammography MAMMOGRAM [facility] Start: 06-09-2022 Screening for malignant neoplasm of breast Mammogram Screening [facility] Start: 05-30-2022 ADVANCE DIRECTIVE DISCUSSION ADVANCE DIRECTIVE DISCUSSION [facility] Start: 05-30-2022 DEPRESSION ASSESSMENT DEPRESSION ASSESSMENT [facility] Start: 01-28-2022 Influenza vaccination [facility] Start: 11-27-2021 COVID-19 VACCINE (5 - Booster for Pfizer series) COVID-19 VACCINE (5 - Booster for Pfizer series) [facility] Start: 11-27-2021 COVID-19 VACCINE (5 - Pfizer series) COVID-19 VACCINE (5 - Pfizer series) [facility] Start: 05-30-2021 ADVANCE DIRECTIVE DISCUSSION ADVANCE DIRECTIVE DISCUSSION [facility] Start: 05-30-2021 DEPRESSION ASSESSMENT DEPRESSION ASSESSMENT [facility] Start: 02-28-2021 DIABETES SCREEN DIABETES SCREEN [facility] Start: 02-28-2021 Diabetes Screening Diabetes Screening [facility] Start: 01-28-2021 Influenza vaccination INFLUENZA (#1) [facility] Start: 03-28-2020 Mammography MAMMOGRAM [facility] Start: 03-05-2020 COLORECTAL CANCER SCREENING COLORECTAL CANCER SCREENING [facility] Start: 03-05-2020 FECAL OCCULT BLOOD FECAL OCCULT BLOOD [facility] Start: 03-05-2020 Screening for malignant neoplasm of colon [facility] Start: 02-29-2020 Adult depression screening assessment DEPRESSION SCREENING [facility] Start: 02-29-2020 ANNUAL PCP TEAM CHRONIC DISEASE VISIT ANNUAL PCP TEAM CHRONIC DISEASE VISIT [facility] Start: 02-29-2020 PNEUMOCOCCAL: 65+ (2 - PPSV23 if available, else PCV20) PNEUMOCOCCAL: 65+ (2 - PPSV23 if available, else PCV20) [facility] Start: 02-29-2020 PNEUMOCOCCAL: 65+ (2 - PPSV23 or PCV20) PNEUMOCOCCAL: 65+ (2 - PPSV23 or PCV20) [facility] Start: 02-28-2019 Hepatitis B surface antibody level LDL CHOLESTEROL [facility] Start: 2014 PNEUMOVAX AGE 65 AND OVER WITH 5YR LOOKBACK (#1) PNEUMOVAX AGE 65 AND OVER WITH 5YR LOOKBACK (#1) [facility] Start: 12-27-2012 SHINGRIX VACCINE (2 of 3) SHINGRIX VACCINE (2 of 3) [facility] Start: 2009 RSV Vaccine (1 - 1-dose 60+ series) RSV Vaccine (1 - 1-dose 60+ series) [facility] Start: 1994 COLOGUARD (FIT-DNA) COLOGUARD (FIT-DNA) [facility] Start: 1994 Colonoscopy COLONOSCOPY [facility] Start: [address] COLONOGRAPHY [facility] Start: 1994 Screening for malignant neoplasm of colon [facility] Start: 1994 SIGMOIDOSCOPY SIGMOIDOSCOPY [facility] Start: 1968 Urine microalbumin profile [facility] Start: 11-10-1967 Annual PCP Team Chronic Disease Visit Annual PCP Team Chronic Disease Visit [facility] Start: 11-10-1967 Anxiety Screening Anxiety Screening [facility] Start: 11-10-1967 BP CONTROLLED (<130/80) BP CONTROLLED (<130/80) [facility] Start: 11-10-1967 Depression Screening Depression Screening [facility] Start: 1954 COVID-19 VACCINE (1) COVID-19 VACCINE (1) [facility] Start: 05-11-1950 COVID-19 VACCINE (#1) COVID-19 VACCINE (#1) [facility] Basic metabolic 2008 panel with ionized calcium - Serum or Plasma [facility] DXA Bone [Mass/Area] Bone density [facility] Electrocardiographic procedure [facility] Work Phone: MG Breast - bilatera l Screening [facility] Work Phone: MG Breast - bilatera l Screening [facility] Patient referral [facility] Work Phone: US Thyroid gland [facility] US Thyroid gland [facility] Work Phone: XR Knee 3 Views [facility] Immunizations Immunization Date Immunization Notes Care Provider Fa cility 10-03-2024 Covid (Spikevax) Dr. Surekha Wang MD Work Phone: [facility] 02-25-2024 Covid (Spikevax) Dr. Surekha Wang MD Work Phone: [facility] 02-25-2024 influenza, high dose seasonal, preservative-free Dr. Pedro Wang MD Work Phone: [facility] 02-25-2024 influenza virus vaccine, unspecified formulation Letty Echevarria Research Coordinator [facility] 05-16-2023 RSV Adult Recombinan t (Arexvy) Dr. Pedro Wang MD Work Phone: [facility] 02-25-2023 Pfizer Covid-19 (Comirnaty) Dr. Pedro Wang MD Work Phone: [facility] 02-21-2023 influenza, injectabl e, quadrivalent, preservative free Dr. Pedro Wang MD Work Phone: [facility] 11-22-[address] Pedro Wang MD Work Phone: [facility] 08-17-[address] Pedro Wang MD Work Phone: [facility] 03-08-2022 pneumococcal polysaccharide vaccine, [address] Pedro Wang Work Phone: [facility] 02-22-2022 Covid Pfizer Bivalen t Booster Dr. Pedro Wang MD Work Phone: [facility] 02-15-2022 Influenza High-Dose Quadrivalent Dr. Pedro [facility] MD [facility]: [facility] [facility] 02-15-2022 Influenza, high dose seasonal Dr. Pedro Wang MD Work Phone: [facility] 02-15-2022 influenza, high dose seasonal, preservative-free Dr. Pedro Wang Work Phone: [facility] 02-15-2022 influenza virus vaccine, unspecified formulation Seb Du Research Coordinator [facility] 10-02-2021 Covid (Pfizer) Dr. Pedro Wang MD Work Phone: [facility] 03-16-2021 pneumococcal conjuga te vaccine, [address] Pedro Wang Work Phone: [facility] 03-02-2021 Covid (Pfizer) Dr. Pedro Wang MD Work Phone: [facility] 02-05-2021 Influenza High-Dose Quadrivalent Dr. Pedro Wang MD Work Phone: [facility] 08-15-2020 Covid (Pfizer) Dr. Pedro Wang MD Work Phone: [facility] 07-25-2020 Covid (Pfizer) Dr. Pedro Wang MD Work Phone: [facility] 02-28-2019 influenza, high dose seasonal, preservative-free Seb Du Research Coordinator [facility] 02-28-2019 pneumococcal conjuga te vaccine, 13 valent Seb Holpit Research Coordinator [facility] 02-27-2018 influenza, high dose seasonal, preservative-free Seb Du Research Coordinator [facility] 03-14-2017 influenza virus vaccine, unspecified formulation Seb Du Research Coordinator [facility] 03-14-2017 influenza, injectabl e, quadrivalent, preservative free Dr. Pedro Wang MD Work Phone: [facility] 03-07-2017 influenza, high dose seasonal, preservative-free Seb Holpit Research Coordinator [facility] 03-26-2016 influenza, high dose seasonal, preservative-free Seb Holpit Research Coordinator [facility] 03-31-2015 influenza, high dose seasonal, preservative-free Seb Holpit Research Coordinator [facility] 11-01-2012 zoster vaccine, live Seb Ho lpit Research Coordinator [facility] 06-11-2009 novel [id number], preservative-free, injectable Seb Holpit Research Coordinator [facility] 04-05-2008 influenza virus vaccine, whole virus Seb Holpit Research Coordinator [facility] 04-05-2008 influenza, injectabl e, quadrivalent, preservative free Dr. Pedro Wang MD Work Phone: [facility] Payers Date Payer Category Payer Private Health Insurance [id number] 2024 Unknown [id number] 2023 Self-pay [id number] 2018 Unknown ANTHEM BLUE CROS S AND BLUE SHIELD ANTHEM MEDIBLUE O [id number] 2018-Present [phone] [address] [place] [address] [facility] [id number] 2018 Unknown [id number] 2018 Medicare (Managed Care) 1.2. [id number] .[id number] 2015 Unknown [id number]. 1.13.159.2 .7.3.139087.315 1950 Unknown [id number] 2.16.840.1.931306.3.579.2 .651 1950 Unknown [id number] 2.16.840.1.786077.3.579.2 .651 1950 Unknown [id number] 2..840.1.685581.3.579.2 .627 1950 Unknown [id number] 2.16.840.1.196192.3.579.2 .627 Medicare [id number] Unknown [id number] 2.840.1.660498.3.579.2 .462 Unknown [id number] 2.840.1.629563.3.579.2 .462 Unknown [id number] 2.840.1.296398.3.579.2 .462 Unknown [id number] 2.840.1.774728.3.579.2 .462 Unknown [id number] 2.840.1.540580.3.579.2 .462 Unknown [id number] 2.16840.1.232637.3.579.2 .462 Unknown [id number] 2.16840.1.026793.3.579.2 .462 Unknown [id number] 2.840.1.482061.3.579.2 .462 Unknown [id number] 2.840.1.413394.3.579.2 .462 Unknown [id number] 2..840.1.853251.3.579.2 .462 Unknown [id number] 2.16.840.1.542746.3.579.2 .462 Unknown [id number] 2.16.840.1.933063.3.579.2 .462 Unknown [id number] 2.16840.1.099121.3.579.2 .462 Unknown [id number] 2.16840.1.678540.3.579.2 .462 Unknown [id number] 2.16840.1.540881.3.579.2 .462 Unknown [id number] 2.16.840.1.717337.3.579.2 .462 Unknown [id number] 2.16840.1.022240.3.579.2 .462 Unknown [id number] 2.16840.1.116047.3.579.2 .462 Unknown [id number] 2.16840.1.929005.3.579.2 .462 Unknown [id number] 2.840.1.873535.3.579.2 .462 Social History Date Type Detail Facility Start: 11-25-2021 End: 09-04-2024 Tobacco smoking status NHIS Never smoked tobacco [facility] Start: 01-21-2020 End: 09-06-2024 Alcohol intake Current drinker of alcohol (finding) [facility] Start: 02-27-2018 History SDOH Alcohol Comment Occasional wine [facility] Start: 1950 Sex Assigned At Not on file [facility] Sex Assigned At [facility] Start: 02-27-2018 End: 09-06-2024 Tobacco use and exposure Smokeless tobacco non-user [facility] Start: 01-10-2022 End: 01-20-2022 Exposure to SARS-CoV-2 (event) Not sure [facility] Start: 03-08-2022 End: 05-06-2023 Tobacco smoking status NHIS Unknown if ever smoked [facility] Start: 12-29-2019 Occasional [facility] Start: 12-29-2019 None [facility] Start: 12-29-2019 Spouse/ Signif icant Other [facility] Start: 12-29-2019 Non-smoker [facility] Start: 1950 Sex Assigned At Female W [facility] Start: 01-21-2020 End: 01-21-2023 Gender identity Not on file [facility] Start: 01-21-2020 End: 01-21-2023 History of Social function [facility] Adult Depression Screening Assessment 0 [facility] Start: 07-08-2005 End: 08-24-2024 Sex Female (finding) [facility] Functional Status Date Assessment Result Facility 11-20-2023 Functional Status ID band on, Allergy Band on, Call device within reach, Bed in low position, Wheels locked, Upper/Half-Length side-rails up, Bedside Cart Locked, Visitor at bedside, Safety level maintained [facility] 11-25-2021 Functional Status Standard Safet y ID band on, Call device within reach, Bed in low position, Wheels locked, Upper/Half-Length side-rails up, Bedside Cart Locked, Visitor at bedside, Safety level maintained [facility] 11-25-2021 Functional Status [facility] Mental Status Date Assessment Result Facility 11-20-2023 Mental Status Oriented x [facility] 11-25-2021 Mental Status Oriented x 4 [facility] 11-25-2021 Mental Status [facility] Clinical Notes 02-15-2008 to 12-11-2024 Spike Dee, Research Coordinator - 12/11/2024 3:34 PM Letty De León, Research Coordinator - 12/11/2024 2:41 PM Letitia He PA-C - 12/11/2024 2:18 PM EDT Note Date & Type Note Facility 12-11-2024 Note HNO ID: [id number] Author: SPIKE DEE, Research Coordinator Service: ? Author Type: Research Type: Progress Notes Filed: 12/11/2024 15:35 Note Text: DATE:December 11, 2024 PT. NAME: Radha Barr [facility]#: [id number] IRB #: [id number] A. PROTOCOL: [facility] Brain Study Child Support Investigator: Mar Chavez MD, , Alberto Ralph MD, [facility] labor relations or personnel negotiator for study related questions: Letty Garcia Subject continues to give consent for participation and for procedures related to study YES. Were there changes made to the informed consent since the last visit? No. If yes, were changes reviewed and explained to subject? N/A Was a new copy of the informed consent signed, placed in the chart, placed in the study file and was a copy given to the patient? N/A Patient Identification was verified by asking the patient's Name and Date Of : YES Time: 15:20 Blood drawn with vacutainer and labs drawn per protocol. Butterfly removed after blood draw and secured with sterile gauze. Patient tolerated procedure well. Spike Dee, Research Coordinator [facility] 12-11-2024 History of Present illness Narrative DATE:December 11, 2024 PT. NAME: Radha Barr [facility]#: [id number] IRB #: [id number] A. PROTOCOL: [facility] Brain Study Child Support Investigator: Mar Chavez MD, , Alberto Ralph MD, [facility] labor relations or personnel negotiator for study related questions: Letty Jose Subject continues to give consent for participation and for procedures related to study YES. Were there changes made to the informed consent since the last visit? No. If yes, were changes reviewed and explained to subject? N/A Was a new copy of the informed consent signed, placed in the chart, placed in the study file and was a copy given to the patient? N/A Patient Identification was verified by asking the patient's Name and Date Of : YES Time: 15:20 Blood drawn with vacutainer and labs drawn per protocol. Butterfly removed after blood draw and secured with sterile gauze. Patient tolerated procedure well. Spike Dee Research Coordinator documented in this encounter [facility] 12-11-2024 Note HNO ID: [id number] Author: LETTY ECHEVARRIA Research Coordinator Service: ? Author Type: Research Type: Progress Notes Filed: 12/11/2024 14:42 Note Text: [facility] Brain Study (BS): Biomarkers and Predictors of Neurological Disorders Patient/Research Subject Name: Radha Barr Research Study IRB #: [id number] [facility] Brain Study (BS): Neurological Disorders Biorepository and Data Registry Verbal Confirmation of Continued Consent Occurred On: December 11, 2024 at 14:30. Participant has previously consented on the most updated version of the informed consent, version 3.6, dated 05/30/2023 and IRB approved on 01/07/2024. Participant arrived for study visit today and verbally reconfirmed their understanding and consent to participate in the study. Letty Echevarria, Research Coordinator [facility] 12-11-2024 History of Present illness Narrative [facility] Brain Study ([facility]): Biomarkers and Predictors of Neurological Disorders Patient/Research Subject Name: Radha Barr Research Study IRB #: [id number] [facility] Brain Study ([facility]): Neurological Disorders Biorepository and Data Registry Verbal Confirmation of Continued Consent Occurred On: December 11, 2024 at 14:30. Participant has previously consented on the most updated version of the informed consent, version 3.6, dated 05/30/2023 and IRB approved on 01/07/2024. Participant arrived for study visit today and verbally reconfirmed their understanding and consent to participate in the study. Letty Echevarria, Research Coordinator documented in this encounter [facility] 12-11-2024 Note HNO ID: [id number] Author: LETITIA AGUILLON PA-C Service: ? Author Type: Physician Life Enrichment Manager Type: Progress Notes Filed: 12/11/2024 15:25 Note Text: DATE: December 11, 2024 PT. NAME: Radha Barr [facility]#: [id number] IRB [id number]. [facility] Brain Study ([facility]) Child Support Investigator: Mar Chavez MD, , Alberto Ralph MD, Maintenance Advisor: Letty Garcia and Email:[email or web address] Time: 14:50:56 EKG/ECG was performed on patient. Patient tolerated procedure well. Vital Signs: BP: 149/72 BP Site: right arm BP Position: sitting Cuff size: regular Pulse: 63 Resp: 12 SPO2: 97 Weight: 156 lbs Height: 5' 3 Have you received the Shingles Vaccine? Yes Age of first vaccination? 61 Year first vaccination was administered: 2012 Number of subsequent vaccinations: 2 Result of Physical Exam Body System Eyes: Normal Ears, Nose, Mouth and Throat: Normal Cardiovascular: Abnormal ,LBBB, previously diagnosed Respiratory: Normal Musculoskeletal: Normal Integumentary: Normal Handedness: Right hand Results of Mental Status [...] 5 Shoulder abduction: Right 5 Left 5 Shoulder adduction: Right 5 Left 5 Elbow flexion: Right 5 Left 5 Elbow extension: Right 5 Left 5 Wrist flexion: Right 5 Left 5 Wrist extension: Right 5 Left 5 Finger flexion/tobacco blender: Right 5 Left 5 Flexor pollicis longus: [...] Left 5 Reflexes - MRC Grading Method Triceps: Right 2+ Left 2+ Biceps: Right 2+ Left 2+ Brachioradialis: Right 2+ Left 2+ Patellar: Right 2+ Left 2+ Achilles: Right 2+ Left 2+ Plantar: Right Downgoing Left Downgoing Weakness?: No Tremor: No Cerebellar/Coordination Assessment Pdvkaz-rv-Iyxl: Abnormality present: No, Mgby-nz-Ecry: Abnormality present: No, Finger Tapping - Abnormality present: No Fist Open/Close - Abnormality present: No Pronation/Supination of the Hand - Abnormality present: No Toe Tapping - Abnormality present: No Heel Tapping - Abnormality present: No Gait Gait-global assessment: Normal Toe Walk: Normal Heel Walk: Normal Tandem Walk: Normal Romberg: Negative (pass) Sensory/Sensation Sensory System-globlal assessment: Normal Letitia Aguillon PA-C [facility] 12-11-2024 History of Present illness Narrative DATE: December 11, 2024 PT. NAME: Radha Barr [facility]#: [id number] IRB [id number]. [facility] Brain Study (BS) Child Support Investigator: Mar Chavez MD, , Alberto Ralph MD, Maintenance Advisor: Letty Garcia and Email:[email or web address] Time: 14:50:56 EKG/ECG was performed on patient. Patient tolerated procedure well. Vital Signs: BP: 149/72 BP Site: right arm BP Position: sitting Cuff size: regular Pulse: 63 Resp: 12 SPO2: 97 Weight: 156 lbs Height: 5' 3 Have you received the Shingles Vaccine? Yes Age of first vaccination? 61 Year first vaccination was administered: 2012 Number of subsequent vaccinations: 2 Result of Physical Exam Body System Eyes: Normal Ears, Nose, Mouth and Throat: Normal Cardiovascular: Abnormal ,LBBB, previously diagnosed Respiratory: Normal Musculoskeletal: Normal Integumentary: Normal Handedness: Right hand Results of Mental Status [...] 5 Shoulder abduction: Right 5 Left 5 Shoulder adduction: Right 5 Left 5 Elbow flexion: Right 5 Left 5 Elbow extension: Right 5 Left 5 Wrist flexion: Right 5 Left 5 Wrist extension: Right 5 Left 5 Finger flexion/tobacco blender: Right 5 Left 5 Flexor pollicis longus: [...] Left 5 Reflexes - MRC Grading Method Triceps: Right 2+ Left 2+ Biceps: Right 2+ Left 2+ Brachioradialis: Right 2+ Left 2+ Patellar: Right 2+ Left 2+ Achilles: Right 2+ Left 2+ Plantar: Right Downgoing Left Downgoing Weakness?: No Tremor: No Cerebellar/Coordination Assessment Ksslwn-kt-Pbyo: Abnormality present: No, Mckg-kb-Mwbu: Abnormality present: No, Finger Tapping - Abnormality present: No Fist Open/Close - Abnormality present: No Pronation/Supination of the Hand - Abnormality present: No Toe Tapping - Abnormality present: No Heel Tapping - Abnormality present: No Gait Gait-global assessment: Normal Toe Walk: Normal Heel Walk: Normal Tandem Walk: Normal Romberg: Negative (pass) Sensory/Sensation Sensory System-globlal assessment: Normal Letitia Aguillon PA-C documented in this encounter [facility] 12-06-2024 Radiology Diagnostic study note [facility] Imaging Services [address] [place] [address] Thyroid MR#: [id number] Acct: [id number] Name: RADHA BARR Rep #: [id number] : 1950 F 74 From: Palak Garcia MD PCP: Dr. Pedro Wang MD Status: R EG CLI Study:Thyroid Date of Exam: 12/05/24 Exam# [id number] Ordering Dr: Genaro Wang MD EXAM: US Soft Tissues Head and Neck, Thyroid CLINICAL INDICATION: FU THYROID NODULE TECHNIQUE: Real-time ultrasound scan of the thyroid gland and soft tissues of the neck with image documentation. COMPARISON: US Thyroid dated 02/09/2023 FINDINGS: LEFT THYROID LOBE: Left thyroid lobe measures 4.8 x 1.8 x 1.3 cm. Mid left thyroid nodule measures 0.4 x 0.3 x 0.2 cm, which is mixed cystic and solid and isoechoic, TR 2. RIGHT THYROID LOBE: Right thyroid lobe measures 5.5 x 1.8 x 1.4 cm. Superior right thyroid nodule measures 0.8 x 0.6 x 0.5 cm. Superior right thyroid nodule measures 0.650.4 x 0.4 cm. Mid right thyroid nodule measures 1.3 x 1.1 x 0.9 cm. Inferior right thyroid measures 0.8 x 0.7 x 0.5 cm. These right thyroid nodules have missed this lytic and solid component and hypoechoic echogenicity, TR 3. ISTHMUS: Isthmus measures 1 mm thick. No enlarged or calcified nodules. LYMPH NODES: Unremarkable. No lymphadenopathy. US/Thyroid IMPRESSION: 1. Thyroid nodules as above. 2. TR 1: Benign, no FNA; TR 2: No suspicious, no FNA; TR 3: Mildly suspicious, FNA if >/= 2.5 cm or Follow if >/= 1.5 cm; TR 4: Moderately suspicious, FNA if >/= 1.5 cm or Follow if >/= 1 cm; TR 5 Highly suspicious, FNA if >/= 1 cm or Follow if >/= 0.5 cm. Reading Location: [facility] CC: Dr. Pedro Wang MD ~ Senior Hr Generalist: Signed [facility] 10-15-2024 Evaluation note Diagnosis Onset Date Resolution Essential hypertension chronic Ma y 2024 9:20am GERD (gastroesophageal reflux disease) chronic October 15, 2024 9 :20am Right knee pain chronic October 15, 2024 9:20am Tinnitus, left ear chronic October 152024 9:20am Tremor chronic October 15, 2024 9:20am [facility] Work Phone: 1(500) 455-808104-11-2025 Evaluation note* Diagnosis Onset Date Resolution Status Admit Date Eustachian tube dysfunction acute September 07, 2024 11:17am Essential hypertension chronic Ma 2024 9:20am GERD (gastroesophageal reflu x disease) chronic October 15, 2024 9 :20am Right knee pain chronic October 15, 2024 9:20am Tinnitus, left ear chronic October 152024 9:20am Tremor chronic October 15, 2024 9:20am [facility] Work Phone: 1(348) 331-188504-11-2025 NoteHNO ID: [id number] Author: YANDEL GARCIA MD Service: ? Author Type: Physician Type: Progress Notes Filed: 09/07/2024 08:08 Note Text: [facility] - NEW PATIENT EVALUATION The patient consented to the use of ambient AI software for draft documentation of the visit consistent with [facility]?s Notice of Privacy Practices. Referring Provider: Suhas Stearns [id number] [facility] [id number] Primary Care Provider: Pedro Wang MD [address] [facility] [address] [facility] [address] Dear Suhas Stearns: Thank you for referring Ms. Barr to our clinic today. As you know she is a 73 year old right-handed female who is seen in consultation for evaluation of since . She is seen alone. Subjective HISTORY OF PRESENT ILLNESS: Radha is a 73-year-old female with a family history of Parkinson's disease, presenting for evaluation of tremors and other symptoms. Radha reports a tremor in her left hand, described as a shake, which occurs primarily when holding objects, such as a piece of paper, and is exacerbated by nervousness. She can usually stop the tremor voluntarily. The tremor has been present for at least five years, predating the COVID-19 pandemic, and is not present at rest or during activities such as eating or drinking. She does not endorse tremors in her right hand, legs, voice, or head. She is right-hand dominant. She notes a decrease in tobacco blender strength and dexterity, particularly in her right hand, affecting tasks such as stuffing envelopes. She also reports difficulty bending her fingers. Her handwriting has become smaller and messier, with frequent hand cramping. Radha describes a decline in balance and a slower walking pace compared to her previous baseline. She experiences left hip pain. She has a history of multiple spine surgeries. Despite these issues, she does not report falls and manages daily activities such as eating, dressing, and showering without significant difficulty, attributing any changes to normal aging. She reports poor sleep quality, waking up in terrible pain and stiffness, feeling as if she has rigor mortis. This stiffness affects both sides of her body equally and resolves with movement. She experiences nightmares every few years, during which she screams but does not engage in physical actions like punching or kicking. Radha does not endorse changes in her voice, facial expressions, sense of smell, or memory. She does not report hallucinations, significant depression, or anxiety. She has a family history of Parkinson's disease, with her mother and one of her three brothers affected. Her brother, who also has hypertension, was diagnosed two years ago and experiences tremors. Her mother had a resting tremor, stooped posture, shuffling gait, and dementia. Movement Disorders Medications Schedule - as of the start of the visit: Medications Questionnaires In addition, the following areas that may be affected by abnormal involuntary movements were evaluated: Daily activities Difficulties with eatin (none) Difficulties in dressin (none) Difficulties with hygiene activities: 0 (none) Difficulties with handwriting: Yes (slight) Difficulties with doing hobbies and other activities: Yes (slight) Difficulties turning in bed: Yes (slight) Difficulties getting out of bed, car or chair: 0 (none) Tremors/Gait/Balance Shaking or tremors: Yes (slight) Walking and balance problems: 0 (none) slower. left hip problems Number of falls in the Last Month: 0 Gait freezin (none) Autonomic/Pain Lightheadeness on standin (none) Urinary problems: 0 (none) Constipation problems: Yes (moderate) Pain and other sensations: Yes (mild) Speech/Swallowing Speech problems: 0 (none) no change in voice or facial expression Drooling: Yes (mild) Chewing and swallowing problems: Yes (slight) Sleep/Fatigue Sleep problems: Yes (moderate) pain and stiffness Daytime sleepiness: Yes (mild) Fatigue: Yes (slight) Mood/Behavior Depression: Anxiety: Finally, the following table shows the patient's overall global physical and mental health using the PROMIS scale: PROMIS-10 Flowsheet Row Office Visit from 09/06/2024 in Neurology Global Physical Health T Score 54.1 Global Mental Health T Score 53.3 0-10 Standard Pain Scale 4 *PROMIS-10 scoring scale: mean = 50, over 50 is above average, under 50 is below average In addition, the following non-motor symptoms and palliative concerns were evaluated: Sleep/Fatigue: 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 No cognitive impairment. Hallucinations and Psychosis: 0 - Normal. No hallucinations or psychotic behavior. Depressed Mood: 0 - Normal. No depressed mood. Anxious Mood: 0 - Normal. N (more content not included)...[facility]04-11-2025 History of Present illness Narrative* Yandel Garcia MD - 09/07/2024 7:56 AM EDT Images from the original note were not included. [facility] - NEW PATIENT EVALUATION The patient consented to the use of [employer] software for draft documentation of the visit consistent with [facility] s Notice of Privacy Practices. Referring Provider: Suhas Stearns [address] [facility] [id number] Primary Care Provider: Pedro Wang MD [address] [facility] [address] Dear Suhas Stearns: Thank you for referring Ms. Barr to our clinic today. As you know she is a 73 year old right-handed female who is seen in consultation for evaluation of since . She is seen alone. Subjective HISTORY OF PRESENT ILLNESS: Radha is a 73-year-old female with a family history of Parkinson's disease, presenting for evaluation of tremors and other symptoms. Radha reports a tremor in her left hand, described as a shake, which occurs primarily when holding objects, such as a piece of paper, and is exacerbated by nervousness. She can usually stop the tremor voluntarily. The tremor has been present for at least five years,predating the COVID-19 pandemic, and is not present at rest or during activities such as eating or drinking. She does not endorse tremors in her right hand, legs, voice, or head. She is right-hand dominant. She notes a decrease in tobacco blender strength and dexterity, particularly in her right hand, affecting tasks such as stuffing envelopes. She also reports difficulty bending her fingers. Her handwriting has become smaller and messier, with frequent hand cramping. Radha describes a decline in balance and a slower walking pace compared to her previous baseline. She experiences left hip pain. She has a history of multiple spine surgeries. Despite these issues, she does not report falls and manages daily activities such as eating, dressing, and showering withoutsignificant difficulty, attributing any changes to normal aging. She reports poor sleep quality, waking up in terrible pain and stiffness, feeling as if she has rigor mortis. This stiffness affects both sides of her body equally and resolves with movement. Sheexperiences nightmares every few years, during which she screams but does not engage in physical actions like punching or kicking. Radha does not endorse changes in her voice, facial expressions, sense of smell, or memory. She doesnot report hallucinations, significant depression, or anxiety. She has a family history of Parkinson's disease, with her mother and one of her three brothers affected. Her brother, who also has hypertension, was diagnosed two years ago and experiences tremors. Her mother had a resting tremor, stooped posture, shuffling gait, and dementia. Movement Disorders Medications Schedule - as of the start of the visit: Medications Questionnaires In addition, the following areas that may be affected by abnormal involuntary movements were evaluated: Daily activities Difficulties with eatin (none) Difficulties in dressin (none) Difficulties with hygiene activities: 0 (none) Difficulties with handwriting: Yes (slight) Difficulties with doing hobbies and other activities: Yes (slight) Difficulties turning in bed: Yes (slight) Difficulties getting out of bed, car or chair: 0 (none) Tremors/Gait/Balance Shaking or tremors: Yes (slight) Walking and balance problems: 0 (none) slower. left hip problems Number of falls in the Last Month: 0 Gait freezin (none) Autonomic/Pain Lightheadeness on standin (none) Urinary problems: 0 (none) Constipation problems: Yes (moderate) Pain and other sensations: Yes (mild) Speech/Swallowing Speech problems: 0 (none) no change in voice or facial expression Drooling: Yes (mild) Chewing and swallowing problems: Yes (slight) Sleep/Fatigue Sleep problems: Yes (moderate) pain and stiffness Daytime sleepiness: Yes (mild) Fatigue: Yes (slight) Mood/Behavior Depression: Anxiety: Finally, the following table shows the patient's overall global physical and mental health using the PROMIS scale: PROMIS-10 Flowsheet Row Office Visit from 09/06/2024 in Neurology Global Physical Health T Score 54.1 Global Mental Health T Score 53.3 0-10 Standard Pain Scale 4 *PROMIS-10 scoring scale: mean = 50, over 50 is above average, under 50 is below average In addition, the following non-motor symptoms and palliative concerns were evaluated: Sleep/Fatigue: 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 No cognitive impairment. Hallucinations and Psychosis: 0 - Normal. No hallucinations or psychotic behavior. Depressed Mood: 0 - Normal. No depressed mood. Anxious Mood: 0 - Normal. No anxious feelings. Apathy: Impulse Control: MoCA Cognitive assessment: Palliative Concerns: Caregiver burden: Spiritual concerns: Advanced directives on file: Palliative services: Therapy and Exercise: Last PT Date: Last OT Date: Date: Exercises Regularly: Review of Systems Constitutional Positive for Night Sweats and Fatigue Negative for Fevers, Weight Gain and Weight Loss Eyes Negative for Change in vison not corrected by glasses and Vision loss or change Hent Positive for Hearing Loss and Tinnitus Negative for Difficulty Swallowing and Recent change in speech or voice Cardiovascular Negative for Chest Pain, Lightheadedness and Leg pain with walking Respiratory Negative for SOB at rest, SOB with exertion, Cough, Wheezing and Snoring GI Positive for Constipation Negative for Blood in Stool, Abdominal Pain, Diarrhea, Nausea/Vomiting and Heartburn Negative for Urgency and Incontinence Endocrine Positive for Heat Intolerance Negative for Excessive Thirst Musculoskeletal Negative for Back Pain, Joint Swelling, Stiff Joints and Muscle Pain Integumentary Negative for Rashes, Itching, Other Lesions and Hair Changes Heme/Lymph Negative for Prolonged Bleeding, Easy Bruising and Swelling of Arm or Leg Allergy/Immunologic Negative for Nasal Congestion and Swollen Nodes Neurologic Negative for Memory Problems, Headache, Numbness/Tingling, Weakness, Double Vision, Trouble Swallowing and Slurred Speech Psychiatric Positive for Stress or Conflicts Negative for Depression, Anxiety, Irritability, Hallucinations and Delusions Patient's Review of Systems has been reviewed with the patient and updated as appropriate. ALLERGIES Allergen Reactions Fentanyl Other: See Comments Cardiac arrest Narcotics [Opioids * Other: See Comments Very sensitive to narcotics. Current Outpatient Medications Medication Sig doxycycline (VIBRAMYCIN) 50 mg capsule Take 1 capsule by mouth once daily. losartan (COZAAR) 100 mg tablet Take 1 tablet by mouth every 12 hours. sennosides-docusate sodium (SENNA PLUS) 8.6-50 mg capsule Take 1 capsule by mouth once daily. aspirin 81 mg chewable tablet Take 81 mg by mouth once daily. atorvastatin (LIPITOR) 40 mg tablet Take by mouth once daily. pantoprazole DR (PROTONIX) 40 mg tablet Take 1 tablet by mouth twice daily before meals. Take on empty stomach, 1/2 hr before meal. (Patient taking differently: Take 40 mg by mouth once daily.) acetaminophen (TYLENOL 8 HOUR) 650 mg CR tablet Take 650 mg by mouth every 8 hours as needed. Cholecalciferol, Vitamin D3, 1,000 unit cap Take 1 capsule by mouth once daily. No current facility-administered medications for this visit. 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 has a past surgical history that includes past surgical history of (N/A, 2010); past surgical history of (N/A, 2009); past surgical history of (Left, 2004); past surgical history of (Right, 1997); past surgical history of (2006); past surgical history of (2007); angioplasty hx (12/20/2019); and esop hagogastroduodenoscopy transoral diagnostic (01/21/2020). Social History Tobacco Use Smoking status: Never Smokeless tobacco: Never Vaping Use Vaping status: Never Used Substance Use Topics Alcohol use: Yes Comment: Occasional wine Drug use: No Family History: family history includes Breast Cancer (age of onset: 70) in her sister; Cancer in her sister; Hypertension in her brother, father, and sister; Parkinson s Disease in her brother and mother. Objective Vital Signs: Wt 71.2 kg (156 lb 15.5 oz) SpO2 99% BMI 26.94 kg/m Orthostatic Vitals: Sitting: BP 177/81 Pulse 64 Standing: BP 178/96 Pulse 68 Weight: 71.2 kg (156 lb 15.5 oz) No LMP recorded. Patient is postmenopausal. Body mass index is 26.94 kg/m . Neurological Exam Mental Status Awake and alert. Language is fluent with no aphasia. Cranial Nerves CN III, IV, : Extraocular movements intact bilaterally. CN V: Facial sensation is normal. CN VII: Full and symmetric facial movement. CN VIII: Hearing is normal. CN XI: Shoulder shrug strength is normal. CN XII: Tongue midline without atrophy or fasciculations. Left appears smaller than right which she attributes to blepharoplasty not holding. Motor Right Left Shoulder abduction 5 5 Elbow flexion 5 5 Wrist extension 5 5 Hip flexion 5 5 Knee flexion 5 Dorsiflexion 5 5 Sensory Light touch is normal in upper and lower extremities. Reflexes Right Left Brachioradialis 3+ 3+ Biceps 3+ 3+ Triceps 2+ 2+ Patellar 2+ 2+ Achilles 1+ 1+ Right pathological reflexes: Xavier's present. Left pathological reflexes: Xavier's absent. Coordination Right: Kkrwap-vb-[id number] normal. Rapid alternating movement normal.Left: Ixbwon-hn-yqhj normal. Rapid alternating movement normal. Movement Disorders Scales Performed: MDS-UPDRS Motor subscale condition of exam Medication Off/On/Naiive Time of UPDRS Time of Last Medication Last Medication Taken DBS Right DBS Left MDS-UPDRS Motor subscale scores Speech 1-Slight. Loss of modulation, diction or volume, but still all words easy to understand. Facial Expression 1-Slight. Minimal masked facies manifested only by decreased frequency of blinking. Rigidity Neck 0-Normal. No rigidity. Rigidity Right Upper Extremity 0-Normal. No rigidity. Rigidity Left Upper Extremity 0-Normal. No rigidity. Rigidity Right Lower Extremity 0-Normal. No rigidity. Rigidity Left Lower Extremity 0-Normal. No rigidity. Finger Taps Right 0-Normal. No problems. ` Finger Taps Left 0-Normal. No problems. Hand Movements Right 0-Normal. No problem. Hand Movements Left 0-Normal. No problem. Arm Movements Right 0-Normal. No problems. Arm Movements Left 0-Normal. No problems. Toe Taps Right 0-Normal. No problem. Toe Taps Left 0-Normal. No problem. Leg Agility Right 1-Slight. a) the regular rhythm is broken with one or two interruptions or hesitations of the movement, b) slight slowing, c) the amplitude decrements near the end of the task. Leg Agility Left 0-Normal. No problems. Arise From Chair 0-Normal. No problems. Able to arise quickly without hesitation. Gait 1-Slight. Independent walking with minor gait impairment. (mild reduced arm swing bilaterally) Gait Freezing 0-Normal. No freezing. Posture Stability 0-Normal. No problems: recovers with one or two steps. (deferred) Posture 1-Slight. Not quite erect, but posture could be normal for older person. Body Bradykinesia 0-Normal. No problems. Postural Tremor Hand Right 0-Normal. No tremor. Postural Tremor Hand Left 1-Slight. Tremor is present but less than 1cm in amplitude. Kinetic Tremor Right 0-Normal. No tremor. Kinetic Tremor Left 1-Slight. Tremor is present but less than 1cm in amplitude. Rest Tremor Amplitude Right Upper Extremity 0-Normal. No tremor. Rest Tremor Amplitude Left Upper Extremity 0-Normal. No tremor. Rest Tremor Amplitude Right Lower Extremity 0-Normal. No tremor. Rest Tremor Amplitude Left Lower Extremity 0-Normal. No tremor. Rest Tremor Amplitude Lip/Jaw 0-Normal. No tremor. Rest Tremor Constancy 0-Normal. No tremor. MDS-UPDRS Motor subscale totals Left Total 2 Right Total 1 Midline Total 4 Tremor Total / 10 2 PIGD Total / 3 1 Overall Total 7 Change Better/Worse % Change Compared to Last Filed Total Assessment and Plan: Assessment Ms. Barr is a right-handed 73 year old year old female with left hand postural tremor for at least5 years. Referred by the brain study. She has been concerned about Parkinson's due to family history of it in mother and more recently one brother. She does not endorse hyposmia. She rarely screams while dreaming. There is no significant rigidity or bradykinesia on exam. There is mild left hand postural and action tremor and tremulous spiral with the right hand. There is no micrographia. She does not meet criteria for PD at this time. 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 - Educated on the sporadic nature of Parkinson's, with only 10-15% being genetic, and the role of environmental exposures. - Advised patient to continue regular exercise, including swimming, walking, and Rufus Chi, as it mayslow progression if Parkinson's is destined to develop. - No routine follow-up necessary, but available for re-evaluation if new symptoms arise. The following are the current problems noted and addressed during this visit: Examination of participant in clinical trial Tremor Dyskinesia Gait abnormality Plan 09/06/2024 Visit: - Continue your regular exercise routine, including swimming, walking, and Rufus Chi. - Monitor for any new symptoms or changes in your current symptoms. - Follow up in one year or sooner if you notice any new symptoms or changes. Patient's perception of importance for healthcare provider to let them know of research trials for which they may be eligible? Very Important Interested in clinical research? Not discussed Updated Movement Disorders Medication Schedule: Medications Level of service : 74508 (30-44 min). Time spent 31 min on the day of service, which included preparing to see the patient, [id number] patient care, completing clinical documentation, obtaining and/or reviewing separately obtained history, performing a medically appropriate examination, and counseling and educating the patient/family/caregiver. Thank you for allowing me to be part of the clinical care of this patient! I look forward to continued participation in the patient s care with you. Please do not hesitate to call with any questions. Sincerely, Yandel Garcia MD documented in this encounter[facility]01-24-[facility]25 Evaluation note* Diagnosis Onset Date Resolution Status Admit Date Health care maintenance acute J anuary 2024 8:50am Essential hypertension chronic Ja nuary 2024 8:50am GERD (gastroesophageal reflu x disease) chronic June 22 8:50am Tremor chronic June 22, 2024 8:50am Fatigue acute August 03 9:19am Left arm pain acute August 03, 2024 9:19am Atherosclerosis of coronary artery of [place] heart without angina pectoris chronic July 9:19am Essential hypertension chronic [facility] 2024 9:19am History of coronary artery stent placement December 20, 2019 chronic August 03, 2024 9:19am Left bundle branch block (LBBB) chronic August 03, 2024 9:19am [facility] Work Phone: 1(762) 433-462601-24-2025 Evaluation note* Diagnosis Onset Date Resolution Status Admit Date Health care maintenance acute J anuary 2024 8:50am Essential hypertension chronic Ja nuary 2024 8:50am GERD (gastroesophageal reflu x disease) chronic June 22 8:50am Tremor chronic June 22, 2024 8:50am Fatigue acute August 03 9:19am Left arm pain acute August 03, 2024 9:19am Atherosclerosis of coronary artery of [place] heart without angina pectoris chronic July 9:19am Essential hypertension chronic [facility] 2024 9:19am History of coronary artery stent placement December 20, 2019 chronic August 03, 2024 9:19am Left bundle branch block (LBBB) chronic August 03, 2024 9:19am Eustachian tube dysfunction acute September 07, 2024 11:17am [facility] Work Phone: 1(373) 528-936301-23-2025 Telephone encounter Note* Telephone Encounter - Suhas Stearns APRN.CNP - 06/21/2024 8:54 AM EST IRB 21-834. [facility] Study ([facility]BS) Child Support Investigator: Mar Chavez MD, , Alberto Ralph MD, Maintenance Advisor: Letty Garcia and Email: Contacted Radah Barr by phone on 06/21/2024 at 08:47 (returning phone call from 06/19/[phone] with answer to question) to discuss the [facility] Brain Study ([facility]BS): Biomarkers and Predictors of Neurological Disorders IRB 21- 834. Patient was contacted by Suhas Stearns APRN.CNP to provide the patient with answer to question. Participant was given contact information if they have any further question. Phone number [phone] option 2. Suhas Stearns APRN.CNP [facility] Work Phone: [phone] Miscellaneous Notes* Telephone Encounter - Suhas Stearns APRN.CNP - 06/21/2024 8:54 AM EST IRB 21-834. [facility] Brain Study (BS) Child Support Investigator: Mar Chavez MD, , Alberto Ralph MD, Maintenance Advisor: Letty Garcia and Email:[email or web address] Contacted Radha Barr by phone on 06/21/2024 at 08:47 (returning phone call from 06/19/[phone] with answer to question) to discuss the [facility] Brain Study (BS): Biomarkers and Predictors of Neurological Disorders IRB 21- 834. Patient was contacted by Suhas Stearns APRN.CNP to provide the patient with answer to question. Participant was given contact information if they have any further question. Phone number [phone] option 2. Suhas Stearns APRN.CNP documented in this encounterKindred Healthcare01-15-2025 Telephone encounter Note * Telephone Encounter - Suhas Stearns APRN.CNP - 06/13/2024 9:26 AM EST IRB 21-834. [facility] Brain Study (BS) Child Support Investigator: Mar Chavez MD, , Alberto Ralph MD, Maintenance Advisor: Letty Garcia and Email: Contacted Radha Barr by phone on 06/13/2024 at 09:18 to return message and discuss the [facility] Brain Study (BS): Biomarkers and Predictors of Neurological Disorders IRB 21-834. Patient was contacted by Suhas Stearns APRN.CNP to return phone call. Participant was given contact information if they have any further question. Phone number [phone] option 2. Suhas Stearns APRN.CNP [facility]01-15-2025 Miscellaneous Notes* Telephone Encounter - Suhas Stearns APRN.CNP - 06/13/2024 9:26 AM EST IRB 21-834. [facility] Brain Study (BS) Child Support Investigator: Mar Chavez MD, , Alberto Ralph MD, Maintenance Advisor: Letty Garcia and Email:[email or web address] Contacted Radha Barr by phone on 06/13/2024 at 09:18 to return message and discuss the [facility] Brain Study (CCBS): Biomarkers and Predictors of Neurological Disorders IRB 21-834. Patient was contacted by Suhas Stearns APRN.CNP to return phone call. Participant was given contact information if they have any further question. Phone number [phone] option 2. Suhas Stearns APRN.CNP documented in this encounterKindred Healthcare01-14-2025 Telephone encounter Note * Telephone Encounter - Suhas Stearns APRN.CNP - 06/12/2024 2:41 PM EST IRB 21-834. [facility] Brain Study (CCBS) Child Support Investigator: Mar Chavez MD, , Alberto Ralph MD, Maintenance Advisor: Letty Garcia and Email:[email or web address] Contacted Radha Barr by phone on 06/12/2024 at 14:37 to discuss the [facility] Brain Study (CCBS): Biomarkers and Predictors of Neurological Disorders IRB 21-834. Patient was contacted by Suhas Stearns APRN.CNP to provide the patient with test results. Participant was given contact information if they have any further question. Phone number [phone] option 2. Suhas Stearns APRN.CNP [facility] Work Phone: 1([phone]) 878-621501-14-2025 Miscellaneous Notes* Telephone Encounter - Suhas Stearns APRN.CNP - 06/12/2024 2:41 PM EST IRB 21-834. [facility] Brain Study (BS) Child Support Investigator: Mar Chavez MD, , Alberto Ralph MD, Maintenance Advisor: Letty Garcia and Email:[email or web address] Contacted Radha Barr by phone on 06/12/2024 at 14:37 to discuss the [facility] Brain Study (CCBS): Biomarkers and Predictors of Neurological Disorders IRB 21-834. Patient was contacted by Suhas Stearns APRN.CNP to provide the patient with test results. Participant was given contact information if they have any further question. Phone number [phone] option 2. Suhas Stearns APRN.CNP documented in this encounterKindred Healthcare01-14-2025 Telephone encounter Note * Telephone Encounter - Suhas Stearns APRN.CNP - 06/12/2024 2:35 PM EST IRB 21-834. [facility] Brain Study ([facility]BS) Child Support Investigator: Mar Chavez MD, , Alberto Ralph MD, Maintenance Advisor: Letty Garcia and Email: Contacted Radha Barr by phone on 06/12/2024 at 14:32 to discuss the [facility] Brain Study (CCBS): Biomarkers and Predictors of Neurological Disorders IRB 21-834. Patient was contacted by Suhas Stearns APRN.CNP to provide the patient with test results. Participant was given contact information if they have any further question. Phone number [phone] option 2. Suhas Stearns APRN.CNP [facility] Work Phone: [phone]) 752-844601-14-2025 Miscellaneous Notes* Telephone Encounter - Suhas Stearns APRN.CNP - 06/12/2024 2:35 PM EST IRB 21-834. [facility] Brain Study ([facility] [place]) Child Support Investigator: Mar Chavez MD, , Alberto Ralph MD, Maintenance Advisor: Letty Garcia and Email:[email or web address] Contacted Radha Barr by phone on 06/12/2024 at 14:32 to discuss the [facility] Brain Study ([facility] [place]): Biomarkers and Predictors of Neurological Disorders IRB 21-834. Patient was contacted by Suhas Stearns APRN.CNP to provide the patient with test results. Participant was given contact information if they have any further question. Phone number [phone] option 2. Suhas Stearns APRN.MARCIAL documented in this encounterKindred Healthcare10-08-2024 NoteHNO ID: [id number] Author: SOHA CROWELL, Research Coordinator Service: ? Author Type: Research Type: Progress Notes Filed: 03/06/2024 16:03 Note Text: DATE:March 06, 2024 PT. NAME: Radha Barr [facility]#: [id number] IRB #: [id number] A. PROTOCOL: [facility] Brain Study Child Support Investigator: Mar Chavez MD, , Alberto Ralph MD, [facility] labor relations or personnel negotiator for study related questions: Letty Garcia Subject continues to give consent for participation and for procedures related to study YES. Were there changes made to the informed consent since the last visit? N. If yes, were changes reviewed and explained to subject? N Was a new copy of the informed consent signed, placed in the chart, placed in the study file and was a copy given to the patient? N Patient Identification was verified by asking the patient's Name and Date Of : YES Time: 12:45 Blood drawn with vacutainer and labs drawn per protocol. Butterfly removed after blood draw and secured with sterile gauze. Patient tolerated procedure well. Soha Crowell [facility] History of Present illness Narrative* Soha Crowell Research Coordinator - 03/06/2024 4:03 PM EDT DATE:March 06, 2024 PT. NAME: Radha Barr [facility]#: [id number] IRB #: [id number] A. PROTOCOL: [facility] Brain Study Child Support Investigator: Mar Chavez MD, , Alberto Ralph MD, [facility] labor relations or personnel negotiator for study related questions: Letty Garcia Subject continues to give consent for participation and for procedures related to study YES. Were there changes made to the informed consent since the last visit? N. If yes, were changes reviewed and explained to subject? N Was a new copy of the informed consent signed, placed in the chart, placed in the study file and was a copy given to the patient? N Patient Identification was verified by asking the patient's Name and Date Of : YES Time: 12:45 Blood drawn with vacutainer and labs drawn per protocol. Butterfly removed after blood draw and secured with sterile gauze. Patient tolerated procedure well. Soha Crowell Research Coordinator documented in this encounterKindred Healthcare10-08-2024 History of Present illness Narrative* Suhas Stearns APRN.[facility] - 03/06/2024 11:00 AM EDT DATE: March 06, 2024 PT. NAME: Radha Barr [facility]#: [id number] IRB #: [id number] A. PROTOCOL: [facility] Brain Study Child Support Investigator: Mar Chavez MD, , Alberto Ralph MD, [facility] labor relations or personnel negotiator for study related questions: Letty Garcia Is today the participant's first study visit? Yes Were there changes made to the informed consent since the last visit? Yes If yes, were changes reviewed and explained to subject? Yes Was a new copy of the informed consent signed, placed in the chart, placed in the study file and was a copy given to the patient? Yes Patient Identification was verified by asking the patients Name and Date Of : YES Subject continues to give consent for participation and for procedures related to study YES. Time: [id number] EKG/ECG was performed on patient. Patient tolerated procedure well. BP: 150/77 BP Site: right arm BP Position: sitting Cuff size: regular Pulse: 105 Resp: 18 SPO2: 98% Weight: 156.6 pounds Height: 5' 4 Result of Physical Exam Body System Eyes: Normal ,corrective lenses Ears, Nose, Mouth and Throat: Normal Cardiovascular: Normal ,Sinus Bradycardia, HR 55 BPM, LBBB-asyptomatic, similar to prior ECG Respiratory: Normal Musculoskeletal: Normal Integumentary: Normal ,Pinkish tape tong BUE forearms-denies pain. Negative warmth, edema. Encouraged to keep clean, apply antibiotic ointment to site. Encourage to go to ED if develop signs of infection (fever, malaise, increased redness, warmth, swelling). Handedness: Right hand Results of Mental Status [...] 5 Shoulder abduction: Right 5 Left 5 Shoulder adduction: Right 5 Left 5 Elbow flexion: Right 5 Left 5 Elbow extension: Right 5 Left 5 Wrist flexion: Right 5 Left 5 Wrist extension: Right 5 Left 5 Finger flexion/tobacco blender: Right 5 Left 5 Flexor pollicis longus: [...] Left 5 Reflexes - MRC Grading Method Triceps: Right 2+ Left 2+ Biceps: Right 2+ Left 2+ Brachioradialis: Right 2+ Left 2+ Patellar: Right 0 Left 2+ Achilles: Right 2+ Left 2+ Plantar: Right Downgoing Left Downgoing Weakness?: No Tremor: Yes Type of Tremor: Postural, Rest and Intention Tremor location: upper extremity Tremor Laterality: Both How long has the tremor been present? 1 year(s) Tremor diagnosis given? No Family history of tremor? Yes (Brother Zane benign tremor before PD diagnosis; Sister Li secondaryto medications) Tremor responds to alcohol? No REM sleep behavior disorder? No Change in smell? No Constipation? Yes (Chronic constipation) Tremor Additional Details: Positive caffeinated beverage this am and handwriting changes (smaller and illegible). Negative hazardous materials exposure. Cerebellar/Coordination Assessment Vtcxwg-em-Nkum: Abnormality present: No, Eozz-lb-Pkqj: Abnormality present: No, Finger Tapping - Abnormality present: Yes - Extremity: LUE Comments: dysrrhythmokinesia Fist Open/Close - Abnormality present: No Pronation/Supination of the Hand - Abnormality present: Yes - Extremity: LUE Comments: 1 pause Toe Tapping - Abnormality present: No Heel Tapping - Abnormality present: Yes - Extremity: RLE Comments: dysrrhythmokinesia - Extremity: LLE Comments: dysrrhythmokinesia Gait Gait-global assessment: Abnormal (Reduced BUE swing) Toe Walk: Normal Heel Walk: Normal Tandem Walk: Abnormal (Slight difficulty maintaining balance during walk) Romberg: Negative (pass) Sensory/Sensation Sensory System-globlal assessment: Normal Suhas Stearns APRN.SUBSTANCE ABUSE COUNSELOR documented in this encounterKindred Healthcare10-08-2024 NoteHNO ID: [id number] Author: SUHAS STEARNS APRN.MARCIAL Service: ? Author Type: Nurse Practitioner Type: Progress Notes Filed: 03/06/2024 20:47 Note Text: DATE: March 06, 2024 PT. NAME: Radha Barr [facility]#: [id number] IRB #: [id number]. PROTOCOL: [facility] Child Support Investigator: Mar Chavez MD, , Alberto Ralph MD, [facility] labor relations or personnel negotiator for study related questions: Letty Garcia Is today the participant's first study visit? Yes Were there changes made to the informed consent since the last visit? Yes If yes, were changes reviewed and explained to subject? Yes Was a new copy of the informed consent signed, placed in the chart, placed in the study file and was a copy given to the patient? Yes Patient Identification was verified by asking the patients Name and Date Of : YES Subject continues to give consent for participation and for procedures related to study YES. Time: [id number] EKG/ECG was performed on patient. Patient tolerated procedure well. BP: 150/77 BP Site: right arm BP Position: sitting Cuff size: regular Pulse: 105 Resp: 18 SPO2: 98% Weight: 156.6 pounds Height: 5' 4 Result of Physical Exam Body System Eyes: Normal ,corrective lenses Ears, Nose, Mouth and Throat: Normal Cardiovascular: Normal ,Sinus Bradycardia, HR 55 BPM, LBBB-asyptomatic, similar to prior ECG Respiratory: Normal Musculoskeletal: Normal Integumentary: Normal ,Pinkish tape tong BUE forearms-denies pain. Negative warmth, edema. Encouraged to keep clean, apply antibiotic ointment to site. Encourage to go to ED if develop signs of infection (fever, malaise, increased redness, warmth, swelling). Handedness: Right hand Results of Mental Status [...] 5 Shoulder abduction: Right 5 Left 5 Shoulder adduction: Right 5 Left 5 Elbow flexion: Right 5 Left 5 Elbow extension: Right 5 Left 5 Wrist flexion: Right 5 Left 5 Wrist extension: Right 5 Left 5 Finger flexion/tobacco blender: Right 5 Left 5 Flexor pollicis longus: [...] Left 5 Reflexes - MRC Grading Method Triceps: Right 2+ Left 2+ Biceps: Right 2+ Left 2+ Brachioradialis: Right 2+ Left 2+ Patellar: Right 0 Left 2+ Achilles: Right 2+ Left 2+ Plantar: Right Downgoing Left Downgoing Weakness?: No Tremor: Yes Type of Tremor: Postural, Rest and Intention Tremor location: upper extremity Tremor Laterality: Both How long has the tremor been present? 1 year(s) Tremor diagnosis given? No Family history of tremor? Yes (Brother Zane benign tremor before PD diagnosis; Sister Li secondary to medications) Tremor responds to alcohol? No REM sleep behavior disorder? No Change in smell? No Constipation? Yes (Chronic constipation) Tremor Additional Details: Positive caffeinated beverage this am and handwriting changes (smaller and illegible). Negative hazardous materials exposure. Cerebellar/Coordination Assessment Ybfpqb-vp-Nijt: Abnormality present: No, Qljq-lj-Gnpj: Abnormality present: No, Finger Tapping - Abnormality present: Yes - Extremity: LUE Comments: dysrrhythmokinesia Fist Open/Close - Abnormality present: No Pronation/Supination of the Hand - Abnormality present: Yes - Extremity: LUE Comments: 1 pause Toe Tapping - Abnormality present: No Heel Tapping - Abnormality present: Yes - Extremity: RLE Comments: dysrrhythmokinesia - Extremity: LLE Comments: dysrrhythmokinesia Gait Gait-global assessment: Ab (more content not included)...[facility]08-29-2024 Telephone encounter Note* Telephone Encounter - Seb Du Research Coordinator - 01/26/2024 12:07 PM EDT IRB [id number]. [facility] ([facility]) Child Support Investigator: Mar Chavez MD, , Alberto Ralph MD, Maintenance Advisor: Letty Garcia and Email:[email or web address] Left voicemail message to speak with Radha Barr regarding the [facility] ([facility]). Provided phone number, , to contact us to further discuss participation in the study. Seb Du Research Coordinator [facility]08-29-2024 Miscellaneous Notes* Telephone Encounter - Seb Du Research Coordinator - 01/26/2024 12:07 PM EDT IRB [id number]. [facility] ([facility]) Child Support Investigator: Mar Chavez MD, , Alberto Ralph MD, Maintenance Advisor: Letty Garcia and Email:[email or web address] Left voicemail message to speak with Radha Barr regarding the [facility] ([facility]). Provided phone number, , to contact us to further discuss participation in the study. Seb Du, Research Coordinator documented in this encounterKindred Healthcare06-24-2024 Hospital Discharge instructions Patient Education 11/20/2023 22:03:43 Foot Contusion Foot Contusion You have a contusion. This is also called a bruise. There is swelling and some bleeding under the skin, but no broken bones. This injury generally takes a few days to a few weeks to heal. During thattime, the bruise will typically change in color from reddish, to purple-blue, to greenish-yellow, then to yellow-brown. Home care Elevate the foot to reduce pain and swelling. As much as possible, sit or lie down with the foot raised about the level of your heart. This is especially important during the first 48 hours. Ice the foot to help reduce pain and swelling. Wrap a cold source (ice pack or ice cubes in a plastic bag) in a thin towel. Apply to the bruised area for 20 minutes every 1 to 2 hours the first day. Continue this 3 to 4 times a day until the pain and swelling goes away. Unless another medicine was prescribed, you can take acetaminophen, ibuprofen, or naproxen to control pain. (If you have chronic liver or kidney disease or ever had a stomach ulcer or gastrointestinal bleeding, talk with your healthcare provider before using these medicines.) Follow up Follow up with your healthcare provider or our staff as advised. Call if you are not improving within 1 to 2 weeks. When to seek medical advice Call your healthcare provider right away if you have any of the following: Increased pain or swelling Foot or leg becomes cold, blue, numb or tingly Signs of infection: Warmth, drainage, or increased redness or pain around the bruise Inability to move the injured foot Frequent bruising for unknown reasons [id number] [employer]. [address] [place] [address], [place] [address]. All rights reserved. This information is not intended as a substitute for professional medical care. Always follow yourhealthcare professional's instructions. Follow Up Care 11/20/2023 20:51:27 With:RACHEL LYNN DPM, Surgery Address: [address] [place] [address], [address] [facility] [place] [address]- When:2-4 days With:ELHAM MUÑOZ DO Address: [facility] [address] [place], [place] [id number]- [phone] When:2-4 days [facility] 06-23-2024 Note Discharge Instructions Thank you for allowing [facility] to assist you with your healthcare needs. The following is importantdischarge information regarding your hospital visit. Diagnosis from Today's Visit Contusion of left foot What to Do Next Instructions from Your Care Team No qualifying data available. Post Acute Orders No qualifying data available. You Need to Schedule the Following Appointments Follow Up with RACHEL LYNN DPM, Surgery When:Within 2-4 days Where:[address], [address] [facility] [place], [place] [id number]- Follow Up with ELHAM MUÑOZ DO When:Within 2-4 days Where:[facility] [address] [phone]- [phone] Allergies fentanyl (Moderate) CHEST PAIN, COLD CLAMMY Tape rash Education Materials Foot Contusion You have a contusion. This is also called a bruise. There is swelling and some bleeding under the skin, but no broken bones. This injury generally takes a few days to a few weeks to heal. During thattime, the bruise will typically change in color from reddish, to purple-blue, to greenish-yellow, then to yellow-brown. Home care Elevate the foot to reduce pain and swelling. As much as possible, sit or lie down with the foot raised about the level of your heart. This is especially important during the first 48 hours. Ice the foot to help reduce pain and swelling. Wrap a cold source (ice pack or ice cubes in a plastic bag) in a thin towel. Apply to the bruised area for 20 minutes every 1 to 2 hours the first day. Continue this 3 to 4 times a day until the pain and swelling goes away. Unless another medicine was prescribed, you can take acetaminophen, ibuprofen, or naproxen to control pain. (If you have chronic liver or kidney disease or ever had a stomach ulcer or gastrointestinal bleeding, talk with your healthcare provider before using these medicines.) Follow up Follow up with your healthcare provider or our staff as advised. Call if you are not improving within 1 to 2 weeks. When to seek medical advice Call your healthcare provider right away if you have any of the following: Increased pain or swelling Foot or leg becomes cold, blue, numb or tingly Signs of infection: Warmth, drainage, or increased redness or pain around the bruise Inability to move the injured foot Frequent bruising for unknown reasons [id number] [employer]. [address] [place] [address]. All rights reserved. This information is not intended as a substitute for professional medical care. Always follow yourhealthcare professional's instructions. Additional Information VACCINATE! IT SAVES LIVES! Members of the community who have not yet received the COVID-19 vaccine and would like to receive it can visit one of [facility] vaccine clinics. There are many vaccine clinic locations within the [facility]. For locations and available times, please visit [email or web address] It is important to note that some COVID mobile vaccine clinics are held outdoors and may be canceled in rainy or stormy conditions. To learn more about pediatric vaccinations (ages 5-11), we invite you to visit the [facility] webpage. [email or web address]/pages/[email or web address]-Wnrij-Vwrmnaklauh-Ibcjkajvny-Rfwnh-Hge stions.htmlTo learn more about the COVID-19 vaccine, we invite you to visit the CDC website for a list of frequently asked questions. https://www.cdc.gov/coronavirus/2019-ncov/vaccines/faq.html [facility] Access Instructions: Stay connected with your healthcare team and access your personal medical information anytime with the [facility] Patient Portal. If you would like a full copy of your medical records please contact the [facility] Medical Records Department Tuesday through Tuesday between 8a.m. and 4:30p.m. Please follow the directions below to access the portal: 1.Access the email account you provided upon registration to the [facility].2.Look for an invitation email from [facility].3.Open the email and access the invitation link: Accept Invitation to [facility].Fill in the required kyle to create your account. Sign into www.[employer] with your username and password that you [...] you will allow to register on the [facility] Patient Portal for access to your information. You can also access the [facility] Patient Portal on the [employer]. Simply click on Health Records under [employer] and then click on the [employer] logo. HOW TO SAFELY DISPOSE OF PRESCRIPTION MEDICATIONS Please use one of the following methods to safely dispose of your unused medications. 1.Use a drug disposal kit: the drug disposal pouch allows you to safely discard your old and unuseddrugs. Ask your nurse to give you one when you are discharged.2.Visit a local take-back location: Many local pharmacies and police departments have programs that collect old and unwanted prescriptiondrugs. Call your local pharmacy or go to http://[employer].Fiz/6X2Gs9y to find one close to you.3.Make use of household items: Use cat litter or old coffee grounds to dispose medications if other options arenot available. Mix your drugs with these household products, seal them in an airtight container andthrow it into the garbage. Call [facility]: [phone] to be sure your drugs can be [...] drowsiness, such as benzodiazepines, also known as benzos,including diazepam and alprazolam, muscle relaxants or sleep aids. Never sell or share prescriptionopioids. This is illegal. Store opioids in a secure place and out of reach of others (including children, family, friends and visitors). The last page(s) of this document has been signed and retained as a CHART COPY Signatures Patient Education Materials Foot Contusion Medication Leaflets My discharge plan and instructions have been reviewed and explained to me and I,RADHA BARR M understand my current condition and have read and understand these discharge instructions. I have received a written copy of the plan/instructions. If I have questions, I am aware that I should contact my d octor. Patient/[employer] Signature: Date/Time: Relationship to Patient: Witness Name/Signature: Date/Time: [facility]06-23-2024 Note ORIGINAL EXAMINATION: THREE XRAY VIEWS OF THE LEFT FOOT 11/20/2023 9:34 pm COMPARISON: None. HISTORY: ORDERING SYSTEM PROVIDED HISTORY: Reason for Exam: pain TECHNIQUE: AP, lateral, and oblique views. FINDINGS: There is no gross radiopaque foreign body. Joint spaces and articular surfaces are preserved and in gross anatomic alignment. There is no acute cortical discontinuity. IMPRESSION: 1. There is no acute fracture or dislocation. Interpreted by: Wilder Tate Preliminary Report By: Wilder Tate Electronically signed By Wilder Tate Dictated Date: 11/20/2023 9:40:07 PM Prelim Date: 11/20/2023 9:45:25 PM Sign Date: 11/20/2023 9:45:25 PM Ordering Provider: [facility]08-25-2023 History of Present illness Narrative* Letitia Aguillon PA-C - 01/21/2023 10:30 AM EDT Vital Signs: BP: 152/86 BP Site: BP [...] Wrist extension: Right 5 Left 5 Finger flexion/tobacco blender: Right 5 Left 5 Flexor pollicis longus: [...] Yes Type of Tremor: Intention Cerebellar/Coordination Assessment Jyxyie-qw-Bbrp: Abnormality present: No, Vzuk-wq-Xoyi: Abnormality present: No, Finger Tapping - Abnormality [...] gait disturbance, loss of smell, acting out dreams.Brother with hx of Parkinson's. Bradykinesia iPad 2 DATE:January 21, 2023 PT. NAME: Radha Barr [facility]#: [id number] IRB #: [id number] A. PROTOCOL: [facility] Child Support Investigator: Mar Chavez MD, , Alberto Ralph MD, [facility] labor relations or personnel negotiator for study related questions: Letty Garcia Subject [...] on patient. Patient tolerated procedure well. Letitia Aguillon PA-C documented in this encounterKindred Healthcare08-25-2023 History of Present illness Narrative* Soha Crowell, Research Coordinator - 01/21/2023 9:45 AM EDT DATE:January 21, 2023 PT. NAME: Radha Barr [facility]#: [id number] IRB #: [id number] A. PROTOCOL: [facility] Child Support Investigator: Mar Chavez MD, , Alberto Ralph MD, [facility] labor relations or personnel negotiator for study related questions: Letty Garcia Subject [...] with sterile gauze. Patient tolerated procedure well. Soha Crowell, Research Coordinator documented in this encounterKindred Healthcare08-15-2023 Miscellaneous Notes* Telephone Encounter - Hannha Cruz - 01/11/2023 1:58 PM EDT IRB [id number]. [facility] ([facility]) Child Support Investigator: Mar Chavez MD, , Alberto Ralph MD, Maintenance Advisor: Letty Garcia and Email:[email or web address] Research Coordinator called and contacted Radha Barr on January 11, 2023 to reminded patient of appointment with the [facility] StudyHannah also let pt. Know about the option toDocuSign the constant form or Sign in person. Research Coordinator gave patient Contact informationfor if the patient had any questions about the study and or their appointment. documented in this encounterKindred Healthcare07-18-2023 Miscellaneous Notes* Telephone Encounter - Hannah Cruz - 12/14/2022 2:16 PM EDT IRB [id number]. [facility] ([facility]) Child Support Investigator: Mar Chavez MD, , Alec Jeronimo, PhD, , Alberto Ralph MD, Maintenance Advisor: Letty Garcia and Email:[email or web address] Spoke with Radha Barr to follow up about continued interest and participation in the [facility] ([facility]): Biomarkers and Predictors of Neurological Disorders IRB [id number]. Hannah Cruz scheduled Radha Barr for study visit on 01/21/23 at 1030am. Hannah Cruz documented in this encounterKindred Healthcare11-14-2022 History of Present illness Narrative* Seb Du Research Coordinator - 04/12/2022 9:35 AM EST DATE:April 12, 2022 PT. NAME: Radha Barr [facility]#: [id number] IRB #: [id number]. PROTOCOL: [facility] Child Support Investigator: Mar Cahvez MD, , Alec Jeronimo, PhD, , Alberto Ralph MD, [facility] labor relations or personnel negotiator for study related questions: Yamilet Steele Subject [...] MRI Questionnaire was completed by patient via [employer] on 04/10/2022 at 5:43 PM PST. Seb Du Research Coordinator documented in this encounterKindred Healthcare11-07-2022 Miscellaneous Notes* Telephone Encounter - Seb Du Research Coordinator - 04/05/2022 12:17 PM EST IRB [id number]. [facility] ([facility]) Child Support Investigator: Mar Chavez MD, , Alec Jeronimo, PhD, , Alberto Ralph MD, Maintenance Advisor: Yamilet Steele and Email:[email or web address] Research Coordinator called and contacted Radha Barr on April 05, 2022 to reminded patient of appointment with the [facility], Seb Du Research Coordinator also let pt. Know about the option to DocuSign the constant form or Sign in person. Research Coordinator gave patient Contact information for if the patient had any questions about the study and or their appointment. documented in this encounterKindred Healthcare10-25-2022 Miscellaneous Notes* Telephone Encounter - Letty Echevarria Research Coordinator - 03/23/2022 11:05 AM EDT IRB [id number]. [facility] ([facility]) Child Support Investigator: Mar Chavez MD, , Alec Jeronimo, PhD, , Alberto Ralph MD, Maintenance Advisor: Yamilet Steele and Email:[email or web address] Spoke with Radha Barr to follow up about the [facility] ([facility]): Biomarkers and Predictors of Neurological Disorders IRB [id number]. Letty Echevarria Research Coordinator scheduled Linda Barr for make-up MRI on 04/18/22 at 330pm. Letty Echevarria Research Coordinator documented in this encounterKindred Healthcare08-24-2022 History of Present illness Narrative* Soha Crowell Research Coordinator - 01/20/2022 11:19 AM EDT DATE:January 20, 2022 PT. NAME: Radha Barr [facility]#: [id number] IRB #: [id number] A. PROTOCOL: [facility] Child Support Investigator: Mar Chavez MD, , Alec Jeronimo, PhD, , Alberto Ralph MD, [facility] labor relations or personnel negotiator for study related questions: Letty Garcia Subject [...] labs drawn per protocol. Butterfly removed after blooddraw and secured with sterile gauze. Patient tolerated procedure well. Soha Crowell, Research Coordinator * Soha Crowell Research Coordinator - 01/20/2022 11:18 AM EDT DATE:January 20, 2022 PT. NAME: Radha Barr [facility]#: [id number] IRB #: [id number] A. PROTOCOL: [facility] Child Support Investigator: Mar Chavez MD, , Alec Jeronimo, PhD, , Alberto Ralph MD, [facility] labor relations or personnel negotiator for study related questions: Yamilet Steele Subject [...] performed on patient. Patient tolerated procedure well. Soha Crowell, Research Coordinator documented in this encounterKindred Healthcare08-24-2022 History of Present illness Narrative* Suhas Stearns APRN.SUBSTANCE ABUSE COUNSELOR - 01/20/2022 8:00 AM EDT Result of Physical Exam Body System Eyes: [...] Wrist extension: Right 5 Left 5 Finger flexion/tobacco blender: Right 5 Left 5 Flexor pollicis longus: [...] Downgoing Weakness?: NO Tremor?: No Cerebellar/Coordination Assessment Mfyghp-fi-Uhra: Abnormality present: No, Rapid Alternating Movements: Abnormality present: No, Qzyc-tc-Gdhk: Abnormality present: No, Gait Gait-global assessment: Normal Sensory/Sensation Sensory System-globlal assessment: Abnormal Symmetry of Abnormality: Symmetric Patient description of abnormal symptoms: Vibration: No vibration felt until slightly superior to knee - bilaterally; Temperature: bilateral toes and feet: cold instrument felt warm. Feet and legs felt cold to touch. Legs were mottled. Sensory modalities affected (select all that apply): Vibration and Pain and temperature Suhas Stearns APRN.SUBSTANCE ABUSE COUNSELOR documented in this encounterKindred Healthcare08-15-2022 Miscellaneous Notes* Telephone Encounter - Letty Echevarria, Research Coordinator - 01/11/2022 10:20 AM EDT IRB [id number]. [facility] ([facility]) Child Support Investigator: Mar Chavez MD, , Alec Jeronimo, PhD, , Alberto Ralph MD, Maintenance Advisor: Yamilet Steele and Email:[email or web address] Research Coordinator called and contacted Radha Barr on January 11, 2022 to reminded patient of appointment with the [facility], Letty Echevarria, Research Coordinator also let pt. Know about the option to DocuSign the constant form or Sign in person. Research Coordinator gave patient Contact information for if the patient had any questions about the study and or their appointment. documented in this encounterKindred Healthcare06-29-2022 Hospital Discharge instructions Patient Education 11/25/2021 20:51:53 Head Injury [...] area for up to 20 minutes at atime. Do this as often as directed. Use [...] the ears or bruising around the eyes [id number] [employer]. [address] [place] [address]. All rights reserved. This information is not intended as a substitute for professional medical care. Always follow yourhealthcare professional's instructions. 11/25/2021 20:51:41 Laceration, Face: Skin [...] peels off on its own within 5 to10 days. Home care Your healthcare provider may prescribe an antibiotic. This is to help prevent infection. Follow allinstructions for taking this medicine. Take the medicine every day until it is gone or you are toldto stop. You should not have any left [...] by your healthcare provider Wound edges reopen [id number] [employer]. [address] [place] [address], [place] [address]. All rights reserved. This information is not intended as a substitute for professional medical care. Always follow yourhealthcare professional's instructions. 11/25/2021 20:51:26 Lower Extremity Contusion Lower Extremity Contusion You have a contusion (bruise) of a lower extremity (leg, knee, ankle, foot, or toe). Symptoms include pain, swelling, and skin discoloration. No bones are broken. This injury may take from a few daysto a few weeks to heal. During that time, the bruise may change from reddish in color, to purple-blue, to green- yellow, to yellow-brown. Home care Unless another medicine was prescribed, you can take acetaminophen, ibuprofen, or naproxen to control pain. (If you have chronic liver or kidney disease or ever had a stomach ulcer or gastrointestinal bleeding, talk with your doctor before using these medicines.) Elevate the injured area to reduce pain and swelling. As much as possible, sit or lie down with theinjured area raised about the level of your heart. This is especially important during the first 48hours. Ice the injured area to help reduce pain and swelling. Wrap a cold source (ice pack or ice cubes maria a plastic bag) in a thin towel. [...] full weight and impact on the injured legwithout pain. Follow up Follow up with your [...] injured area. Frequent bruising for unknown reasons [id number] [employer]. [address] [place] [address]. All rights reserved. This information is not intended as a substitute for professional medical care. Always follow yourhealthcare professional's instructions. Follow Up Care 11/25/2021 19:17:50 With:ELHAM MUÑOZ DO Address: [facility] [address] [place] [address] [place] [address] [phone] When:3-5 days [facility] 06-29-2022 Emergency department Discharge summary Discharge Instructions Thank you for allowing [facility] to assist you with your healthcare needs. The following is importantdischarge information regarding your hospital visit. Diagnosis from Today's Visit Contusion, knee mechanical Fall-left rib pain What to Do Next Instructions from Your Care Team No qualifying data available. Post Acute Orders No qualifying data available. You Need to Schedule the Following Appointments Follow Up with ELHAM MUÑOZ DO When Within 3-5 days Where: [facility] [address] [place] [address] [place] [address] [phone] Allergies fentanyl (CHEST PAIN, COLD CLAMMY) Tape (rash) Medications Please ask your primary doctor or pharmacist before taking any other medication not listed, including over the counter drugs, herbal medications, vitamins and or supplements as they may interact withyour home medications. What How Much When Why Instructions Last Dose New acetaminophen-hydrocodone (Ary 325- 5 mg oral tablet) 1 tab(s) [...] area for up to 20 minutes at atime. Do this as often as directed. Use [...] the ears or bruising around the eyes [id number] [employer]. [address] [place] [address]. All rights reserved. This information is not intended as a substitute for professional medical care. Always follow yourhealthcare professional's instructions. Face Laceration: Skin Glue A [...] peels off on its own within 5 to10 days. Home care Your healthcare provider may prescribe an antibiotic. This is to help prevent infection. Follow allinstructions for taking this medicine. Take the medicine every day until it is gone or you are toldto stop. You should not have any left [...] by your healthcare provider Wound edges reopen [phone] [employer]. [address] [place] [address]. All rights reserved. This information is not intended as a substitute for professional medical care. Always follow yourhealthcare professional's instructions. Lower Extremity Contusion You have a contusion (bruise) of a lower extremity (leg, knee, ankle, foot, or toe). Symptoms include pain, swelling, and skin discoloration. No bones are broken. This injury may take from a few daysto a few weeks to heal. During that time, the bruise may change from reddish in color, to purple-blue, to green- yellow, to yellow-brown. Home care Unless another medicine was prescribed, you can take acetaminophen, ibuprofen, or naproxen to control pain. (If you have chronic liver or kidney disease or ever had a stomach ulcer or gastrointestinal bleeding, talk with your doctor before using these medicines.) Elevate the injured area to reduce pain and swelling. As much as possible, sit or lie down with theinjured area raised about the level of your heart. This is especially important during the first 48hours. Ice the injured area to help reduce pain and swelling. Wrap a cold source (ice pack or ice cubes maria a plastic bag) in a thin towel. [...] full weight and impact on the injured legwithout pain. Follow up Follow up with your [...] injured area. Frequent bruising for unknown reasons [id number] [employer]. [address] [place] [address]. All rights reserved. This information is not intended as a substitute for professional medical care. Always follow yourhealthcare professional's instructions. Additional Information VACCINATE! IT SAVES LIVES! Members of the community who have not yet received the COVID-19 vaccine and would like to receive it can visit one of [facility] vaccine clinics. There are many vaccine clinic locations within the [facility]. For locations and available times, please visit [email or web address]. It is important to note that some COVID mobile vaccine clinics are held outdoors and may be canceled in rainy orstormy conditions. To learn more about pediatric vaccinations (ages 5-11), we invite you to visit the [facility] webpage. [email or web address] learn more about the COVID-19 vaccine, we invite you to visit the [employer] website for a list of frequently asked questions. [email or web address] [facility] Patient Portal Access Instructions: Stay connected with your healthcare team and access your personal medical information anytime with the [facility] Patient Portal. If you would like a full copy of your medical records please contact the [facility] Medical Records Department Tuesday through Tuesday between 8a.m. and 4:30p.m. Please follow the directions below to access the portal: 1.Access the email account you provided upon registration to the hospital.2.Look for an invitation email from [facility].3.Open the email and access the invitation link: Accept Invitation to [employer]4.Fill in the required kyle to create your account. Sign into [email or web address] with your username and password that you [...] you will allow to register on the [facility] Patient Portal for access to your information. You can also access the [facility] Patient Portal on the [employer]. Simply click on Health Records under [employer] and then click on the [employer] logo. HOW TO SAFELY DISPOSE OF PRESCRIPTION MEDICATIONS Please use one of the following methods to safely dispose of your unused medications. 1.Use a drug disposal kit: the drug disposal pouch allows you to safely discard your old and unuseddrugs. Ask your nurse to give you one when you are discharged.2.Visit a local take-back location: Many local pharmacies and police departments have programs that collect old and unwanted prescriptiondrugs. Call your local pharmacy or go to http://bit.Fiz/9X1Pm6l to find one close to you.3.Make use of household items: Use cat litter or old coffee grounds to dispose medications if other options arenot available. Mix your drugs with these household products, seal them in an airtight container andthrow it into the garbage. Call [facility]: [phone] to be sure your drugs can be [...] drowsiness, such as benzodiazepines, also known as benzos,including diazepam and alprazolam, muscle relaxants or sleep aids. Never sell or share prescriptionopioids. This is illegal. Store opioids in a [...] been reviewed and explained to me and I,ELVIAGeraldine RADHA M understand my current condition and have read and understand these discharge instructions. I have received a written copy of the plan/instructions. If I have questions, I am aware that I should contact my d octor. Patient/[employer] Signature: Date/Time: Relationship to Patient: Witness Name/Signature: Date/Time: [facility]2022 Note ORIGINAL EXAMINATION: 2 XRAY VIEWS OF [...] Sign Date: 11/25/2021 8:46:22 PM Ordering Provider: [facility]06-29-2022 Note ORIGINAL EXAMINATION: THREE XRAY VIEWS OF THE RIGHT KNEE11/25/2021 8:19 pm COMPARISON: None HISTORY: ORDERING SYSTEM PROVIDED HISTORY: Reason for Exam: Pain FINDINGS: There is prepatellar soft tissue swelling. There are uibq-tt-ygfvixav degenerative changes. Chondrocalcinosis is seen of the [...] Sign Date: 11/25/2021 8:38:07 PM Ordering Provider: [facility]06-29-2022 Note ORIGINAL EXAMINATION: CT OF THE HEAD [...] Sign Date: 11/25/2021 8:36:21 PM Ordering Provider: [facility]06-29-2022 Note ORIGINAL EXAMINATION: 2 XRAY VIEWS OF [...] Sign Date: 11/25/2021 8:46:22 PM Ordering Provider: [facility]06-29-2022 Note ORIGINAL EXAMINATION: THREE XRAY VIEWS OF THE RIGHT KNEE11/25/2021 8:19 pm COMPARISON: None HISTORY: ORDERING SYSTEM PROVIDED HISTORY: Reason for Exam: Pain FINDINGS: There is prepatellar soft tissue swelling. There are pytq-fn-cjoqszdy degenerative changes. Chondrocalcinosis is seen of the [...] Sign Date: 11/25/2021 8:38:07 PM Ordering Provider: [facility]06-29-2022 Note ORIGINAL EXAMINATION: CT OF THE HEAD [...] Sign Date: 11/25/2021 8:36:21 PM Ordering Provider: [facility]04-05-2022 Miscellaneous Notes* Telephone Encounter - Seb Du, Research Coordinator - 09/01/2021 9:09 AM EDT IRB [id number]. [facility] Brain Study (CCBS) Child Support Investigator: Mar Chavez MD, , Alec Jeronimo, PhD, , Alberto Ralph MD, Maintenance Advisor: Darron Zavala and Email: Spoke with Radha Barr to follow up about the [facility] Brain Study (CCBS): Biomarkers and Predictors of Neurological Disorders IRB [id number]. Seb Du, Research Coordinator scheduled Radha Barr for study on 01/19/2022 at 4:30 pm. Seb Du Research Coordinator documented [facility]2022 Miscellaneous Notes* Telephone Encounter - Seb Du Research Coordinator - 08/31/2021 11:49 AM EDT IRB [id number]. [facility] Brain Study (CCBS) Child Support Investigator: Mar Chavez MD, , Alec Jeronimo, PhD, , Alberto Ralph MD, Maintenance Advisor: Darron Zavala and Email:[email or web address] Left voicemail message to introduce the [facility] Brain Study (CCBS). Provided phone number,[phone], for Radha Barr to contact Seb Du Research Coordinator, to further discuss thestudy. Seb Du Research Coordinator documented [facility]03-28-2022 Miscellaneous Notes* Telephone Encounter - Seb Du Research Coordinator - 08/24/2021 12:55 PM EDT IRB [id number]. [facility] Brain Study (CCBS) Child Support Investigator: Mar Chavez MD, , Alec Jeronimo, PhD, , Alberto Ralph MD, Maintenance Advisor: Darron Zavala and Email:[email or web address] Left voicemail message to introduce the [facility] Brain Study (CCBS). Provided phone number,[phone], for Radha Barr to contact Seb Du, Research Coordinator, to further discuss thestudy. Seb Du, Research Coordinator documented in this encounter[facility]07-23-2020 Evaluation note* Diagnosis Onset Date Resolution Status History of recent fall acute Pain and swelling of right knee acute Essential hypertension chron ic History of coronary artery stent placement December 20, 2019 chronic Left bundle branch block (LBBB) chronic Atypical chest pain acute Health care maintenance acut e Difficulty swallowing solids chronic Essential hypertension chron ic [facility] Work Phone: 1(577) 124-410907-23-2020 Evaluation note* Diagnosis Onset Date Resolution Status Essential hypertension chron ic History of coronary artery stent placement December 20, 2019 chronic Left bundle branch block (LBBB) chronic Atypical chest pain acute [facility] care maintenance acut e Difficulty swallowing solids chronic Essential hypertension chron ic [facility] Work Phone: 1(584) 932-164207-23-2020 Evaluation note* Diagnosis Onset Date Resolution Status Essential hypertension chron ic History of coronary artery stent placement December 20, 2019 chronic Left bundle branch block (LBBB) [facility] Work Phone: 1(277) 942-111607-23-2020 Evaluation note* Diagnosis Onset Date Resolution Status Essential hypertension chron ic History of coronary artery stent placement December 20, 2019 chronic Left bundle branch block (LBBB) chronic UTI (urinary tract infection) acute [facility] Work Phone: 1(643) 192-774307-23-2020 Evaluation note* Diagnosis Onset Date Resolution Status Essential hypertension chron ic History of coronary artery stent placement December 20, 2019 chronic Left bundle branch block (LBBB) chronic Difficulty swallowing solids chronic Essential hypertension chron ic Left hip pain chronic Tremor chronic [facility] Work Phone: 1(923) 522-421609-18-2008 History of Past illness Narrative* Problem Noted [...] of this encounter (statuses as of 08/24/2021) [facility] History of Past illness Narrative* Problem Noted [...] of this encounter (statuses as of 08/31/2021) [facility] History of Past illness Narrative* Problem Noted [...] of this encounter (statuses as of 09/01/2021) [facility] History of Past illness Narrative* Problem Noted [...] of this encounter (statuses as of 01/11/2022) [facility] History of Past illness Narrative* Problem Noted [...] of this encounter (statuses as of 01/20/2022) [facility] History of Past illness Narrative* Problem Noted [...] of this encounter (statuses as of 01/20/2022) [facility] History of Past illness Narrative* Problem Noted [...] of this encounter (statuses as of 03/23/2022) [facility] History of Past illness Narrative* Problem Noted [...] of this encounter (statuses as of 04/05/2022) [facility] History of Past illness Narrative* Problem Noted [...] of this encounter (statuses as of 04/12/2022) [facility] History of Past illness Narrative* Problem Noted [...] of this encounter (statuses as of 12/14/2022) [facility] History of Past illness Narrative* Problem Noted [...] of this encounter (statuses as of 01/12/2023) [facility] History of Past illness Narrative* Problem Noted [...] of this encounter (statuses as of 01/21/2023) [facility] History of Past illness Narrative* Problem Noted [...] of this encounter (statuses as of 01/21/2023) [facility] No data available for this section [facility] Evaluation note* Diagnosis Examination of participant in clinical trial- Primary documented in this encounter [facility] note* Diagnosis Onset Date Resolution Status Atypical chest pain acute Health care maintenance acut e Difficulty swallowing solids chronic Essential hypertension chron [facility] Work Phone: Evaluation note* Diagnosis Examination of participant in clinical trial- Primary documented in this encounter [facility] note* Diagnosis Onset Date Resolution Status Difficulty swallowing solids chronic Essential hypertension chron ic Left hip pain chronic Tremor chronic Thyroid nodule acute Health care maintenance acut e Thyroid nodule acute Essential hypertension chron ic Fecal incontinence [facility] Work Phone: Evaluation note* Diagnosis Onset Date Resolution Status Thyroid nodule acute Health care maintenance acut e Thyroid nodule acute Essential hypertension chron ic Fecal incontinence [facility] Work Phone: Evaluation note* Diagnosis Pre-operative examination- Primary Preoperative examination, unspecified Gastroesophageal reflux disease, esophagitis presence not specified Atherosclerosis of [place]zan[place] coronary artery of [place]zan[place] heart without angina pectoris Atrial tachycardia (HCC) Other specified cardiac dysrhythmias Bundle branch block Bundle branch block, unspecified Left ventricular dysfunction Heart disease, unspecified Ventricular premature beats Other premature beats Essential hypertension, benign Mixed hyperlipidemia Skin cancer Unspecified malignant neoplasm of skin, site unspecified S/P lumbar fusion Arthrodesis status S/P cervical spinal fusion Arthrodesis status Osteopenia, unspecified location Examination of participant in clinical trial- Primary documented in this encounter [facility] note* Diagnosis Pre-operative examination- Primary Preoperative examination, unspecified Gastroesophageal reflux disease, esophagitis presence not specified Atherosclerosis of [place] coronary artery of [place] heart without angina pectoris Atrial tachycardia (HCC) Other specified cardiac dysrhythmias Bundle branch block Bundle branch block, unspecified Left ventricular dysfunction Heart disease, unspecified Ventricular premature beats Other premature beats Essential hypertension, benign Mixed hyperlipidemia Skin cancer Unspecified malignant neoplasm of skin, site unspecified S/P lumbar fusion Arthrodesis status S/P cervical spinal fusion Arthrodesis status Osteopenia, unspecified location Examination of participant in clinical trial- Primary Tremor Abnormal involuntary movements Dyskinesia Lack of coordination Gait abnormality Abnormality of gait documented in this encounter [facility] note* Diagnosis Pre-operative examination- Primary Preoperative examination, unspecified Gastroesophageal reflux disease, esophagitis presence not specified Atherosclerosis of [place] coronary artery of [place] heart without angina pectoris Atrial tachycardia (HCC) Other specified cardiac dysrhythmias Bundle branch block Bundle branch block, unspecified Left ventricular dysfunction Heart disease, unspecified Ventricular premature beats Other premature beats Essential hypertension, benign Mixed hyperlipidemia Skin cancer Unspecified malignant neoplasm of skin, site unspecified S/P lumbar fusion Arthrodesis status S/P cervical spinal fusion Arthrodesis status Osteopenia, unspecified location Examination of participant in clinical trial- Primary Tremor Abnormal involuntary movements Dyskinesia Lack of coordination Gait abnormality Abnormality of gait documented in this encounter [facility] note* Diagnosis Pre-operative examination- Primary Preoperative examination, unspecified Gastroesophageal reflux disease, esophagitis presence not specified Atherosclerosis of [place] coronary artery of [place] heart without angina pectoris Atrial tachycardia (HCC) Other specified cardiac dysrhythmias Bundle branch block Bundle branch block, unspecified Left ventricular dysfunction Heart disease, unspecified Ventricular premature beats Other premature beats Essential hypertension, benign Mixed hyperlipidemia Skin cancer Unspecified malignant neoplasm of skin, site unspecified S/P lumbar fusion Arthrodesis status S/P cervical spinal fusion Arthrodesis status Osteopenia, unspecified location Examination of participant in clinical trial Tremor Abnormal involuntary movements Dyskinesia Lack of coordination Gait abnormality Abnormality of gait documented in this encounter [facility] note* Diagnosis Pre-operative examination- Primary Preoperative examination, unspecified Gastroesophageal reflux disease, esophagitis presence not specified Atherosclerosis of [place] coronary artery of [place] heart without angina pectoris Atrial tachycardia (HCC) Other specified cardiac dysrhythmias Bundle branch block Bundle branch block, unspecified Left ventricular dysfunction Heart disease, unspecified Ventricular premature beats Other premature beats Essential hypertension, benign Mixed hyperlipidemia Skin cancer Unspecified malignant neoplasm of skin, site unspecified S/P lumbar fusion Arthrodesis status S/P cervical spinal fusion Arthrodesis status Osteopenia, unspecified location Research exam- Primary Examination of participant in clinical trial documented in this encounter [facility] note* Diagnosis Pre-operative examination- Primary Preoperative examination, unspecified Gastroesophageal reflux disease, esophagitis presence not specified Atherosclerosis of [place] coronary artery of [place] heart without angina pectoris Atrial tachycardia (HCC) Other specified cardiac dysrhythmias Bundle branch block Bundle branch block, unspecified Left ventricular dysfunction Heart disease, unspecified Ventricular premature beats Other premature beats Essential hypertension, benign Mixed hyperlipidemia Skin cancer Unspecified malignant neoplasm of skin, site unspecified S/P lumbar fusion Arthrodesis status S/P cervical spinal fusion Arthrodesis status Osteopenia, unspecified location Examination of participant in clinical trial- Primary [facility]* Gastroenterology Location: None Selected [facility] Work Phone: Hospital Discharge instructionsAmbulatory Orders* Ears, Nose and Throat Location: None Selected [facility] Work Phone: Hospital Discharge instructions No data available for this section [facility] Progress note No data available for this section [facility] Reason for referral (narrative)No reason for referral information availableWSumma Health Work Phone: Summary Purpose Family History No Family History Records Found Relationship Condition Age at Onset Recorded Date/T matt father Hypertension Unknown sister Malignant neoplasm of breast Unknown Malignant neoplasm Unknown Hypertension Unknown brother Hypertension Unknown Advance Directives No Advanced Directives Records FoundDocuments on File Type Date Recorded Patient [employer] Expl anation Advance Directive(s) 01/21/2020 7:24 AM Advance Directive Response Recorded Date/ Time Advance Directives Yes April 11:13am Living Will Yes May 16 11:13am Power of Safety Administrator Yes May 16, 2020 11:13am Advance Directive Response Recorded Date/ Time Advance Directives Yes April 10:13am Living Will Yes May 16 10:13am Power of Safety Administrator Yes May 16, 2020 10:13am Advance Directive Response Recorded Date/ Time Advance Directives Yes January 24, 2023 11:01am Living Will Yes January 24 11:01am Power of Safety Administrator Yes January 24 023 11:01am Advance Directive Response Recorded Date/ Time Advance Directives Yes January 24, 2023 10:01am Living Will Yes January 24 10:01am Power of Safety Administrator Yes January 24 023 10:01am Advance Directive Response Recorded Date/ Time Living Will Yes January 24 11:01am Do you have a Healthcare Power of Safety Administrator? Yes January 24, 2023 11:01am Advance Directives Yes August 01 1:15pm Advance Directive Response Recorded Date/ Time Living Will Yes January 24 11:01am Do you have a Healthcare Power of Safety Administrator? Yes January 24, 2023 11:01am Advance Directives Yes September 04 8:54am Advance Directive Response Recorded Date/ Time Advance Directives Yes September 04 8:54am Chief Complaint and Reason for Visit Chief Complaint ER FU 1 y fu YEARLY Reason for Visit History of recent fa ll Pain and swelling of right knee Essential hypertension History of coronary artery stent placement Left bundle branch block (LBBB) Atypical chest pain Health care maintenance Difficulty swallowing solids Essential hypertension Chief Complaint 1 y fu YEARLY I10 DIFFICULTY SWALLOWING Reason for Visit Essential hypertensi on History of coronary artery stent placement Left bundle branch block (LBBB) Atypical chest pain Health care maintenance Difficulty swallowing solids Essential hypertension Chief Complaint YEARLY I10 DIFFICULTY SWALLOWING SCREENING Reason for Visit Atypical chest pain Health care maintenance Difficulty swallowing solids Essential hypertension Chief Complaint I10 I10 DIFFICULTY SWALLOWING SCREENING Symptoms like before stent Edel EVALUATED CAD AND SYMPTOMS EVALUATED CAD AND SYMPTOMS Amb Documentation Reason for Visit Essential hypertensi on History of coronary artery stent placement Left bundle branch block (LBBB) Chief Complaint SCREENING Symptoms like before stent Edel EVALUATED CAD AND SYMPTOMS EVALUATED CAD AND SYMPTOMS Amb Documentation CONCERN FOR UTI Reason for Visit Essential hypertensi on History of coronary artery stent placement Left bundle branch block (LBBB) UTI (urinary tract infection) Chief Complaint 1 Y FU TREMORS AND THICKENING IN THROAT EORDER- Left Hip Pain ANTERIOR NECK SWELLING, DYSPHAGIA Reason for Visit Essential hypertensi on History of coronary artery stent placement Left bundle branch block (LBBB) Difficulty swallowing solids Essential hypertension Left hip pain Tremor Chief Complaint TREMORS AND THICKENI NG IN THROAT EORDER- Left Hip Pain ANTERIOR NECK SWELLING, DYSPHAGIA THYROID NODULE FNA OF RIGHT THYROID NODULE 3 M FU Reason for Visit Difficulty swallowin g solids Essential hypertension Left hip pain Tremor Thyroid nodule Health care maintenance Thyroid nodule Essential hypertension Fecal incontinence Chief Complaint THYROID NODULE FNA OF RIGHT THYROID NODULE 3 M FU SCREENING POST SATNAM Reason for Visit Thyroid nodule Health care maintenance Thyroid nodule Essential hypertension Fecal incontinence Chief Complaint Admit Date 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 May 11, 2024 11:52am 3 M FU June 22, 2024 8 :50am SCREENING June 29, 2024 8 :08am L arm pain, fatigue, hx stenting August 032024 9:19am LT ARM DISCOMFORT, HX OF CAD, FATIGUE [facility] 2024 6:54am LT ARM DISCOMFORT, HX OF CAD, FATIGUE [facility] 2024 5:03pm Reason for Visit Admit Date Health care maintenance June 22 8:50am Essential hypertension June 22 8:50am GERD (gastroesophageal reflux disease) J anuary 2024 8:50am Tremor June 22, 2024 8 :50am Fatigue August 03, 2024 9:19 am Left arm pain August 03, 2024 9:19 am Atherosclerosis of coronary artery of [place] heart without angina pectoris August 03, 2024 9:19am Essential hypertension August 03, 2024 9 :19am History of coronary artery stent placeme nt August 03, 2024 9:19am Left bundle branch block (LBBB) July 9:19am Chief Complaint Admit Date 3 M FU June 22, 2024 8 :50am SCREENING June 29, 2024 8 :08am L arm pain, fatigue, hx stenting August 032024 9:19am LT ARM DISCOMFORT, HX OF CAD, FATIGUE [facility] 2024 6:54am LT ARM DISCOMFORT, HX OF CAD, FATIGUE [facility] 2024 5:03pm L EAR PLUGGED September 04, 2024 8:55 am acute - fu from [facility] on lft ear Ap ril 2024 11:17am 4 M FU October 15, 2024 9:20a m Reason for Visit Admit Date Health care maintenance June 22 8:50am Essential hypertension June 22 8:50am GERD (gastroesophageal reflux disease) J anuary 2024 8:50am Tremor June 22, 2024 8 :50am Fatigue August 03, 2024 9:19 am Left arm pain August 03, 2024 9:19 am Atherosclerosis of coronary artery of [place] heart without angina pectoris August 03, 2024 9:19am Essential hypertension August 03, 2024 9 :19am History of coronary artery stent placeme nt August 03, 2024 9:19am Left bundle branch block (LBBB) July 9:19am Eustachian tube dysfunction September 07, 2024 11:17am Chief Complaint Admit Date LT ARM DISCOMFORT, HX OF CAD, FATIGUE [facility] 2024 6:54am LT ARM DISCOMFORT, HX OF CAD, FATIGUE [facility] 2024 5:03pm L EAR PLUGGED September 04, 2024 8:55 am acute - fu from [facility] on lft ear Ap ril 2024 11:17am 4 M FU October 15, 2024 9:20a m 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 October 15, 2024 9:59am Amb Documentation October 17, 2024 9:26a m FU THYROID NODULE December 05, 2024 11:41 am Reason for Visit Admit Date Eustachian tube dysfunction September 07, 2024 11:17am Essential hypertension October 15, 2024 9: 20am GERD (gastroesophageal reflux disease) [facility] 2024 9:20am Right knee pain October 15, 2024 9:20a m Tinnitus, left ear October 15, 2024 9:20a m Tremor October 15, 2024 9:20a m Chief Complaint Admit Date 4 M FU October 15, 2024 9:20a m 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 October 15, 2024 9:59am Amb Documentation October 17, 2024 9:26a m FU THYROID NODULE December 05, 2024 11:41 am 3 M FU January 14, 2025 9: 05am Reason for Visit Admit Date Essential hypertension October 15, 2024 9: 20am GERD (gastroesophageal reflux disease) [facility] 2024 9:20am Right knee pain October 15, 2024 9:20a m Tinnitus, left ear October 15, 2024 9:20a m Tremor October 15, 2024 9:20a m Reason for Referral Specialty Diagnoses / Procedures Referred By Maria Isabel kathleen Referred To Contact Neurology Diagnoses Examination of participant in clinical trial Tremor Dyskinesia Gait abnormality Procedures CONSULT TO NEUROLOGY OFFICE/OUTPATIENT [facility] 60 MINUTES Suhas Stearns APRN.SUBSTANCE ABUSE COUNSELOR [address] [place] [address] Referral ID Status Reason Start Date Expiration Date Visits Requested Visits Authorized [id number] Authorized PCP Requested Referral 06/13/2024 06/13/2025 1 1 Additional Source Comments INFORMATION SOURCE (unrecogn ized section and content) DATE CREATED AUTHOR 01/24/2020 [facility] DATE CREATED AUTHOR AUTHOR'S ORGANIZ ATION 08/25/2020 [facility] DATE CREATED AUTHOR AUTHOR'S ORGANIZ ATION 11/28/2023 [facility] ([place]) DATE CREATED AUTHOR AUTHOR'S ORGANIZ ATION 12/08/2024 [facility] DATE CREATED AUTHOR AUTHOR'S ORGANIZ ATION 12/15/2024 [facility] DATE CREATED AUTHOR AUTHOR'S ORGANIZ ATION 01/14/2025 [facility] Source Comments (unrecognize d section and content) In the event this informatio n is protected by the Federal Confidentiality of Alcohol and Drug Abuse Patient Records regulations: The Federal rules restrict any use of the information to criminally investigate or prosecute any alcohol or drug abuse patient.[facility] HealthcareIn the event this information is protected by the Federal Confidentiality of Alcohol and Drug Abuse Patient Records regulations: The Federal rules restrict any use of the information to criminally investigate or prosecute any alcohol or drug abuse patient.[facility] HealthcareIn the event this information is protected by the Federal Confidentiality of Alcohol and Drug Abuse Patient Records regulations: The Federal rules restrict any use of the information to criminally investigate or prosecute any alcohol or drug abuse patient.[facility] HealthcareIn the event this information is protected by the Federal Confidentiality of Alcohol and Drug Abuse Patient Records regulations: The Federal rules restrict any use of the information to criminally investigate or prosecute any alcohol or drug abuse patient.[facility] HealthcareIn the event this information is protected by the Federal Confidentiality of Alcohol and Drug Abuse Patient Records regulations: The Federal rules restrict any use of the information to criminally investigate or prosecute any alcohol or drug abuse patient.[facility] HealthcareIn the event this information is protected by the Federal Confidentiality of Alcohol and Drug Abuse Patient Records regulations: The Federal rules restrict any use of the information to criminally investigate or prosecute any alcohol or drug abuse patient.[facility] HealthcareIn the event this information is protected by the Federal Confidentiality of Alcohol and Drug Abuse Patient Records regulations: The Federal rules restrict any use of the information to criminally investigate or prosecute any alcohol or drug abuse patient.[facility] HealthcareIn the event this information is protected by the Federal Confidentiality of Alcohol and Drug Abuse Patient Records regulations: The Federal rules restrict any use of the information to criminally investigate or prosecute any alcohol or drug abuse patient.[facility] HealthcareIn the event this information is protected by the Federal Confidentiality of Alcohol and Drug Abuse Patient Records regulations: The Federal rules restrict any use of the information to criminally investigate or prosecute any alcohol or drug abuse patient.[facility] HealthcareIn the event this information is protected by the Federal Confidentiality of Alcohol and Drug Abuse Patient Records regulations: The Federal rules restrict any use of the information to criminally investigate or prosecute any alcohol or drug abuse patient.[facility] HealthcareIn the event this information is protected by the Federal Confidentiality of Alcohol and Drug Abuse Patient Records regulations: The Federal rules restrict any use of the information to criminally investigate or prosecute any alcohol or drug abuse patient.[facility] HealthcareIn the event this information is protected by the Federal Confidentiality of Alcohol and Drug Abuse Patient Records regulations: The Federal rules restrict any use of the information to criminally investigate or prosecute any alcohol or drug abuse patient.[facility] HealthcareIn the event this information is protected by the Federal Confidentiality of Alcohol and Drug Abuse Patient Records regulations: The Federal rules restrict any use of the information to criminally investigate or prosecute any alcohol or drug abuse patient.[facility] HealthcareIn the event this information is protected by the Federal Confidentiality of Alcohol and Drug Abuse Patient Records regulations: The Federal rules restrict any use of the information to criminally investigate or prosecute any alcohol or drug abuse patient.[facility] HealthcareIn the event this information is protected by the Federal Confidentiality of Alcohol and Drug Abuse Patient Records regulations: The Federal rules restrict any use of the information to criminally investigate or prosecute any alcohol or drug abuse patient.[facility] HealthcareIn the event this information is protected by the Federal Confidentiality of Alcohol and Drug Abuse Patient Records regulations: The Federal rules restrict any use of the information to criminally investigate or prosecute any alcohol or drug abuse patient.[facility] HealthcareIn the event this information is protected by the Federal Confidentiality of Alcohol and Drug Abuse Patient Records regulations: The Federal rules restrict any use of the information to criminally investigate or prosecute any alcohol or drug abuse patient.[facility] HealthcareIn the event this information is protected by the Federal Confidentiality of Alcohol and Drug Abuse Patient Records regulations: The Federal rules restrict any use of the information to criminally investigate or prosecute any alcohol or drug abuse patient.[facility] HealthcareIn the event this information is protected by the Federal Confidentiality of Alcohol and Drug Abuse Patient Records regulations: The Federal rules restrict any use of the information to criminally investigate or prosecute any alcohol or drug abuse patient.[facility] HealthcareIn the event this information is protected by the Federal Confidentiality of Alcohol and Drug Abuse Patient Records regulations: The Federal rules restrict any use of the information to criminally investigate or prosecute any alcohol or drug abuse patient.[facility] HealthcareIn the event this information is protected by the Federal Confidentiality of Alcohol and Drug Abuse Patient Records regulations: The Federal rules restrict any use of the information to criminally investigate or prosecute any alcohol or drug abuse patient.[facility] HealthcareIn the event this information is protected by the Federal Confidentiality of Alcohol and Drug Abuse Patient Records regulations: The Federal rules restrict any use of the information to criminally investigate or prosecute any alcohol or drug abuse patient.[facility] HealthcareIn the event this information is protected by the Federal Confidentiality of Alcohol and Drug Abuse Patient Records regulations: The Federal rules restrict any use of the information to criminally investigate or prosecute any alcohol or drug abuse patient.[facility] HealthcareIn the event this information is protected by the Federal Confidentiality of Alcohol and Drug Abuse Patient Records regulations: The Federal rules restrict any use of the information to criminally investigate or prosecute any alcohol or drug abuse patient.[facility] HealthcareIn the event this information is protected by the Federal Confidentiality of Alcohol and Drug Abuse Patient Records regulations: The Federal rules restrict any use of the information to criminally investigate or prosecute any alcohol or drug abuse patient.[facility] HealthcareIn the event this information is protected by the Federal Confidentiality of Alcohol and Drug Abuse Patient Records regulations: The Federal rules restrict any use of the information to criminally investigate or prosecute any alcohol or drug abuse patient.[facility] Reason for Visit (unrecogniz ed section and content) Reason Comments Returning Patient's Call IRB [id number] Reason Comments Appointment IRB [id number] Reason Comments Informed Consent [id number] Reason Comments Informed Consent IRB [id number] Reason Comments Patient Update IRB [phone] Reason Comments Patient Update IRB [id number] Reason Comments Returning Patient's Call IRB [id number] Reason Comments Patient Update IRB 2183 Patient Question IRB 21-83 Reason Comments New Patient Specialty Diagnoses / Procedures Referred By Maria Isabel kathleen Referred To Contact Neurology Diagnoses Examination of participant in clinical trial Tremor Dyskinesia Gait abnormality Procedures CONSULT TO NEUROLOGY OFFICE/OUTPATIENT [facility] 60 MINUTES Suhas Stearns APRN.SUBSTANCE ABUSE COUNSELOR [address] [place] [address] Phone: tel: fax: Referral ID Status Reason Start Date Expiration Date V isits Requested Visits Authorized [id number] Closed PCP Requested Referral 06/13/2024 06/13/2025 1 1 Reason Comments Informed Consent Irb [id number] Care Teams (unrecognized sec tion and content) Team Status: Active Member Role Status Dates Dr. Pedro Wang MD Primary Care Provider Active Team Status: Inactive Member Role Status Dates Dr. Pedro Wang MD Primary Care Provider, Refer ring Provider Active Andrew Srinivasan NP, SURG NURSE-C Attending Provider Active Team Status: Active Member Role Status Dates Dr. Pedro Wang MD Primary Care Provider Active Andrew Srinivasan NP, SURG NURSE-C Referring Provider, Other Provide r Active Dr. Jean-Paul Delgado MD Attending Provider Active Team Status: Active Member Role Status Dates Dr. Pedro Wang MD Primary Care Provider Active Andrew Srinivasan NP, SURG NURSE-C Attending Provider Active Team Status: Inactive Member Role Status Dates Dr. Pedro Wang MD Primary Care Provider, Refer ring Provider Active Jung Lozada PA, PA Attending Provider Active Team Status: Inactive Member Role Status Dates Dr. Pedro Wang MD Primary Care Provider, Atten ding Provider Active Team Status: Inactive Member Role Status Dates Dr. Pedro Wang MD Primary Care Provider Active Andrew Srinivasan SURG NURSE, SURG NURSE-C Attending Provider, Referring Pro vider Active Team Status: Inactive Member Role Status Dates Dr. Pedro Wang MD Primary Care Provider Active Jung Lozada PA, PA Attending Provider Active Furniture Fabricator Relationship Specialty Start Date End Date Pedro Wang MD [address] [place] [address] PCP - General Internal Medicine 04/13/21 Furniture Fabricator Relationship Specialty Start Date End Date Pedro Wang MD [address] [place] [address] PCP - General Internal Medicine 04/13/21 Furniture Fabricator Relationship Specialty Start Date End Date Pedro Wang MD [address] [place] [address] PCP - General Internal Medicine 04/13/21 Team Status: Active Member Role Status Dates Dr. Pedro Wang MD Primary Care Provider, Refer ring Provider Active Dr. Jean-Paul Delgado MD Attending Provider Active Team Status: Inactive Member Role Status Dates Dr. Pedro Wang MD Primary Care P john, Attending Provider, Referring Provider Active Furniture Fabricator Relationship Specialty Start Date End Date Pedro Wang MD [address] [place] [address] PCP - General Internal Medicine 04/13/21 Furniture Fabricator Relationship Specialty Start Date End Date Pedro Wang MD [address] [place] [address] PCP - General Internal Medicine 04/13/21 Furniture Fabricator Relationship Specialty Start Date End Date Pedro Wang MD [address] [place] [address] PCP - General Internal Medicine 04/13/21 Team Status: Active Member Role Status Dates Dr. Pedro Wang MD Primary Care P john, Attending Provider, Referring Provider Active Team Status: Inactive Member Role Status Dates Dr. Pedro Wnag MD Primary Care Provider, Refer ring Provider Active Dr. Johnny March MD Attending Provider Active Team Status: Inactive Member Role Status Dates Dr. Pedro Wang MD Primary Care Provider Active Dr. Johnny March MD Attending Provider, Referring P rovider Active Team Status: Active Member Role Status Dates Dr. Pedro Wang MD Primary Care Provider, Atten ding Provider Active Furniture Fabricator Relationship Specialty Start Date End Date Pedro Wang MD [address] [place] [address] PCP - General Internal Medicine 04/13/21 Furniture Fabricator Relationship Specialty Start Date End Date Pedro Wang MD [address] [place] [address] PCP - General Internal Medicine 04/13/21 Furniture Fabricator Relationship Specialty Start Date End Date Pedro Wang MD [address] [place] [address] PCP - General Internal Medicine 04/13/21 Furniture Fabricator Relationship Specialty Start Date End Date Pedro Wang MD [address] [place] [address] PCP - General Internal Medicine 04/13/21 Furniture Fabricator Relationship Specialty Start Date End Date Pedro [facility] [address] [facility] [address] [place] [phone] PCP - General Internal Medicine 04/13/21 Furniture Fabricator Relationship Specialty Start Date End Date Pedro Wang MD [address] [facility] [address] [place] [phone] PCP - General Internal Medicine 04/13/21 Team Status: Inactive Member Role Status Dates Dr. Pedro Wang MD Primary Care Provider Active Start: May 11, 2024 End: May 11, 2024 Dr. Alfred Ferrell MD Attending Provider Active Start: May 11, 2024 End: May 11, 2024 Dr. Alfred Ferrell MD Referring Provider Active Start: May 11, 2024 End: May 11, 2024 Team Status: Inactive Member Role Status Dates Dr. Pedro Wang MD Primary Care Provider Active Start: June 22, 2024 End: June 22, 2024 Dr. Pedro Wang MD Attending Provider Active Start: June 22, 2024 End: June 22, 2024 Dr. Pedro Wang MD Referring Provider Active Start: June 22, 2024 End: June 22, 2024 Team Status: Inactive Member Role Status Dates Dr. Pedro Wang MD Primary Care Provider Active Start: June 22, 2024 End: June 22, 2024 Dr. Pedro Wang MD Attending Provider Active Start: June 22, 2024 End: June 22, 2024 Team Status: Inactive Member Role Status Dates Dr. Pedro Wang MD Primary Care Provider Active Start: June 29, 2024 End: June 29, 2024 Dr. Pedro Wang MD Attending Provider Active Start: June 29, 2024 End: June 29, 2024 Dr. Pedro Wang MD Referring Provider Active Start: June 29, 2024 End: June 29, 2024 Team Status: Inactive Member Role Status Dates Dr. Pedro Wang MD Primary Care Provider Active Start: August 03, 2024 End: August 03, 2024 Dr. Pedro Wang MD Referring Provider Active Start: August 03, 2024 End: August 03, 2024 KIMBERLY Mcclendon Attending Provider Active St art: August 03, 2024 End: August 03, 2024 Team Status: Inactive Member Role Status Dates Dr. Pedro Wang MD Primary Care Provider Active Start: August 17, 2024 End: August 17, 2024 KIMBERLY Mcclendon Attending Provider Active St art: August 17, 2024 End: August 17, 2024 KIMBERLY Mcclendon Referring Provider Active St art: August 17, 2024 End: August 17, 2024 Team Status: Active Member Role Status Dates Dr. Pedro Wang MD Primary Care Provider Active Start: August 17, 2024 KIMBERLY Mcclendon Referring Provider Active St art: August 17, 2024 KIMBERLY Mcclendon Other Provider Active Start: August 17, 2024 Dr. Jean-Paul Delgado MD Attending Provider Active S tart: August 17, 2024 Furniture Fabricator Relationship Specialty Start Date End Date Pedro Wang MD [address] [facility] [address] [place] [phone] PCP - General Internal Medicine 04/13/21 Team Status: Inactive Member Role Status Dates Dr. Pedro Wang MD Primary Care Provider Active Start: September 04, 2024 End: September 04, 2024 Dr. Pedro Wang MD Referring Provider Active Start: September 04, 2024 End: September 04, 2024 Jung HARRIS, PA Attending Provider Active Start: September 04, 2024 End: September 04, 2024 Team Status: Inactive Member Role Status Dates Dr. Pedro Wang MD Primary Care Provider Active Start: September 07, 2024 End: September 07, 2024 Dr. Pedro Wang MD Referring Provider Active Start: September 07, 2024 End: September 07, 2024 Diogo HARRIS PA Attending Provider Active St art: September 07, 2024 End: September 07, 2024 Team Status: Inactive Member Role Status Dates Dr. Pedro Wang MD Primary Care Provider Active Start: October 15, 2024 End: October 15, 2024 Dr. Pedro Wang MD Attending Provider Active Start: October 15, 2024 End: October 15, 2024 Dr. Pedro Wang MD Referring Provider Active Start: October 15, 2024 End: October 15, 2024 Team Status: Active Member Role/Relationship Status Dates Dr. Pedro Wang MD Primary Care Provider Active Team Status: Inactive Member Role/Relationship Status Dates Dr. Pedro Wang MD Primary Care Provider Active Start: August 17, 2024 End: August 17, 2024 KIMBERLY Mcclendon Attending Provider Active St art: August 17, 2024 End: August 17, 2024 KIMBERLY Mcclendon Referring Provider Active St art: August 17, 2024 End: August 17, 2024 Team Status: Active Member Role/Relationship Status Dates Dr. Pedro Wang MD Primary Care Provider Active Start: August 17, 2024 KIMBERLY Mcclendon Referring Provider Active St art: August 17, 2024 KIMBERLY Mcclendon Other Provider Active Start: August 17, 2024 Dr. Jean-Paul Delgado MD Attending Provider Active S tart: August 17, 2024 Team Status: Inactive Member Role/Relationship Status Dates Dr. Pedro Wang MD Primary Care Provider Active Start: September 04, 2024 End: September 04, 2024 Dr. Pedro Wang MD Referring Provider Active Start: September 04, 2024 End: September 04, 2024 Jung HARRIS PA Attending Provider Active Start: September 04, 2024 End: September 04, 2024 Team Status: Inactive Member Role/Relationship Status Dates Dr. Pedro Wang MD Primary Care Provider Active Start: September 07, 2024 End: September 07, 2024 Dr. Pedro Wang MD Referring Provider Active Start: September 07, 2024 End: September 07, 2024 Diogo HARRIS PA Attending Provider Active St art: September 07, 2024 End: September 07, 2024 Team Status: Inactive Member Role/Relationship Status Dates Dr. Pedro Wang MD Primary Care Provider Active Start: October 15, 2024 End: October 15, 2024 Dr. Pedro Wang MD Attending Provider Active Start: October 15, 2024 End: October 15, 2024 Dr. Pedro Wang MD Referring Provider Active Start: October 15, 2024 End: October 15, 2024 Team Status: Inactive Member Role/Relationship Status Dates Dr. Pedro Wang MD Primary Care Provider Active Start: October 15, 2024 End: October 15, 2024 Dr. Pedro Wang MD Referring Provider Active Start: October 15, 2024 End: October 15, 2024 Dr. Alfred Ferrell MD Attending Provider Active Start: October 15, 2024 End: October 15, 2024 Team Status: Active Member Role/Relationship Status Dates Dr. Pedro Wang MD Primary Care Provider Active Start: October 17, 2024 Linda Morales MA Attending Provider Acti ve Start: October 17, 2024 Team Status: Inactive Member Role/Relationship Status Dates Dr. Pedro Wang MD Primary Care Provider Active Start: December 05, 2024 End: December 05, 2024 Dr. Pedro Wang MD Attending Provider Active Start: December 05, 2024 End: December 05, 2024 Dr. 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 [facility] [address] [place] [id number] PCP - General Internal Medicine 04/13/21 Team Status: Inactive Member Role/Relationship Status Dates Dr. Pedro Wang MD Primary Care Provider Active Start: October 15, 2024 End: October 15, 2024 Dr. Pedro Wang MD Attending Provider Active Start: October 15, 2024 End: October 15, 2024 Dr. Pedro Wang MD Referring Provider Active Start: October 15, 2024 End: October 15, 2024 Team Status: Inactive Member Role/Relationship Status Dates Dr. Pedro Wang MD Primary Care Provider Active Start: October 15, 2024 End: October 15, 2024 Dr. Pedro Wang MD Referring Provider Active Start: October 15, 2024 End: October 15, 2024 Dr. Alfred Ferrell MD Attending Provider Active Start: October 15, 2024 End: October 15, 2024 Team Status: Active Member Role/Relationship Status Dates Dr. Pedro Wang MD Primary Care Provider Active Start: October 17, 2024 Linda Morales MA Attending Provider Acti ve Start: October 17, 2024 Team Status: Inactive Member Role/Relationship Status Dates Dr. Pedro Wang MD Primary Care Provider Active Start: December 05, 2024 End: December 05, 2024 Dr. Pedro Wang MD Attending Provider Active Start: December 05, 2024 End: December 05, 2024 Dr. Pedro Wang MD Referring Provider Active Start: December 05, 2024 End: December 05, 2024 Team Status: Inactive Member Role/Relationship Status Dates Dr. Pedro Wang MD Primary Care Provider Active Start: January 14, 2025 End: January 14, 2025 Dr. Pedro Wang MD Attending Provider Active Start: January 14, 2025 End: January 14, 2025 Dr. Pedro Wang MD Referring Provider Active Start: January 14, 2025 End: January 14, 2025 Care Team (unrecognized sect ion and content) Care Team Personnel Name: ELHAM MÑUOZ DO Member Role: Primary Care Physician Address: Address: [facility] [address] [place] [id number]- Care Team Related Persons Name: PHOEBE BARR Address: Home [address] [place] [address] [place] Goals (unrecognized section and content) Goals may be documented in a n alternate section FOR RECORDS PERTAINING TO PATIENTS WHO ARE [...] BE BASED ON THE PRIMARY CLINICAL RECORDS. [facility]. provides no warranty or guarantee of the accuracy or completeness of information in this document.
== END | disposition home or self-care (01) ==
LOC: MTLAB 10:20
PROVIDERS: PCP Internal Medicine; Referring Provider Internal Medicine; Visit Provider Internal Medicine
DX: I10 Essential (primary) hypertension (principal)
CPT/HCPCS: 36415; 80048

== ENCOUNTER 2025-02-02 11:09 | Emergency (ER) | payer MEDICARE, SELFPAY ==
[2025-02-02 11:10] VITALS: BP 179/76; PULSE 93; RESP 16; TEMP 36.7; O2SAT 97
[2025-02-02 11:19] VITALS: BMI 27.3
--- NOTE | 2025-02-02 11:46 | VDLE_ITS ---
Reason For Study Reason For Study: RLE Pain RIGHT LEFT GSV is normal. CFV is compressible, spontaneous, phasic, competent, CFV is compressible, spontaneous, phasic, competent and demonstrates normal augmentation. and demonstrates normal augmentation. FV is compressible, spontaneous, phasic, competent and demonstrates normal augmentation. POP V is compressible, spontaneous, phasic, competent and demonstrates normal augmentation. T/P Trunk is compressible. PTV is compressible. RT PerV is compressible. Procedure This is a venous duplex using B-mode, color flow and spectral Doppler. Exam performed portable in ED. The exam was diagnostic. A preliminary report was called and/or faxed to Dr. Abraham. VL/Venous Duplex US, Unilateral Interpretation Summary Deep veins of the right lower extremity are patent and compressible segmentally . There is no evidence of right lower extremity deep vein thrombosis. Valvular competence appears intact within the p roximal deep venous system on the right . The right great saphenous vein appears patent and compressible segmentally. The left common femoral vein is patent and compressible . Ordering Physician: Amilcar Abraham Referring Physician: Mando Wang Performed By: Zane Escobedo, [place]
--- OUTSIDE RECORDS SUMMARY | 2025-02-02 11:51 | XMS RPT_ITS | CCD ---
Author Organization [facility] CliniSyla Care Team Providers Care Station Cashier Name Role Phone KARLA, KEKE Lam Attending Unavailable KARLA, KEKE Lam Primary Care Unavailable KARLA, KEKE Lam Admitting Unavailable KARLA, KEKE Lam Attending Unavailable KARLA, KEKE Lam Primary Care [...] Dr. Jean-Paul Delgado Attending Provider [phone] Dr. Pedro Wang Attending Provider [phone] Dr. Pedro Wang Primary Care Provider [phone] Dr. Pedro Wang Referring Provider [phone] Dr. Pedro Wang Primary Care Provider [phone] Dr. Pedro Wang Referring Provider [phone] Dr. Jean-Paul Delgado Attending Provider [phone] Roof COMMERCIAL LEASE ADMINISTRATOR, COMMERCIAL LEASE ADMINISTRATOR-C Andrew H Attending Provider Roof COMMERCIAL LEASE ADMINISTRATOR, COMMERCIAL LEASE ADMINISTRATOR-C Andrew H Referring Provider Roof COMMERCIAL LEASE ADMINISTRATOR, COMMERCIAL LEASE ADMINISTRATOR-C Andrew H Other Provider Dr. Pedro Wang Primary Care Provider [phone] Dr. Pedro Wang Referring Provider Roof COMMERCIAL LEASE ADMINISTRATOR, COMMERCIAL LEASE ADMINISTRATOR-C Andrew H Attending Provider Roof COMMERCIAL LEASE ADMINISTRATOR, COMMERCIAL LEASE ADMINISTRATOR-C Andrew H Referring Provider Roof COMMERCIAL LEASE ADMINISTRATOR, COMMERCIAL LEASE ADMINISTRATOR-C Andrew H Other Provider Dr. Jean-Paul Delgado Attending Provider [phone] Kierra HARRIS, KIMBERLY Hernandez Attending Provider Pedro Wang MD Primary Care Provider [phone] Dr. Pedro Wang Primary Care Provider [phone] Dr. Pedro Wang Referring Provider Roof COMMERCIAL LEASE ADMINISTRATOR, COMMERCIAL LEASE ADMINISTRATOR-C Andrew H Attending Provider Dr. Pedro Wang Attending Provider [phone] Dr. Pedro Wang Primary Care Provider [phone] Dr. Pedro Wang Attending Provider [phone] Dr. Pedro Wang Referring Provider [phone] Dr. Johnny March Attending Provider Dr. Pedro Wang Primary Care Provider [phone] Dr. Pedro Wang Referring Provider [phone] Dr. Pedro Wang Attending Provider [phone] BROOKLYNN HINES, XAVIER Perry Attending Unavailable ELHAM MUÑOZ DO Primary Care Unavailable Pedro Wang MD Primary Care Provider [phone] Dr. Pedro Wang MD Primary Care Provider Ghassan HINES, Dr. Simon Attending Provider Ghassan HINES, Dr. Simon Referring Provider Kathleen HINES, Dr. Gilmore Attending Provider [phone] Kathleen HINES, Dr. Gilmore Referring Provider [phone] Pepe Bhatti Attending Provider [phone] Demrhoda PA Pepe Referring Provider [phone] Demrhoda PA, Pepe Other Provider Danny HINES, Dr. Jeong Attending Provider [phone] Kathleen HINES, Dr. Gilmore Primary Care Provider Jung Chavarria Attending Provider Diogo Santiago Attending Provider PEDRO WANG MD Primary Care Physician [phone] PEDRO WANG MD Attending UnavailPEDRO Watson MD Primary Care Unavailab Shonna HINES, Dr. Gilmore Primary Care Provider Pepe Bhatti Attending Provider [phone] Kathleen HINES, Dr. Gilmore Referring Provider [phone] Kathleen HINES, Dr. Gilmore Attending Provider [phone] Ghassan HINES, Dr. [...] Provider Kathleen HINES, Dr. Gilmore Referring Provider Oleghe, Efewongbe Attending Unavailable Oleghe, Efewongbe Referring Unavailable Oleghe, Efewongbe Primary Care Unavailable Oleghe, Efewongbe Primary Care Unavailable Oleghe, Efewongbe Referring Unavailable Alfred Ferrell Attending Unavailable Oleghe, Efewongbe Referring Unavailable Oleghe, Efewongbe Attending Unavailable Oleghe, Efewongbe Primary Care Unavailable Andrew Srinivasan Attending Unavailable Oleghe, Efewongbe Referring Unavailable Oleghe, Efewongbe Primary Care Unavailable Linda Morales Attending Unava ilable Oleghe, Efewongbe Primary Care Unavailable Pepe Tan Consulting Unavailable Oleghe, Efewongbe Primary Care Unavailable Jean-Paul Delgado Attending Unavailable Kyle Tanyler Referring Unavailable Oleghe, Efewongbe Attending Unavailable Oleghe, Efewongbe Referring Unavailable Oleghe, Efewongbe Primary Care Unavailable Oleghe, Efewongbe Attending Unavailable Oleghe, Efewongbe Primary Care Unavailable Oleghe, Efewongbe Referring Unavailable Johnny March Referring Unavailable Johnny March Attending Unavailable Oleghe, Efewongbe Primary Care Unavailable Oleghe, Efewongbe Primary Care Unavailable Alfred Ferrell Referring Unavailable Alfred Ferrell Attending Unavailable Johnny March Referring Unavailable Johnny March [...] Attending Unavailable Oleghe, Efewongbe Primary Care Unavailable Fortunato Wangongbe Referring Unavailable Jung Chavarria Attending Unavailable Fortunato Wangonghaim Primary Care Unavailable Fortunato Wangongbe Referring Unavailable Diogo Santiago Attending Unavailable Pedro Wang Attending Unavailable Kathleen, Fortunatoonghaim Primary Care Unavailable Fortunato Wangongbe Referring Unavailable Allergies Allergy Classification Reported Allergen(s) Allergy Type Date of Onset Reaction(s) Facility (20 sources) fentaNYL; Translations: [fentanyl] Drug Allergy 0 Other: See Comments [facility] Work Phone: (20 sources) Morphinan opioid; Translations: [OPIOIDS - MORPHINE ANALOGUES] Drug Intolerance 8 Other: See Comments [facility] Work Phone: (3 sources) Adhesive Tape Drug allergy [facility] (16 sources) Lisinopril Drug Allergy 2 cough [facility] (1 source) fentaNYL Drug Allergy 5 [facility] Repository (1 source) Lisinopril Drug Allergy 5 [facility] Medications Current Medications Medication Drug Class(es) [...] 1 Start: 01-19-2010 take 1 tablet by [facility] twice daily Calcium 600+D Dose = 1 tab(s), PO, BID, 0 Refill(s), current med (Hx) Start Date: 01/19/10 Status: Ordered cholecalciferol 0.025 mg oral tablet (20 sources) Vitamin D Start: 11-06-2019 take 1 tablet by mouth once daily Cholecalciferol (Vitamin D3) 25 mcg (1,000 unit) tablet Active 25 ug PO DAILY November 06, 2019 12:00am Start: 02-27-2018 [facility] Cholecalciferol, Vitamin D3, 1,000 unit cap Take 1 capsule by mouth once daily. 02/27/2018 Active Comment on above: [facility] dicyclomine hydrochloride 10 mg oral capsule (3 sources) Anticholinergic Start: 08-10-2013 Bentyl 10 mg oral capsule Dose : 10 mg = 1 cap(s), Oral, QID, PRN Diarrhea, # 15 cap(s), 0 Refill(s) Start Date: 08/10/13 Status: Ordered Quantity: 15.0 Unit: cap(s) Repeat number: 1 docusate sodium 50 mg / sennosides, half-way 8.6 mg oral tablet (20 sources) Start: 10-16-2024 End: 01-14-2025 Sennosides-Docusate Sodium (Senexon-S) 8.6-50 mg tablet Active 4 NMA PO daily as needed for constipation 120 90 3 January 14, 2025 8:11pm Start: 03-16-2024 End: 10-16-2024 Sennosides-Docusate Sodium ( Senexon-S) 8.6-50 mg tablet Discontinued PO March 16, 2024 12:00am October 16, 2024 2:00pm take 1 capsule by [facility] once daily sennosides-docusate sodium (SENNA PLUS) 8.6-50 [...] 9:52am Start: 08-30-2024 [facility] losartan (COZAAR) 100 [...] 2021 12:58pm meloxicam 7.5 mg oral tablet (3 sources) Nonsteroidal Anti-inflammatory Drug Start: 10-16-2024 Meloxicam [...] HOURS NEEDED as needed for Pain Score 1-10 28 7 0 December 29, 2019 January 04, 2020 12:00am January 05, 2020 12:02am Thoracic back pain Degeneration of intervertebral disc of thoracic region Pain in thoracic spine Other intervertebral disc degeneration, thoracic region Start: 12-29-2019 End: 01-05-2020 take 1 tablet by mouth every six hours as needed Hydrocodone-Acetaminophen Discontinued 1 TABLET PO EVERY 6 HOURS NEEDED 28 7 December 29, 2019 January 04, 2020 11:02pm Comment on above: TAKE 1 TABLET BY NENA TH EVERY 6 HOURS NEEDED FOR 7 DAYS amoxicillin 500 mg oral tablet (5 sources) Penicillin-class Antibacterial Start: 11-01-19 End: 02-02-20 [...] 500 mg PO THREE TIMES A DAY 21 August 02, 2022 1:00am December 21, 2022 9:27am Start: 06-09-2020 End: 06-10-2020 take 1 capsule by mouth three times daily Cephalexin (Keflex) 500 mg capsule Discontinued 500 mg PO THREE TIMES A DAY 15 June 09, 2020 1:00am June 10, 2020 12:29pm cimetidine 800 mg oral tablet (16 sources) Histamine-2 Receptor Antagonist Start: 12-18-2019 End: 12-26-2019 take 1 tablet by mouth at bedtime Cimetidine 800 mg tablet Discontinued 800 mg PO AT BEDTIME December 18, 2019 12:00am December 26, 2019 11:19am ciprofloxacin 500 mg oral tablet (11 sources) Quinolone Antimicrobial Start: 08-04-2022 End: 12-21-2022 [...] mg tablet Discontinued 0 .ROUTE .COMPLEX 90 3 December 03, 2020 8:22am December 22, 2021 10:43am On Hold: Hematoma in knee TAKE 1 TABLET BY MOUTH EVERY DAY Comment on above: Take 75 mg by mouth once daily. docusate sodium 100 mg oral capsule (16 sources) Start: 12-02-2021 End: 03-16-2024 take 1 capsule by mouth once daily Docusate Sodium 100 mg capsule Discontinued 100 mg PO DAILY December 02, 2021 12:00am March 16, 2024 8:53am famotidine 40 mg oral tablet (5 sources) Histamine-2 Receptor Antagonist Start: 03-16-2024 End: 10-15-2024 take 1 tablet by mouth once daily Famotidine 40 mg tablet Discontinued 40 mg PO daily March 16, 2024 12:00am October 15, 2024 9:27am fexofenadine hydrochloride 180 mg oral tablet (4 sources) Histamine-1 Receptor Antagonist Start: 09-04-2024 End: 10-15-2024 take 1 tablet by mouth every twenty-four hours Fexofenadine 180 mg tablet Discontinued 180 mg PO Q24H 30 0 September 04, 2024 12:00am October 15, 2024 9:27am lisinopril 2.5 mg oral tablet (20 sources) Angiotensin Converting Enzyme Inhibitor Start: 12-18-2019 End: 09-06-2024 take 1 tablet by mouth once daily Lisinopril 2.5 mg tablet Discontinued 2.5 mg PO DAILY 30 11 December 02, 2020 4:52pm December 30, 2020 [...] Take 100 mg by mouth once daily. Skelmgml-Muj-Gu-Lyc open-Lutein (Centrum Silver) 0.4-300-250 mg-mcg-mcg tablet (16 sources) Start: 11-06-2019 End: 03-05-2020 Bcyjxxqj-Aeb-Dt-Ly copen-Lutein (Centrum Silver) 0.4-300-250 mg-mcg-mcg tablet Discontinued 1 {tbl} PO DAILY November 06, 2019 12:00am March 05, 2020 9:39am Start: 11-06-2019 End: 03-05-2020 take 1 tablet by mouth once daily Dxmbicqc-Eih-Rt-Lycopen-Lutein (Centrum Silver) 0.4-300-250 mg-mcg-mcg tablet Discontinued 1 TABLET PO DAILY November 05, 2019 11:00pm March 05, 2020 8:39am Start: 11-06-2019 End: 03-05-2020 take 1 tablet by mouth once daily Yipcstzy-Huf-Am-Lycopen-Lutein (Centrum Silver) 0.4-300-250 mg-mcg-mcg tablet Discontinued 1 [...] Coronary atherosclerosis; Translations: [Atherosclerotic heart disease of saxman coronary artery without angina pectoris] Onset: 0 [...] 0 01-18-2020 Episodic Other connective tissue disease (16 sources) Iliotibial band friction syndrome; Translations: [Iliotibial band syndrome, left leg] 03-16-2021 Episodic Other connective tissue disease (5 sources) Female pelvic floor dysfunction; Translations: [Other specified disorders of muscle] 08-05-2023 Episodic Other connective tissue disease (7 sources) Pain in left arm; Translations: [Pain in left arm] 08-03-2024 Episodic Comment on above: Mid upper arm radiat ing down to pinky and ring finger, sometimes tingling. Patient with history of cervical spine surgery. Other ear and sense organ disorders (7 sources) Tinnitus; Translations: [Tinnitus, left ear] 10-15-2024 Episodic Other eye disorders (1 source) Dry eye syndrome of bilateral lacrimal glands; Translations: [Dry eye syndrome of bilateral lacrimal glands] Onset: 5 Episodic Other gastrointestinal disorders (16 sources) Dysphagia; Translations: [Dysphagia, unspecified] 03-16-2021 Episodic Other gastrointestinal disorders (16 sources) Difficulty swallowing solids; Translations: [Dysphagia, unspecified] 03-08-2022 Episodic Other gastrointestinal disorders (8 sources) Dysphagia, unspecified; Translations: [Dysphagia, unspecified] Episodic Other gastrointestinal disorders (7 sources) Incontinence of feces; Translations: [Full incontinence of feces] 05-06-2023 Episodic Other gastrointestinal disorders (2 sources) Full incontinence of feces; Translations: [Full incontinence of feces] 05-06-2023 Episodic Other gastrointestinal disorders (5 sources) Chronic constipation; Translations: [Other constipation] 03-16-2024 Episodic Other hereditary and degenerative nervous system conditions (3 sources) Dyskinesia; Translations: [Dystonia, unspecified] 06-13-2024 Chronic Other hereditary and degenerative nervous system conditions (1 source) Dystonia, unspecified; Translations: [Dyskinesia] Onset: Chronic Other inflammatory condition of skin (20 sources) Rosacea; Translations: [Rosacea, unspecified] Onset: 7 07-06-2006 Chronic Other injuries and conditions due to external causes (16 sources) History of fall; Translations: [History of falling] 12-02-2021 Episodic Other injuries and conditions due to external causes (16 sources) History of open head injury; Translations: [Personal history of other (healed) physical injury and trauma] 12-02-2021 Episodic Other injuries and conditions due to external causes (1 source) History of falling; Translations: [History of fall] Episodic Other nervous system disorders (19 sources) Tremor; Translations: [Tremor, unspecified] 02-02-2023 Episodic Other nervous system disorders (3 sources) Abnormal gait; Translations: [Unspecified abnormalities of gait and mobility] 06-13-2024 Episodic Other non-traumatic joint disorders (6 sources) Shoulder pain; Translations: [Pain in right shoulder] 03-16-2021 Episodic Other non-traumatic joint disorders (16 sources) Hip pain; Translations: [Pain in left hip] 03-16-2021 Episodic Other non-traumatic joint disorders (10 sources) Pain in right shoulder; Translations: [Right shoulder pain] 03-16-2021 Episodic Other non-traumatic joint disorders (4 sources) Pain in left hip; Translations: [Pain in joint, pelvic region and thigh] 02-02-2023 Episodic Other skin disorders (10 sources) Neck swelling; Translations: [Localized swelling, mass and lump, neck] 02-02-2023 Episodic Residual codes; unclassified (2 sources) Olfactory hallucinations; Translations: [Other hallucinations] 01-14-2025 Episodic Spondylosis; intervertebral disc disorders; other back problems (16 sources) Thoracic back pain; Translations: [Pain in thoracic spine] 05-13-2020 Episodic Superficial injury; contusion (5 sources) Contusion of knee; Translations: [Contusion of unspecified knee, initial encounter] Onset: 2 Episodic Thyroid disorders (15 sources) Thyroid nodule; Translations: [Nontoxic single thyroid [...] recommendation. Unclassified (3 sources) Fusion 08-10-2013 Unclassified (11 sources) Tinnitus of left ear; Translations: [H93.12 - Tinnitus, left ear] Urinary tract infections (12 sources) Urinary tract infectious disease; Translations: [Urinary [...] status] Onset: 12-20-2019 Episodic Malaise and fatigue (9 sources) Fatigue; Translations: [Other fatigue] Onset: 08-03-2024 [...] conditions (not mental disorders or infectious disease) (17 sources) Cardiovascular stress test abnormal; Translations: [Abnormal [...] 02-27-2018 Episodic Otitis media and related conditions (7 sources) Dysfunction of eustachian tube; Translations: [Unspecified Eustachian tube disorder, unspecified ear] Onset: 09-07-2024 09-07-2024 Episodic Viral infection (12 sources) Verruca vulgaris; Translations: [Viral wart, unspecified] Onset: 02-15-2008 Resolved: 02-27-2018 02-27-2018 Episodic Results Test Name Value Interpretation Reference Range Facility Anion gap in Serum or Plasma Ordered By: Pedro Wang on 01-14-2025 Anion gap [Moles/Vol] 10 mmol/L 5-15 [facility] BUN/creatinine ratioOrdered By: Pedro Wang on 01-14-2025 Urea nitrogen/Creatinine [Mass ratio] 17.0 mg/mg 10-20 [facility] Basic Metabolic Profile (BMP )on 01-14-2025 BUN/CRE 17.0 RATIO Normal 10-20 [facility] Comment on above: Performed By: #### L 500.2500 ####[facility] [address] [place], [address] Calcium [Mass/Vol] 9.5 mg/dL Normal 7.6-11.0 [facility] Comment on above: Performed By: #### L 500.2500 ####[facility] [address] [place], [address] Chloride [Moles/Vol] 105 mmol/L Normal 98-108 [facility] Comment on above: Performed By: #### L 500.2500 ####[facility] [address] [place], [address] CO2 [Moles/Vol] 26.1 mmol/L Normal 21.0-32.0 [facility] Comment on above: Performed By: #### L 500.2500 ####[facility] [address] [place], [address] Creatinine [Mass/Vol] 0.80 mg/dL Normal 0.70-1.20 [facility] Comment on above: Performed By: #### L 500.2500 ####[facility] [address] [place], [address] GAP 10 Normal 5-15 [facility] Comment on above: Performed By: #### L 500.2500 ####[facility] [address] [place], [address] GFR/1.73 sq M.predicted among non-blacks MDRD (S/P/Bld) [Vol rate/Area] 77 mL/min/{1.73_m2} Normal >60 [facility] Comment on above: Result Comment: mL/m in/1.73m2 CKD-EPI Creatinine Equation (2020) Performed By: #### L 500.2500 ####[facility] [address] [place], [address] Glucose [Mass/Vol] 78 mg/dL Normal 70-99 [facility] Comment on above: Performed By: #### L 500.2500 ####[facility] [address] [place], [address] Potassium [Moles/Vol] 4.2 mmol/L Normal 3.3-5.1 [facility] Comment on above: Performed By: #### L 500.2500 ####[facility] [address] [place], [address] Sodium [Moles/Vol] 141 mmol/L Normal 133-145 [facility] Comment on above: Performed By: #### L 500.2500 ####[facility] [address] [place], [address] Urea nitrogen [Mass/Vol] 14 mg/dL Normal 4-19 [facility] Comment on above: Performed By: #### L 500.2500 ####[facility] [address] [place], [address] Carbon dioxide, total [Moles /volume] in Central venous bloodOrdered By: Pedro Wang on 01-14-2025 CO2 [Moles/Vol] 26.1 mmol/L 21.0-32.0 [facility] Chloride assayOrdered By: Jac Wang on 01-14-2025 Chloride [Moles/Vol] 105 mmol/L 98-108 [facility] Glomerular filtration rate ( GFR) estimation/1.73 sq m using serum, plasma, or whole bOrdered By: Pedro Wang on 01-14-2025 GFR/1.73 sq M.predicted among non-blacks MDRD (S/P/Bld) [Vol rate/Area] 77 mL/min/{1.73_m2} >60 [facility] Comment on above: mL/min/1.73m2 CKD-EP I Creatinine Equation (2020) Internal Medicine Office Vis bre 01-14-2025 Internal Medicine Office Visit [facility] [address] [place], [place] [address] OFFICE VISIT Date of Service: 01/14/25 MR#: [id number] Acct: [id number] Name: RADHA BARR Rep #: [id number] : 1950 Provider: Dr. Pedro olivares MD Age/Sex: 74/F Location[place] [facility] [place] [facility] [place] Status: Signed Intake Vital Signs 10/15/24 09:24 [...] M FU Chief Complaint: 4 M FU Peanut Sorter Required: No Accompanied by: Self Is patient [...] No Nurse's Note: things are going well [facility] Medical History (Updated 01/14/25 @ 12:26 by [...] back pain Atherosclerosis of coronary artery of saxman heart without angina pectoris Atrial tachycardia Osteopenia [...] and Car (more content not included)... Normal [facility] Potassium measurement (mass/ volume)Ordered By: Pedro Wang on 01-14-2025 Potassium (Unsp spec) [Mass/Vol] 4.2 mmol/L 3.3-5.1 [facility] Serum creatinine measurement (mass/volume)Ordered By: Pedro Wang on 01-14-2025 Creatinine [Mass/Vol] 0.80 mg/dL 0.70-1.20 [facility] Serum glucose measurement (m ass/volume)Ordered By: Pedro Wang on 01-14-2025 Glucose [Mass/Vol] 78 mg/dL 70-99 [facility] Serum or plasma calcium liam urement (mass/volume)Ordered By: Pedro Wang on 01-14-2025 Calcium [Mass/Vol] 9.5 mg/dL 7.6-11.0 [facility] Serum or plasma urea nitroge n measurement (mass/volume)Ordered By: Pedro Wang on 01-14-2025 Urea nitrogen [Mass/Vol] 14 mg/dL 4-19 [facility] Sodium levelOrdered By: Fortunato Wang on 01-14-2025 Sodium [Moles/Vol] 141 mmol/L 133-145 [facility] CNOVon 12-11-2024 CNOV Office Visit (NEUBSM ) RADHA BARR ([id number]) 1950 F Date Time Provider Department 12/11/24 4:00 PM CCBS COORDINATOR 2 ([facility])ZACK During your visit today, we recorded the following information about you: Spike Dee, Research Coordinator 12/11/2024 3:35 PM Signed DATE:December 11, 2024 PT. NAME: Radha Barr [facility]#: [id number] IRB #: [id number] A. PROTOCOL: [facility] Brain Study Cook Vacuum Kettle: Mar Chavez MD, , Alberto Ralph MD, [facility] service advocate contact for study related questions: Letty Garcia Subject [...] 02/15/2008 02/27/2018 Atherosclerosis of coronary artery of saxman he*01/18/2020 Atrial tachycardia (HCC) [I47.19] 01/18/2020 Bundle branch block [I45.4] 01/18/2020 Left ventricular dysfunction [I51.9] 01/18/2020 Ventricular premature beats [I49.3] 01/18/2020 Essential hypertension, benign [I10] 01/18/2020 Mixed hyperlipidemia [E78.2] 01/18/2020 GERD (gastroesophageal reflux disease) [K21.9] 01/18/2020 Skin cancer [C44.90] 01/18/2020 S/P lumbar fusion [Z98.1] 01/18/2020 S/P cervical spinal fusion [Z98.1] 01/18/2020 Osteopenia [M85.80] 01/18/2020 Encounter Status:Closed by SPIKE DEE on 12/11/24 Normal [facility] CNOV Office Visit (NEUBSM ) MOMORADHA Mary ([id number]) 1950 F Date Time Provider Department 12/11/24 2:45 PM CCBS NELLIE 2 ([facility]) NEUBSM During your visit today, we recorded the following information about you: Letitia Aguillon PA-C 12/11/2024 3:25 PM Signed DATE: December 11, 2024 PT. NAME: Radha Hernandez Momo [facility]#: [id number] IRB [id number]. [facility] Brain Study (BS) Cook Vacuum Kettle: Mar Chavez MD, , Alberto Ralph MD, Modeling Director: Letty Garcia and Email:[email or web address] Time: 14:50:56 EKG/ECG was performed on patient. [...] extension: Right 5 Left 5 Finger flexion/tobacco baler: Right 5 Left 5 Flexor pollicis longus: [...] Weakness?: No Tremor: No Cerebellar/Coordinati on Assessment Xrxizw-ha-Sxth: Abnormality present: No, Ckpp-fu-Rqbi: Abnormality present: No, Finger Tapping - Abnormality [...] every 8 (more content not included)... Normal [facility] Thyroidon 12-05-2024 Thyroid [facility] Imaging Services [address] [place], [place] [address] Thyroid MR#: [id number] Acct: [id number] Name: RADHA BARR Rep #: [id number] : 1950 F 74 From: Александр Garcia MD PCP: Dr. Pedro Wang MD Status: [facility] CLI Study: Thyroid Date of Exam: 12/05/24 Exam# [id number] Ordering Dr: Pedro Wang MD EXAM: US [...] Follow if >/= 0.5 cm. Reading Location[facility] CC: Dr. Pedro Wang MD Inspector And Clipper: Signed Normal [facility] Internal Medicine Office Vis [facility] 10-15-2024 Internal Medicine Office Visit [facility] [address] [place] [address] [place] [address] OFFICE VISIT Date of Service: 10/15/24 MR#: [id number] Acct: [id number] Name: RADHA BARR Rep #: [id number] : 1950 Provider: Dr. Pedro olivares MD Age/Sex: 73/F Location: [facility] [place] Status: Signed Intake Vital Signs 06/22/24 08:55 [...] back pain Atherosclerosis of coronary artery of saxman heart without angina pectoris Atrial tachycardia Osteopenia [...] to a movement disorder specialist at the [facility] from the brain [place]. She states that she saw the movement [...] congestion, heada (more content not included)... Normal [facility] Knee 4 or More Viewson 10-15 Knee 4 or More Views [facility] Imaging Services [address] [place] [address] Knee 4 or More Views MR#: [id number] Acct: [id number] Name: RADHA BARR Rep #: [id number] : 1950 F 73 From: Guille Gordon MD PCP: Dr. Pedro Wang MD Status: REG CLI Study: Knee 4 or More Views Date of Exam: 10/15/24 Exam# [id number] Ordering Dr: Pedro Wang MD PROCEDURE: KNEE 4 OR MORE VIEWS 10/15/2024 REASON FOR EXAM: RIGHT KNEE PAIN TECHNIQUE: 4 view(s) of the right knee COMPARISON: None FINDINGS: No fracture or traumatic malalignment. There is aoao-jb-zjfmwlhk tricompartmental joint space narrowing and osteophyte formation. Subtle chondrocalcinosis in the lateral compartment. No joint effusion. Soft tissues are unremarkable. RAD/Knee 4 or More Views IMPRESSION: Nhfi-ve-uuoqdoxj osteoarthritis of the right knee. There is subtle chondrocalcinosis in the lateral compartment, as may be seen with calcium pyrophosphate deposition disease. Reading Location: [facility] CC: Dr. Pedro Wang MD Inspector And Clipper: Signed Normal [facility] Internal Medicine Office Vis iton 09-07-2024 Internal Medicine Office Visit [facility] [address] [place] [address] [place] [address] OFFICE VISIT Date of Service: 09/07/24 MR#: [id number] Acct: [id number] Name: RADHA BARR Rep #: [id number] : 1950 Provider: KIMBERLY Fitzpatrick Age/Sex: 73/F Location: [facility] [place] Status: Signed Intake Vital Signs 09/04/24 08:54 [...] lft ear Chief Complaint: fu now clinic Peanut Sorter Required: No Accompanied by: Self Is patient [...] back pain Atherosclerosis of coronary artery of saxman heart without angina pectoris Atrial tachycardia Osteopenia [...] sweating, fa (more content not included)... Normal [facility] CNOVon 09-06-2024 CNOV Office Visit (NRMDN) RADHA BARR ([id number]) 1950 F Date Time Provider Department 09/06/24 3:30 PM YANDEL GARCIA During your visit today, we recorded the following information about you: Weight 71.2 kg Yandel Garcia MD 09/07/2024 8:08 AM Signed [facility] - NEW PATIENT EVALUATION The patient consented to the use of [employer] software for draft documentation of the visit consistent with [facility] Notice of Privacy Practices. Referring Provider: Suhas Stearns [address] [facility] [address] Primary Care Provider: Pedro Wang MD [address] [facility] [id number] Dear Suhas Stearns: Thank you for referring [...] dominant. She notes a decrease in tobacco baler strength and dexterity, particularly in her right [...] and Thin (more content not included)... Normal [facility] Urgent Care Visit Reporton 0 09-04-2024 Urgent Care Visit Report [facility] [address] [place] [address] OFFICE VISIT Date of Service: 09/04/24 MR#: [id number] Acct: [id number] Name: RADHA BARR Rep #: [id number] : 1950 Provider: KIMBERLY Rosas Age/Sex: 73/F Location: [facility] [place] Status: Signed Intake Vital Signs 08/03/24 07:40 [...] Patient states noises are loud and hymns. [facility] Medical History Chronic constipation Perkins esophagus Normal [...] back pain Atherosclerosis of coronary artery of saxman heart without angina pectoris Atrial tachycardia Osteopenia [...] fever, chills, sweats, lightheadedness/dizzi ness, nausea/vomiting. No yify-xvx-wlmmril products have been tried to persist. No other associated symptoms and no alleviating/aggravati ng factors. ROS Const Constitutional: No other (As above) Exam Const General: cooperative, healthy appearing and no acute distress Nutritional Appearance: average body habitus Orientation: alert and awake [facility] Head: normal to inspection Ears: hearing grossly [...] Change in hearing: Status: Acute Plan: Consider ikfn-cbh-ejnouil antihistamine use such as loratadine or cetirizine or fexofenadine; fexofenadine prescribed today. Follow-up with PCP in 5 to 7 days should symptoms not improve, sooner should (more content not included)... Normal [facility] Cardiovascular stress test r eportOrdered By: Jean-Paul Delgado on 08-17-2024 Study report [facility] Cardiovascular Services [address] [place] [address] MR#: [id number] Acct: [id number] Name: RADHA BARR Rep #: [id number] : 1950 73 From: Jean-Paul Delgado MD Primary Care: Dr. Pedro Wang MD St atus: REG CLI Referring Dr: Pepe Tan [...] ~ Date Dictated: 08/17/241702 Date Transcribed: 08/17/241702 Inspector And Clipper: CO Signed [facility] Work Phone: Stress Reporton 08-17-2024 Stress Report [facility] Cardiovascular Services [address] [place] [address] MR#: [id number] Acct: [id number] Name: RADHA BARR Rep #: [id number] : 1950 73 From: Jean-Paul Delgado MD [...] stress test. Preserved ejection fraction. 08/17/241703 Date Jean-Paul Delgado MD CC: Dr. Pedro Wang MD; KIMBERLY Mcclendon Date Dictated: 08/17/241702 Date Transcribed: 08/17/241702 Inspector And Clipper: CO Signed Normal [facility] 12 Lead EKG performed by [facility] [place] on 08-03-2024 12 Lead EKG performed by [address] [place] [address] 12 Lead EKG performed by [facility] [place] 08/03/24 0739 MR#: [id number] Acct: [id number] Name: RADHA BARR Rep #: [id number] : 1950 73 From: Pepe HARRIS Attending Dr: KIMBERLY Mcclendon Status: DEP AM B Ordering Dr: Pepe Tan Date: 08/03/24 Location: [facility] [place] Sex: F C Admitted: [facility] [place]/12 Lead EKG performed by [facility] [place] ECG Report Interpretation -----Sinus Rhythm -Left bundle branch block. -Left atrial enlargement. ABNORMAL Electronically signed on 08/06/2024 at 15:30 by Jean-Paul Delgadowood [employer] Version [id number] 08/06/24 1531 Date Pepe HARRIS CC: Dr. Pedro Wang MD Date Dictated: 08/03/24738 Date Transcribed: 08/03/24738 Inspector And Clipper: SAM Signed Normal [facility] Cardiology Visit Reporton Cardiology Visit Report [facility] [address] [place] [address] OFFICE VISIT Date of Service: 08/03/24 MR#: [id number] Acct: [id number] Name: RADHA BARR Rep #: [id number] : 1950 [...] arm down to Pinky and ring finger. u3dnzlp. No activity that she was doing when it started, no recent injury. comes and goes. sometimes with walking, sometimes at rest. lasts about 5 minutes. several times per day. Pain is different from before. Pain is a grabbing pain. Some tingling. Patient does have Hx cervical spinal surgery at [facility] >5 years ago. No recent imaging or [...] Reasons: L arm pain, fatigue, hx stenting Peanut Sorter Required: No Is patient in pain?: No [...] you fallen in the past year?: No [facility] Medical History Chronic constipation Perkins esophagus Normal [...] back pain Atherosclerosis of coronary artery of saxman (more content not included)... Normal [facility] SCRN MAMM (CAD)W/DEREJE BILATo n 06-29-2024 SCRN MAMM (CAD)W/DEREJE BILAT [facility] Imaging Services [address] [place] [address] SCRN MAMM (CAD)W/DEREJE BILAT MR#: [id number] Acct: [id number] Name: RADHA BARR Rep #: [id number] : 1950 F 73 From: Evgeny loya MD PCP: Dr. Pedro Wang MD Status: REG CLI Study: SCRN MAMM (CAD)W/DEREJE BILAT Date of Exam: 06/01 06/23 Exam# [id number] Ordering Dr: Pedro Wang MD PROCEDURE: SCRN [...] of the results by letter. Reading Location: [facility] CC: Dr. Pedro Wang MD Inspector And Clipper: Signed Normal [facility] 46-FG-Bsfxumn DOrdered By: Genaro Wang on 06-22-2024 Vitamin D 25-Hydroxy 61.7 ng/mL [facility] Comment on above: Vitamin D 25(OH) Sta tus Range Deficiency <20 ng/mL (50nmol/L) Insufficiency 20 - 30 ng/mL (50 - 75 nmol/L) Sufficiency 30 - 100 ng/mL (75 - 250 nmol/L) Toxicity >100 ng/mL (>250 nmol/L) Absolute lymphocyte countOrd ered By: Pedro Wang on 06-22-2024 Lymphocytes Auto (Unsp spec) [#/Vol] 1.34 10*3/uL 0.83-4.51 [facility] Absolute neutrophil countOrd ered By: Pedro Wang on 06-22-2024 Neutrophils (Bld) [#/Vol] 4.5 10*3/uL 2.0-7.7 [facility] Albumin to globulin ratioOrd ered By: Pedro Wang on 06-22-2024 Albumin/Globulin [Mass ratio] 0.9 {ratio} 0.9-2.4 [facility] Automated lymphocyte count a s percentage of total leukocytesOrdered By: Pedro Wang on 06-22-2024 Lymphocytes/100 WBC Auto (Unsp spec) 19.9 % 19-41 [facility] Basophil percentageOrdered B y: Pedro Wang on 06-22-2024 Basophils/100 WBC (Bld) 0.9 % 0-1 [facility] Bilirubin, totalOrdered By: Pedro Wang on 06-22-2024 Bilirubin [Mass/Vol] 0.30 mg/dL 0.20-1.00 [facility] Comment on above: For patients on eltr ombopag therapy, use of Dimension Fowler TBIL is not recommended. Blood urea nitrogen (BUN)/cr eatinine ratioOrdered By: Pedro Wang on 06-22-2024 Urea nitrogen/Creatinine [Mass ratio] 15.7 mg/mg 10- [facility] CBC W/Diff, Automatedon 05-31 Absolute Lymph 1.34 X10 3/uL Normal 0.83-4.51 [facility] Comment on above: Performed By: #### L 506.1000, L500.4100, L500.4050, L501.5200, L100.0100 #### [facility] [address] [place], [address] Absolute Neut 4.5 X10 3/uL Normal 2.0-7.7 [facility] Comment on above: Performed By: #### L 506.1000, L500.4100, L500.4050, L501.5200, L100.0100 #### [facility] [address] [place], [address] Basophils/100 WBC (Bld) 0.9 % Normal 0-1 [facility] Comment on above: Performed By: #### L 506.1000, L500.4100, L500.4050, L501.5200, L100.0100 #### [facility] [address] [place], [address] Eosinophils/100 WBC (Bld) 3.6 % Normal 0-5 [facility] Comment on above: Performed By: #### L 506.1000, L500.4100, L500.4050, L501.5200, L100.0100 #### [facility] [address] [place], [address] Erythrocyte distribution width (RBC) [Ratio] 13.2 % Normal 11.6-14.6 [facility] Comment on above: Performed By: #### L 506.1000, L500.4100, L500.4050, L501.5200, L100.0100 #### [facility] [address] [place], [address] Hematocrit (Bld) [Volume fraction] 38.5 % Normal 37-47 [facility] Comment on above: Performed By: #### L 506.1000, L500.4100, L500.4050, L501.5200, L100.0100 #### [facility] [address] [place], [address] Hemoglobin (Bld) [Mass/Vol] 12.1 g/dL Normal 12.0-15.0 [facility] Comment on above: Performed By: #### L 506.1000, L500.4100, L500.4050, L501.5200, L100.0100 #### [facility] [address] [place], [address] IG% 0.300 Normal 0.0-0.9 [facility] Comment on above: Result Comment: IG% - Immature Granulocytes (promyelocytes, myelocytes and metamyelocytes) > 1% indicates that a LEFT SHIFT is Present. Performed By: #### L 506.1000, L500.4100, L500.4050, L501.5200, L100.0100 #### [facility] [address] [place], [address] Lymphocytes/100 WBC (Bld) 19.9 % Normal 19-41 [facility] Comment on above: Performed By: #### L 506.1000, L500.4100, L500.4050, L501.5200, L100.0100 #### [facility] [address] [place], [address] MCH (RBC) [Entitic mass] 28.6 pg Normal 27.0-32.0 [facility] Comment on above: Performed By: #### L 506.1000, L500.4100, L500.4050, L501.5200, L100.0100 #### [facility] [address] [place], [address] MCHC (RBC) [Mass/Vol] 31.4 g/dL Low 32-36 [facility] Comment on above: Performed By: #### L 506.1000, L500.4100, L500.4050, L501.5200, L100.0100 #### [facility] [address] [place], [address] MCV (RBC) [Entitic vol] 91.0 fL Normal 81-99 [facility] Comment on above: Performed By: #### L 506.1000, L500.4100, L500.4050, L501.5200, L100.0100 #### [facility] [address] [place], [address] Monocytes/100 WBC (Bld) 8.0 % Normal 0-10 [facility] Comment on above: Performed By: #### L 506.1000, L500.4100, L500.4050, L501.5200, L100.0100 #### [facility] [address] [place], [address] Neutrophils/100 WBC (Bld) 67.3 % Normal 47-70 [facility] Comment on above: Performed By: #### L 506.1000, L500.4100, L500.4050, L501.5200, L100.0100 #### [facility] [address] [place], [address] Nucleated RBC (Bld) [#/Vol] 0 10*3/uL Normal 0-5 [facility] Comment on above: Performed By: #### L 506.1000, L500.4100, L500.4050, L501.5200, L100.0100 #### [facility] [address] [place], [address] Platelet mean volume (Bld) [Entitic vol] 12.1 fL High 6.2-12.0 [facility] Comment on above: Performed By: #### L 506.1000, L500.4100, L500.4050, L501.5200, L100.0100 #### [facility] [address] [place], [address] Platelets (Bld) [#/Vol] 205 10*3/uL Normal 150-450 [facility] Comment on above: Performed By: #### L 506.1000, L500.4100, L500.4050, L501.5200, L100.0100 #### [facility] [address] [place], [address] RBC (Bld) [#/Vol] 4.23 10*6/uL Normal 4.2-5.4 [facility] Comment on above: Performed By: #### L 506.1000, L500.4100, L500.4050, L501.5200, L100.0100 #### [facility] [address] [place], [address] RDW SD 43.5 fl Normal 35.1-43.9 [facility] Comment on above: Performed By: #### L 506.1000, L500.4100, L500.4050, L501.5200, L100.0100 #### [facility] [address] [place], [address] WBC (Bld) [#/Vol] 6.7 10*3/uL Normal 4.4-11.0 [facility] Comment on above: Performed By: #### L 506.1000, L500.4100, L500.4050, L501.5200, L100.0100 #### [facility] [address] [place], [address] Carbon dioxide measurementOr dered By: Pedro Wang on 06-22-2024 CO2 [Moles/Vol] 29.0 mmol/L 21.0-32.0 [facility] Chloride measurementOrdered By: Pedro Wang on 06-22-2024 Chloride [Moles/Vol] 108 mmol/L High 98-107 [facility] Comprehensive Metabolic Prof ilon 06-22-2024 Albumin [Mass/Vol] 3.3 g/dL Normal 3.2-5.0 [facility] Comment on above: Performed By: #### L 506.1000, L500.4100, L500.4050, L501.5200, L100.0100 ####[facility] [address] [place], [address] Albumin/Globulin [Mass ratio] 0.9 {ratio} Normal 0.9-2.4 [facility] Comment on above: Performed By: #### L 506.1000, L500.4100, L500.4050, L501.5200, L100.0100 ####[facility] [address] [place], [address] ALK P 57 U/L Normal 45-117 [facility] Comment on above: Performed By: #### L 506.1000, L500.4100, L500.4050, L501.5200, L100.0100 ####[facility] [address] [place], [address] ALT [Catalytic activity/Vol] 26 U/L Normal 13-56 [facility] Comment on above: Performed By: #### L 506.1000, L500.4100, L500.4050, L501.5200, L100.0100 ####[facility] [address] [place], [address] AST [Catalytic activity/Vol] 20 U/L Normal 15-37 [facility] Comment on above: Performed By: #### L 506.1000, L500.4100, L500.4050, L501.5200, L100.0100 ####[facility] [address] [place], [address] Bilirubin [Mass/Vol] 0.30 mg/dL Normal 0.20-1.00 [facility] Comment on above: Result Comment: For patients on eltrombopag therapy, use of Dimension Fowler TBIL is not recommended. Performed By: #### L 506.1000, L500.4100, L500.4050, L501.5200, L100.0100 ####[facility] [address] [place], [address] BUN/CRE 15.7 RATIO Normal 10-20 [facility] Comment on above: Performed By: #### L 506.1000, L500.4100, L500.4050, L501.5200, L100.0100 ####[facility] [address] [place], [address] CA,Total 9.3 mg/dL Normal 8.5-10.1 [facility] Comment on above: Performed By: #### L 506.1000, L500.4100, L500.4050, L501.5200, L100.0100 ####[facility] [address] [place], [address] Chloride [Moles/Vol] 108 mmol/L High 98-107 [facility] Comment on above: Performed By: #### L 506.1000, L500.4100, L500.4050, L501.5200, L100.0100 ####[facility] [address] [place], [address] CO2 [Moles/Vol] 29.0 mmol/L Normal 21.0-32.0 [facility] Comment on above: Performed By: #### L 506.1000, L500.4100, L500.4050, L501.5200, L100.0100 ####[facility] [address] [place], [address] Creatinine [Mass/Vol] 0.83 mg/dL Normal 0.55-1.02 [facility] Comment on above: Result Comment: The validity of the calculated GFR GFRAA in patients over 70 years has not been determined. Clinical correlation is essential. Performed By: #### L 506.1000, L500.4100, L500.4050, L501.5200, L100.0100 ####[facility] [address] [place], [address] EST GFR - AA 87 mL/min Normal >60 [facility] Comment on above: Result Comment: Afri can Somali GFR Calc Performed By: #### L 506.1000, L500.4100, L500.4050, L501.5200, L100.0100 ####[facility] [address] [place], [address] GAP 4 Low 5-15 [facility] Comment on above: Performed By: #### L 506.1000, L500.4100, L500.4050, L501.5200, L100.0100 ####[facility] [address] [place], [address] GFR/1.73 sq M.predicted among non-blacks MDRD (S/P/Bld) [Vol rate/Area] 72 mL/min/{1.73_m2} Normal >60 [facility] Comment on above: Result Comment: Non- GFR Calc Performed By: #### L 506.1000, L500.4100, L500.4050, L501.5200, L100.0100 ####[facility] [address] [place], [address] Globulin (S) [Mass/Vol] 3.8 g/dL Normal 2.2-4.2 [facility] Comment on above: Performed By: #### L 506.1000, L500.4100, L500.4050, L501.5200, L100.0100 ####[facility] [address] [place], [address] Glucose [Mass/Vol] 89 mg/dL Normal 74-106 [facility] Comment on above: Performed By: #### L 506.1000, L500.4100, L500.4050, L501.5200, L100.0100 ####[facility] [address] [place], [address] Potassium [Moles/Vol] 4.3 mmol/L Normal 3.5-5.1 [facility] Comment on above: Performed By: #### L 506.1000, L500.4100, L500.4050, L501.5200, L100.0100 ####[facility] [address] [place], [address] Sodium [Moles/Vol] 141 mmol/L Normal 136-145 [facility] Comment on above: Performed By: #### L 506.1000, L500.4100, L500.4050, L501.5200, L100.0100 ####[facility] [address] [place], [address] T PROT 7.1 g/dL Normal 6.4-8.2 [facility] Comment on above: Performed By: #### L 506.1000, L500.4100, L500.4050, L501.5200, L100.0100 ####[facility] [address] [place], [address] Urea nitrogen [Mass/Vol] 13 mg/dL Normal 7-18 [facility] Comment on above: Performed By: #### L 506.1000, L500.4100, L500.4050, L501.5200, L100.0100 ####[facility] [address] [place], [address] Eosinophil percentageOrdered By: Pedro Wang on 06-22-2024 Eosinophils/100 WBC (Bld) 3.6 % 0-5 [facility] Erythrocyte distribution wid th ratioOrdered By: eros Wang on 06-22-2024 Erythrocyte distribution width (RBC) [Ratio] 13.2 % 11.6-14.6 [facility] Erythrocyte distribution wid th standard deviationOrdered By: sumitsaint marys cityhaim Wang on 06-22-2024 Erythrocyte distribution width (RBC) [Entitic vol] 43.5 fL 35.1-43.9 [facility] Erythrocyte distribution width (RBC) [Ratio] 43.5 fl 35.1-43.9 [facility] Estimated glomerular filtrat ion rate (GFR) AmericanOrdered By: Pedro Wang on 06-22-2024 Estimated GFR (MDRD) Amer 87 mL/min >60 [facility] Comment on above: GFR Calc Glomerular filtration rate ( GFR) estimationOrdered By: Pedro Wang on 06-22-2024 Estimated GFR (MDRD) Non-Af Amer 72 mL/min >60 [facility] Comment on above: Non- GFR Calc GFR/1.73 sq M.predicted among non-blacks MDRD (S/P/Bld) [Vol rate/Area] 72 mL/min/{1.73_m2} >60 [facility] Comment on above: Non- GFR Calc Glucose measurementOrdered B y: Pedro Wang on 06-22-2024 Glucose [Mass/Vol] 89 mg/dL 74-106 [facility] Hematocrit Auto (Bld) [Volum e fraction]Ordered By: Pedro Wang on 06-22-2024 Hematocrit (Bld) [Volume fraction] 38.5 % 37-47 [facility] Hemoglobin measurementOrdere d By: Pedro Wang on 06-22-2024 Hemoglobin (Bld) [Mass/Vol] 12.1 g/dL 12.0-15.0 [facility] High density lipoprotein (HD L) measurementOrdered By: Pedro Wang on 06-22-2024 Cholesterol in HDL [Mass/Vol] 62 mg/dL >40 [facility] Comment on above: The drugs N-Acetylcy steine and Metamizole may falsely depress this assay. Reference Range HDL <40 mg/dL Low HDL Cholesterol HDL >or= 60 mg/dL High HDL Cholesterol Immature granulocytes/100 WB C Auto (Bld)Ordered By: Pedro Wang on 06-22-2024 Immature granulocytes/100 WBC (Bld) 0.300 % 0.0-0.9 [facility] Comment on above: IG% - Immature Granu locytes (promyelocytes, myelocytes and metamyelocytes) > 1% indicates that a LEFT SHIFT is Present. Internal Medicine Office Vis iton 06-22-2024 Internal Medicine Office Visit [facility] [place] [address] [place] [address] OFFICE VISIT Date of Service: 06/22/24 MR#: [id number] Acct: [id number] Name: RADHA BARR Rep #: [id number] : 1950 Provider: Dr. Pedro olivares MD Age/Sex: 73/F Location: [facility] [place] Status: Signed Intake Vital Signs 03/16/24 08:56 [...] 3 M FU Chief Complaint: 3m f/u Peanut Sorter Required: No Accompanied by: Self Is patient [...] back pain Atherosclerosis of coronary artery of saxman heart without angina pectoris Atrial tachycardia Osteopenia [...] History of tremors, follows up at the [facility] and has been referred to movement disorder [...] rest, chest (more content not included)... Normal [facility] - Chemistry and C hemistry - challengeOrdered By: Pedro Wang on 06-22-2024 AST [Catalytic activity/Vol] 20 U/L 15-37 [facility] Lipid Profileon 06-22-2024 Cholesterol [Mass/Vol] 114 mg/dL Normal 200 [facility] Comment on above: Result Comment: <200 mg/dL Desirable 200-240 mg/dL Borderline >240 mg/dL High Risk Performed By: #### L 506.1000, L500.4100, L500.4050, L501.5200, L100.0100 ####[facility] [address] [place], [address] Cholesterol in HDL [Mass/Vol] 62 mg/dL Normal [facility] Comment on above: Result Comment: The drugs N-Acetylcysteine and Metamizole may falsely depress this assay. Reference Range HDL <40 mg/dL Low HDL Cholesterol HDL >or= 60 mg/dL High HDL Cholesterol Performed By: #### L 506.1000, L500.4100, L500.4050, L501.5200, L100.0100 ####[facility] [address] [place], [address] Cholesterol in LDL [Mass/Vol] 41 mg/dL Normal 0-130 [facility] Comment on above: Performed By: #### L 506.1000, L500.4100, L500.4050, L501.5200, L100.0100 ####[facility] [address] [place], [address] Cholesterol in VLDL [Mass/Vol] 11 mg/dL Normal 5-40 [facility] Comment on above: Performed By: #### L 506.1000, L500.4100, L500.4050, L501.5200, L100.0100 ####[facility] [address] [place], [address] Triglyceride [Mass/Vol] 55 mg/dL Normal [facility] Comment on above: Result Comment: The drugs N-Acetylcysteine and Metamizole may falsely depress this assay. Serum Triglycerides Reference Interval Normal <150 mg/dL Borderline high 150 - 199 mg/dL High 200 - 499 mg/dL Very High > or = 500 mg/dL Performed By: #### L 506.1000, L500.4100, L500.4050, L501.5200, L100.0100 ####[facility] [address] [place], [address] Low density lipoprotein (LDL ) cholesterol measurementOrdered By: Pedro Wang on 06-22-2024 Cholesterol in LDL [Mass/Vol] 41 mg/dL 0-130 [facility] Lymphocytes Auto (Unsp spec) [#/Vol]Ordered By: Pedro Wang on 06-22-2024 Lymphocytes (Bld) [#/Vol] 1.34 10*3/uL 0.83-4.51 [facility] Lymphocytes/100 WBC Auto (Un sp spec)Ordered By: Pedro Wang on 06-22-2024 Lymphocytes/100 WBC (Bld) 19.9 % 19-41 [facility] MCV (mean corpuscular volume ) determinationOrdered By: Pedro Wang on 06-22-2024 MCV (RBC) [Entitic vol] 91.0 fL 81-99 [facility] Magnesiumon 06-22-2024 Magnesium [Mass/Vol] 2.0 mg/dL Normal 1.6-2.6 [facility] Comment on above: Performed By: #### L 506.1000, L500.4100, L500.4050, L501.5200, L100.0100 ####[facility] [address] [facility] [place], [address] Magnesium measurementOrdered By: Pedro Wang on 06-22-2024 Magnesium [Mass/Vol] 2.0 mg/dL 1.6-2.6 [facility] Mean corpuscular hemoglobin (MCH) determinationOrdered By: Pedro Wang on 06-22-2024 MCH (RBC) [Entitic mass] 28.6 pg 27.0-32.0 [facility] Mean corpuscular hemoglobin concentration (MCHC) determinationOrdered By: Pedro Wang on 06-22-2024 MCHC (RBC) [Mass/Vol] 31.4 g/dL Low 32-36 [facility] Mean platelet volume determi nationOrdered By: Pedro Wang on 06-22-2024 Platelet mean volume (Bld) [Entitic vol] 12.1 fL High 6.2-12.0 [facility] Monocyte percentageOrdered B y: Pedro Wang on 06-22-2024 Monocytes/100 WBC (Bld) 8.0 % 0-10 [facility] Neutrophil percentageOrdered By: Pedro Wang on 06-22-2024 Neutrophils/100 WBC (Bld) 67.3 % 47-70 [facility] Nucleated red blood cell per centageOrdered By: Pedro Wang on 06-22-2024 Nucleated RBC/100 WBC (Bld) [Ratio] 0 % 0-5 [facility] Platelet countOrdered By: Jac Wang on 06-22-2024 Platelets (Bld) [#/Vol] 205 10*3/uL 150-450 [facility] Potassium measurementOrdered By: Pedro Wang on 06-22-2024 Potassium [Moles/Vol] 4.3 mmol/L 3.5-5.1 [facility] RBC Auto (Bld) [#/Vol]Ordere d By: Pedro Wang on 06-22-2024 RBC (Bld) [#/Vol] 4.23 10*6/uL 4.2-5.4 [facility] Serum anion gap measurementO rdered By: Pedro Wang on 06-22-2024 Anion gap [Moles/Vol] 4 mmol/L Low 5-15 [facility] Serum globulin measurementOr dered By: Pedro Wang on 06-22-2024 Globulin (S) [Mass/Vol] 3.8 g/dL 2.2-4.2 [facility] Serum or plasma alanine jim otransferase (ALT) measurementOrdered By: Pedro Wang on 06-22-2024 ALT [Catalytic activity/Vol] 26 U/L 13-56 [facility] Serum or plasma albumin liam urement (mass/volume)Ordered By: Pedro Wang on 06-22-2024 Albumin [Mass/Vol] 3.3 g/dL 3.2-5.0 [facility] Serum or plasma alkaline jimmy sphatase measurementOrdered By: Pedro Wang on 06-22-2024 ALP [Catalytic activity/Vol] 57 U/L 45-117 [facility] Serum or plasma calcium liam urement (mass/volume)Ordered By: Pedro Wang on 06-22-2024 Calcium [Mass/Vol] 9.3 mg/dL 8.5-10.1 [facility] Serum or plasma cholesterol measurement (mass/volume)Ordered By: Pedro Wang on 06-22-2024 Cholesterol [Mass/Vol] 114 mg/dL <200 [facility] Comment on above: <200 mg/dL Desirable 200-240 mg/dL Borderline >240 mg/dL High Risk Serum or plasma creatinine m easurement (mass/volume)Ordered By: Pedro Wang on 06-22-2024 Creatinine [Mass/Vol] 0.83 mg/dL 0.55-1.02 [facility] Comment on above: The validity of the calculated GFR & GFRAA in patients over 70 years has not been determined. Clinical correlation is essential. Serum or plasma urea nitroge n measurement (mass/volume)Ordered By: Pedro Wang on 06-22-2024 Urea nitrogen [Mass/Vol] 13 mg/dL 7-18 [facility] Sodium levelOrdered By: Fortunato Wang on 06-22-2024 Sodium [Moles/Vol] 141 mmol/L 136-145 [facility] Total proteinOrdered By: Jon Wang on 06-22-2024 Protein [Mass/Vol] 7.1 g/dL 6.4-8.2 [facility] Triglycerides measurementOrd ered By: Pedro Wang on 06-22-2024 Triglyceride [Mass/Vol] 55 mg/dL <199 [facility] Comment on above: The drugs N-Acetylcy steine and Metamizole may falsely depress this assay.Serum Triglycerides Reference Interval Normal <150 mg/dL Borderline high 150 - 199 mg/dL High 200 - 499 mg/dL Very High > or = 500 mg/dL Very low density lipoprotein (VLDL) cholesterol measurementOrdered By: Pedro Wang on 06-22-2024 Very low density lipoprotein (VLDL) cholesterol measurement 11 mg/dL 5-40 [facility] VLDL Cholesterol 11 mg/dL 5-40 [facility] Vitamin D,25 Hydroxyon 06-22 Vitamin D 25-OH 61.7 ng/mL Normal [facility] Comment on above: Result Comment: Sondra min D 25(OH) Status Range Deficiency <20 ng/mL (50nmol/L) Insufficiency 20 - 30 ng/mL (50 - 75 nmol/L) Sufficiency 30 - 100 ng/mL (75 - 250 nmol/L) Toxicity >100 ng/mL (>250 nmol/L) Performed By: #### L 506.1000, L500.4100, L500.4050, L501.5200, L100.0100 ####[facility] [address] [place], [address] White blood cell (WBC) count Ordered By: Pedro Wang on 06-22-2024 WBC (Bld) [#/Vol] 6.7 10*3/uL 4.4-11.0 [facility] CNPRachael 06-21-2024 LEO Telephone (ZACK) RADHA BARR ([id number]) 1950 F Date Time Provider Department 06/21/24 SUHAS STEARNS During your visit today, we recorded the following information about you: Suhas Stearns APRN.CNP 06/21/2024 8:57 AM Signed IRB 21-418. [facility] (CCBS) [employer] Kettle: Mar Chavez MD, , Alberto Ralph MD, Modeling Director: Letty Garcia and Email: Contacted Radha Barr by phone on 06/21/2024 at 08:47 (returning phone call from 06/19/2024 0995 with answer to question) to discuss the [facility] (CCBS): Biomarkers and Predictors of Neurological Disorders IRB 21-834. Patient was contacted by Suhas Stearns APRN.CNP to provide the patient with answer to question. Participant was given contact information if they have any further question. Phone number [phone] option 2. Suhas Stearns APRN.BRANCH LOGISTICS SUPERVISOR Allergies As of Date: 06/21/2024 Noted Allergy Reaction FENTANYL 11/28/2019 14 - Other: See Comments Comments: Cardiac arrest NARCOTICS (OPIOIDS - MORPHINE PATRICE*02/27/2018 14 - Other: See Comments Comments: Very sensitive to narcotics. Date Reviewed: 01/21/2020 Reviewed by: Nancy Bell (Rn), RN - Fully Assessed Reason for Visit: Patient Update [1234] Cmt: IRB 21-834 Patient Question [4197] [facility]: IRB 21-834 Prescriptions as of 06/21/2024 - aspirin 81 [...] 02/15/2008 02/27/2018 Atherosclerosis of coronary artery of saxman he*01/18/2020 Atrial tachycardia (HCC) [I47.19] 01/18/2020 Bundle branch block [I45.4] 01/18/2020 Left ventricular dysfunction [I51.9] 01/18/2020 Ventricular premature beats [I49.3] 01/18/2020 Essential hypertension, benign [I10] 01/18/2020 Mixed hyperlipidemia [E78.2] 01/18/2020 GERD (gastroesophageal reflux disease) [K21.9] 01/18/2020 Skin cancer [C44.90] 01/18/2020 S/P lumbar fusion [Z98.1] 01/18/2020 S/P cervical spinal fusion [Z98.1] 01/18/2020 Osteopenia [M85.80] 01/18/2020 Encounter Status:Closed by SUHAS STEARNS on 06/21/24 [facility] 06-13-2024 LEO Telephone (GORDY) RADHA BARR ([id number]) 1950 F Date Time Provider Department 06/13/24 SUHAS STEARNS During your visit today, we recorded the following information about you: JinnySuhas APRN.CNP 06/13/2024 9:39 AM Signed IRB 21-385. [facility] (BS) [employer] Kettle: Mar Chavez MD, , Alberto Ralph MD, Modeling Director: Letty Garcia and Email:[email or web address] Contacted Radha Barr by phone on 06/13/2024 at 09:18 to return message and discuss the [facility] (CCBS): Biomarkers and Predictors of Neurological Disorders IRB 21-336. Patient was contacted by Suhas Stearns APRN.CNP to return phone call. Participant was given contact information if they have any further question. Phone number [phone] option 2. Suhas Stearns APRN.CNP Allergies As of Date: 06/13/2024 Noted Allergy Reaction FENTANYL 11/28/2019 14 - Other: See Comments Comments: Cardiac arrest NARCOTICS (OPIOIDS - MORPHINE PATRICE*02/27/2018 14 - Other: See Comments Comments: Very sensitive to narcotics. Date Reviewed: 01/21/2020 Reviewed by: Nancy Bell (Rn), RN - Fully Assessed Reason for Visit: Returning Patient's Call [408] Cmt: IRB 21-686 Primary Visit Diagnosis:Examination of participant in clinical trial [Z00.6] Other Visit Diagnoses:Tremor [R25.1] Comment:BUE - postural, intention, resting Dyskinesia [G24.9] Comment:Finger tapping LUE; Pronation/Supination LUE 1 pause; Heel tapping BLE dysrrhythmokinesia Gait abnormality [R26.9] Comment:Reduced BUE arm swing. Tandem walk difficulty with balance Order(s):CONSULT TO NEUROLOGY [9187] Order #: [id number]: 1 FUTURE Prescriptions as of 06/13/2024 - [...] 02/15/2008 02/27/2018 Atherosclerosis of coronary artery of saxman he*01/18/2020 Atrial tachycardia (HCC) [I47.19] 01/18/2020 Bundle branch block [I45.4] 01/18/2020 Left ventricular dysfunction [I51.9] 01/18/2020 Ventricular premature beats [I49.3] 01/18/2020 Essential hypertension, benign [I10] 01/18/2020 Mixed hyperlipidemia [E78.2] 01/18/2020 GERD (gastroesophageal reflux disease) [K21.9] 01/18/2020 Skin cancer [C44.90] 01/18/2020 S/P lumbar fusion [Z98.1] 01/18/2020 S/P cervical spinal fusion [Z98.1] 01/18/2020 Osteopenia [M85.80] 01/18/2020 Encounter Status:Closed by SUHAS STEARNS on 06/13/24 [facility] 06-12-2024 LEO Telephone (ZACK) RADHA BARR ([id number]) 1950 F Date Time Provider Department 06/12/24 SUHAS STEARNS During your visit today, we recorded the following information about you: Suhas Stearns APRN.CNP 06/12/2024 2:42 PM Signed IRB 21-453. [facility] (BS) [employer] Kettle: Mar Chavez MD, , Alberto Ralph MD, Modeling Director: Letty Garcia and Email:[email or web address] Contacted Radha Mary Ballmaciej by phone on 06/12/2024 at 14:37 to discuss the [facility] (CCBS): Biomarkers and Predictors of Neurological Disorders IRB 21835. Patient was contacted by Suhas Stearns APRN.CNP to provide the patient with test results. Participant was given contact information if they have any further question. Phone number [phone] option 2. Suhas Stearns APRN.CNP Allergies As of Date: 06/12/2024 Noted Allergy Reaction FENTANYL 11/28/2019 14 - Other: See Comments Comments: Cardiac arrest NARCOTICS (OPIOIDS - MORPHINE PATRICE*02/27/2018 14 - Other: See Comments Comments: Very sensitive to narcotics. Date Reviewed: 01/21/2020 Reviewed by: Nancy Bell (Rn), RN - Fully Assessed Reason for Visit: Patient Update [4364] Cmt: IRB 97-479 Prescriptions as of 06/12/2024 - aspirin 81 [...] 02/15/2008 02/27/2018 Atherosclerosis of coronary artery of saxman he*01/18/2020 Atrial tachycardia (HCC) [I47.19] 01/18/2020 Bundle branch block [I45.4] 01/18/2020 Left ventricular dysfunction [I51.9] 01/18/2020 Ventricular premature beats [I49.3] 01/18/2020 Essential hypertension, benign [I10] 01/18/2020 Mixed hyperlipidemia [E78.2] 01/18/2020 GERD (gastroesophageal reflux disease) [K21.9] 01/18/2020 Skin cancer [C44.90] 01/18/2020 S/P lumbar fusion [Z98.1] 01/18/2020 S/P cervical spinal fusion [Z98.1] 01/18/2020 Osteopenia [M85.80] 01/18/2020 Encounter Status:Closed by SUHAS STEARNS on 06/12/24 Normal [facility] MARCIALN Telephone (GORDYM) RADHA BARR ([id number]) 1950 F Date Time Provider Department 06/12/24 SUHAS STEARNS During your visit today, we recorded the following information about you: Suhas Stearns, PRICILA.BRANCH LOGISTICS SUPERVISOR 06/12/2024 2:36 PM Signed IRB 21-737. [facility] (BS) [employer]: Mar Chavez MD, , Alberto Ralph MD, Modeling Director: Letty Garcia and Email:[email or web address] Contacted Radha Barr by phone on 06/12/2024 at 14:32 to discuss the [facility] (CCBS): Biomarkers and Predictors of Neurological Disorders IRB 21-574. Patient was contacted by Suhas Stearns APRN.CNP to provide the patient with test results. Participant was given contact information if they have any further question. Phone number [phone] option 2. Suhas Stearns APRN.CNP Allergies As of Date: 06/12/2024 Noted Allergy Reaction FENTANYL 11/28/2019 14 - Other: See Comments Comments: Cardiac arrest NARCOTICS (OPIOIDS - MORPHINE PATRICE*02/27/2018 14 - Other: See Comments Comments: Very sensitive to narcotics. Date Reviewed: 01/21/2020 Reviewed by: Nancy Bell (Rn), RN - Fully Assessed Reason for Visit: Patient Update [6144] Cmt: IRB 135-979 Prescriptions as of 06/12/2024 - aspirin 81 [...] 02/15/2008 02/27/2018 Atherosclerosis of coronary artery of saxman he*01/18/2020 Atrial tachycardia (HCC) [I47.19] 01/18/2020 Bundle branch block [I45.4] 01/18/2020 Left ventricular dysfunction [I51.9] 01/18/2020 Ventricular premature beats [I49.3] 01/18/2020 Essential hypertension, benign [I10] 01/18/2020 Mixed hyperlipidemia [E78.2] 01/18/2020 GERD (gastroesophageal reflux disease) [K21.9] 01/18/2020 Skin cancer [C44.90] 01/18/2020 S/P lumbar fusion [Z98.1] 01/18/2020 S/P cervical spinal fusion [Z98.1] 01/18/2020 Osteopenia [M85.80] 01/18/2020 Encounter Status:Closed by SUHAS STEARNS on 06/12/24 Normal [facility] Internal Medicine Office Vis bre 03-16-2024 Internal Medicine Office Visit [facility] [address] [place] [address] [place] [address] OFFICE VISIT Date of Service: 03/16/24 MR#: [id number] Acct: [id number] Name: RADHA BARR Rep #: [id number] : 1950 Provider: Dr. Pedro olivares MD Age/Sex: 73/F Location[place] [facility] [place] Status: Signed Intake Vital Signs 11/07/23 09:49 [...] 4 m fu Chief Complaint: 4m f/u Peanut Sorter Required: No Accompanied by: Self Is patient [...] past year?: No PFSH Medical History (Updated 03/16/24 @ 12:37 by [...] back pain Atherosclerosis of coronary artery of saxman heart without angina pectoris Atrial tachycardia Osteopenia [...] problems, n (more content not included)... Normal [facility] CNOVon 03-06-2024 CNOV Office Visit (NEUM ) RADHA BARR ([id number]) 1950 F Date Time Provider Department 03/06/24 11:00 AM SUHAS STEARNS During your visit today, we recorded the following information about you: Suhas Stearns APRN.[facility] 03/06/2024 8:47 PM Addendum DATE: March 06, 2024 PT. NAME: Radha Barr [facility]#: [id number] IRB #: [id number] A. PROTOCOL: [facility] [employer] Kettle: Mar Chavez MD, , Alberto Ralph MD, [facility] service advocate contact for study related questions: Letty Garcia Is [...] for procedures related to study YES. Time: [id number] EKG/ECG was performed on patient. Patient tolerated [...] extension: Right 5 Left 5 Finger flexion/tobacco baler: Right 5 Left 5 Flexor pollicis longus: [...] Negative hazardous materials exposure. Cerebellar/Coordinati on Assessment Yiuwvc-ey-Smrm: Abnormality present: No, Tmns-fc-Djil: Abnormality present: No, Finger Tapping - Abnormality present: Yes - Extremity: LUE Comments: dysrrhythmokinesia Fist Open/Close - Abnormality present: No Pronation/Supination of the Hand - Abnormality present: Yes - Extremity: LUE Comments: 1 pause Toe Tapping - Abnormality (more content not included)... Normal [facility] Cardiology Visit Reporton Cardiology Visit Report [facility] [address] [place] [address] OFFICE VISIT Date of Service: 02/08/24 MR#: [id number] Acct: [id number] Name: RADHA BARR Rep #: [id number] : 1950 Provider: CANDY umanzor Age/Sex: 73/F Location: [facility] Status: Signed HPI HPI History of Present [...] pressure is better controlled. Intake Vital Signs 11/07/23 09:49 02/08/24 11:30 02/08/24 11:34 Height 5 ft 4 in 5 ft 4 in 5 ft 4 in Weight: 156 lb BMI 26.7 BP 161/89 H Blood Pressure Location Lt brachial Position Sitting Respiration 18 Pulse 55 L Pulse Source Monitor Pulse Oximetry (%) 96 Intake Visit Reasons: 1 Y FU (MOVED FROM [facility]) Peanut Sorter Required: No Is patient in pain?: No [...] the past year?: No PFSH Medical History (Reviewed 02/08/24 @ 11:43 by Andrew Srinivasan COMMERCIAL LEASE ADMINISTRATOR, COMMERCIAL LEASE ADMINISTRATOR-C) Normal colonoscopy Pelvic floor dysfunction in female [...] back pain Atherosclerosis of coronary artery of saxman heart without angina pectoris Atrial tachycardia Osteopenia Chronic neck pain with history of cervical spinal surgery History of chronic back pain Surgical History (Reviewed 02/08/24 @ 11:43 by Andrew Srinivasan COMMERCIAL LEASE ADMINISTRATOR, COMMERCIAL LEASE ADMINISTRATOR-C) History of left heart catheterization (LHC) (05/16/20) HISTORY OF MICRO DECROMPRESSION History of coronary artery stent placement (12/20/19) History of microdiscectomy History of ankle surgery History of hip surgery History of lumbar fusion History of fusion of cervical spine Family History (Reviewed 02/08/24 @ 11:43 by Andrew Srinivasan COMMERCIAL LEASE ADMINISTRATOR, COMMERCIAL LEASE ADMINISTRATOR-C) Father Hypertension Sister Breast cancer Cancer skin [...] Pain: No (more content not included)... Normal [facility] Free T3on 02-02-2024 Free T3 [Mass/Vol] 2.5 pg/mL Normal 2.18-3.98 [facility] Comment on above: Performed By: #### L 501.19051, L501.9520, L501.9310 ####[facility] [address] [place], [place], [address] Surgery Visit Reporton 02-01 Surgery Visit Report [facility] [address] [place] [address] OFFICE VISIT Date of Service: 02/02/24 MR#: [id number] Acct: [id number] Name: RADHA BARR Rep #: [id number] : 1950 Provider: Dr. Johnny lynn MD Age/Sex: 73/F Location: [facility] Status: Signed Intake Vital Signs 11/07/23 09:49 [...] back pain Atherosclerosis of coronary artery of saxman heart without angina pectoris Atrial tachycardia Osteopenia [...] cold i (more content not included)... Normal [facility] T4 Total, Thyroxinon 024 T4 [Mass/Vol] 7.2 ug/dL Normal 4.8-13.9 [facility] Comment on above: Performed By: #### L 501.47775, L501.9520, L501.9310 ####[facility] [address], [address] Thyroid Stim Hormone (TSH)on 02-02-2024 TSH 0.950 uIU/mL Normal 0.358-3.740 [facility] Comment on above: Performed By: #### L 501.08500, L501.9520, L501.9310 ####[facility] [address] [facility] [place], [address] Thyroidon 01-31-2024 Thyroid [facility] Services [address] [place], [place] [address] Thyroid MR#: [id number] Acct: [id number] Name: RADHA BARR Rep #: [id number] : 1950 F 73 From: Ron Brito MD PCP: Dr. Pedro Wang MD Status: REG [facility] Study: Thyroid Date of Exam: 01/31/24 Exam# [id number] Ordering Dr: Johnny March MD [id number] STUDY: THYROID ULTRASOUND REASON FOR EXAM: Female, [...] Pedro Wang MD; Dr. Johnny March MD Inspector And Clipper: Signed [facility] 01-26-2024 CNPN Telephone (GORDY) RADHA BARR ([id number]) 1950 F Date Time Provider Department 01/26/24 SEB DU During your visit today, we recorded the following information about you: Seb Du, Research Coordinator 01/26/2024 12:07 PM Signed IRB 21-904. [facility] (BS) [employer]: Mar Chavez MD, , Alberto Ralph MD, Modeling Director: Letty Garcia and Email:[email or web address] Left voicemail message to speak with Radha Barr regarding the [facility] (BS). Provided phone number, , to contact us to further discuss participation in the study. Seb Du, Research Coordinator Allergies As of Date: 01/26/2024 [...] 02/15/2008 02/27/2018 Atherosclerosis of coronary artery of saxman he*01/18/2020 Atrial tachycardia (HCC) [I47.19] 01/18/2020 Bundle branch block [I45.4] 01/18/2020 Left ventricular dysfunction [I51.9] 01/18/2020 Ventricular premature beats [I49.3] 01/18/2020 Essential hypertension, benign [I10] 01/18/2020 Mixed hyperlipidemia [E78.2] 01/18/2020 GERD (gastroesophageal reflux disease) [K21.9] 01/18/2020 Skin cancer [C44.90] 01/18/2020 S/P lumbar fusion [Z98.1] 01/18/2020 S/P cervical spinal fusion [Z98.1] 01/18/2020 Osteopenia [M85.80] 01/18/2020 Encounter Status:Closed by SEB DU on 01/26/24 Normal [facility] XR FOOT MINIMUM 3 VIEWS LEFT on [...] Date: 11/20/2023 9:45:25 PM Ordering Provider: XAVIER Ya Counts Include [facility] (MD) Absolute lymphocyte countOrd ered By: Pedro Wang on 05-06-2023 Lymphocytes Auto (Unsp spec) [#/Vol] 1.57 10*3/uL 0.83-4.51 [facility] Basophil percentageOrdered B y: Pedro Wang on 05-06-2023 Basophils/100 WBC (Bld) 0.9 % 0-1 [facility] Bilirubin [Mass/Vol] 0.40 mg/dL 0.20-1.00 [facility] Comment on above: For patients on eltr ombopag therapy, use of Dimension Fowler TBIL is not recommended. Chloride [Moles/Vol] 107 mmol/L 98-107 [facility] Cholesterol [Mass/Vol] 120 mg/dL <200 [facility] Comment on above: <200 mg/dL Desirable 200-240 mg/dL Borderline >240 mg/dL High Risk Eosinophils/100 WBC (Bld) 2.2 % 0-5 [facility] Glucose [Mass/Vol] 85 mg/dL 74-106 [facility] Neutrophils (Bld) [#/Vol] 5.2 10*3/uL 2.0-7.7 [facility] Neutrophils/100 WBC (Bld) 68.1 % 47-70 [facility] Potassium [Moles/Vol] 3.9 mmol/L 3.5-5.1 [facility] Protein [Mass/Vol] 7.0 g/dL 6.4-8.2 [facility] Sodium [Moles/Vol] 141 mmol/L 136-145 [facility] Triglyceride [Mass/Vol] 72 mg/dL <199 [facility] Comment on above: The drugs N-Acetylcy steine and Metamizole may falsely depress this assay.Serum Triglycerides Reference Interval Normal <150 mg/dL Borderline high 150 - 199 mg/dL High 200 - 499 mg/dL Very High > or = 500 mg/dL WBC (Bld) [#/Vol] 7.6 10*3/uL 4.4-11.0 [facility] Blood erythrocytes count (nu mber/volume)Ordered By: Pedro Wang on 05-06-2023 RBC (Bld) [#/Vol] 4.23 10*6/uL 4.2-5.4 [facility] Blood hemoglobin measurement (mass/volume)Ordered By: Pedro Wang on 05-06-2023 Hemoglobin (Bld) [Mass/Vol] 12.7 g/dL 12.0-15.0 [facility] Blood lymphocytes/100 leukoc ytesOrdered By: [facility] m[facility] cityhaim Wang on 05-06-2023 Lymphocytes/100 WBC (Bld) 20.6 % 19-41 [facility] Blood monocytes/100 leukocyt esOrdered By: sumitsaint marys cityhaim Wang on 05-06-2023 Monocytes/100 WBC (Bld) 7.8 % 0-10 [facility] Blood platelet mean volumeOr dered By: Pedro Wang on 05-06-2023 Platelet mean volume (Bld) [Entitic vol] 11.2 fL 6.2-12.0 [facility] Determination of erythrocyte mean corpuscular volume (MCV)Ordered By: Pedro Wang on 05-06-2023 MCV (RBC) [Entitic vol] 94.6 fL 81-99 [facility] Hematocrit Auto (Bld) [Volum e fraction]Ordered By: Pedro Wang on 05-06-2023 Hematocrit (Bld) [Volume fraction] 40.0 % 37-47 [facility] [facility] and C hemistry - challengeOrdered By: Pedro Wang on 05-06-2023 ALP [Catalytic activity/Vol] 47 U/L 45-117 [facility] ALT [Catalytic activity/Vol] 26 U/L 13-56 [facility] CO2 [Moles/Vol] 29.0 mmol/L 21.0-32.0 [facility] Globulin (S) [Mass/Vol] 3.5 g/dL 2.2-4.2 [facility] Urea nitrogen/Creatinine [Mass ratio] 21.5 mg/mg 10-20 [facility] Laboratory - Hematology and Cell countsOrdered By: Pedro Wang on 05-06-2023 Erythrocyte distribution width (RBC) [Entitic vol] 45.2 fL 35.1-43.9 [facility] Erythrocyte distribution width (RBC) [Ratio] 13.1 % 11.6-14.6 [facility] Immature granulocytes/100 WBC (Bld) 0.400 % 0.0-0.9 [facility] Comment on above: IG% - Immature Granu locytes (promyelocytes, myelocytes and metamyelocytes) > 1% indicates that a LEFT SHIFT is Present. MCH (RBC) [Entitic mass] 30.0 pg 27.0-32.0 [facility] Nucleated RBC/100 WBC (Bld) [Ratio] 0 % 0-5 [facility] MCHC Auto (RBC) [Mass/Vol]Or dered By: Pedro Wang on 05-06-2023 MCHC (RBC) [Mass/Vol] 31.8 g/dL 32-36 [facility] No Panel InformationOrdered By: Pedro Wang on 05-06-2023 Estimated GFR (MDRD) Amer 98 mL/min >60 [facility] Comment on above: GFR Calc Estimated GFR (MDRD) Non-Af Amer 81 mL/min >60 [facility] Comment on above: Non- GFR Calc Platelets bldOrdered By: Jon Wang on 05-06-2023 Platelets (Bld) [#/Vol] 221 10*3/uL 150-450 [facility] Serum or plasma albumin liam urement (mass/volume)Ordered By: Pedro Wnag on 05-06-2023 Albumin [Mass/Vol] 3.5 g/dL 3.2-5.0 [facility] Serum or plasma albumin/glob ulin mass ratioOrdered By: Pedro Wang on 05-06-2023 Albumin/Globulin [Mass ratio] 1.0 {ratio} 0.9-2.4 [facility] Serum or plasma calcium liam urement (mass/volume)Ordered By: Pedro Wang on 05-06-2023 Calcium [Mass/Vol] 8.8 mg/dL 8.5-10.1 [facility] Serum or plasma cholesterol in HDL measurement (mass/volume)Ordered By: Pedro Wang on 05-06-2023 Cholesterol in HDL [Mass/Vol] 64 mg/dL >40 [facility] Comment on above: The drugs N-Acetylcy steine and Metamizole may falsely depress this assay. Reference Range HDL <40 mg/dL Low HDL Cholesterol HDL >or= 60 mg/dL High HDL Cholesterol Serum or plasma cholesterol in VLDL measurement (mass/volume)Ordered By: Pedro Wang on 05-06-2023 Cholesterol in VLDL [Mass/Vol] 14 mg/dL 5-40 [facility] Serum or plasma creatinine m easurement (mass/volume)Ordered By: Pedro Wang on 05-06-2023 Creatinine [Mass/Vol] 0.74 mg/dL 0.55-1.02 [facility] Comment on above: The validity of the calculated GFR & GFRAA in patients over 70 years has not been determined. Clinical correlation is essential. Serum or plasma low density lipoprotein (LDL) cholesterol measurement (mass/volume)Ordered By: Pedro Wang on 05-06-2023 Cholesterol in LDL [Mass/Vol] 42 mg/dL 0-130 [facility] Serum or plasma urea nitroge n measurement (mass/volume)Ordered By: Pedro Wang on 05-06-2023 Urea nitrogen [Mass/Vol] 16 mg/dL 7-18 [facility] Thin prep Papanicolaou smear with manual screeningOrdered By: Pedro Wang on 05-06-2023 Thin prep Papanicolaou smear with manual screening 24 U/L 15-37 [facility] Thin prep Papanicolaou smear with manual screening 5 5-15 [facility] Basophil percentageOrdered B y: Pedro Wang on 02-02-2023 Chloride [Moles/Vol] 105 mmol/L 98-107 [facility] Glucose [Mass/Vol] 93 mg/dL 74-106 [facility] Potassium [Moles/Vol] 4.2 mmol/L 3.5-5.1 [facility] Sodium [Moles/Vol] 139 mmol/L 136-145 [facility] Laboratory - Chemistry and C hemistry - challengeOrdered By: Pedro Wang on 02-02-2023 CO2 [Moles/Vol] 31.0 mmol/L 21.0-32.0 [facility] Free T4 [Mass/Vol] 0.92 ng/dL 0.76-1.46 [facility] Urea nitrogen/Creatinine [Mass ratio] 17.0 mg/mg 10-20 [facility] No Panel InformationOrdered By: Pedro Wang on 02-02-2023 Estimated GFR (MDRD) Amer 70 mL/min >60 [facility] Comment on above: GFR Calc Estimated GFR (MDRD) Non-Af Amer 58 mL/min >60 [facility] Comment on above: Non- GFR Calc Thyroid Stimulating Hormone (TSH) 1.03 uIU/mL 0.358-3.74 [facility] Serum or plasma calcium liam urement (mass/volume)Ordered By: Pedro Wang on 02-02-2023 Calcium [Mass/Vol] 9.4 mg/dL 8.5-10.1 [facility] Serum or plasma creatinine m easurement (mass/volume)Ordered By: Pedro Wang on 02-02-2023 Creatinine [Mass/Vol] 1.00 mg/dL 0.55-1.02 [facility] Comment on above: The validity of the calculated GFR & GFRAA in patients over 70 years has not been determined. Clinical correlation is essential. Serum or plasma urea nitroge n measurement (mass/volume)Ordered By: Pedro Wang on 02-02-2023 Urea nitrogen [Mass/Vol] 17 mg/dL 7-18 [facility] Thin prep Papanicolaou smear with manual screeningOrdered By: Pedro Wang on 02-02-2023 Thin prep Papanicolaou smear with manual screening 3 5-15 [facility] Culture, urineOrdered By: St rupert Lozada on 08-04-2022 Bacteria identified Cx Nom (U) Proteus mirabilis [facility] Basophil percentageOrdered B y: Jung Lozada on 08-02-2022 Basophil percentage 0-5 SEEN /hpf 0-5 [facility] Bilirubin Test strip Ql (U)O rdered By: Jung Lozada on 08-02-2022 Bilirubin Ql (U) Negative Negative [facility] Ketones Test strip Ql (U)Ord ered By: Jung Lozada on 08-02-2022 Ketones Ql (U) Negative Negative [facility] Laboratory - Chemistry and C hemistry - challengeon 08-02-2022 Bilirubin Ql (U) Negative [facility] Glucose Ql (U) Negative [facility] Ketones Ql (U) Negative [facility] pH (U) 6.0 [pH] [facility] Specific gravity (U) [Rel density] 1.010 [facility] Urobilinogen (U) [Mass/Vol] Negative [facility] Laboratory - Hematology and Cell countson 08-02-2022 Hemoglobin Ql (U) Trace [facility] Laboratory - Specimen inform ationon 08-02-2022 Clarity (U) Turbid [facility] Color (U) YELLOW [facility] Laboratory - Urinalysison Nitrite Ql (U) Negative [facility] Protein Ql (U) Negative [facility] Mucus LM Ql (Urine sed)Order ed By: Jung Lozada on 08-02-2022 Mucus Ql (Urine sed) 0 SEEN /hpf [facility] Nitrite Test strip Ql (U)Ord ered By: Jung Lozada on 08-02-2022 Nitrite Ql (U) Negative Negative [facility] No Panel Informationon 08-02 Urine Leukocytes Positive [facility] Urine Non-Hemolyzed Blood Non-Hemolyzed [facility] Protein Test strip Ql (U)Ord ered By: Jung Lozada on 08-02-2022 Protein Ql (U) Negative Negative [facility] Squamous epithelial cells de tection in urine sediment by light microscopyOrdered By: Jung Lozada on 08-02-2022 Epithelial cells.squamous LM Ql (Urine sed) 0 SEEN /hpf 5-10 [facility] Urine blood detectionOrdered By: Jung Lozada on 08-02-2022 RBC Ql (U) 10 /ul Negative [facility] RBC Ql (U) 0-5 SEEN /hpf 0-5 [facility] Urine clarityOrdered By: Jaylan Lozada on 08-02-2022 Clarity (U) Sl. Cloudy Clear [facility] Urine color determinationOrd ered By: Jung Lozada on 08-02-2022 Color (U) Yellow Yellow [facility] Urine glucose detectionOrder ed By: Jung Lozada on 08-02-2022 Glucose Ql (U) Normal mg/dl Normal [facility] Urine leukocyte esterase det ection by dipstickOrdered By: Jung Lozada on 08-02-2022 Leukocyte esterase Test strip Ql (U) 25 /ul Negative [facility] Urine pHOrdered By: Jung bryson on 08-02-2022 pH (U) 7.0 [pH] 5.0 - 8.0 [facility] Urine sediment bacteria coun t by microscopy (number/high power field)Ordered By: Jung Lozada on 08-02-2022 Bacteria LM.HPF (Urine sed) [#/Area] 0 /[HPF] None Seen [facility] Urine specific gravity measu rementOrdered By: Jung Lozada on 08-02-2022 Specific gravity (U) [Rel density] 1.010 1.002-1.030 [facility] Urobilinogen Auto test strip Ql (U)Ordered By: Jung Lozada on 08-02-2022 Urobilinogen Ql (U) Normal mg/dl Normal [facility] Absolute lymphocyte counton 03-08-2022 Lymphocytes Auto (Unsp spec) [#/Vol] 1.54 10*3/uL 0.83-4.51 [facility] Work Phone: Basophil percentageon 2021 Basophils/100 WBC (Bld) 0.8 % 0-1 [facility] Work Phone: Bilirubin [Mass/Vol] 0.30 mg/dL 0.20-1.00 [facility] Work Phone: Comment on above: For patients on eltr ombopag therapy, use of Dimension Fowler TBIL is not recommended. Chloride [Moles/Vol] 105 mmol/L 98-107 [facility] Work Phone: Cholesterol [Mass/Vol] 121 mg/dL <200 [facility] Work Phone: Comment on above: <200 mg/dL Desirable 200-240 mg/dL Borderline >240 mg/dL High Risk Eosinophils/100 WBC (Bld) 2.9 % 0-5 [facility] Work Phone: Glucose [Mass/Vol] 90 mg/dL 74-106 [facility] Work Phone: Neutrophils (Bld) [#/Vol] 2.6 10*3/uL 2.0-7.7 [facility] Work Phone: Neutrophils/100 WBC (Bld) 54.9 % 47-70 [facility] Work Phone: Potassium [Moles/Vol] 4.2 mmol/L 3.5-5.1 [facility] Work Phone: Protein [Mass/Vol] 6.8 g/dL 6.4-8.2 [facility] Work Phone: Sodium [Moles/Vol] 141 mmol/L 136-145 [facility] Work Phone: Triglyceride [Mass/Vol] 87 mg/dL <199 [facility] Work Phone: Comment on above: The drugs N-Acetylcy steine and Metamizole may falsely depress this assay.Serum Triglycerides Reference Interval Normal <150 mg/dL Borderline high 150 - 199 mg/dL High 200 - 499 mg/dL Very High > or = 500 mg/dL WBC (Bld) [#/Vol] 4.8 10*3/uL 4.4-11.0 [facility] Work Phone: Blood erythrocytes count (nu mber/volume)on 03-08-2022 RBC (Bld) [#/Vol] 4.12 10*6/uL 4.2-5.4 [facility] Work Phone: Blood hemoglobin measurement (mass/volume)on 03-08-2022 Hemoglobin (Bld) [Mass/Vol] 12.4 g/dL 12.0-15.0 [facility] Work Phone: Blood lymphocytes/100 leukoc yteson 03-08-2022 Lymphocytes/100 WBC (Bld) 32.2 % 19-41 [facility] Work Phone: Blood monocytes/100 leukocyt eson 03-08-2022 Monocytes/100 WBC (Bld) 9.0 % 0-10 [facility] Work Phone: Blood platelet mean volumeon 03-08-2022 Platelet mean volume (Bld) [Entitic vol] 11.5 fL 6.2-12.0 [facility] Work Phone: Determination of erythrocyte mean corpuscular volume (MCV)on 03-08-2022 MCV (RBC) [Entitic vol] 94.2 fL 81-99 [facility] Work Phone: Direct bilirubinon 2 Bilirubin.direct [Mass/Vol] 0.10 mg/dL 0.00-0.30 [facility] Work Phone: Hematocrit Auto (Bld) [Volum e fraction]on 03-08-2022 Hematocrit (Bld) [Volume fraction] 38.8 % 37-47 [facility] Work Phone: Laboratory - Chemistry and C hemistry - challengeon 03-08-2022 ALP [Catalytic activity/Vol] 53 U/L 45-117 [facility] Work Phone: ALT [Catalytic activity/Vol] 26 U/L 13-56 [facility] Work Phone: CO2 [Moles/Vol] 31.0 mmol/L 21.0-32.0 [facility] Work Phone: Globulin (S) [Mass/Vol] 3.4 g/dL 2.2-4.2 [facility] Work Phone: Urea nitrogen/Creatinine [Mass ratio] 19.8 mg/mg 10-20 [facility] Work Phone: Laboratory - Hematology and Cell countson 03-08-2022 Erythrocyte distribution width (RBC) [Entitic vol] 43.8 fL 35.1-43.9 [facility] Work Phone: Erythrocyte distribution width (RBC) [Ratio] 12.7 % 11.6-14.6 [facility] Work Phone: Immature granulocytes/100 WBC (Bld) 0.200 % 0.0-0.9 [facility] Work Phone: Comment on above: IG% - Immature Granu locytes (promyelocytes, myelocytes and metamyelocytes) > 1% indicates that a LEFT SHIFT is Present. MCH (RBC) [Entitic mass] 30.1 pg 27.0-32.0 [facility] Work Phone: Nucleated RBC/100 WBC (Bld) [Ratio] 0 % 0-5 [facility] Work Phone: MCHC Auto (RBC) [Mass/Vol]on 03-08-2022 MCHC (RBC) [Mass/Vol] 32.0 g/dL 32-36 [facility] Work Phone: No Panel Informationon 03-08 Estimated GFR (MDRD) Amer 104 mL/min >60 [facility] Work Phone: Comment on above: GFR Calc Estimated GFR (MDRD) Non-Af Amer 86 mL/min >60 [facility] Work Phone: Comment on above: Non- GFR Calc Troponin I High Sensitivity 9 pg/mL 3.0-54.0 [facility] Work Phone: Comment on above: Please Note: New Lizzeth t Units and Gender Specific Reference Ranges. For more information see Policy Stat Procedure Fowler High Sensitivity Troponin (TNIH) and attachments. Platelets bldon 03-08-2022 Platelets (Bld) [#/Vol] 215 10*3/uL 150-450 [facility] Work Phone: Serum or plasma albumin liam urement (mass/volume)on 03-08-2022 Albumin [Mass/Vol] 3.4 g/dL 3.2-5.0 [facility] Work Phone: Serum or plasma albumin/glob ulin mass ratioon 03-08-2022 Albumin/Globulin [Mass ratio] 1.0 {ratio} 0.9-2.4 [facility] Work Phone: Serum or plasma calcium liam urement (mass/volume)on 03-08-2022 Calcium [Mass/Vol] 9.0 mg/dL 8.5-10.1 [facility] Work Phone: Serum or plasma cholesterol in HDL measurement (mass/volume)on 03-08-2022 Cholesterol in HDL [Mass/Vol] 56 mg/dL >40 [facility] Work Phone: Comment on above: The drugs N-Acetylcy steine and Metamizole may falsely depress this assay. Reference Range HDL <40 mg/dL Low HDL Cholesterol HDL >or= 60 mg/dL High HDL Cholesterol Serum or plasma cholesterol in VLDL measurement (mass/volume)on 03-08-2022 Cholesterol in VLDL [Mass/Vol] 17 mg/dL 5-40 [facility] Work Phone: Serum or plasma creatinine m easurement (mass/volume)on 03-08-2022 Creatinine [Mass/Vol] 0.71 mg/dL 0.55-1.02 [facility] Work Phone: Comment on above: The validity of the calculated GFR & GFRAA in patients over 70 years has not been determined. Clinical correlation is essential. Serum or plasma low density lipoprotein (LDL) cholesterol measurement (mass/volume)on 03-08-2022 Cholesterol in LDL [Mass/Vol] 48 mg/dL 0-130 [facility] Work Phone: Serum or plasma urea nitroge n measurement (mass/volume)on 03-08-2022 Urea nitrogen [Mass/Vol] 14 mg/dL 7-18 [facility] Work Phone: Thin prep Papanicolaou smear with manual screeningon 03-08-2022 Thin prep Papanicolaou smear with manual screening 21 U/L 15-37 [facility] Work Phone: Thin prep Papanicolaou smear with manual screening 15 [facility] Work Phone: ANES POSTPROC EVALon 020 ANES POSTPROC EVAL HNO ID: [id number] Author: Bennei Hughes MD Service: ? Author Type: Anesthesiologist Type: Anesthesia Postprocedure Evaluation Filed: 01/21/2020 9:37 AM Note Text: POST ANESTHESIA EVALUATION NOTE : 1950 Procedure Summary Date: 01/21/20 Room / Location: [facility] ENDO A / [facility] ENDO Anesthesia Start: 846 Anesthesia Stop: 904 [...] January 21, 2020 TIME: 9:37 AM CSN: [id number] [facility] ANES PRE-OPon 01-21-2020 ANES PRE-OP HNO ID: [id number] Author: Bennie Hughes MD Service: ? Author [...] CARDIO (+) Atherosclerosis of coronary artery of saxman heart without angina pectoris (+) Atrial tachycardia [...] January 21, 2020 TIME: 7:36 AM CSN: [id number] [facility] NURSING PROGon 01-21-2020 NURSING PROG HNO ID: [id number] Author: Jessica CastleRn) PARTH Woodward Service: Nursing [...] was completed by: Jessica Woodward RN [facility] PT EDon 01-21-2020 PT ED HNO ID: [id number] Author: Nancy CastleRn) PARTH Bell Service: ? [...] Signed By: Nancy Bell RN In Department: [facility] ENDOSCOPY [facility] PT ED HNO ID: [id number] Author: Nancy CastleRn) PARTH Bell Service: ? [...] Signed By: Nancy Bell RN In Department: [facility] ENDOSCOPY [facility] SURGICAL PATHOLOGYon 020 SURGICAL PATHOLOGY Specimen [facility] Specimen #: [id number] Submitting Physician: Chidi Cheng M.D. FINAL DIAGNOSIS [...] intestinal mucosa with no significant pathologic change. [facility] 01/22/2020 COMMENT 1. The [employer] guidelines indicate that true [...] [place], Bethany GW, Royce PG, Krzysztof LB. [facility] clinical guideline: diagnosis and management of Perkins's [...] in one cassette. Gross examination performed at [facility], [address] [place] [address] 01/21/2020 4:19:53 PM Date of Report: 01/23/2020 Date of Procedure: 01/21/2020 Date of Receipt: 01/21/2020 Submitted by: Chidi Cheng M.D. Location: [facility] Diagnostic interpretation performed at [place] [address]. [place] Number: [id number] [facility] NURSING PROGon 01-18-2020 NURSING PROG HNO ID: [id number] Author: Tiesha Hernandez (Rn) PARTH Casarez Service: [...] X-ray - 12/18/2019 - outside study See Epic for complete list of imaging Cardiac Testing: ECHO Date: 12/13/2019 - outside study; EF 30-35% Stress Test Date: 12/13/2019 - outside study Heart Cath Date: 12/20/2019 - outside study Holter Monitor: Date 10/12/2019 - see Epic for complete report Last Menstrual Period: LMP Date: not on record Postmenopausal >1yr: Yes S/P Hysterectomy: No BMI Percentile (PEDS): N/A Risk Assessment: Per provider: cardiac clearance letter sent to [facility], recent cardiac stent 11/2019 placed [...] clearance, Dr. Cheng's office aware, spoke with Blanca; Covid19 01/17 Tiesha Casarez RN January 18, 2020 2:25 PM [facility] HOSPon 01-09-2020 HOSP Patient:Radha Barr MRN: [...] unspecified [M71.30] Atherosclerosis of coronary artery of saxman heart without angina pectoris [I25.10] Atrial tachycardia [...] basenames: K,HCT Progress Notes (NETWORK NAVIGATION): DONN AndersATOR 01/18/2020 3:14 PM Signed POPULATION HEALTH NAVIGATION OUTREACH Action/ [place] Care Gap Outreach LMOVM Colorectal Screening Compliance - consult has been ordered, appt needed Contact made with patient? NO Pt identified by name and : NO Outreach Outcome/Action Unable to reach patient: Left message Reason for Outreach Care Gap Payer: Payor: [email or web address] [facility] / Plan: [employer] HMO / Product Type: HMO / Care [...] Sent to Practice: NO Navigation Signature: DONN AndersATOR January 18, 2020 3:05 PM Progress Notes ([facility]): Sanjiv Du LPN 01/14/2020 10:07 AM Signed Pt called noting she is on schedule for EGD on 01/20. She also states she had heart stent placed on 12/19by [facility]. Numerous meds added including plavix. [...] Hold plavix or continue? Charo Bowles RN [employer] C[employer] CONTACT [employer]IST[employer] SUPERVISOR 01/14/2020 10:25 AM Signed The patient should be seen since there is a change from September encounter. I have a couple open spots tomorrow for VV. Charo Bowles RN [employer]TACT [employer]IST[employer] SUPERVISOR Rajni Stubbs Ma 01/14/2020 11:29 AM Signed Called and left a message for patient to call the office back to make an appt. Rajni Brock 01/14/2020 1:38 PM Signed patient scheduled 01-21-2020 . Antelmo Murguia RN 01/14/2020 2:39 PM Signed Patient informed. Transferred to production planner scheduler to schedule. Shital Brock 01/14/2020 2:52 PM Signed cardiac clearance has been sent [facility] Vital Signs Date Time Vital Sign Value Performing Clinician Facility 01-14-2025 09:12-0400 Body height 162.[address] Pedro Wang MD Work Phone: [facility] 01-14-2025 09:12-0400 Body mass index (BMI) [Ratio] 26.9 kg/m2 Dr. Pedro Wang MD Work Phone: [facility] 01-14-2025 09:12-0400 Body temperature 97.3 [degF] Dr. Pedro Wang MD Work Phone: [facility] 01-14-2025 09:12-0400 Body weight 71.[address] Pedro Wang MD Work Phone: [facility] 01-14-2025 09:12-0400 Diastolic blood pressure 70 mm[Hg] Dr. Pedro Wang MD Work Phone: [facility] 01-14-2025 09:12-0400 Heart rate 69 /min Dr. Pedro Wang MD Work Phone: [facility] 01-14-2025 09:12-0400 Respiratory rate 16 /min Dr. Pedro Wang MD Work Phone: [facility] 01-14-2025 09:12-0400 SaO2% (BldA) [Mass fraction] 98 % Dr. Pedro Wang MD Work Phone: [facility] 01-14-2025 09:12-0400 Systolic blood pressure 122 mm[Hg] Dr. Pedro Wang MD Work Phone: [facility] 10-15-2024 09:24-0400 Body height 162.[address] Pedro Wang MD Work Phone: [facility] 10-15-2024 09:24-0400 Body mass index (BMI) [Ratio] 26.7 kg/m2 Dr. Pedro Wang MD Work Phone: [facility] 10-15-2024 09:24-0400 Body temperature 97.6 [degF] Dr. Pedro Wang MD Work Phone: [facility] 10-15-2024 09:24-0400 Body weight 70.[address] Pedro Wang MD Work Phone: [facility] 10-15-2024 09:24-0400 Diastolic blood pressure 76 mm[Hg] Dr. Pedro Wang MD Work Phone: [facility] 10-15-2024 09:24-0400 Heart rate 78 /min Dr. Pedro Wang MD Work Phone: [facility] 10-15-2024 09:24-0400 Respiratory rate 18 /min Dr. Pedro Wang MD Work Phone: [facility] 10-15-2024 09:24-0400 SaO2% (BldA) [Mass fraction] 100 % Dr. Pedro Wang MD Work Phone: [facility] 10-15-2024 09:24-0400 Systolic blood pressure 144 mm[Hg] Dr. Pedro Wang MD Work Phone: [facility] 09-07-2024 11:33-0400 Body mass index (BMI) [Ratio] 27.1 kg/m2 Dr. Pedro Wang MD Work Phone: [facility] 09-07-2024 11:33-0400 Body temperature 97.3 [degF] Dr. Pedro Wang MD Work Phone: [facility] 09-07-2024 11:33-0400 Body weight 71.[address] Pedro Wang MD Work Phone: [facility] 09-07-2024 11:33-0400 Diastolic blood pressure 72 mm[Hg] Dr. Pedro Wang MD Work Phone: [facility] 09-07-2024 11:33-0400 Heart rate 56 /min Dr. Pedro Wang MD Work Phone: [facility] 09-07-2024 11:33-0400 Respiratory rate 16 /min Dr. Pedro Wang MD Work Phone: [facility] 09-07-2024 11:33-0400 SaO2% (BldA) [Mass fraction] 97 % Dr. Pedro Wang MD Work Phone: [facility] 09-07-2024 11:33-0400 Systolic blood pressure 128 mm[Hg] Dr. Pedro Wang MD Work Phone: [facility] 09-06-2024 15:28-0400 Body mass index (BMI) [Ratio] 26.94 kg/m2 Yandel Garcia MD Work Phone: [facility] 09-06-2024 15:28-0400 Body weight 71.2 kg Yandel Garcia MD Work Phone: [facility] 09-06-2024 15:28-0400 SaO2% (BldA) [Mass fraction] 99 % Yandel Garcia MD Work Phone: [facility] 09-04-2024 08:54-0400 Body temperature 98 [degF] Dr. Pedro Wang MD Work Phone: [facility] 09-04-2024 08:54-0400 Diastolic blood pressure 80 mm[Hg] Dr. Pedro Wang MD Work Phone: [facility] 09-04-2024 08:54-0400 Heart rate 68 /min Dr. Pedro Wang MD Work Phone: [facility] 09-04-2024 08:54-0400 SaO2% (BldA) [Mass fraction] 96 % Dr. Pedro Wang MD Work Phone: [facility] 09-04-2024 08:54-0400 Systolic blood pressure 140 mm[Hg] Dr. Pedro Wang MD Work Phone: [facility] 08-03-2024 10:44-0500 Diastolic blood pressure 72 mm[Hg] Dr. Pedro Wang MD Work Phone: [facility] 08-03-2024 10:44-0500 Systolic blood pressure 138 mm[Hg] Dr. Pedro Wang MD Work Phone: [facility] 08-03-2024 07:40-0500 Body height 162.[address] Pedro Wang MD Work Phone: [facility] 08-03-2024 07:40-0500 Body mass index (BMI) [Ratio] 26.9 kg/m2 Dr. Pedro Wang MD Work Phone: [facility] 08-03-2024 07:40-0500 Body weight 71.[address] Pedro Wang MD Work Phone: [facility] 08-03-2024 07:40-0500 Heart rate 65 /min Dr. Pedro Wagn MD Work Phone: [facility] 08-03-2024 07:40-0500 Respiratory rate 18 /min Dr. Pedro Wang MD Work Phone: [facility] 08-03-2024 07:40-0500 SaO2% (BldA) [Mass fraction] 100 % Dr. Pedro Wang MD Work Phone: [facility] 06-22-2024 08:55-0500 Body mass index (BMI) [Ratio] 27.1 kg/m2 Dr. Pedro Wang MD Work Phone: [facility] 06-22-2024 08:55-0500 Body temperature 97.8 [degF] Dr. Pedro Wang MD Work Phone: [facility] 06-22-2024 08:55-0500 Body weight 71.[address] Pedro Wang MD Work Phone: [facility] 06-22-2024 08:55-0500 Diastolic blood pressure 80 mm[Hg] Dr. Pedro Wang MD Work Phone: [facility] 06-22-2024 08:55-0500 Heart rate 57 /min Dr. Pedro Wang MD Work Phone: [facility] 06-22-2024 08:55-0500 Respiratory rate 16 /min Dr. Pedro Wang MD Work Phone: [facility] 06-22-2024 08:55-0500 SaO2% (BldA) [Mass fraction] 97 % Dr. Pedro Wang MD Work Phone: [facility] 06-22-2024 08:55-0500 Systolic blood pressure 132 mm[Hg] Dr. Pedro Wang MD Work Phone: [facility] 11-20-2023 20:53-0400 Body temperature 98.06 [degF] XAVIER OVERTON MD [facility] 11-20-2023 20:53-0400 Diastolic Blood Pressure Non-Invasive 75 mm[Hg] XAVIER OVERTON MD [facility] 11-20-2023 20:53-0400 Heart rate 77 /min XAVIER OVERTON MD [facility] 11-20-2023 20:53-0400 Respiratory rate 16 /min XAVIER OVERTON MD [facility] 11-20-2023 20:53-0400 Systolic Blood Pressure Non-Invasive 130 mm[Hg] XAVIER OVERTON MD [facility] 05-06-2023 08:51-0500 Body height 162.[address] Pedro Wang Work Phone: [facility] 05-06-2023 08:51-0500 Body mass index (BMI) [Ratio] 27.1 kg/m2 Dr. Pedro Wang Work Phone: [facility] 05-06-2023 08:51-0500 Body temperature 97.7 [degF] Dr. Pedro Wang Work Phone: [facility] 05-06-2023 08:51-0500 Body weight 71.[address] Pedro Wang Work Phone: [facility] 05-06-2023 08:51-0500 Diastolic blood pressure 82 mm[Hg] Dr. Pedro Wang Work Phone: [facility] 05-06-2023 08:51-0500 Heart rate 80 /min Dr. Pedro Wang Work Phone: [facility] 05-06-2023 08:51-0500 Respiratory rate 16 /min Dr. Pedro Wang Work Phone: [facility] 05-06-2023 08:51-0500 SaO2% (BldA) [Mass fraction] 92 % Dr. Pedro Wang Work Phone: [facility] 05-06-2023 08:51-0500 Systolic blood pressure 126 mm[Hg] Dr. Pedro Wang Work Phone: [facility] 02-28-2023 13:12-0400 Body mass index (BMI) [Ratio] 27.3 kg/m2 Dr. Pedro Wang Work Phone: [facility] 02-28-2023 13:12-0400 Body temperature 97.3 [degF] Dr. Pedro Wang Work Phone: [facility] 02-28-2023 13:12-0400 Body weight 72.[address] Pedro Wang Work Phone: [facility] 02-28-2023 13:12-0400 Diastolic blood pressure 80 mm[Hg] Dr. Pedro Wang Work Phone: [facility] 02-28-2023 13:12-0400 Heart rate 61 /min Dr. Pedro Wang Work Phone: [facility] 02-28-2023 13:12-0400 Respiratory rate 18 /min Dr. Pedro Wang Work Phone: [facility] 02-28-2023 13:12-0400 SaO2% (BldA) [Mass fraction] 100 % Dr. Pedro Wang Work Phone: [facility] 02-28-2023 13:12-0400 Systolic blood pressure 157 mm[Hg] Dr. Pedro Wang Work Phone: [facility] 02-02-2023 12:56-0400 Body height 162.[address] Pedro Wang Work Phone: [facility] 02-02-2023 12:56-0400 Body mass index (BMI) [Ratio] 27.1 kg/m2 Dr. Pedro Wang Work Phone: [facility] 02-02-2023 12:56-0400 Body temperature 97.1 [degF] Dr. Pedro Wang Work Phone: [facility] 02-02-2023 12:56-0400 Body weight 71.[address] Pedro Wang Work Phone: [facility] 02-02-2023 12:56-0400 Diastolic blood pressure 76 mm[Hg] Dr. Pedro Wang Work Phone: [facility] 02-02-2023 12:56-0400 Heart rate 59 /min Dr. Pedro Wang Work Phone: [facility] 02-02-2023 12:56-0400 Respiratory rate 18 /min Dr. Pedro Wang Work Phone: [facility] 02-02-2023 12:56-0400 SaO2% (BldA) [Mass fraction] 99 % Dr. Pedro Wang Work Phone: [facility] 02-02-2023 12:56-0400 Systolic blood pressure 146 mm[Hg] Dr. Pedro Wang Work Phone: [facility] 12-21-2022 09:24-0400 Body mass index (BMI) [Ratio] 27.4 kg/m2 Dr. Pedro Wang Work Phone: [facility] 12-21-2022 09:24-0400 Body weight 72.[address] Pedro Wang Work Phone: [facility] 12-21-2022 09:24-0400 Diastolic blood pressure 81 mm[Hg] Dr. Pedro Wang Work Phone: [facility] 12-21-2022 09:24-0400 Heart rate 56 /min Dr. Pedro Wang Work Phone: [facility] 12-21-2022 09:24-0400 Respiratory rate 18 /min Dr. Pedro Wang Work Phone: [facility] 12-21-2022 09:24-0400 SaO2% (BldA) [Mass fraction] 99 % Dr. Pedro Wang Work Phone: [facility] 12-21-2022 09:24-0400 Systolic blood pressure 146 mm[Hg] Dr. Pedro Wang Work Phone: [facility] 08-02-2022 13:19-0500 Body height 162.[address] Pedro Wang Work Phone: [facility] 08-02-2022 13:19-0500 Body mass index (BMI) [Ratio] 27.4 kg/m2 Dr. Pedro Wang Work Phone: [facility] 08-02-2022 13:19-0500 Body temperature 97.8 [degF] Dr. Pedro Wang Work Phone: [facility] 08-02-2022 13:19-0500 Body weight 72.[address] Pedro Wang Work Phone: [facility] 08-02-2022 13:19-0500 Diastolic blood pressure 74 mm[Hg] Dr. Pedro Wang Work Phone: [facility] 08-02-2022 13:19-0500 Heart rate 54 /min Dr. Pedro Wang Work Phone: [facility] 08-02-2022 13:19-0500 Respiratory rate 14 /min Dr. Pedro Wang Work Phone: [facility] 08-02-2022 13:19-0500 SaO2% (BldA) [Mass fraction] 98 % Dr. Pedro Wang Work Phone: [facility] 08-02-2022 13:19-0500 Systolic blood pressure 126 mm[Hg] Dr. Pedro Wang Work Phone: [facility] 07-16-2022 13:03-0500 Body height 162.[address] Pedro Wang Work Phone: [facility] 07-16-2022 13:03-0500 Body mass index (BMI) [Ratio] 28.3 kg/m2 Dr. Pedro Wang Work Phone: [facility] 07-16-2022 13:03-0500 Body weight 74.[address] Pedro Wang Work Phone: [facility] 07-16-2022 13:03-0500 Diastolic blood pressure 82 mm[Hg] Dr. Pedro Wang Work Phone: [facility] 07-16-2022 13:03-0500 Heart rate 68 /min Dr. Pedro Wang Work Phone: [facility] 07-16-2022 13:03-0500 Respiratory rate 18 /min Dr. Pedro Wang Work Phone: [facility] 07-16-2022 13:03-0500 SaO2% (BldA) [Mass fraction] 100 % Dr. Pedro Wang Work Phone: [facility] 07-16-2022 13:03-0500 Systolic blood pressure 155 mm[Hg] Dr. Pedro Wang Work Phone: [facility] 03-08-2022 09:08-0400 Body height 162.[address] Pedro Wang Work Phone: [facility] Work Phone: 03-08-2022 09:08-0400 Body mass index (BMI) [Ratio] 27.9 kg/m2 Dr. Pedro Wang Work Phone: [facility] Work Phone: 03-08-2022 09:08-0400 Body temperature 96.8 [degF] Dr. Pedro Wang Work Phone: [facility] Work Phone: 03-08-2022 09:08-0400 Body weight 73.[address] Pedro Wang Work Phone: [facility] Work Phone: 03-08-2022 09:08-0400 Diastolic blood pressure 70 mm[Hg] Dr. Pedro Wang Work Phone: [facility] Work Phone: 03-08-2022 09:08-0400 Heart rate 75 /min Dr. Pedro Wang Work Phone: [facility] Work Phone: 03-08-2022 09:08-0400 Respiratory rate 16 /min Dr. Pedro Wang Work Phone: [facility] Work Phone: 03-08-2022 09:08-0400 SaO2% (BldA) [Mass fraction] 99 % Dr. Pedro Wang Work Phone: [facility] Work Phone: 03-08-2022 09:08-0400 Systolic blood pressure 122 mm[Hg] Dr. Pedro Wang Work Phone: [facility] Work Phone: 01-20-2022 11:16-0400 Body height 162.6 cm Neur 1 [facility] 01-20-2022 11:16-0400 Body weight 71.67 kg Neur 1 [facility] 01-20-2022 11:16-0400 Diastolic blood pressure 65 mm[Hg] Neur 1 [facility] 01-20-2022 11:16-0400 Heart rate 60 /min Neur 1 [facility] 01-20-2022 11:16-0400 Respiratory rate 18 /min Neur 1 [facility] 01-20-2022 11:16-0400 SaO2% (BldA) [Mass fraction] 97 % Neur 1 [facility] 01-20-2022 11:16-0400 Systolic blood pressure 161 mm[Hg] Neur 1 [facility] 12-22-2021 10:40-0400 Body mass index (BMI) [Ratio] 26.9 kg/m2 Dr. Pedro Wang Work Phone: [facility] Work Phone: 12-22-2021 10:40-0400 Body weight 71.[address] Pedro Wang Work Phone: [facility] Work Phone: 12-22-2021 10:40-0400 Diastolic blood pressure 63 mm[Hg] Dr. Pedro Wang Work Phone: [facility] Work Phone: 12-22-2021 10:40-0400 Heart rate 60 /min Dr. Pedro Wang Work Phone: [facility] Work Phone: 12-22-2021 10:40-0400 Respiratory rate 16 /min Dr. Pedro Wang Work Phone: [facility] Work Phone: 12-22-2021 10:40-0400 SaO2% (BldA) [Mass fraction] 97 % Dr. Pedro Wang Work Phone: [facility] Work Phone: 12-22-2021 10:40-0400 Systolic blood pressure 146 mm[Hg] Dr. Pedro Wang Work Phone: [facility] Work Phone: 12-02-2021 14:24-0400 Body mass index (BMI) [Ratio] 27.3 kg/m2 Dr. Pedro Wang Work Phone: [facility] Work Phone: 12-02-2021 14:24-0400 Body temperature 97.8 [degF] Dr. Pedro Wang Work Phone: [facility] Work Phone: 12-02-2021 14:24-0400 Body weight 72.[address] Pedro Wang Work Phone: [facility] Work Phone: 12-02-2021 14:24-0400 Diastolic blood pressure 82 mm[Hg] Dr. Pedro Wang Work Phone: [facility] Work Phone: 12-02-2021 14:24-0400 Heart rate 66 /min Dr. Pedro Wang Work Phone: [facility] Work Phone: 12-02-2021 14:24-0400 Respiratory rate 18 /min Dr. Pedro Wang Work Phone: [facility] Work Phone: 12-02-2021 14:24-0400 SaO2% (BldA) [Mass fraction] 99 % Dr. Pedro Wang Work Phone: [facility] Work Phone: 12-02-2021 14:24-0400 Systolic blood pressure 124 mm[Hg] Dr. Pedro Wang Work Phone: [facility] Work Phone: 11-25-2021 21:07-0400 Diastolic blood pressure 66 mm[Hg] ANA LUCAS MD [facility] 11-25-2021 21:07-0400 Heart rate 63 /min ANA LUCAS MD [facility] 11-25-2021 21:07-0400 Reason For Taking VItal Signs ANA LUCAS MD [facility] 11-25-2021 21:07-0400 Respiratory rate 16 /min ANA LUCAS MD [facility] 11-25-2021 21:07-0400 Systolic blood pressure 159 mm[Hg] ANA LUCAS MD [facility] 11-25-2021 19:19-0400 Body temperature 97.7 [degF] ANA LUCAS MD [facility] 11-25-2021 19:19-0400 Diastolic blood pressure 81 mm[Hg] ANA LUCAS MD [facility] 11-25-2021 19:19-0400 Heart rate 75 /min ANA LUCAS MD [facility] 11-25-2021 19:19-0400 Respiratory rate 16 /min ANA LUCAS MD [facility] 11-25-2021 19:19-0400 Systolic blood pressure 164 mm[Hg] ANA LUCAS MD [facility] Encounters Encounter Date Encounter Type Care Provider Facility Start: 01-14-2025 End: 01-14-[address] Pedro Wang MD Work Phone: -[facility] [place] Start: 01-14-2025 End: 01-14-[address] Pedro Wang MD -[facility] Work Phone: Start: 01-14-2025 End: 01-14-[address] Pedro Wang MD -[facility] Work Phone: Start: 01-14-2025 End: 01-14-[address] Pedro Wang MD Work Phone: -[facility] Start: 01-14-2025 End: 01-14-[address] [facility] Facility:[facility] Start: 12-11-2024 End: 12-11-2024 Patient encounter status [facility]) Work Phone: [facility] Start: 12-11-2024 Encounter for examination for normal comparison and control in clinical research program SUHAS JINNY [facility] Start: 12-11-2024 End: 12-11-2024 Patient encounter procedure Research [facility] Coordinator 2 ([facility]) Work Phone: Research Comment on above: Research exam (Prima ry Dx) Examination of parti cipant in clinical trial (Primary Dx) Start: 12-11-2024 End: 12-11-2024 ambulatory Letty Echevarria Research Coordinator Research Comment on above: Informed Consent (Ir b [id number]) Start: 12-05-2024 End: 12-05-[address] Pedro Wang MD Work Phone: -Ultrasound [facility] Start: 12-05-2024 End: 12-05-[address] Pedro Wang MD -[facility]tras[facility] Work Phone: Start: 12-05-2024 End: 12-05-[address] [facility] Facility:[facility] Start: 10-25-2024 End: 12-04-2024 ambulatory EPDRO WANG MD Facility:[facility] Start: 10-25-2024 End: 12-04-2024 Physical therapy management PEDRO WANG MD [facility] Start: 10-17-2024 Non-patient / Non-visit Linda Morales MA -[facility] Work Phone: Start: 10-17-2024 ambulatory Linda Morales Facility:[facility] Start: 10-15-2024 End: 10-15-[address] Pedro Wang MD -[facility] Work Phone: Start: 10-15-2024 End: 10-15-[address] Pedro Wang MD Work Phone: [facility] Work Phone: Start: 10-15-2024 End: 10-15-2024 ambulatory Pedro Wang Facility:[facility] Start: 09-07-2024 End: 09-07-2024 Patient encounter procedure Diogo HARRIS -[facility] Work Phone: Start: 09-07-2024 End: 09-07-2024 ambulatory Pedro Wang Facility[place] Start: 09-06-2024 End: 09-06-2024 ambulatory YANDEL GARCIA Facility:[facility] Start: 09-06-2024 End: 09-06-2024 Office outpatient new 30 minutes Yandel Garcia MD Work Phone: Neurology Comment on above: Examination of parti cipant in clinical trial; Tremor; Dyskinesia; Gait abnormality Start: 09-06-2024 End: 09-06-2024 Patient encounter procedure Yandel Garcia MD Work Phone: [facility] Start: 09-04-2024 End: 09-04-2024 Patient encounter procedure Jung Lozada [place] -[facility] Work Phone: Start: 09-04-2024 End: 09-04-2024 ambulatory Efewongbe Lise Facility:[facility] Start: 08-17-2024 ambulatory Pepe Demiter Facility :[facility] Start: 08-17-2024 Non-patient / Non-visit Dr. Jean-Paul Delgado MD -[facility] Start: 08-17-2024 End: 08-17-[address] Pedro Wang MD Work Phone: [facility] Work Phone: Start: 08-17-2024 End: 08-17-2024 Patient encounter procedure Pepe Tan PA -Cardiovascular Services Work Phone: Start: 08-17-2024 End: 08-17-2024 ambulatory Pepe Jhoaniter Facility:[facility] Start: 08-03-2024 End: 08-03-2024 Patient encounter procedure Pepe Tan PA -[facility] Work Phone: Start: 08-03-2024 End: 08-03-2024 ambulatory Pedro Wang Facility:[facility] Start: 06-29-2024 End: 06-29-[address] Pedro Wang MD -Outpatient Breast Imaging Work Phone: Start: 06-29-2024 End: 06-29-[address] [facility] Facility:[facility] Start: 06-22-2024 End: 06-22-[address] Pedro Wang MD -[facility] Work Phone: Start: 06-22-2024 End: 06-22-[address] Pedro Wang MD [facility] Start: 06-22-2024 End: 06-22-2024 [facility] Start: 06-22-2024 End: 06-22-[address] [facility] Facility:[facility] Start: 06-21-2024 End: 06-21-2024 Telephone encounter Suhas Stearns APRN.[employer] Work Phone: Neurology Comment on above: Patient Update (IRB [id number]); Patient Question (IRB [id number]) Start: 06-19-2024 End: 06-19-2024 Orders Only Suhas Stearns APRN.CNP Work Phone: Neurology Comment on above: Examination of parti cipant in clinical trial (Primary Dx); Tremor; Dyskinesia; Gait abnormality Start: 06-19-2024 End: 06-19-2024 Patient encounter procedure Suhas Stearns APRN.[employer] SUPER[employer]OR Work Phone: [facility] Work Phone: Start: 06-13-2024 End: 06-13-2024 Patient encounter procedure Suhas Stearns APRN.[employer] SUPERVISOR Work Phone: [facility] Work Phone: Start: 06-13-2024 End: 06-13-2024 Telephone encounter Suhas Stearns APRN.[employer] SUPERVISOR Work Phone: Neurology Comment on above: Returning Patient's Call (IRB [id number]) Start: 06-12-2024 End: 06-12-2024 Telephone encounter Suhas Stearns APRN.[employer] SUPER[employer]OR Work Phone: Neurology Comment on above: Patient Update (IRB [phone]) Patient Update (IRB [id number]) Start: 05-11-2024 End: 05-11-[address] Alfred Ferrell MD -Laboratory Work Phone: Start: 05-11-2024 End: 05-11-[address] [facility] Facility:[facility] Start: 03-16-2024 End: 03-16-[address] [facility] Facility:[facility] [place] Start: 03-06-2024 End: 03-06-2024 ambulatory Soha Crowell Research Coordinator Work Phone: Neurology Comment on above: Informed Consent (IR B [phone]) Start: 03-06-2024 End: 03-06-2024 Patient encounter procedure Suhas Stearns APRN.[employer] SUPER[employer] Work Phone: Neurology Comment on above: Examination of parti cipant in clinical trial (Primary Dx) Start: 02-08-2024 End: 02-08-2024 ambulatory Andrew Srinivasan Facility:[facility] Start: 02-02-2024 End: 02-02-2024 ambulatory [facility] Facility:[facility] [place] Start: 02-02-2024 End: 02-02-2024 [facility]ulatory [facility] Facility:[facility] Start: 01-31-2024 End: 01-31-2024 ambulatory [facility] Facility:[facility] Start: 01-26-2024 End: 01-26-2024 Telephone encounter Seb Du Research Coordinator Neurology Start: 11-20-2023 End: 11-20-2023 Emergency department patient visit XAVIER OVERTON MD [facility] Start: 06-23-2023 Non-patient / Non-visit Dr. Pedro Wang Work Phone: [facility] Start: 06-21-2023 End: 06-21-[address] Pedro Wang Work Phone: [facility] Work Phone: Start: 06-21-2023 End: 06-21-[address] Pedro Wang Work Phone: [facility]-Outpatient Bone Densitometry Work Phone: Start: 05-06-2023 End: 05-06-[address] Pedro Wang Work Phone: [facility] Work Phone: Start: 05-06-2023 End: 05-06-2023 Encounter for general adult medical examination without abnormal findings Dr. Pedro Wang Work Phone: [facility] Start: 05-06-2023 End: 05-06-[address] Pedro Wang Work Phone: [facility] Work Phone: Start: 03-01-2023 End: 03-01-[address] Pedro Wang Work Phone: [facility]-Laboratory, Specimen Work Phone: Start: 02-28-2023 End: 02-28-[address] Pedro Wang Work Phone: [facility] Work Phone: Start: 02-09-2023 End: 02-09-[address] Pedro Wang Work Phone: [facility] Work Phone: Start: 02-09-2023 End: 02-09-[address] Pedro Wang Work Phone: [facility], [facility] Work Phone: Start: 02-04-2023 End: 02-04-[address] Pedro Wang Work Phone: [facility] Work Phone: Start: 02-04-2023 End: 02-04-[address] Pedro Wang Work Phone: [facility]-Radiology, [place] Work Phone: Start: 02-02-2023 End: 02-02-[address] Pedro Wang Work Phone: [facility] Work Phone: Start: 02-02-2023 End: 02-02-[address] Pedro Wang Work Phone: [facility] Internal Medicine Work Phone: Start: 01-21-2023 Chart abstracting Soha jessica Research Coordinator Work Phone: Neurology Comment on above: Informed Consent (IR B [id number]) Start: 01-21-2023 End: 01-21-2023 Patient encounter procedure Neur Research Brain Study Nellie 3 Neurology Comment on above: Examination of parti cipant in clinical trial (Primary Dx) Start: 01-12-2023 Chart abstracting Hannah Cruz Neur ology Comment on above: Informed Consent (IR B [id number]) Start: 01-11-2023 Telephone encounter Hannah Anthony [facility] urology Comment on above: Appointment (IRB [id number]) Start: 12-21-2022 End: 12-21-[address] Pedro Wang Work Phone: [facility] Work Phone: Start: 12-14-2022 Telephone encounter Hnanah Anthony [facility]e urology Comment on above: Appointment (IRB [id number] [phone]) Start: 08-02-2022 End: 08-02-[address] Pedro Wang Work Phone: [facility] Work Phone: Start: 08-02-2022 End: 08-02-[address] Pedro Wang Work Phone: [facility]-Laboratory, Specimen Start: 08-02-2022 End: 08-02-[address] Pedro Wang Work Phone: [facility] Start: 07-27-2022 Non-patient / Non-visit Dr. Pedro Wang Work Phone: [facility] Start: 07-26-2022 Non-patient / Non-visit Dr. Pedro Wang Work Phone: [facility] Start: 07-26-2022 End: 07-26-[address] Pedro Wang Work Phone: [facility] Work Phone: Start: 07-26-2022 End: 07-26-[address] Pedro Wang Work Phone: [facility]-Cardiovascular Services Start: 07-16-2022 End: 07-16-[address] Pedro Wang Work Phone: [facility] Start: 05-03-2022 End: 05-03-[address] Pedro Wang Work Phone: [facility] Work Phone: Start: 05-03-2022 End: 05-03-[address] Pedro Wang Work Phone: [facility]-Outpatient Breast Imaging Start: 04-12-2022 Chart abstracting Seb Du Research Coordinator Neurology Comment on above: Informed Consent (IR B [id number]) Start: 04-07-2022 End: 04-07-[address] Pedro Wang Work Phone: [facility] Work Phone: Start: 04-07-2022 End: 04-07-[address] Pedro Wang Work Phone: [facility]-Radiology, [facility] Start: 04-05-2022 Telephone encounter Seb kathleen Research Coordinator Neurology Comment on above: Returning Patient's Call (IRB [id number]) Start: 04-02-2022 End: 04-02-2022 Non-patient / Non-visit Dr. Pedro Wang Work Phone: [facility] Start: 04-02-2022 End: 04-02-[address] Pedro Wang Work Phone: [facility] Work Phone: Start: 04-02-2022 End: 04-02-[address] Pedro Wang Work Phone: [facility]-Pulmonary Services/Neurology Start: 03-23-2022 Telephone encounter Letty lassiter Research Coordinator Neurology Comment on above: Appointment (IRB [id number]) Start: 03-08-[address] Pedro Wang Work Phone: [facility] Start: 03-08-2022 End: 03-08-[address] Pedro Wang Work Phone: [facility] Work Phone: Start: 03-08-2022 End: 03-08-2022 Encounter for general adult medical examination without abnormal findings Dr. Pedro Wang Work Phone: [facility] Start: 03-08-2022 End: 03-08-[address] [facility] Wang Work Phone: [facility] [facility] Start: 01-20-2022 Chart abstracting Soha jessica Research Coordinator Neurology Comment on above: Informed Consent (193) Start: 01-20-2022 End: 01-20-2022 Patient encounter procedure Neur Research Brain Study Nellie 1 Neurology Comment on above: Examination of parti cipant in clinical trial (Primary Dx) Start: 01-11-2022 Telephone encounter Letty lassiter Research Coordinator Neurology Comment on above: Appointment (IRB [id number]) Start: 12-22-2021 End: 12-22-[address] Pedro Wang Work Phone: [facility] Start: 12-02-2021 End: 12-02-[address] Pedro Wang Work Phone: [facility] Start: 11-25-2021 End: 11-25-2021 Emergency department patient visit ANA LUCAS MD [facility] Start: 09-01-2021 Telephone encounter Seb kathleen Research Coordinator Neurology Comment on above: Returning Patient's Call (IRB [id number]) Start: 08-31-2021 Telephone encounter Seb kathleen Research Coordinator Neurology Comment on above: Returning Patient's Call (IRB [id number]) Start: 08-24-2021 Telephone encounter Seb kathleen Research Coordinator Neurology Comment on above: Returning Patient's Call (IRB [id number]) Start: 03-16-[address] Pedro Wang Work Phone: [facility] Start: 08-15-2020 End: 08-15-2020 Patient encounter procedure [facility] Start: 07-25-2020 End: 07-25-2020 Patient encounter procedure [facility] Procedures Date Procedure Procedure Detail Performing Clinician Start: 12-05-2024 US scan of thyroid Dr. Pedro Wang MD Work Phone: Start: 10-15-2024 X-ray of knee, four or more views Dr. Pedro Wang MD Work Phone: Start: 08-17-2024 Cardiovascular stres s test using pharmacologic stress agent Dr. Pdero Wang MD Work Phone: Start: 08-03-2024 Evaluation of diagno stic study results Dr. Pedro Wang MD Work Phone: Start: 06-29-2024 Screening mammography Katherine Wang MD Work Phone: Start: 06-22-2024 Measurement of renal function Dr. Pedro Wang MD Work Phone: Comment on above: GFR [...] Wang Work Phone: Start: 06-21-2023 Screening mammography Katherine Wang Work Phone: Start: 02-09-2023 US scan [...] Wang Work Phone: Start: 06-09-2021 Mammography Letty Willy lassiter Research Coordinator Start: 12-20-2019 History of [...] Start: 01-28-2025 Influenza vaccination Influenza Vaccine (#1) [facility] Start: 12-11-2024 End: 12-11-2024 Patient encounter procedure Research Comment on above: #6 [id number] Start: 10-15-2024 Patient referral [facility] Work Phone: Start: 09-17-2024 End: 09-17-2024 Patient encounter procedure 09/17/2024 8:00 AM EDT Office Visit Neurology [address] [place] [id number] Yandel Garcia MD [address] [facility] [facility] [place] [address] Examination of participant in clinical trial [Z00.6] Neurology Comment on above: Examination of participant in clinical t rial [Z00.6] Start: 08-24-2024 Covid-19 Vaccine ( season) Covid-19 Vaccine ( season) [facility] Start: 05-30-2024 Advance Directive Discussion Advance Directive Discussion [facility] Start: 05-30-2024 Medicare Advantage Annual Wellness Visit Medicare Advantage Annual Wellness Visit [facility] Start: 01-29-2024 Influenza vaccination Influenza Vaccine (#1) [facility] Start: 06-23-2023 Patient referral [facility] Work Phone: Start: 05-30-2023 Advance Directive Discussion Advance Directive Discussion [facility] Start: 02-28-2023 Lipid panel Lipid Screening [facility] Start: 02-28-2023 LIPID SCREEN LIPID SCREEN [facility] Start: 01-28-2023 Covid-19 Vaccine ( season) Covid-19 Vaccine () [facility] Start: 01-28-2023 Influenza vaccination INFLUENZA (#1) [facility] Start: 06-24-2022 COVID-19 VACCINE (6 - Pfizer series) COVID-19 VACCINE (6 - Pfizer series) [facility] Start: 06-09-2022 Mammography MAMMOGRAM [facility] Start: 06-09-2022 Screening for malignant neoplasm of breast Mammogram Screening [facility] Start: 05-30-2022 ADVANCE DIRECTIVE DISCUSSION ADVANCE DIRECTIVE DISCUSSION [facility] Start: 05-30-2022 DEPRESSION ASSESSMENT DEPRESSION ASSESSMENT [facility] Start: 01-28-2022 Influenza vaccination [facility] Start: 11-27-2021 COVID-19 VACCINE (5 - Booster for Pfizer series) COVID-19 VACCINE (5 - Booster for Pfizer series) [facility] Start: 11-27-2021 COVID-19 VACCINE (5 - Pfizer series) COVID-19 VACCINE (5 - Pfizer series) [facility] Start: 05-30-2021 ADVANCE DIRECTIVE DISCUSSION ADVANCE DIRECTIVE DISCUSSION [facility] Start: 05-30-2021 DEPRESSION ASSESSMENT DEPRESSION ASSESSMENT [facility] Start: 02-28-2021 DIABETES SCREEN DIABETES SCREEN [facility] Start: 02-28-2021 Diabetes Screening Diabetes Screening [facility] Start: 01-28-2021 Influenza vaccination INFLUENZA (#1) [facility] Start: 03-28-2020 Mammography MAMMOGRAM [facility] Start: 03-05-2020 COLORECTAL CANCER SCREENING COLORECTAL CANCER SCREENING [facility] Start: 03-05-2020 FECAL OCCULT BLOOD FECAL OCCULT BLOOD [facility] Start: 03-05-2020 Screening for malignant neoplasm of colon [facility] Start: 02-29-2020 Adult depression screening assessment DEPRESSION SCREENING [facility] Start: 02-29-2020 ANNUAL PCP TEAM CHRONIC DISEASE VISIT ANNUAL PCP TEAM CHRONIC DISEASE VISIT [facility] Start: 02-29-2020 PNEUMOCOCCAL: 65+ (2 - PPSV23 if available, else PCV20) PNEUMOCOCCAL: 65+ (2 - PPSV23 if available, else PCV20) [facility] Start: 02-29-2020 PNEUMOCOCCAL: 65+ (2 - PPSV23 or PCV20) PNEUMOCOCCAL: 65+ (2 - PPSV23 or PCV20) [facility] Start: 02-28-2019 Hepatitis B surface antibody level LDL CHOLESTEROL [facility] Start: 2014 PNEUMOVAX AGE 65 AND OVER WITH 5YR LOOKBACK (#1) PNEUMOVAX AGE 65 AND OVER WITH 5YR LOOKBACK (#1) [facility] Start: 12-27-2012 SHINGRIX VACCINE (2 of 3) SHINGRIX VACCINE (2 of 3) [facility] Start: 2009 RSV Vaccine (1 - 1-dose 60+ series) RSV Vaccine (1 - 1-dose 60+ series) [facility] Start: 1994 COLOGUARD (FIT-DNA) COLOGUARD (FIT-DNA) [facility] Start: 1994 Colonoscopy COLONOSCOPY [facility] Start: [address] COLONOGRAPHY [facility] Start: 1994 Screening for malignant neoplasm of colon [facility] Start: 1994 SIGMOIDOSCOPY SIGMOIDOSCOPY [facility] Start: 1968 Urine microalbumin profile [facility] Start: 11-10-1967 Annual PCP Team Chronic Disease Visit Annual PCP Team Chronic Disease Visit [facility] Start: 11-10-1967 Anxiety Screening Anxiety Screening [facility] Start: 11-10-1967 BP CONTROLLED (<130/80) BP CONTROLLED (<130/80) [facility] Start: 11-10-1967 Depression Screening Depression Screening [facility] Start: 1954 COVID-19 VACCINE (1) COVID-19 VACCINE (1) [facility] Start: 05-11-1951 COVID-19 VACCINE (#1) COVID-19 VACCINE (#1) [facility] Basic metabolic 2008 panel with ionized calcium - Serum or Plasma [facility] DXA Bone [Mass/Area] Bone density [facility] Electrocardiographic procedure [facility] Work Phone: MG Breast - bilatera l Screening [facility] Work Phone: MG Breast - bilatera l Screening [facility] Patient referral [facility] Work Phone: US Thyroid gland [facility] US Thyroid gland [facility] Work Phone: XR Knee 3 Views [facility] Immunizations Immunization Date Immunization Notes Care Provider Parvez lee 10-03-2024 Covid (Spikevax) Dr. Surekha Wang MD Work Phone: [facility] 02-25-2024 Covid (Spikevax) Dr. Surekha Wang MD Work Phone: [facility] 02-25-2024 influenza, high dose seasonal, preservative-free Dr. Pedro Wang MD Work Phone: [facility] 02-25-2024 influenza virus vaccine, unspecified formulation Letty Echevarria Research Coordinator [facility] 05-16-2023 RSV Adult Recombinan t (Arexvy) Dr. Pedro Wang MD Work Phone: [facility] 02-25-2023 Pfizer Covid-19 (Comirnaty) Dr. Pedro Wang MD Work Phone: [facility] 02-21-2023 influenza, injectabl e, quadrivalent, preservative free Dr. Pedro Wang MD Work Phone: [facility] 11-22-[address] Pedro Wang MD Work Phone: [facility] 08-17-[address] Pedro Wang MD Work Phone: [facility] 03-08-2022 pneumococcal polysaccharide vaccine, [address] Pedro Wang Work Phone: [facility] 02-22-2022 Covid Pfizer Bivalen t Booster Dr. Pedro Wang MD Work Phone: [facility] 02-15-2022 Influenza High-Dose Quadrivalent Dr. Pedro Wang MD Work Phone: [facility] 02-15-2022 Influenza, high dose seasonal Dr. Pedro Wang MD Work Phone: [facility] 02-15-2022 influenza, high dose seasonal, preservative-free Dr. Pedro Wang Work Phone: [facility] 02-15-2022 influenza virus vaccine, unspecified formulation Seb Du Research Coordinator [facility] 10-02-2021 Covid (Pfizer) Dr. Pedro Wang MD Work Phone: [facility] 03-16-2021 pneumococcal conjuga te vaccine, [address] Pedro Wang Work Phone: [facility] 03-02-2021 Covid (Pfizer) Dr. Pedro Wang MD Work Phone: [facility] 02-05-2021 Influenza High-Dose Quadrivalent Dr. Pedro Wang MD Work Phone: [facility] 08-15-2020 Covid (Pfizer) Dr. Pedro Wang MD Work Phone: [facility] 07-25-2020 Covid (Pfizer) Dr. Pedro Wang MD Work Phone: [facility] 02-28-2019 influenza, high dose seasonal, preservative-free Seb Holpit Research Coordinator [facility] 02-28-2019 pneumococcal conjuga te vaccine, 13 valent Seb Holpit Research Coordinator [facility] 02-27-2018 influenza, high dose seasonal, preservative-free Seb Holpit Research Coordinator [facility] 03-14-2017 influenza virus vaccine, unspecified formulation Seb Holpit Research Coordinator [facility] 03-14-2017 influenza, injectabl e, quadrivalent, preservative free Dr. Pedro Wang MD Work Phone: [facility] 03-07-2017 influenza, high dose seasonal, preservative-free Seb Holpit Research Coordinator [facility] 03-26-2016 influenza, high dose seasonal, preservative-free Seb Holpit Research Coordinator [facility] 03-31-2015 influenza, high dose seasonal, preservative-free Seb Holpit Research Coordinator [facility] 11-01-2012 zoster vaccine, live Seb Ho lpit Research Coordinator [facility] 06-11-2009 novel [id number], preservative-free, injectable Seb Holpit Research Coordinator [facility] 04-05-2008 influenza virus vaccine, whole virus Seb Holpit Research Coordinator [facility] 04-05-2008 influenza, injectabl e, quadrivalent, preservative free Dr. Pedro Wang MD Work Phone: [facility] Payers Date Payer Category Payer Private Health Insurance a21 [id number] 2024 Unknown [id number] 2023 Self-pay [id number] 2018 Unknown ANTHEM BLUE CROS S AND BLUE SHIELD ANTHEM MEDIBLUE HMO [id number] 2018-Present [phone] [address] [place] [address] O [id number] 2018 Unknown [id number] 2018 Medicare (Managed Care) 1.2. [id number] 2015 Unknown [id number]. 1.13.159.2 .7.3.291655.315 1949 Unknown [id number] 2.840.1.918768.3.579.2 .651 1950 Unknown [id number] 2.840.1.683470.3.579.2 .651 1950 Unknown [id number] 2.840.1.950077.3.579.2 .627 1950 Unknown [id number] 2.16840.1.685150.3.579.2 .627 Medicare [id number] Unknown [id number] 2.840.1.772389.3.579.2 .462 Unknown [id number] 2.16840.1.501303.3.579.2 .462 Unknown [id number] 2.16840.1.364881.3.579.2 .462 Unknown [id number] 2.16840.1.322228.3.579.2 .462 Unknown [id number] 2.16840.1.420465.3.579.2 .462 Unknown [id number] 2.16840.1.102357.3.579.2 .462 Unknown [id number] 2.16840.1.972108.3.579.2 .462 Unknown [id number] 2.16.840.1.294608.3.579.2 .462 Unknown [id number] 2.16.840.1.265083.3.579.2 .462 Unknown [id number] 2.16.840.1.319267.3.579.2 .462 Unknown [id number] 2.16.840.1.906057.3.579.2 .462 Unknown [id number] 2.16.840.1.758154.3.579.2 .462 Unknown [id number] 2.16.840.1.772060.3.579.2 .462 Unknown [id number] 2.16.840.1.142932.3.579.2 .462 Unknown [id number] 2.16.840.1.053310.3.579.2 .462 Unknown [id number] 2.16.840.1.656995.3.579.2 .462 Unknown [id number] 2.16.840.1.224293.3.579.2 .462 Unknown [id number] 2.16.840.1.190834.3.579.2 .462 Unknown [id number] 2.16.840.1.339977.3.579.2 .462 Unknown [id number] 2.16.840.1.175426.3.579.2 .462 Social History Date Type Detail Facility Start: 11-25-2021 End: 09-04-2024 Tobacco smoking status NHIS Never smoked tobacco [facility] Start: 01-21-2020 End: 09-06-2024 Alcohol intake Current drinker of alcohol (finding) [facility] Start: 02-27-2018 History SDOH Alcohol Comment Occasional wine [facility] Start: 1950 Sex Assigned At Not on file [facility] Sex Assigned At [facility] Start: 02-27-2018 End: 09-06-2024 Tobacco use and exposure Smokeless tobacco non-user [facility] Start: 01-10-2022 End: 01-20-2022 Exposure to SARS-CoV-2 (event) Not sure [facility] Start: 03-08-2022 End: 05-06-2023 Tobacco smoking status NHIS Unknown if ever smoked [facility] Start: 12-29-2019 Occasional [facility] Start: 12-29-2019 None [facility] Start: 12-29-2019 Spouse/ Signif icant Other [facility] Start: 12-29-2019 Non-smoker [facility] Start: 1950 Sex Assigned At Female [facility] Start: 01-21-2020 End: 01-21-2023 Gender identity Not on file [facility] Start: 01-21-2020 End: 01-21-2023 History of Social function [facility] Adult Depression Screening Assessment 0 [facility] Start: 07-08-2005 End: 08-24-2024 Sex Female (finding) [facility] Functional Status Date Assessment Result Facility 11-20-2023 Functional Status ID band on, Allergy Band on, Call device within reach, Bed in low position, Wheels locked, Upper/Half-Length side-rails up, Bedside Cart Locked, Visitor at bedside, Safety level maintained [facility] 11-25-2021 Functional Status Standard Safet y ID band on, Call device within reach, Bed in low position, Wheels locked, Upper/Half-Length side-rails up, Bedside Cart Locked, Visitor at bedside, Safety level maintained [facility] 11-25-2021 Functional Status [facility] Mental Status Date Assessment Result Facility 11-20-2023 [facility] 11-25-2021 Mental Status Oriented x [facility] 11-25-2021 Mental Status [facility] Clinical Notes 02-15-2008 to 12-11-2024 Spike Dee, Research Coordinator - 12/11/2024 3:34 PM Letty De León, Research Coordinator - 12/11/2024 2:41 PM Letitia He PA-C - 12/11/2024 2:18 PM EDT Note Date & Type Note Facility 12-11-2024 Note HNO ID: [id number] Author: SPIKE DEE, Research Coordinator Service: ? Author Type: Research Type: Progress Notes Filed: 12/11/2024 15:35 Note Text: DATE:December 11, 2024 PT. NAME: Radha Barr [facility]#: [id number] IRB #: [id number] A. PROTOCOL: [facility] Brain Study Cook Vacuum Kettle: Mar Chavez MD, , Alberto Ralph MD, [facility] service advocate contact for study related questions: Letty Garcia Subject [...] tolerated procedure well. Spike Dee, Research Coordinator [facility] 12-11-2024 History of Present illness Narrative DATE:December 11, 2024 PT. NAME: Radha Barr [facility]#: [id number] IRB #: [id number] A. PROTOCOL: [facility] Brain Study Cook Vacuum Kettle: Mar Chavez MD, , Alberto Ralph MD, [facility] service advocate contact for study related questions: Letty Garcia Subject [...] Dee Research Coordinator documented in this encounter [facility] 12-11-2024 Note HNO ID: [id number] Author: LETTY ECHEVARRIA Research Coordinator Service: ? Author Type: Research Type: Progress Notes Filed: 12/11/2024 14:42 Note Text: [facility] Brain Study ([facility]): Biomarkers and Predictors of Neurological Disorders Patient/Research Subject Name: Radha Barr Research Study IRB #: [id number] [facility] Brain Study ([facility]): Neurological Disorders Biorepository and Data Registry Verbal Confirmation of Continued Consent Occurred On: December 11, 2024 at 14:30. Participant has previously consented on the most updated version of the informed consent, version 3.6, dated 05/30/2023 and IRB approved on 01/07/2024. Participant arrived for study visit today and verbally reconfirmed their understanding and consent to participate in the study. Letty Echevarria, Research Coordinator [facility] 12-11-2024 History of Present illness Narrative [facility] Brain Study ([facility]): Biomarkers and Predictors of Neurological Disorders Patient/Research Subject Name: Radha Barr Research Study IRB #: [id number] [facility] Brain Study ([facility]): Neurological Disorders Biorepository and Data Registry Verbal [...] Echevarria, Research Coordinator documented in this encounter [facility] 12-11-2024 Note HNO ID: [id number] Author: LETITIA AGUILLON PA-C Service: ? Author Type: Physician Paperboard Box Maker Type: Progress Notes Filed: 12/11/2024 15:25 Note Text: DATE: December 11, 2024 PT. NAME: Radha Barr [facility]#: [id number] IRB [id number]. [facility] Brain Study (BS) Cook Vacuum Kettle: Mar Chavez MD, , Alberto Ralph MD, Modeling Director: Letty Garcia and Email:[email or web address] Time: 14:50:56 EKG/ECG was performed on patient. [...] extension: Right 5 Left 5 Finger flexion/tobacco baler: Right 5 Left 5 Flexor pollicis longus: [...] Downgoing Weakness?: No Tremor: No Cerebellar/Coordination Assessment Iiclnt-mt-Dsgf: Abnormality present: No, Gweh-xi-Opvx: Abnormality present: No, Finger Tapping - Abnormality present: No Fist Open/Close - Abnormality present: No Pronation/Supination of the Hand - Abnormality present: No Toe Tapping - Abnormality present: No Heel Tapping - Abnormality present: No Gait Gait-global assessment: Normal Toe Walk: Normal Heel Walk: Normal Tandem Walk: Normal Romberg: Negative (pass) Sensory/Sensation Sensory System-globlal assessment: Normal Letitia Aguillon PA-C [facility] 12-11-2024 History of Present illness Narrative DATE: December 11, 2024 PT. NAME: Radha Barr [facility]#: [id number] IRB [id number]. [facility] Brain Study ([facility]) Cook Vacuum Kettle: Mar Chavez MD, , Alberto Ralph MD, Modeling Director: Letty Garcia and Email:[email or web address] Time: 14:50:56 EKG/ECG was performed on patient. [...] extension: Right 5 Left 5 Finger flexion/tobacco baler: Right 5 Left 5 Flexor pollicis longus: [...] Downgoing Weakness?: No Tremor: No Cerebellar/Coordination Assessment Hfcfhe-wk-Iqjs: Abnormality present: No, Rdmy-yf-Enad: Abnormality present: No, Finger Tapping - Abnormality present: No Fist Open/Close - Abnormality present: No Pronation/Supination of the Hand - Abnormality present: No Toe Tapping - Abnormality present: No Heel Tapping - Abnormality present: No Gait Gait-global assessment: Normal Toe Walk: Normal Heel Walk: Normal Tandem Walk: Normal Romberg: Negative (pass) Sensory/Sensation Sensory System-globlal assessment: Normal Letitia Aguillon PA-C documented in this encounter [facility] 12-06-2024 Radiology Diagnostic study note [facility] Imaging Services [address] [place], [place] [address] Thyroid MR#: [id number] Acct: [id number] Name: RADHA BARR Rep #: [id number] : 1950 F 74 From: Palak Garcia MD PCP: Dr. Pedro Wang MD Status: R EG CLI Study:Thyroid Date of Exam: 12/05/24 Exam# [id number] Ordering Dr: Genaro Wang MD EXAM: US [...] Follow if >/= 0.5 cm. Reading [facility] CC: Dr. Pedro Wang MD ~ Inspector And Clipper: Signed [facility] 10-15-2024 Evaluation note Diagnosis Onset Date Resolution Essential hypertension chronic Ma y 2024 9:20am GERD (gastroesophageal reflux disease) chronic October 15, 2024 9 :20am Right knee pain chronic October 15, 2024 9:20am Tinnitus, left ear chronic October 152024 9:20am Tremor chronic October 15, 2024 9:20am [facility] Work Phone: 1(232) 826-857405-19-2025 Evaluation note* Diagnosis Onset Date Resolution Status Admit Date Essential hypertension chronic Ma 2024 9:20am GERD (gastroesophageal reflu x disease) chronic October 15, 2024 9 :20am Right knee pain chronic October 15, 2024 9:20am Tinnitus, left ear chronic October 152024 9:20am Tremor chronic October 15, 2024 9:20am Phantosmia acute January 14, 2 025 9:05am Essential hypertension chronic Au 2024 9:05am GERD (gastroesophageal reflu x disease) chronic January 14 9:05am Thyroid nodule chronic December 9:05am Tremor chronic January 14, 2 025 9:05am [facility] Work Phone: 1(209) 167-721404-11-2025 Evaluation note* Diagnosis Onset Date Resolution Status Admit Date Eustachian tube dysfunction acute September 07, 2024 11:17am Essential hypertension chronic Ma 2024 9:20am GERD (gastroesophageal reflu x disease) chronic October 15, 2024 9 :20am Right knee pain chronic October 15, 2024 9:20am Tinnitus, left ear chronic October 152024 9:20am Tremor chronic October 15, 2024 9:20am [facility] Work Phone: 1(302) 836-733804-11-2025 NoteHNO ID: [id number] Author: YANDEL GARCIA MD Service: ? Author Type: Physician Type: Progress Notes Filed: 09/07/2024 08:08 Note Text: [facility] - NEW PATIENT EVALUATION The patient consented to the use of ambient AI software for draft documentation of the visit consistent with [facility]?s Notice of Privacy Practices. Referring Provider: Suhas Stearns [address] [facility] [address] Primary Care Provider: Pedro Wang MD [address] [facility] [address] Dear Suhas Stearns: Thank you for referring [...] dominant. She notes a decrease in tobacco baler strength and dexterity, particularly in her right [...] 0 - Normal. N (more content not included)...[facility]04-11-2025 History of Present illness Narrative* Yandel Garcia MD - 09/07/2024 7:56 AM EDT Images from the original note were not included. [facility] - NEW PATIENT EVALUATION The patient consented to the use of ambient [employer] software for draft documentation of the visit consistent with [facility] s Notice of Privacy Practices. Referring Provider: Suhas Stearns [address] [facility] [address] Primary Care Provider: Pedro Wang MD [address] [facility] [address] Dear Suhas Stearns: Thank you for referring [...] dominant. She notes a decrease in tobacco baler strength and dexterity, particularly in her right [...] Exercise: Last PT Date: Last OT Date: ST Date: Exercises Regularly: Review of Systems Constitutional [...] Left pathological reflexes: Xavier's absent. Coordination Right: Tyneta-zx-wnvd normal. Rapid alternating movement normal.Left: Uzxlwb-gp-nsux normal. Rapid alternating movement normal. Movement Disorders [...] Medication Schedule: Medications Level of service : 32510 (30-44 min). Time spent 31 min on the day of service, which included preparing to see the patient, krdx-kr-xzjy patient care, completing clinical documentation, obtaining and/or [...] Sincerely, Yandel Garcia MD documented [facility] this encounter[facility] Evaluation note* Diagnosis Onset Date Resolution Status Admit Date Health care maintenance acute J anuary 2024 8:50am Essential hypertension [facility] 2024 8:50am GERD (gastroesophageal reflu x disease) chronic June 22 8:50am Tremor chronic June 22, 2024 8:50am Fatigue acute August 03 9:19am Left arm pain acute August 03, 2024 9:19am Atherosclerosis of coronary artery of saxman heart without angina pectoris july 9:19am Essential hypertension [facility] 2024 9:19am History of coronary artery stent placement December 20, 2019 the medical center August 03, 2024 9:19am Left bundle branch block (LBBB) the medical center August 03, 2024 9:19am [facility] Work Phone: 1(351) 953-340801-24-2025 Evaluation note* Diagnosis Onset Date Resolution Status Admit Date Health care maintenance acute J anuary 2024 8:[address] Essential hypertension [facility] 2024 8:50am GERD (gastroesophageal reflu x disease) chronic June 22 8:50am Tremor chronic June 22, 2024 8:50am Fatigue acute August 03 9:19am Left arm pain acute August 03, 2024 9:19am Atherosclerosis of coronary artery of saxman heart without angina pectoris chronic July 9:19am Essential hypertension chronic [facility] 2024 9:19am History of coronary artery stent placement December 20, 2019 chronic August 03, 2024 9:19am Left bundle branch block (LBBB) chronic August 03, 2024 9:19am Eustachian tube dysfunction acute September 07, 2024 11:17am [facility] Work Phone: 1(966) 494-594801-23-2025 Telephone encounter Note* Telephone Encounter - Suhas Setarns APRN.CNP - 06/21/2024 8:54 AM EST IRB 21-834. [facility] Study (BS) [employer]: Mar Chavez MD, , Alberto Ralph MD, Modeling Director: Letty Garcia and Email:[email or web address] Contacted Radha Barr by phone on 06/21/2024 at 08:47 (returning phone call from 06/19/[phone] with answer to question) to discuss the [facility] (CCBS): Biomarkers and Predictors of Neurological Disorders IRB 21- 834. Patient was contacted by Suhas Stearns APRN.CNP to provide the patient with answer to question. Participant was given contact information if they have any further question. Phone number [phone] option 2. Suhas Stearns APRN.CNP [facility] Work Phone: 1(176) 975-533201-23-2025 Miscellaneous Notes* Telephone Encounter - Suhas Stearns APRN.CNP - 06/21/2024 8:54 AM EST IRB 21-834. [facility] Brain Study (CCBS) [employer]ettle: Mar Chavez MD, , Alberto Ralph MD, Modeling Director: Letty Garcia and Email:[email or web address] Contacted Radha Barr by phone on 06/21/2024 at 08:47 (returning phone call from 06/19/[phone] with answer to question) to discuss the [facility] Study (CCBS): Biomarkers and Predictors of Neurological Disorders IRB 21- 834. Patient was contacted by Suhas Stearns APRN.CNP to provide the patient with answer to question. Participant was given contact information if they have any further question. Phone number [phone] option 2. Suhas Stearns APRN.CNP documented in this encounterSamaritan Hospital01-15-2025 Telephone encounter Note * Telephone Encounter - Suhas Stearns APRN.CNP - 06/13/2024 9:26 AM EST IRB 21-834. [facility] Brain Study (BS) [employer]: Mar Chavez MD, , Alberto Ralph MD, Modeling Director: Letty Garcia and Email:[email or web address] Contacted Radha Barr by phone on 06/13/2024 at 09:18 to return message and discuss the [facility] (CCBS): Biomarkers and Predictors of Neurological Disorders IRB 21-834. Patient was contacted by Suhas Stearns APRN.CNP to return phone call. Participant was given contact information if they have any further question. Phone number [phone] option 2. Suhas Stearns APRN.CNP [facility]01-15-2025 Miscellaneous Notes* Telephone Encounter - Suhas Stearns APRN.CNP - 06/13/2024 9:26 AM EST IRB 21-834. [facility] Study (CCBS) [employer]: Mar Chavez MD, , Albreto Ralph MD, Modeling Director: Letty Garcia and Email:[email or web address] Contacted Radha Barr by phone on 06/13/2024 at 09:18 to return message and discuss the [facility] Brain Study (BS): Biomarkers and Predictors of Neurological Disorders IRB 21-834. Patient was contacted by Shuas Stearns APRN.CNP to return phone call. Participant was given contact information if they have any further question. Phone number [phone] option 2. Suhas Stearns APRN.CNP documented in this encounterSamaritan Hospital01-14-2025 Telephone encounter Note * Telephone Encounter - Suhas Stearns APRN.CNP - 06/12/2024 2:41 PM EST IRB 21-834. [facility] ([facility]) [employer] Vac[employer] Kettle: Mar Chavez MD, , Alberto Ralph MD, Modeling Director: Letty Garcia and Email:[email or web address] Contacted Radha Barr by phone on 06/12/2024 at 14:37 to discuss the [facility] Brain Study (BS): Biomarkers and Predictors of Neurological Disorders IRB 21-834. Patient was contacted by Suhas Stearns APRN.CNP to provide the patient with test results. Participant was given contact information if they have any further question. Phone number [phone] option 2. Suhas Stearns APRN.CNP [facility] Work Phone: [phone]) 713-512601-14-2025 Miscellaneous Notes* Telephone Encounter - Suhas Stearns APRN.CNP - 06/12/2024 2:41 PM EST IRB 21-834. [facility] Brain Study (BS) [employer]: Mar Chavez MD, , Alberto Ralph MD, Modeling Director: Letty Garcia and Email:[email or web address] Contacted Radha Barr by phone on 06/12/2024 at 14:37 to discuss the [facility] Brain Study (BS): Biomarkers and Predictors of Neurological Disorders IRB 21-834. Patient was contacted by Suhas Stearns APRN.CNP to provide the patient with test results. Participant was given contact information if they have any further question. Phone number [phone] option 2. Suhas Stearns APRN.CNP documented in this encounterSamaritan Hospital01-14-2025 Telephone encounter Note * Telephone Encounter - Suhas Stearns APRN.CNP - 06/12/2024 2:35 PM EST IRB 21-834. [facility] Brain Study (BS) [employer]ettle: Mar Chavez MD, , Alberto Ralph MD, Modeling Director: Letty Garcia and Email:[email or web address] Contacted Radha Barr by phone on 06/12/2024 at 14:32 to discuss the [facility] (BS): Biomarkers and Predictors of Neurological Disorders IRB 21-834. Patient was contacted by Suhas Stearns APRN.CNP to provide the patient with test results. Participant was given contact information if they have any further question. Phone number [phone] option 2. Suhas Stearns APRN.CNP [facility] Work Phone: 1(421) 606-911701-14-2025 Miscellaneous Notes* Telephone Encounter - Suhas Stearns APRN.CNP - 06/12/2024 2:35 PM EST IRB 21-834. [facility] ([facility]) [employer] Kettle: Mar Chavez MD, , Alberto Ralph MD, Modeling Director: Letty Garcia and Email:[email or web address] Contacted Radha Barr by phone on 06/12/2024 at 14:32 to discuss the [facility] ([facility]): Biomarkers and Predictors of Neurological Disorders IRB 21-834. Patient was contacted by Suhas Stearns APRN.CNP to provide the patient with test results. Participant was given contact information if they have any further question. Phone number [phone] option 2. Suhas Stearns APRN.CNP documented in this encounterSamaritan Hospital10-08-2024 NoteHNO ID: [id number] Author: SOHA CROWELL Research Coordinator Service: ? Author Type: Research Type: Progress Notes Filed: 03/06/2024 16:03 Note Text: DATE:March 06, 2024 PT. NAME: Radha Barr [facility]#: [id number] IRB #: [id number] A. PROTOCOL: [facility] [employer] Kettle: Mar Chavez MD, , Alberto Ralph MD, [facility] service advocate contact for study related questions: Letty Garcia Subject [...] Patient tolerated procedure well. Soha Crowell, [facility]inator[facility] History of Present illness Narrative* Soha Crowell, Research Coordinator - 03/06/2024 4:03 PM EDT DATE:March 06, 2024 PT. NAME: Radha Barr [facility]#: [id number] IRB #: [id number] A. PROTOCOL: [facility] Study [employer] Kettle: Mar Chavez MD, , Alberto Ralph MD, [facility] service advocate contact for study related questions: Letty Garcia Subject [...] Soha Crowell, Research Coordinator documented in this encounterSamaritan Hospital10-08-2024 History of Present illness Narrative* Suhas Stearns APRN.[facility] - 03/06/2024 11:00 AM EDT DATE: March 06, 2024 PT. NAME: Radha Barr [facility]#: [id number] IRB #: [id number] A. PROTOCOL: [facility] Study Cook [employer] Kettle: Mar Chavez MD, , Alberto Ralph MD, [facility] service advocate contact for study related questions: Letty Garcia Is [...] for procedures related to study YES. Time: 795905 EKG/ECG was performed on patient. Patient tolerated [...] extension: Right 5 Left 5 Finger flexion/tobacco baler: Right 5 Left 5 Flexor pollicis longus: [...] illegible). Negative hazardous materials exposure. Cerebellar/Coordination Assessment Xxautr-od-Jahd: Abnormality present: No, Exkh-yx-Xnjl: Abnormality present: No, Finger Tapping - Abnormality [...] Sensory/Sensation Sensory System-globlal assessment: Normal Suhas Stearns APRN.MARCIAL documented in this encounterSamaritan Hospital10-08-2024 NoteHNO ID: [id number] Author: SUHAS STEARNS APRN.CNP Service: ? Author Type: Nurse Practitioner Type: Progress Notes Filed: 03/06/2024 20:47 Note Text: DATE: March 06, 2024 PT. NAME: Radha Barr [facility]#: [id number] IRB #: [id number]. PROTOCOL: [facility] Study Cook Vac[employer] Kettle: Mar Chavez MD, , Alberto Ralph MD, [facility] service advocate contact for study related questions: Letty Garcia Is [...] for procedures related to study YES. Time: [id number] EKG/ECG was performed on patient. Patient tolerated [...] extension: Right 5 Left 5 Finger flexion/tobacco baler: Right 5 Left 5 Flexor pollicis longus: [...] illegible). Negative hazardous materials exposure. Cerebellar/Coordination Assessment Xzutob-ik-Dlkf: Abnormality present: No, Cgit-lb-Aatw: Abnormality present: No, Finger Tapping - Abnormality present: Yes - Extremity: LUE Comments: dysrrhythmokinesia Fist Open/Close - Abnormality present: No Pronation/Supination of the Hand - Abnormality present: Yes - Extremity: LUE Comments: 1 pause Toe Tapping - Abnormality present: No Heel Tapping - Abnormality present: Yes - Extremity: RLE Comments: dysrrhythmokinesia - Extremity: LLE Comments: dysrrhythmokinesia Gait Gait-global assessment: Ab (more content not included)...[facility]08-29-[facility] Telephone encounter Note* Telephone Encounter - Holpit, Seb, Research Coordinator - 01/26/2024 12:07 PM EDT IRB 21-834. [facility] ([facility]) [employer] Kettle: Mar Chavez MD, , Alberto Ralph MD, Modeling Director: Letty Garcia and Email:[email or web address] Left voicemail message to speak with Radha Barr regarding the [facility] ([facility]). Provided phone number, , to contact us to further discuss participation in the study. Seb Du Research Coordinator [facility]08-29-2024 Miscellaneous Notes* Telephone Encounter - Seb Du Research Coordinator - 01/26/2024 12:07 PM EDT IRB 21-834. [facility] ([facility]) Cook Vac[employer] Kettle: Mar Chavez MD, , Alberto Ralph MD, Modeling Director: Letty Garcia and Email:[email or web address] Left voicemail message to speak with Radha Barr regarding the [facility] ([facility]). Provided phone number, , to contact us to further discuss participation in the study. Seb Du Research Coordinator documented in this encounterSamaritan Hospital06-24-2024 Hospital Discharge instructions Patient Education 11/20/2023 22:03:43 [...] injured foot Frequent bruising for unknown reasons [id number] [employer]. [address] [place] [address]. All rights reserved. This information is not intended as a substitute for professional medical care. Always follow yourhealthcare professional's instructions. Follow Up Care 11/20/2023 20:51:27 With:RACHEL LYNN DP, Surgery Address: [address] [place] [address], [place] [address] [facility] [place] [address]- When:2-4 days With:ELHAM MUÑOZ DO Address: [facility] [address] [place] [address]- [phone] When:2-4 days [facility] 06-23-2024 Note Discharge Instructions Thank you for allowing [facility] to assist you with your healthcare needs. The following is importantdischarge information regarding your hospital visit. Diagnosis from Today's Visit Contusion of left foot What to Do Next Instructions from Your Care Team No qualifying data available. Post Acute Orders No qualifying data available. You Need to Schedule the Following Appointments Follow Up with RACHEL LYNN DPMary, Surgery When:Within 2-4 days Where:[address], [address] [facility] [place] [address]- Follow Up with ELHAM MUÑOZ DO When:Within 2-4 days Where:[facility] [place] [address]- [phone] Allergies fentanyl (Moderate) CHEST PAIN, COLD CLAMMY [...] injured foot Frequent bruising for unknown reasons [id number] [employer]. [address] [place] [address], [place] [address]. All rights reserved. This information is not intended as a substitute for professional medical care. Always follow yourhealthcare professional's instructions. Additional Information VACCINATE! IT SAVES LIVES! Members of the community who have not yet received the COVID-19 vaccine and would like to receive it can visit one of [facility] vaccine clinics. There are many vaccine clinic locations within the [facility]. For locations and available times, please visit www.gettheshot.coronavirus.[place].gov/. It is important to note that some COVID mobile vaccine clinics are held outdoors and may be canceled in rainy or stormy conditions. To learn more about pediatric vaccinations (ages 5-11), we invite you to visit the [facility] webpage. https://www.[email or web address]/[email or web address]-Jovlpgujpu-Veuxm-[email or web address] stions.htmlTo learn more about the COVID-19 vaccine, we invite you to visit the CDC website for a list of frequently asked questions. https://www.cdc.gov/coronavirus/2019-ncov/vaccines/faq.html [facility] Patient Portal Access Instructions: Stay connected with your healthcare team and access your personal medical information anytime with the [facility] Patient Portal. If you would like a full copy of your medical records please contact the [facility] Medical Records Department Tuesday through Tuesday between 8a.m. and 4:30p.m. Please follow the directions below to access the portal: 1.Access the email account you provided upon registration to the hospital.2.Look for an invitation email from [facility].3.Open the email and access the invitation link: Accept Invitation to [facility]4.Fill in the required kyle to create your account. Sign into [email or web address] with your username and password that you [...] you will allow to register on the [facility] Patient Portal for access to your information. You can also access the [facility] Patient Portal on the [employer]. Simply click on Health Records under [employer] and then click on the [facility] logo. [...] Call your local pharmacy or go to [email or web address] to find one close to you.3.Make use of household items: Use cat litter or old coffee grounds to dispose medications if other options arenot available. Mix your drugs with these household products, seal them in an airtight container andthrow it into the garbage. Call [facility]: [phone] to be sure your drugs can be [...] been reviewed and explained to me and IMOMO MARY M understand my current condition and have read and understand these discharge instructions. I have received a written copy of the plan/instructions. If I have questions, I am aware that I should contact my d octor. Patient/Manager Card Signature: Date/Time: Relationship to Patient: Witness Name/Signature: Date/Time: [facility]06-23-2024 Note ORIGINAL EXAMINATION: THREE XRAY [...] Sign Date: 11/20/2023 9:45:25 PM Ordering Provider: [facility]08-25-2023 History of Present illness Narrative* Letitia Aguillon [...] extension: Right 5 Left 5 Finger flexion/tobacco baler: Right 5 Left 5 Flexor pollicis longus: [...] Yes Type of Tremor: Intention Cerebellar/Coordination Assessment Msjxzk-uw-Htgq: Abnormality present: No, Jkfv-wq-Rmrz: Abnormality present: No, Finger Tapping - Abnormality [...] DATE:January 21, 2023 PT. NAME: Radha Barr [facility]#: [id number] IRB #: A. PROTOCOL: [facility] Study [employer] Kettle: Mar Chavez MD, , Alberto Ralph MD, [facility] service advocate contact for study related questions: Letty Garcia Subject [...] well. Letitia Aguillon PA-C documented in this encounterSamaritan Hospital08-25-2023 History of Present illness Narrative* Soha Crowell, Research Coordinator - 01/21/2023 9:45 AM EDT DATE:January 21, 2023 PT. NAME: Radha Barr [facility]#: [id number] IRB #: A. PROTOCOL: [facility] Study Cook [employer] Kettle: Mar Chavez MD, , Alberto Ralph MD, [facility] service advocate contact for study related questions: Letty Garcia Subject [...] Soha Crowell, Research Coordinator documented in this encounterSamaritan Hospital08-15-2023 Miscellaneous Notes* Telephone Encounter - Hannah Cruz - 01/11/2023 1:58 PM EDT IRB 21-834. [facility] Brain Study (BS) [employer]ettle: Mar Chavez MD, , Alberto Ralph MD, Modeling Director: Letty Garcia and Email:[email or web address] Research Coordinator called and contacted Radha Ballmaciej on January 11, 2023 to reminded patient of appointment with the [facility] Study, Hannah Cruz also let pt. Know about the option toDocuSign the constant form or Sign in person. Research Coordinator gave patient Contact informationfor if the patient had any questions about the study and or their appointment. documented in this encounterSamaritan Hospital07-18-2023 Miscellaneous Notes* Telephone Encounter - Hannah Cruz - 12/14/2022 2:16 PM EDT IRB 21-834. [facility] Brain Study (CCBS) [employer] Kettle: Mar Chavez MD, , Alec Jeronimo, PhD, , Alberto Ralph MD, Modeling Director: Letty Garcia and Email:[email or web address] Spoke with Radha Barr to follow up about continued interest and participation in the [facility] Brain Study (CCBS): Biomarkers and Predictors of Neurological Disorders IRB 21-834. Hannah Cruz scheduled Radha Barr for study visit on 01/21/23 at 1030am. Hannah Cruz documented in this encounterSamaritan Hospital11-14-2022 History of Present illness Narrative* Seb Du Research Coordinator - 04/12/2022 9:35 AM EST DATE:April 12, 2022 PT. NAME: Radha Barr [facility]#: [id number] IRB #: [id number] A. PROTOCOL: [facility] Brain Study Cook Vac[employer] Kettle: Mar Chavez MD, , Alec Jeronimo, PhD, , Alberto Ralph MD, [facility] service advocate contact for study related questions: Yamilet Steele Subject [...] MRI Questionnaire was completed by patient via [employer] on 04/10/2022 at 5:43 PM PST. Seb Du Research Coordinator documented in this encounterSamaritan Hospital11-07-2022 Miscellaneous Notes* Telephone Encounter - Seb Du Research Coordinator - 04/05/2022 12:17 PM EST IRB 21-834. [facility] Brain Study (CCBS) [employer] Kettle: Mar Chavez MD, , Alec Jeronimo, PhD, , Alberto Ralph MD, Modeling Director: Yamilet Steele and Email:[email or web address] Research Coordinator called and contacted Radha Barr on April 05, 2022 to reminded patient of appointment with the [facility] Study, Seb Du Research Coordinator also let pt. Know about the option to DocuSign the constant form or Sign in person. Research Coordinator gave patient Contact information for if the patient had any questions about the study and or their appointment. documented in this encounterSamaritan Hospital10-25-2022 Miscellaneous Notes* Telephone Encounter - Letty Echevarria Research Coordinator - 03/23/2022 11:05 AM EDT IRB 21-834. [facility] ([facility]) Cook Vac[employer] Kettle: Mar Chavez MD, , Alec Jeronimo, PhD, , Alberto Ralph MD, Modeling Director: Yamilet Steele and Email:[email or web address] Spoke with Radha Barr to follow up about the [facility] ([facility]): Biomarkers and Predictors of Neurological Disorders IRB [id number]. Letty Echevarria Research Coordinator scheduled Linda Barr for make-up MRI on 04/18/22 at 330pm. Letty Echevarria Research Coordinator documented in this encounterSamaritan Hospital08-24-2022 History of Present illness Narrative* Soha Crowell Research Coordinator - 01/20/2022 11:19 AM EDT DATE:January 20, 2022 PT. NAME: Radha Barr [facility]#: [id number] IRB #: [id number] A. PROTOCOL: [facility] Brain Study Cook Vac[employer] Kettle: Mar Chavez MD, , Alec Jeronimo, PhD, , Alberto Ralph MD, [facility] service advocate contact for study related questions: Letty Garcia Subject [...] tolerated procedure well. Soha Crowell Research Coordinator * Malik Chris Coordinator - 01/20/2022 11:18 AM EDT DATE:January 20, 2022 PT. NAME: Radha Barr [facility]#: [id number] IRB #: [id number] A. PROTOCOL: [facility] Brain Study Cook [employer] Kettle: Mar Chavez MD, , Alec Jeronimo, PhD, , Alberto Ralph MD, [facility] service advocate contact for study related questions: Yamilet Steele Subject [...] on patient. Patient tolerated procedure well. Soha Crowell Research Coordinator documented in this encounterSamaritan Hospital08-24-2022 History of Present illness Narrative* Suhas Stearns APRN.[employer] SUPERVISOR - 01/20/2022 8:00 AM EDT Result of [...] extension: Right 5 Left 5 Finger flexion/tobacco baler: Right 5 Left 5 Flexor pollicis longus: [...] Downgoing Weakness?: NO Tremor?: No Cerebellar/Coordination Assessment Kbtyej-sh-Yirk: Abnormality present: No, Rapid Alternating Movements: Abnormality present: No, Nlvz-lc-Eiys: Abnormality present: No, Gait Gait-global assessment: Normal [...] Vibration and Pain and temperature Suhas Stearns APRN.[employer]IST[employer] SUPERVISOR documented in this encounterSamaritan Hospital08-15-2022 Miscellaneous Notes* Telephone Encounter - Letty Echevarria Research Coordinator - 01/11/2022 10:20 AM EDT IRB 21-834. [facility] ([facility]) [employer] Kettle: Mar Chavez MD, , Alec Jeronimo, PhD, , Alberto Ralph MD, Modeling Director: Yamilet Steele and Email:[email or web address] Research Coordinator called and contacted Radha Barr on January 11, 2022 to reminded patient of appointment with the [facility] Study, Letty Echevarria, Research Coordinator also let pt. Know about the option to DocuSign the constant form or Sign in person. Research Coordinator gave patient Contact information for if the patient had any questions about the study and or their appointment. documented in this encounterSamaritan Hospital06-29-2022 Hospital Discharge instructions Patient Education 11/25/2021 20:51:53 [...] the ears or bruising around the eyes [id number] [employer]. [address] [place] [address], [place] [address]. All rights reserved. This information is not [...] by your healthcare provider Wound edges reopen [id number] [employer]. [address] [place] [address]. All rights reserved. This information is not [...] injured area. Frequent bruising for unknown reasons [id number] [employer]. [address] [place] [address]. All rights reserved. This information is not intended as a substitute for professional medical care. Always follow [facility] professional's instructions. Follow Up Care 11/25/2021 19:17:50 With:ELHAM MUÑOZ DO Address: [facility] [address] [place] [address] [place] [address]- [phone] When:3-5 days [facility] department Discharge summary Discharge Instructions Thank you for allowing [facility] to assist you with your healthcare needs. [...] MUÑOZ DO When Within 3-5 days Where: [facility] [address] [place] [address] [place] [phone]- [phone] Allergies fentanyl (CHEST PAIN, COLD CLAMMY) Tape (rash) Medications Please ask your primary doctor or pharmacist before taking any other medication not listed, including over the counter drugs, herbal medications, vitamins and or supplements as they may interact withyour home medications. What How Much When Why Instructions Last Dose New acetaminophen-hydrocodone ([place] 325- 5 mg oral tablet) 1 tab(s) [...] the ears or bruising around the eyes [id number] [employer]. [address] [place] [address], [place] [id number]. All rights reserved. This information is not [...] by your healthcare provider Wound edges reopen [id number] [employer]. [address] [place] [address]. All rights reserved. This information is not [...] injured area. Frequent bruising for unknown reasons [id number] [employer]. [address] [place] [address]. All rights reserved. This information is not intended as a substitute for professional medical care. Always follow yourhealthcare professional's instructions. Additional Information VACCINATE! IT SAVES LIVES! Members of the community who have not yet received the COVID-19 vaccine and would like to receive it can visit one of [facility] vaccine clinics. There are many vaccine clinic locations within the [facility]. For locations and available times, please visit [email or web address]. It is important to note that some COVID mobile vaccine clinics are held outdoors and may be canceled in rainy orstormy conditions. To learn more about pediatric vaccinations (ages 5-11), we invite you to visit the [facility] webpage. [email or web address] learn more about the COVID-19 vaccine, we invite you to visit the [facility] website for a list of frequently asked questions. [email or web address] [facility] Patient Portal Access Instructions: Stay connected with your healthcare team and access your personal medical information anytime with the [facility] Patient Portal. If you would like a full copy of your medical records please contact the [facility] Medical Records Department Tuesday through Tuesday between 8a.m. and 4:30p.m. Please follow the directions below to access the portal: 1.Access the email account you provided upon registration to the [facility].2.Look for an invitation email from [facility].3.Open the email and access the invitation link: Accept Invitation to [facility]4.Fill in the required kyle to create your account. Sign into www.[email or web address] with your username and password that you [...] you will allow to register on the [facility] Patient Portal for access to your information. You can also access the [facility] Patient Portal on the [employer]. Simply click on Health Records under [employer] and then click on the [employer] logo. HOW TO SAFELY DISPOSE OF PRESCRIPTION [...] Call your local pharmacy or go to [email or web address] to find one close to you.3.Make use of household items: Use cat litter or old coffee grounds to dispose medications if other options arenot available. Mix your drugs with these household products, seal them in an airtight container andthrow it into the garbage. Call [facility]: [phone] to be sure your drugs can be [...] been reviewed and explained to me and I,MOMO RADHA M understand my current condition and have read and understand these discharge instructions. I have received a written copy of the plan/instructions. If I have questions, I am aware that I should contact my d octor. Patient/Manager Card Signature: Date/Time: Relationship to Patient: Witness Name/Signature: Date/Time: [facility]06-29-2022 Note ORIGINAL EXAMINATION: 2 XRAY [...] Sign Date: 11/25/2021 8:46:22 PM Ordering Provider: [address]29-2022 Note ORIGINAL EXAMINATION: THREE XRAY VIEWS OF THE RIGHT KNEE11/25/2021 8:19 pm COMPARISON: None HISTORY: ORDERING SYSTEM PROVIDED HISTORY: Reason for Exam: Pain FINDINGS: There is prepatellar soft tissue swelling. There are aplc-wy-vazgsplc degenerative changes. Chondrocalcinosis is seen of the [...] Sign Date: 11/25/2021 8:38:07 PM Ordering Provider: [facility]06-29-2022 Note ORIGINAL EXAMINATION: CT OF THE HEAD [...] Sign Date: 11/25/2021 8:36:21 PM Ordering Provider: [facility]06-29-2022 Note ORIGINAL EXAMINATION: 2 XRAY VIEWS [...] Sign Date: 11/25/2021 8:46:22 PM Ordering Provider: [place] [address]-29-2022 Note ORIGINAL EXAMINATION: THREE XRAY VIEWS OF THE RIGHT KNEE11/25/2021 8:19 pm COMPARISON: None HISTORY: ORDERING SYSTEM PROVIDED HISTORY: Reason for Exam: Pain FINDINGS: There is prepatellar soft tissue swelling. There are ccgf-yf-ftlzazir degenerative changes. Chondrocalcinosis is seen of the [...] Sign Date: 11/25/2021 8:38:07 PM Ordering Provider: [facility]06-29-2022 Note ORIGINAL EXAMINATION: CT OF THE [...] Sign Date: 11/25/2021 8:36:21 PM Ordering Provider: [facility]04-05-2022 Miscellaneous Notes* Telephone Encounter - Seb Du Research Coordinator - 09/01/2021 9:09 AM EDT IRB [id number]. [facility] Brain Study (CCBS) Cook Vacuum Kettle: Mar Chavez MD, , Alec Jeronimo, PhD, , Alberto Ralph MD, Modeling Director: Darron Zavala and Email:[email or web address] Spoke with Radha Barr to follow up about the [facility] Brain Study (CCBS): Biomarkers and Predictors of Neurological Disorders IRB [id number]. [employer] Research Sana scheduled Radha Barr for study on 01/19/2022 at 4:30 pm. Malik Dennis [facility] Miscellaneous Notes* Telephone Encounter - Malik Dennis Coordinator - 08/31/2021 11:49 AM EDT IRB [id number]. [facility] Brain Study (CCBS) [employer] Kettle: Mar Chavez MD, , Alec Jeronimo, PhD, , Alberto Ralph MD, Modeling Director: Darron Zavala and Email:[email or web address] Left voicemail message to introduce the [facility] Brain Study (CCBS). Provided phone number,[phone], for Radha Mary Quinnmaciej to contact Seb Du Research Coordinator, to further discuss thestudy. Seb Du Research Coordinator [facility]03-28-2022 Miscellaneous Notes* Telephone Encounter - Malik Dennis Coordinator - 08/24/2021 12:55 PM EDT IRB [id number]. [facility] Brain Study (CCBS) [employer] K[employer]: Mar Chavez MD, , Alec Jeronimo, PhD, , Alberto Ralph MD, Modeling Director: Darron Zavala and Email:[email or web address] Left voicemail message to introduce the [facility] Brain Study (CCBS). Provided phone number,[phone], for Radha Barr to contact Seb Du Research Coordinator, to further discuss thestudy. Seb Du Research Coordinator documented [facility]07-23-2020 Evaluation note* Diagnosis Onset Date Resolution Status History of recent fall acute Pain and swelling of right knee acute Essential hypertension chron ic History of coronary artery stent placement December 20, 2019 chronic Left bundle branch block (LBBB) chronic Atypical chest pain acute Health care maintenance acut e Difficulty swallowing solids chronic Essential hypertension chron ic [facility] Work Phone: 1(312) 184-285207-23-2020 Evaluation note* Diagnosis Onset Date Resolution Status Essential hypertension chron ic History of coronary artery stent placement December 20, 2019 chronic Left bundle branch block (LBBB) chronic Atypical chest pain acute Health care maintenance acut e Difficulty swallowing solids chronic Essential hypertension chron ic [facility] Work Phone: 1(256) 397-945307-23-2020 Evaluation note* Diagnosis Onset Date Resolution Status Essential hypertension chron ic History of coronary artery stent placement December 20, 2019 chronic Left bundle branch block (LBBB) chronic [facility] Work Phone: 1(798) 999-916407-23-2020 Evaluation note* Diagnosis Onset Date Resolution Status Essential hypertension chron ic History of coronary artery stent placement December 20, 2019 chronic Left bundle branch block (LBBB) chronic UTI (urinary tract infection) acute [facility] Work Phone: 1(725) 195-988107-23-2020 Evaluation note* Diagnosis Onset Date Resolution Status Essential hypertension chron ic History of coronary artery stent placement December 20, 2019 chronic Left bundle branch block (LBBB) chronic Difficulty swallowing solids chronic Essential hypertension chron ic Left hip pain chronic Tremor chronic [facility] Work Phone: 1(653) 969-144709-18-2008 History of Past illness Narrative* Problem Noted [...] of this encounter (statuses as of 08/24/2021) [facility] Narrative* Problem Noted [...] of this encounter (statuses as of 08/31/2021) [facility] Narrative* Problem Noted [...] of this encounter (statuses as of 09/01/2021) [facility] Narrative* Problem Noted [...] of this encounter (statuses as of 01/11/2022) [facility] Narrative* Problem Noted [...] of this encounter (statuses as of 01/20/2022) [facility] Narrative* Problem Noted [...] of this encounter (statuses as of 01/20/2022) [facility] Narrative* Problem Noted [...] of this encounter (statuses as of 03/23/2022) [facility] Narrative* Problem Noted [...] of this encounter (statuses as of 04/05/2022) [facility] Narrative* Problem Noted [...] of this encounter (statuses as of 04/12/2022) [facility] Narrative* Problem Noted [...] of this encounter (statuses as of 12/14/2022) [facility] Narrative* Problem Noted [...] of this encounter (statuses as of 01/12/2023) [facility] Narrative* Problem Noted [...] of this encounter (statuses as of 01/21/2023) [facility] Narrative* Problem Noted [...] of this encounter (statuses as of 01/21/2023) [facility] No data available for this section [facility] Evaluation note* Diagnosis Examination of participant in clinical trial- Primary documented in this encounter [facility] note* Diagnosis Onset Date Resolution Status Atypical chest pain acute Health care maintenance acut e Difficulty swallowing solids chronic Essential hypertension chron [facility] Work Phone: Evaluation note* Diagnosis Examination of participant in clinical trial- Primary documented in this encounter [facility] note* Diagnosis Onset Date Resolution Status Difficulty swallowing solids chronic Essential hypertension chron ic Left hip pain chronic Tremor chronic Thyroid nodule acute Health care maintenance acut e Thyroid nodule acute Essential hypertension chron ic Fecal incontinence chronic [facility] Work Phone: Evaluation note* Diagnosis Onset Date Resolution Status Thyroid nodule acute Health care maintenance acut e Thyroid nodule acute Essential hypertension chron ic Fecal incontinence chronic [facility] Work Phone: Evaluation note* Diagnosis Pre-operative examination- Primary Preoperative examination, unspecified Gastroesophageal reflux disease, esophagitis presence not specified Atherosclerosis of saxman coronary artery of saxman heart without angina pectoris Atrial tachycardia (HCC) [...] clinical trial- [facility]* Diagnosis Pre-operative examination- Primary Preoperative examination, unspecified Gastroesophageal reflux disease, esophagitis presence not specified Atherosclerosis of saxman coronary artery of saxman heart without angina pectoris Atrial tachycardia (HCC) [...] Abnormality of gait [facility]* Diagnosis Pre-operative examination- Primary Preoperative examination, unspecified Gastroesophageal reflux disease, esophagitis presence not specified Atherosclerosis of saxman coronary artery of saxman heart without angina pectoris Atrial tachycardia (HCC) [...] Abnormality of gait [facility]* Diagnosis Pre-operative examination- Primary Preoperative examination, unspecified Gastroesophageal reflux disease, esophagitis presence not specified Atherosclerosis of saxman coronary artery of saxman heart without angina pectoris Atrial tachycardia (HCC) [...] of gait documented in this encounter [facility] note* Diagnosis Pre-operative examination- Primary Preoperative examination, unspecified Gastroesophageal reflux disease, esophagitis presence not specified Atherosclerosis of saxman coronary artery of saxman heart without angina pectoris Atrial tachycardia (HCC) [...] clinical trial documented in this encounter [facility] note* Diagnosis Pre-operative examination- Primary Preoperative examination, unspecified Gastroesophageal reflux disease, esophagitis presence not specified Atherosclerosis of saxman coronary artery of saxman heart without angina pectoris Atrial tachycardia (HCC) [...] clinical trial- Primary [facility] Orders* Gastroenterology Location: None Selected [facility] Work Phone: Hospital Discharge instructionsAmbulatory Orders* Ears, Nose and Throat Location: None Selected [facility] Work Phone: Hospital Discharge instructions No data available for this section [facility] Progress note No data available for this section [facility] Reason for referral (narrative)No reason for referral information availableWCincinnati [facility] Work Phone: Summary Purpose Family History No Family History Records Found Relationship Condition Age at Onset Recorded Date/T matt father Hypertension Unknown sister Malignant neoplasm of breast Unknown Malignant neoplasm Unknown Hypertension Unknown brother Hypertension Unknown Advance Directives No Advanced Directives Records FoundDocuments on File Type Date Recorded Patient Manager Card Expl anation Advance Directive(s) 01/21/2020 7:24 AM Advance Directive Response Recorded Date/ Time Advance Directives Yes April 11:13am Living Will Yes May 16 11:13am Power of Paint Tinter Yes May 16, 2020 11:13am Advance Directive Response Recorded Date/ Time Advance Directives Yes April 10:13am Living Will Yes May 16, 020 10:13am Power of Paint Tinter Yes May 16, 2020 10:13am Advance Directive Response Recorded Date/ Time Advance Directives Yes January 24, 2023 11:01am Living Will Yes January 24 3 11:01am Power of Paint Tinter Yes January 24, 2 023 11:01am Advance Directive Response Recorded Date/ Time Advance Directives Yes January 24, 2023 10:01am Living Will Yes January 24 3 10:01am Power of Paint Tinter Yes January 24, 2 023 10:01am Advance Directive Response Recorded Date/ Time Living Will Yes January 24 3 11:01am Do you have a Healthcare Power of Paint Tinter? Yes January 24, 2023 11:01am Advance Directives Yes August 01 1:15pm Advance Directive Response Recorded Date/ Time Living Will Yes January 24 11:01am Do you have a Healthcare Power of Paint Tinter? Yes January 24, 2023 11:01am Advance Directives [...] Chief Complaint SCREENING Symptoms like before stent L.Mor EVALUATED CAD AND SYMPTOMS EVALUATED CAD AND [...] LT ARM DISCOMFORT, HX OF CAD, FATIGUE [facility] 2024 6:54am LT ARM DISCOMFORT, HX OF CAD, FATIGUE [facility] 2024 5:03pm Reason for Visit Admit Date Health care maintenance June 22 8:50am Essential hypertension June 22 8:50am GERD (gastroesophageal reflux disease) J anuary 2024 8:50am Tremor June 22, 2024 8 :50am Fatigue August 03, 2024 9:19 am Left arm pain August 03, 2024 9:19 am Atherosclerosis of coronary artery of saxman heart without angina pectoris August 03, 2024 [...] LT ARM DISCOMFORT, HX OF CAD, FATIGUE [facility] 2024 6:54am LT ARM DISCOMFORT, HX OF CAD, FATIGUE [facility] 2024 5:03pm L EAR PLUGGED September 04, 2024 8:55 am acute - fu from now clinic on lft ear [facility] 2024 11:17am 4 M FU October 15, 2024 9:20a m Reason for Visit Admit Date Health care maintenance June 22 8:50am Essential hypertension June 22 8:50am GERD (gastroesophageal reflux disease) J anuary 2024 8:50am Tremor June 22, 2024 8 :50am Fatigue August 03, 2024 9:19 am Left arm pain August 03, 2024 9:19 am Atherosclerosis of coronary artery of saxman heart without angina pectoris August 03, 2024 9:19am Essential hypertension August 03, 2024 9 :19am History of coronary artery stent placeme August 03, 2024 9:19am Left bundle branch block (LBBB) July 9:19am Eustachian tube dysfunction September 07, 2024 11:17am Chief Complaint Admit Date LT ARM DISCOMFORT, HX OF CAD, FATIGUE [facility] 2024 6:54am LT ARM DISCOMFORT, HX OF CAD, FATIGUE [facility] 2024 5:03pm L EAR PLUGGED September 04, 2024 8:55 am acute - fu from now clinic on lft ear Ap [facility] 2024 11:17am 4 M FU October 15, 2024 9:20a m 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 October 15, 2024 9:59am Amb Documentation October 17, 2024 9:26a m FU THYROID NODULE December 05, 2024 11:41 am Reason for Visit Admit Date Eustachian tube dysfunction September 07, 2024 11:17am Essential hypertension October 15, 2024 9: 20am GERD (gastroesophageal reflux disease) M ay 2024 9:20am Right knee pain October 15, [...] 2024 9: 20am GERD (gastroesophageal reflux disease) ay 2024 9:20am Right knee pain October 15, [...] M FU January 14, 2025 9: 05am EORDER- BMP January 14, 2025 10 :18am Reason for Visit Admit Date Essential hypertension October 15, 2024 9: 20am GERD (gastroesophageal reflux disease) ay 2024 9:20am Right knee pain October 15, 2024 9:20a m Tinnitus, left ear October 15, 2024 9:20a m Tremor October 15, 2024 9:20a m Phantosmia January 14, 2025 9: 05am Essential hypertension January 14, 2025 9:05am GERD (gastroesophageal reflux disease) A ugust 2024 9:05am Thyroid nodule January 14, 2025 9: 05am Tremor January 14, 2025 9: 05am Reason for Referral Specialty Diagnoses / Procedures Referred By Maria Isabel kathleen Referred To Contact Neurology Diagnoses Examination of participant in clinical trial Tremor Dyskinesia Gait abnormality Procedures CONSULT TO NEUROLOGY OFFICE/OUTPATIENT [facility] 60 MINUTES Suhas Stearns APRN.[employer] SUPER[employer]OR [address] [place] [address] Referral ID Status Reason Start Date Expiration Date Visits Requested Visits Authorized [id number] Authorized PCP Requested Referral 06/13/2024 06/13/2025 1 1 Additional Source Comments INFORMATION SOURCE (unrecogn ized section and content) DATE CREATED AUTHOR 01/24/2020 [facility] DATE CREATED AUTHOR AUTHOR'S ORGANIZ ATION 08/25/2020 [facility] DATE CREATED AUTHOR AUTHOR'S ORGANIZ ATION 11/28/2023 [facility] ([place]) DATE CREATED AUTHOR AUTHOR'S ORGANIZ ATION 12/08/2024 [facility] DATE CREATED AUTHOR AUTHOR'S ORGANIZ ATION 12/15/2024 [facility] DATE CREATED AUTHOR AUTHOR'S ORGANIZ ATION 01/21/2025 [facility] Source Comments (unrecognize d section and content) In the event this informatio n is protected by the Federal Confidentiality of Alcohol and Drug Abuse Patient Records regulations: The Federal rules restrict any use of the information to criminally investigate or prosecute any alcohol or drug abuse patient.[facility] HospitalIn the event this information is protected by the Federal Confidentiality of Alcohol and Drug Abuse Patient Records regulations: The Federal rules restrict any use of the information to criminally investigate or prosecute any alcohol or drug abuse patient.[facility] HospitalIn the event this information is protected by the Federal Confidentiality of Alcohol and Drug Abuse Patient Records regulations: The Federal rules restrict any use of the information to criminally investigate or prosecute any alcohol or drug abuse patient.[facility] HospitalIn the event this information is protected by the Federal Confidentiality of Alcohol and Drug Abuse Patient Records regulations: The Federal rules restrict any use of the information to criminally investigate or prosecute any alcohol or drug abuse patient.[facility] HospitalIn the event this information is protected by the Federal Confidentiality of Alcohol and Drug Abuse Patient Records regulations: The Federal rules restrict any use of the information to criminally investigate or prosecute any alcohol or drug abuse patient.[facility] HospitalIn the event this information is protected by the Federal Confidentiality of Alcohol and Drug Abuse Patient Records regulations: The Federal rules restrict any use of the information to criminally investigate or prosecute any alcohol or drug abuse patient.[facility] HospitalIn the event this information is protected by the Federal Confidentiality of Alcohol and Drug Abuse Patient Records regulations: The Federal rules restrict any use of the information to criminally investigate or prosecute any alcohol or drug abuse patient.[facility] HospitalIn the event this information is protected by the Federal Confidentiality of Alcohol and Drug Abuse Patient Records regulations: The Federal rules restrict any use of the information to criminally investigate or prosecute any alcohol or drug abuse patient.[facility] HospitalIn the event this information is protected by the Federal Confidentiality of Alcohol and Drug Abuse Patient Records regulations: The Federal rules restrict any use of the information to criminally investigate or prosecute any alcohol or drug abuse patient.[facility] HospitalIn the event this information is protected by the Federal Confidentiality of Alcohol and Drug Abuse Patient Records regulations: The Federal rules restrict any use of the information to criminally investigate or prosecute any alcohol or drug abuse patient.[facility] HospitalIn the event this information is protected by the Federal Confidentiality of Alcohol and Drug Abuse Patient Records regulations: The Federal rules restrict any use of the information to criminally investigate or prosecute any alcohol or drug abuse patient.[facility] HospitalIn the event this information is protected by the Federal Confidentiality of Alcohol and Drug Abuse Patient Records regulations: The Federal rules restrict any use of the information to criminally investigate or prosecute any alcohol or drug abuse patient.[facility] HospitalIn the event this information is protected by the Federal Confidentiality of Alcohol and Drug Abuse Patient Records regulations: The Federal rules restrict any use of the information to criminally investigate or prosecute any alcohol or drug abuse patient.[facility] HospitalIn the event this information is protected by the Federal Confidentiality of Alcohol and Drug Abuse Patient Records regulations: The Federal rules restrict any use of the information to criminally investigate or prosecute any alcohol or drug abuse patient.[facility] HospitalIn the event this information is protected by the Federal Confidentiality of Alcohol and Drug Abuse Patient Records regulations: The Federal rules restrict any use of the information to criminally investigate or prosecute any alcohol or drug abuse patient.[facility] HospitalIn the event this information is protected by the Federal Confidentiality of Alcohol and Drug Abuse Patient Records regulations: The Federal rules restrict any use of the information to criminally investigate or prosecute any alcohol or drug abuse patient.[facility] HospitalIn the event this information is protected by the Federal Confidentiality of Alcohol and Drug Abuse Patient Records regulations: The Federal rules restrict any use of the information to criminally investigate or prosecute any alcohol or drug abuse patient.[facility] HospitalIn the event this information is protected by the Federal Confidentiality of Alcohol and Drug Abuse Patient Records regulations: The Federal rules restrict any use of the information to criminally investigate or prosecute any alcohol or drug abuse patient.[facility] HospitalIn the event this information is protected by the Federal Confidentiality of Alcohol and Drug Abuse Patient Records regulations: The Federal rules restrict any use of the information to criminally investigate or prosecute any alcohol or drug abuse patient.[facility] HospitalIn the event this information is protected by the Federal Confidentiality of Alcohol and Drug Abuse Patient Records regulations: The Federal rules restrict any use of the information to criminally investigate or prosecute any alcohol or drug abuse patient.[facility] HospitalIn the event this information is protected by the Federal Confidentiality of Alcohol and Drug Abuse Patient Records regulations: The Federal rules restrict any use of the information to criminally investigate or prosecute any alcohol or drug abuse patient.[facility] HospitalIn the event this information is protected by the Federal Confidentiality of Alcohol and Drug Abuse Patient Records regulations: The Federal rules restrict any use of the information to criminally investigate or prosecute any alcohol or drug abuse patient.[facility] HospitalIn the event this information is protected by the Federal Confidentiality of Alcohol and Drug Abuse Patient Records regulations: The Federal rules restrict any use of the information to criminally investigate or prosecute any alcohol or drug abuse patient.[facility] HospitalIn the event this information is protected by the Federal Confidentiality of Alcohol and Drug Abuse Patient Records regulations: The Federal rules restrict any use of the information to criminally investigate or prosecute any alcohol or drug abuse patient.[facility] HospitalIn the event this information is protected by the Federal Confidentiality of Alcohol and Drug Abuse Patient Records regulations: The Federal rules restrict any use of the information to criminally investigate or prosecute any alcohol or drug abuse patient.[facility] HospitalIn the event this information is protected by the Federal Confidentiality of Alcohol and Drug Abuse Patient Records regulations: The Federal rules restrict any use of the information to criminally investigate or prosecute any alcohol or drug abuse patient.[facility] Reason for Visit (unrecogniz ed section and content) Reason Comments Returning Patient's Call IRB 21-834 Reason Comments Appointment IRB 21-834 Reason Comments Informed Consent [id number] Reason Comments Informed Consent IRB 21-834 Reason Comments Patient Update IRB [id number] Reason Comments Patient Update IRB 21-834 Reason Comments Returning Patient's Call IRB 21-834 Reason Comments Patient Update IRB [id number] Patient Question IRB 21-83 Reason Comments New Patient Specialty Diagnoses / Procedures Referred By Maria Isabel kathleen Referred To Contact Neurology Diagnoses Examination of participant in clinical trial Tremor Dyskinesia Gait abnormality Procedures CONSULT TO NEUROLOGY OFFICE/OUTPATIENT NEW HIGH MDM 60 MINUTES Suhas Stearns, PRICILA.[employer] [address] [place] [address] Phone: tel: fax: Referral ID Status Reason Start Date Expiration Date V isits Requested Visits Authorized [id number] Closed PCP Requested Referral 06/13/2024 06/13/2025 1 1 Reason Comments Informed Consent Irb 21-834 Care Teams (unrecognized sec tion and content) Team Status: Active Member Role Status Dates Dr. Pedro Wang MD Primary Care Provider Active Team Status: Inactive Member Role Status Dates Dr. Pedro Wang MD Primary Care Provider, Refer ring Provider Active Andrew Srinivasan COMMERCIAL LEASE ADMINISTRATOR, COMMERCIAL LEASE ADMINISTRATOR-C Attending Provider Active Team Status: Active Member Role Status Dates Dr. Pedro Wang MD Primary Care Provider Active Andrew Srinivasan COMMERCIAL LEASE ADMINISTRATOR, COMMERCIAL LEASE ADMINISTRATOR-C Referring Provider, Other Provide r Active Dr. Jean-Paul Delgado MD Attending Provider Active Team Status: Active Member Role Status Dates Dr. Pedro Wang MD Primary Care Provider Active Andrew Srinivasan COMMERCIAL LEASE ADMINISTRATOR, COMMERCIAL LEASE ADMINISTRATOR-C Attending Provider Active Team Status: Inactive Member Role Status Dates Dr. Pedro Wang MD Primary Care Provider, Refer ring Provider Active Jung HARRIS, PA Attending Provider Active Team Status: Inactive Member Role Status Dates Dr. Pedro Wang MD Primary Care Provider, Atten ding Provider Active Team Status: Inactive Member Role Status Dates Dr. Pedro Wang MD Primary Care Provider Active Andrew Srinivasan COMMERCIAL LEASE ADMINISTRATOR, COMMERCIAL LEASE ADMINISTRATOR-C Attending Provider, Referring Pro vider Active Team Status: Inactive Member Role Status Dates Dr. Pedro Wang MD Primary Care Provider Active Jung Lozada PA, PA Attending Provider Active Station Cashier Relationship Specialty Start Date End Date Pedro Wang MD [address] [place] [phone] PCP - General Internal Medicine 04/13/21 Station Cashier Relationship Specialty Start Date End Date Pedro Wang MD [address] [place] [phone] PCP - General Internal Medicine 04/13/21 Station Cashier Relationship Specialty Start Date End Date Pedro Wang MD [address] [place] [phone] PCP - General Internal Medicine 04/13/21 Team Status: Active Member Role Status Dates Dr. Pedro Wang MD Primary Care Provider, Refer ring Provider Active Dr. Jean-Paul Delgado MD Attending Provider Active Team Status: Inactive Member Role Status Dates Dr. Pedro Wang MD Primary Care P rovisherry, Attending Provider, Referring Provider Active Station Cashier Relationship Specialty Start Date End Date Pedro Wang MD [address] [place] [phone] PCP - General Internal Medicine 04/13/21 Station Cashier Relationship Specialty Start Date End Date Pedro Wang MD [address] [place] [address] (Fax) PCP - General Internal Medicine 04/13/21 Station Cashier Relationship Specialty Start Date End Date Pedro Wang MD [address] [place] [address] (Fax) PCP - General Internal Medicine 04/13/21 Team Status: Active Member Role Status Dates Dr. Pedro Wang MD Primary Care P rovider, Attending Provider, Referring Provider Active Team Status: [...] Primary Care Provider, Atten ding Provider Active Station Cashier Relationship Specialty Start Date End Date Pedro Wang MD [address] [place] [address] (Fax) PCP - General Internal Medicine 04/13/21 Station Cashier Relationship Specialty Start Date End Date Pedro Wang MD [address] [place] [address] (Fax) PCP - General Internal Medicine 04/13/21 Station Cashier Relationship Specialty Start Date End Date Pedro Wang MD [address] [place] [address] (Fax) PCP - General Internal Medicine 04/13/21 Station Cashier Relationship Specialty Start Date End Date Pedro Wang MD [address] [place] [address] PCP - General Internal Medicine 04/13/21 Station Cashier Relationship Specialty Start Date End Date Pedro Wang MD [address] [place] [address] PCP - General Internal Medicine 04/13/21 Station Cashier Relationship Specialty Start Date End Date Pedro Wagn MD [address] [place] [address] PCP - General Internal Medicine 04/13/21 Team [...] Provider Active S tart: August 17, 2024 Station Cashier Relationship Specialty Start Date End Date Pedro Wang MD [address] [facility] [address] [place] [phone] PCP - General Internal Medicine 04/13/21 Team [...] August 17, 2024 End: August 17, 2024 Pepejuana Tan PA Referring Provider Active St art: August 17, 2024 End: August 17, 2024 Team Status: Active Member Role/Relationship Status Dates Dr. Pedro Wang MD Primary Care Provider Active Start: August 17, 2024 KIMBERLY Mcclendon Referring Provider Active St art: August 17, 2024 Pepejuana Tan PA Other Provider Active Start: August 17, 2024 Dr. Jean-Paul Delgado MD Attending Provider Active S tart: August 17, 2024 Team Status: Inactive Member Role/Relationship Status Dates Dr. Pedro Wang MD Primary Care Provider Active Start: September 04, 2024 End: September 04, 2024 Dr. Pedro Wang MD Referring Provider Active Start: September 04, 2024 End: September 04, 2024 KIMBERLY Jamison Attending Provider Active Start: September 04, 2024 End: September 04, 2024 Team Status: Inactive Member Role/Relationship Status Dates Dr. Pedro Wang MD Primary Care Provider Active Start: September 07, 2024 End: September 07, 2024 Dr. Pedro Wang MD Referring Provider Active Start: September 07, 2024 End: September 07, 2024 KIMBERLY Dominguez Attending Provider Active St art: September 07, [...] December 05, 2024 End: December 05, 2024 Station Cashier Relationship Specialty Start Date End Date Pedro Wang MD [address] [facility] [address] [place] [address] PCP - General Internal Medicine 04/13/21 Team [...] January 14, 2025 End: January 14, 2025 Team Status: Inactive Member Role/Relationship Status Dates [...] Member Role: Primary Care Physician Address: Address: [facility] [address] [place], [place] [address] Care Team Related Persons Name: PHOEBE BARR Address: Home [address] [id number] Goals (unrecognized section and content) Goals may [...] BE BASED ON THE PRIMARY CLINICAL RECORDS. [employer] provides no warranty or guarantee of the accuracy or completeness of information in this document.
--- NOTE | 2025-02-02 11:52 | EX.ED.DYSGE1 ---
HPI History of Present Illness Chief Complaint: Lower Extremity Injury Narrative Narrative: Patient is a 74-year-old female who with past medical history of left bundle branch block, GERD, hiatal hernia who presents to the emergency department chief complaint of right calf pain. States that her calf has been bothering her for about 2 weeks now and has been progressively worsening. States that she has tried several stretches and [id number]-[id number] medications without any relief. States that her son is a physical therapist in [place] who came up yesterday and was going to work on her calf however notes that he was concerned that there may be a blood clot therefore she was advised to come to the emergency department for an ultrasound prompting her here today. Patient denies any history of blood clots denies any trauma, denies any recent travels. [facility] Medical History Phantosmia Right knee pain Tinnitus, left ear Chronic constipation Perkins esophagus Normal colonoscopy Pelvic floor dysfunction in female Fecal incontinence Thyroid nodule Neck swelling Tremor UTI (urinary tract infection) Health care maintenance Difficulty swallowing solids Atypical chest pain Left bundle branch block (LBBB) Essential hypertension History of open head injury History of recent fall Pain and swelling of right knee Difficulty swallowing Iliotibial band syndrome affecting left lower leg Right shoulder pain Left hip pain GERD (gastroesophageal reflux disease) Osteoarthritis GI problem History of skin cancer Arthritis Hiatal hernia Thoracic back pain Atherosclerosis of coronary artery of [place] without angina pectoris Atrial tachycardia Osteopenia Chronic neck pain with history of cervical spinal surgery History of chronic back pain Home Medications ?Medication ?Instructions ?Recorded ?Last Taken ?Type cholecalciferol (vitamin D3) 25 25 mcg PO DAILY 11/06/19 12/28/19 09:00 History mcg (1,000 unit) tablet 25 mcg aspirin 81 mg tablet,delayed 81 mg PO DAILY 12/18/19 05/16/20 History release (Adult Low Dose Aspirin) acetaminophen 650 mg 650 mg PO Q12H 03/05/20 Unknown History tablet,extended release (Tylenol Arthritis Pain) doxycycline hyclate 50 mg 50 mg PO QDAY 03/16/24 Unknown History tablet,delayed release pantoprazole 40 mg tablet,delayed 40 mg PO QDAY 03/16/24 Unknown History release atorvastatin 40 mg tablet 40 mg PO QHS #90 tabs 08/03/24 Unknown Rx carvedilol 6.25 mg tablet 6.25 mg PO BID #180 tabs 08/03/24 Unknown Rx losartan 100 mg tablet 100 mg PO QDAY #90 tabs 10/15/24 Unknown Rx meloxicam 7.5 mg tablet 7.5 mg PO QDAY PRN pain #30 tabs 10/16/24 Unknown Rx sennosides 8.6 mg-docusate sodium 4 tab-cap (4 x 8.6-50 mg) PO QDAY 01/14/25 Unknown Rx 50 mg tablet (Senexon-S) PRN constipation 3 months #120 tabs Allergy/AdvReac Type Severity Reaction Status Date / Time fentanyl Allergy Severe heart Verified 02/02/25 11:11 stopped lisinopril AdvReac Intermediate cough Verified 02/02/25 11:11 Family History Father Hypertension Sister Breast cancer Cancer skin Hypertension Brother Hypertension Surgical History History of left heart catheterization (LHC) (05/16/20) HISTORY OF MICRO DECROMPRESSION History of coronary artery stent placement (12/20/19) History of microdiscectomy History of ankle surgery History of hip surgery History of lumbar fusion History of fusion of cervical spine Social History Smoking Status: Never smoker alcohol intake: current Alcohol type: wine substance use type: does not use what type of physical activity do you participate in: walking and swimming frequency: daily ROS ROS ED ROS Narrative Constitutional: Denies any fevers, chills, Eyes: Denies double vision Cardiovascular: Denies chest pain Respiratory: Denies shortness of breath, coughing Neurological: Denies numbness, weakness, tingling Musculoskeletal: Complains of right calf pain as noted above Skin: Denies any rashes or lesions EXAM Physical Exam Narrative Exam Narrative: General: Patient is lying in bed rest comfortably did not appear to be in acute distress Head: Atraumatic, normocephalic Eyes: PERRL bilaterally, EOMI bilateral, no conjunctival injection noted Neck: Soft, supple, trachea midline Cardiovascular: Regular rate and rhythm Musculoskeletal: Compartments soft compressible patient has mild tenderness palpation in the posterior right calf negative Dsouza test Extremities: DP pulses +2/4 in the right lower extremity, +5/5 strength noted in the bilateral upper and lower extremities Neurological: Patient follow commands knew that she was at [facility] year is 2024 sensation grossly intact Skin: Warm, dry, tact no rashes or lesions noted Const Vital Signs: 02/02/25 11:10 Temperature 98.0 F Temperature Source Oral Pulse Rate 93 Respiratory Rate 16 Blood Pressure 179/76 H Blood Pressure Mean 110 Pulse Ox 97 Oxygen Delivery Method Room Air MDM MDM MDM Narrative Medical decision making narrative: Patient is a 74-year-old female who present to the emergency department chief complaint of right calf pain. On the differential diagnosis includes but limited to superficial venous thrombosis, DVT, musculoskeletal strain. Once workup is obtained reviewed she will be reevaluated. Patient DVT study was negative. Discussed results with patient she is advised to continue to rotate Tylenol ibuprofen o'clock and follow-up with orthopedics in outpatient setting. Advised her there is a chance that she has a calf tear causing her significant pain which will take time to heal on its own. She was encouraged return with worsening symptoms or any concerns. She is encouraged to follow-up with her doctor in the outpatient setting as well. She is agreeable to plan all course concerns answered she was discharged home in stable condition. Discharge Plan Triage Chief Complaint: Lower Extremity Injury ED Provider: Amilcar Abraham Dx/Rx/DC Orders Clinical Impression: Right calf pain, GERD (gastroesophageal reflux disease), Left bundle branch block (LBBB), Musculoskeletal strain Prescriptions: No Action cholecalciferol (vitamin D3) 25 mcg (1,000 unit) tablet 25 mcg PO DAILY aspirin [Adult Low Dose Aspirin] 81 mg tablet,delayed release (DR/EC) 81 mg PO DAILY acetaminophen [Tylenol Arthritis Pain] 650 mg tablet extended release 650 mg PO Q12H pantoprazole 40 mg tablet,delayed release (DR/EC) 40 mg PO QDAY doxycycline hyclate 50 mg tablet,delayed release (DR/EC) 50 mg PO QDAY losartan 100 mg tablet 100 mg PO QDAY Qty: 90 3RF carvedilol 6.25 mg tablet 6.25 mg PO BID Qty: 180 3RF Rx Instructions: must administer with a meal/food atorvastatin 40 mg tablet 40 mg PO QHS Qty: 90 3RF meloxicam 7.5 mg tablet 7.5 mg PO QDAY PRN (Reason: pain) Qty: 30 0RF Rx Instructions: Take daily for 5 to 7 days then just as needed. sennosides-docusate sodium [Senexon-S] 8.6-50 mg tablet 4 tab-cap PO QDAY PRN (Reason: constipation) 90 Days Qty: 120 3RF Primary Care Provider: Mando Wang Referrals: Mando Wang MD [Primary Care Provider] - Activity Restrictions/Additional Instructions: Your ultrasound did not show any evidence of blood clots. Continue supportive care as you are doing. Follow-up with orthopedics in the outpatient setting. Return with worsening symptoms or any concerns. Continue to rotate Tylenol and ibuprofen [id number] when you do this you can take something every 3 hours for pain max dose Tylenol in 24 hours 4000 mg max dose of ibuprofen in 24 hours 3200 mg. Print Language: Mohawk Disposition Disposition: Home, Self Care
[2025-02-02 13:04] VITALS: BP 153/86; PULSE 65; RESP 18; TEMP 36.8; O2SAT 96
== END 2025-02-02 13:05 | disposition home or self-care (01) ==
PROVIDERS: Emergency Provider Emergency Medicine; PCP Internal Medicine; Visit Provider Emergency Medicine
DX: S86.111A Strain of other muscle(s) and tendon(s) of posterior muscle group at lower leg level, right leg, initial encounter (principal); X58.XXXA Exposure to other specified factors, initial encounter; I44.7 Left bundle-branch block, unspecified; I25.10 Atherosclerotic heart disease of native coronary artery without angina pectoris; I10 Essential (primary) hypertension; K21.9 Gastro-esophageal reflux disease without esophagitis; Z79.82 Long term (current) use of aspirin; Z79.1 Long term (current) use of non-steroidal anti-inflammatories (NSAID); Z95.5 Presence of coronary angioplasty implant and graft
CPT/HCPCS: 93971; 99282

== ENCOUNTER → 2025-03-06 | Outpatient (CLI) | payer MEDICARE, SELFPAY | END | disposition home or self-care (01) | PROVIDERS: PCP Internal Medicine; Referring Provider Nurse Practitioner Family; Visit Provider Nurse Practitioner Family | DX: M25.561 Pain in right knee (principal) | CPT/HCPCS: 73721 ==